=== PATIENT | female | born 1960 | race Caucasian/White ===

== ENCOUNTER 2018-10-01 11:17 | Emergency (ER) | payer MEDICARE, SELFPAY ==
[2018-10-01] VITALS (8 sets, daily range): BP systolic 119–155; BP diastolic 57–97; PULSE 66–80; RESP 16–20; TEMP 36.6; O2SAT 94–98; BMI 41.6
[2018-10-01 12:05] LABS: Absolute Lymphocyte Count 2.45 X10^3/ul (0.83-4.51); Absolute Neutrophil Count 6.7 X10^3/uL (2.0-7.7); Basophil# 0.08 X10^3/uL; Basophil% 0.8 % (0-1); Eosinophil# 0.26 X10^3/uL; Eosinophils% 2.6 % (0-5); Hematocrit 44.9 % (37-47); Lymphocyte # 2.45 X10^3/ul (4.0); Mean Corp Hgb Conc 33.4 g/gl (32-36); Mean Corpuscular Hgb 31.8 pg (27.0-32.0); Mean Corpuscular Volume 95.3 fL (81-99); Monocyte# 0.62 X10^3/uL; Monocyte% 6.1 % (0-10); Neutrophil # 6.73 X10^3/uL (2.7-7.7); Platelet Count 301 K/mm3 (150-450); RBC Distribution Width SD 48.8 fl (35.1-43.9); Red Blood Count 4.71 M/mm3 (4.2-5.4); White Blood Count 10.2 K/mm3 (4.4-11.0)
[2018-10-01 12:05] LABS: Bedside Glucose 134 mg/dL (70-110)
[2018-10-01 12:06] LABS: POSITIVE COUNT NO; POSITIVE DIFFERENTIAL NO; POSITIVE MORPHOLOGY NO
[2018-10-01 12:23] LABS: Anion Gap 4 (5-15); BUN 12 mg/dL (7-18); BUN/Creat Ratio 15.2 RATIO (10-20); Calcium,Total 8.6 mg/dL (8.5-10.1); Chloride 107 mmol/L (98-107); Creatinine, Serum 0.79 mg/dL (0.55-1.02); EST Glomerular Filtration Rate 79 mL/min (>60); Est Glom Filt Rate - Afr Amer 95 mL/min (>60); Estimated Creatinine Clearance 71.78 ml/min; Glucose 129 mg/dL (74-106); Potassium 3.8 mmol/L (3.5-5.1); Sodium Level 139 mmol/L (136-145); Thyroid Stim Hormone (TSH) 0.96 uIU/mL (0.358-3.74)
[2018-10-01 12:29] LABS: Color, Urine Yellow (Yellow); Glucose, Dipstick 50 mg/dl (Normal); Ketone-Dipstick 5 mg/dl (Negative); Leukocyte Esterase-Dipstick 25 /ul (Negative); Nitrite-Dipstick Negative (Negative); Occult Blood-Urine Negative /ul (Negative); Protein-Dipstick 30 mg/dl (Negative); Specific Gravity, Urine 1.025 (1.002-1.030); Urine Clarity Sl. Cloudy (Clear); Urine Urobilinogen 4 mg/dl (Normal)
[2018-10-01 12:32] LABS: Urine Bilirubin Dipstick 1 mg/dL (Negative)
[2018-10-01 12:34] LABS: Alcohol, Blood (Medical)-Serum < 3.0 mg/dL
[2018-10-01 12:39] LABS: Mucous, Urine 1+ /hpf (<or=2+); Red Blood Cells-Urine 0-5 SEEN /hpf (0-5); Squamous Epithelial Cells - UA 5-10 SEEN /hpf (5-10); White Blood Cells 0-5 SEEN /hpf (0-5)
[2018-10-01 12:40] LABS: Bacteria 3+ /hpf (None Seen)
[2018-10-01 13:01] LABS: Amphetamine Urine VISTA NEGATIVE (<1000 ng/mL); Barbiturate Urine VISTA NEGATIVE (< 200 ng/mL); Benzodiazepine Urine VISTA NEGATIVE (< 200 ng/mL); Cocaine Urine VISTA NEGATIVE (< 300 ng/mL); Ecstacy Urine VISTA NEGATIVE (< 500 ng/mL); Methadone Urine VISTA NEGATIVE (< 300 ng/mL); PCP Urine VISTA NEGATIVE (< 25 ng/mL); THC Urine VISTA POSITIVE (< 50 ng/mL); Vista UDS pH Range 5
--- NOTE | 2018-10-01 13:50 | ED.RN ---
CALLED CRISIS TO REQUEST PATIENT TO BE EVALUATED
--- NOTE | 2018-10-01 13:53 | ED.VISSUMM ---
- ER Visit Summary Date of Service: 10/01/18 Chief Complaint: Paranoia and auditory hallucinations History of Present Illness: The patient is a [address] Rodney alcocer. She does not see a psychiatrist or counselor. She reports that she has a history of bipolar with schizophrenic tendencies and had not seen a psychiatrist for approximately 10 years because she was doing well. However, family and the patient reports that she has been having auditory hallucinations for the past 2 weeks and has been very paranoid. Patient also reports that she feels as though she has had racing thoughts over the same timeframe. She denies any suicidal ideation. Physical Examination: Vitals: Stable. Afebrile. General: Well-nourished and well-developed. Head: Normocephalic atraumatic. Neck: Supple, no lymphadenopathy. No JVD. Nontender. Cardiovascular: Regular rate and rhythm. No murmurs. Respiratory: No respiratory distress. Clear to auscultation bilaterally. Abdominal: Soft, nontender, nondistended, normal bowel sounds. No guarding, rebound, or peritoneal signs. Back: Nontender. Extremities: Nontender, no edema. Skin: Normal color, no rash. Neurologic: Alert and oriented ?3. Cranial nerves II through XII are intact. Normal strength and sensation. Mental status exam: Patient appears their stated age. Good posture and grooming. Good eye contact. Normal rate, volume, and latency of speech. No suicidal or homicidal ideation. No visual hallucinations. Flow of thought is logical. Insight and judgment is poor. Test Results: CBC is normal. Chem-7 shows a glucose of 129. UA is negative. Tox screen shows marijuana. Alcohol level is negative. Emergency Department Course and Treatment: Patient is resting comfortably without complaint. Treatment Plan: Patient was discussed with the counseling center. They are in the process of getting her transferred to a psychiatric facility. Disposition: Pending Impression: 1. Bipolar disorder. 2. Auditory hallucinations. This note was generated with VeriFoneation software. It may contain incorrect words, spelling, and punctuation that were not noted in review of the chart prior to signing ED Disposition - Plan for ED Patient: Referrals: Deedee White PA [Primary Care Provider] -
--- NOTE | 2018-10-01 14:02 | ED.DCSUM_ITS ---
- ER Visit Summary Date of Service: 10/01/18 Chief Complaint: Paranoia and auditory hallucinations History of Present Illness: The patient is a [address] Rodney alcocer. She does not see a psychiatrist or counselor. She reports that she has a history of bipolar with schizophrenic tendencies and had not seen a psychiatrist for approximately 10 years because she was doing well. However, family and the patient reports that she has been having auditory hallucinations for the past 2 weeks and has been very paranoid. Patient also reports that she feels as though she has had racing thoughts over the same timeframe. She denies any suicidal ideation. Physical Examination: Vitals: Stable. Afebrile. General: Well-nourished and well-developed. Head: Normocephalic atraumatic. Neck: Supple, no lymphadenopathy. No JVD. Nontender. Cardiovascular: Regular rate and rhythm. No murmurs. Respiratory: No respiratory distress. Clear to auscultation bilaterally. Abdominal: Soft, nontender, nondistended, normal bowel sounds. No guarding, rebound, or peritoneal signs. Back: Nontender. Extremities: Nontender, no edema. Skin: Normal color, no rash. Neurologic: Alert and oriented ?3. Cranial nerves II through XII are intact. Normal strength and sensation. Mental status exam: Patient appears their stated age. Good posture and grooming. Good eye contact. Normal rate, volume, and latency of speech. No suicidal or homicidal ideation. No visual hallucinations. Flow of thought is logical. Insight and judgment is poor. Test Results: CBC is normal. Chem-7 shows a glucose of 129. UA is negative. Tox screen shows marijuana. Alcohol level is negative. Emergency Department Course and Treatment: Patient is resting comfortably without complaint. Treatment Plan: Patient was discussed with the counseling center. They are in the process of getting her transferred to a psychiatric facility. Disposition: Pending Impression: 1. Bipolar disorder. 2. Auditory hallucinations. This note was generated with enymotionation software. It may contain incorrect words, spelling, and punctuation that were not noted in review of the chart p rior to signing ED Disposition - Plan for ED Patient: Referrals: Deedee White PA [Primary Care Provider] -
[2018-10-01 16:06] LABS: Bedside Glucose 174 mg/dL (70-110)
[2018-10-01 17:56] LABS: Bedside Glucose 272 mg/dL (70-110)
--- NOTE | 2018-10-01 18:01 | NURSING ---
REPORT CALLED TO LISA AT [facility]
[2018-10-01 19:01] LABS: Bedside Glucose 318 mg/dL (70-110)
[2018-10-01] MEDS: Insulin Lispro 100 UNIT/ML INSULN.PEN 25 UNIT SC (19:02)
--- NOTE | 2018-10-01 20:51 | ED.RN ---
CALLED AND SPOKE WITH RN AT [facility] WHO STATES SHE DID NOT RECIEVE REPORT. THIS RN READ THE TRANSFER PAPERWORK AND NURSING NOTES AND INFORMED HER ELVIRA RN GAVE REPORT TO AND LISA RN AT THEIR FACILITY. THE NURSE AT [facility] STATES SHE WILL INVESTIGATE FURTHER. THIS RN GAVE REPORT BASED ON CARE AT THIS FACILITY THAT WAS CHARTED, MEDICATIONS GIVEN AND LABWORK
== END 2018-10-01 19:08 ==
LOC: ED 11:41
PROVIDERS: Emergency Provider Emergency Medicine; Family Provider Physician Assistant; PCP Physician Assistant
DX: F31.9 Bipolar disorder, unspecified (principal); R44.0 Auditory hallucinations; Z86.73 Personal history of transient ischemic attack (TIA), and cerebral infarction without residual deficits; E11.9 Type 2 diabetes mellitus without complications; Z79.4 Long term (current) use of insulin; F17.210 Nicotine dependence, cigarettes, uncomplicated
CPT/HCPCS: 36415; 80048; 80307; 80320; 81001; 82962; 84443; 85025; 99283; G0480

== ENCOUNTER 2018-10-15 20:18 | Emergency (ER) | payer MEDICARE, SELFPAY ==
[2018-10-01 11:18] VITALS: BMI 41.6
[2018-10-15 20:19] VITALS: BP 145/63; PULSE 80; RESP 20; TEMP 37.4; O2SAT 95; BMI 38.0
--- NOTE | 2018-10-15 20:33 | EKG12_ITS ---
Test Reason : CP Blood Pressure : / mmHG Vent. Rate : 077 BPM Atrial Rate : 077 BPM P-R Int : 154 ms QRS Dur : 082 ms QT Int : 362 ms P-R-T Axes : 055 037 022 degrees QTc Int : 409 ms Normal sinus rhythm with sinus arrhythmia Low voltage QRS Borderline ECG Confirmed by DALILA FELTON ([id number]), art editor TERESITA LANG ([id number]) on 10/18/2018 6:12:51 AM Referred By: TL Confirmed By:DALILA FELTON
--- NOTE | 2018-10-15 20:36 | ED.RN ---
NO OLD EKGS IN MUSE
--- NOTE | 2018-10-15 20:38 | ED.DCSUM_ITS ---
History of Present Illness Chief Complaint: Chest Pain Informant: Patient, Family Narrative: Patient presents with family with palpitations for the past 5 days. Admitted to [facility] for 8 days and discharged on new medications. States worsening symptoms since being on new medicines. 1 was Remeron. States gets lightheaded. history of atrial fibrillation on diltiazem and Xarelto. Denies missed doses. Last symptoms were 15 hours ago lasting 3 hours. No recent cough or vomiting or diarrhea. No dyspnea. Currently symptoms resolved. Prior similar symptoms: Yes Past Medical History - Allergies and Home Meds Allergies/Adverse Reactions: Allergies Penicillins Allergy (Mild, Verified 10/01/18 11:23) Rash Primary Care Physician: Deedee White PA [Primary Care Provider] - Smoking Status: Current every day smoker Review of Systems General: Denies: Chills, Fever, Sweats Eyes: Denies: Visual changes - bilaterally, Diplopia ENT: Denies: Rhinorrhea, Sore throat Cardiovascular: Reports: Palpitations, Heart racing. Denies: Chest pain Respiratory: Denies: Dyspnea, Cough, Dyspnea on exertion Gastrointestinal: Denies: Abdominal pain, Nausea, Vomiting, Diarrhea, Melena, Hematochezia Genitourinary: Denies: Dysuria, Hematuria, Frequency Musculoskeletal: Denies: Back pain, Extremity Pain Skin: Denies: Rash, Wounds Neurological: Denies: Headache, Weakness, Numbness Physical Exam Vital Signs/Narrative: Vital Signs Temp Pulse Resp BP Pulse Ox 10/15/18 20:19 99.3 F H 80 20 H 145/63 H 95 Inital Vital Signs reviewed: Yes General: Well nourished, Well developed, No Acute Distress Head: Normocephalic, Atraumatic Eyes: Perrl, EOMI ENT: Moist mucous membranes, No rhinorrhea Neck: Supple, Nontender Cardiovascular: Regular rate, Regular rhythm, No murmurs Respiratory: No distress, CTA bilaterally, Chest nontender Abdomen: Soft, Nontender, Nondistended, Normal bowel sounds Back: Nontender, Normal Inspection Extremities: Nontender, Edema, - - Minimal lower extremity edema. Skin: Normal color, No rash Neurological: Alert, Oriented x3, Cranial nerves II-XII grossly intact, Normal Strength, Normal Sensation Psychological: Normal affect, Normal Mood Diagnostic/Tx/Re-eval Chest X-Ray - ED: 2 View, Read by Radiologist, No Acute Disease Abnormal Lab Results 10/15/18 10/15/18 10/15/18 20:38 20:38 20:46 WBC 11.7 H RBC 4.25 Hgb 13.6 Hct 41.1 MCV 96.7 MCH 32.0 MCHC 33.1 RDW 14.6 RDW Differential 51.4 H Plt Count 296 MPV 9.7 Immature Gran % (Auto) 0.100 Neut % (Auto) 68.4 Lymph % (Auto) 22.5 [place] % (Auto) 5.8 Eos % (Auto) 2.8 Baso % (Auto) 0.4 Absolute Neuts (auto) 8.0 H Absolute Lymphs (auto) 2.62 Total Counted Not Reportable Sodium 143 Potassium 3.4 L Chloride 108 H Carbon Dioxide 28.0 Anion Gap 7 BUN 13 Creatinine 0.90 Estim Creat Clear Calc 67.89 Est GFR (MDRD) Af Amer 82 Est GFR (MDRD) Non-Af 68 BUN/Creatinine Ratio 14.5 Glucose 144 H Calcium 8.9 Troponin I < 0.015 POC Glucose 145 H - EKG Initial EKG Interpretation: Sinus Rhythm - Sinus rate of 77, no ST or T wave changes. - Medical Decision Making History reports palpitations lightheaded symptoms lasting 3 hours. There is no chest pains. Concerns cardiac in nature cardiac work-up was negative. EKG was sinus rhythm. With her history of A. fib, discussed is also possibility that she could have went to transient atrial fibrillation causing her symptoms. She will be placed on a Holter monitor for evaluation. She will follow-up with her social worker Dr. Leon as scheduled in the upcoming week. Signs and symptoms discussed return. All questions were answered. ED Disposition - Plan for ED Patient: Disposition: Home or Assisted Living Diagnosis: Palpitations Instructions: ED Palpitations Referrals: Deedee White PA [Primary Care Provider] - Donnie Leon MD [STAFF PHYSICIAN] - Keep Brayan appointment Additional Instructions: Wear your Holter monitor as ordered. Follow-up with Dr. Leon.
--- NOTE | 2018-10-15 20:49 | RAD_ITS ---
STUDY: X-RAY CHEST REASON FOR EXAM: Female, 58 years old. Chest pain, shortness of breath, and weakness TECHNIQUE: PA and lateral views of the chest. COMPARISON: None. FINDINGS: pool hall inspector leads are present. The lungs are clear and expanded. There is no demonstrated pleural abnormality. Normal size heart. Normal mediastinum and ericka. Normal visualized pulmonary arteries. There are calcified plaques of the aortic arch. There are diffuse degenerative changes of the visualized thoracic spine. Normal visualized ribs, clavicles, and shoulders. There is no demonstrated abnormality of the visualized soft tissue structures of the upper abdomen. RAD/Chest PA and Lateral IMPRESSION: Degenerative changes of the thoracic spine. Calcified plaques of the aortic arch. No acute cardiopulmonary disease process is seen. Electronically Signed: Brando Tello MD at 21:09 EDT , Service support ,
[2018-10-15 20:50] LABS: Bedside Glucose 145 mg/dL (70-110)
[2018-10-15 20:50] LABS: Absolute Lymphocyte Count 2.62 X10^3/ul (0.83-4.51); Basophil# 0.05 X10^3/uL; Basophil% 0.4 % (0-1); Eosinophil# 0.33 X10^3/uL; Eosinophils% 2.8 % (0-5); Hematocrit 41.1 % (37-47); Hemoglobin 13.6 g/dl (12.0-15.0); Lymphocyte # 2.62 X10^3/ul (4.0); Lymphocyte % 22.5 % (19-41); Mean Corp Hgb Conc 33.1 g/gl (32-36); Mean Corpuscular Volume 96.7 fL (81-99); Mean Platelet Vol. 9.7 fl (6.2-12.0); Monocyte# 0.68 X10^3/uL; Monocyte% 5.8 % (0-10); Neutrophil # 7.97 X10^3/uL (2.7-7.7); Neutrophil % 68.4 % (47-70); Platelet Count 296 K/mm3 (150-450); RBC Distribution Width CV 14.6 % (11.6-14.6); RBC Distribution Width SD 51.4 fl (35.1-43.9); Red Blood Count 4.25 M/mm3 (4.2-5.4); White Blood Count 11.7 K/mm3 (4.4-11.0)
[2018-10-15 20:52] LABS: POSITIVE COUNT NO; POSITIVE DIFFERENTIAL NO; POSITIVE MORPHOLOGY NO
[2018-10-15 21:07] LABS: Anion Gap 7 (5-15); BUN 13 mg/dL (7-18); BUN/Creat Ratio 14.5 RATIO (10-20); Calcium,Total 8.9 mg/dL (8.5-10.1); Chloride 108 mmol/L (98-107); EST Glomerular Filtration Rate 68 mL/min (>60); Est Glom Filt Rate - Afr Amer 82 mL/min (>60); Estimated Creatinine Clearance 67.89 ml/min; Glucose 144 mg/dL (74-106); Potassium 3.4 mmol/L (3.5-5.1); Sodium Level 143 mmol/L (136-145)
[2018-10-15 22:10] VITALS: BP 157/64; PULSE 77; RESP 18; O2SAT 97
== END 2018-10-15 22:13 | disposition home or self-care (01) ==
PROVIDERS: Emergency Provider Emergency Medicine; Family Provider Physician Assistant; PCP Physician Assistant
DX: R00.2 Palpitations (principal); I48.91 Unspecified atrial fibrillation; Z79.01 Long term (current) use of anticoagulants; Z79.899 Other long term (current) drug therapy; F17.200 Nicotine dependence, unspecified, uncomplicated
CPT/HCPCS: 71046; 80048; 82962; 84484; 85025; 93005; 99284; A4216

== ENCOUNTER 2018-10-23 11:11 | Emergency (ER) | payer MEDICARE, SELFPAY ==
[2018-10-23 11:12] VITALS: BP 160/73; PULSE 75; RESP 16; TEMP 36.9; O2SAT 94; BMI 40.2
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
[2018-10-23 12:20] VITALS: BP 138/79; PULSE 82; RESP 15; O2SAT 96
--- NOTE | 2018-10-23 13:07 | ED.RN ---
PT WAS AMBULATING AROUND THE ER LOOKING FOR HER DAUGHTER. WHEN SHE PROCEEDED TO START WALKING INTO THE HALLWAY OF THE HOSPITAL I EXPLAINED THAT SHE WAS NOT GOING TO FIND HER DAUGHTER THERE AND THAT I HAD NOT SEEN HER DAUGHTER. PT STATED HER DAUGHTER WAS EITHER WAITING FOR HER IN THE WAITING ROOM OR IN THE DRIVEWAY. ASSISTED PT TO WAITING ROOM AND HER DAUGHTER WAS NOT THERE. PT THE STATED SHE WOULD WAIT OUTSIDE FOR HER. PT WAS SEATED ON THE BENCH WAITING AND I OFFERED HER A WATER. PT AGREED. WHEN I RETURNED WITH THE WATER PT HAD AMBULATED DOWN THE ER RAMP TOWARDS [facility]. THROUGHOUT THIS PROCESS PT REFUSED TO STAY AND STATED SHE WAS READY TO GO HOME. UNABLE TO CONVINCE HER TO WAIT ANY LONGER FOR HER DAUGHTER TO RETURN.
--- NOTE | 2018-10-23 13:16 | ED.RN ---
TALKED WITH DAUGHTER LALA AND NOTIFIED HER OF PT LEAVING AND EXPLAINED THE CIRCUMSTANCES LEADING UP TO IT. LALA WAS GETTING AHOLD OF THE OTHER DAUGHTER THAT HAD BROUGHT HER UP.
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
== END 2018-10-23 13:00 | disposition home or self-care (01) ==
LOC: ED 11:51
PROVIDERS: Emergency Provider Emergency Medicine; Family Provider Physician Assistant; PCP Physician Assistant
DX: F43.21 Adjustment disorder with depressed mood (principal); F17.200 Nicotine dependence, unspecified, uncomplicated; Z88.0 Allergy status to penicillin; E11.9 Type 2 diabetes mellitus without complications; G47.33 Obstructive sleep apnea (adult) (pediatric); G35 Multiple sclerosis; Z86.718 Personal history of other venous thrombosis and embolism; E78.5 Hyperlipidemia, unspecified; I48.2 Chronic atrial fibrillation; J45.909 Unspecified asthma, uncomplicated; I25.10 Atherosclerotic heart disease of native coronary artery without angina pectoris
CPT/HCPCS: 99283

== ENCOUNTER 2018-10-23 14:14 | Emergency (ER) | payer MEDICARE, SELFPAY ==
[2018-10-23 11:12] VITALS: BMI 40.2
[2018-10-23 14:14] VITALS: BP 173/70; PULSE 85; RESP 20; TEMP 37.1; O2SAT 90; BMI 39.3
[2018-10-23 14:41] LABS: Bedside Glucose 182 mg/dL (70-110)
--- NOTE | 2018-10-23 14:48 | ED.VIS.GEN ---
History of Present Illness Chief Complaint: Suicidal Informant: Search Engine Optimization Manager Onset: Today Context: Sudden Onset Timing: - - Unable to determine since patient will not speak Quality: Recent left prior to license social media job titles evaluation. Location: Sobbing on front lawn of unknown person Current Severity: - - Unable to determine Maximum Severity: - - Unable to determine Worsened by: Based on prior conversation daughter who is presently in the room Relieved by: Nothing Associated Symptoms: Patient will not interact with environment Narrative: Patient is a middle-age woman who has known psychiatric disorder who was initially seen by her primary care physician. She was sent for evaluation. Patient behavior initially was appropriate. She left because she did not want to wait till 1 PM to be seen by the license social media job titles. She was found sobbing on someone's front yard. Squad picked her up. She initially was talking. Apparently the daughter that she dislikes and wishes not to live with it is in the room and she will not speak now. She turns her head left to right. She does have a startle response. Prior similar symptoms: Yes - Prior ER visit resulting in psychiatric admission Recent Illness/Hospitalization: Yes - Past Medical History (1) Adjustment disorder with depressed mood Status: Acute (2) A-fib Status: Chronic (3) Atherosclerotic heart disease of [place] coronary artery without angina pectoris Status: Chronic Comment: Calcification of LAD noted on chest CT done (for asthma) 09/07/2016 (4) Chronic asthma Status: Chronic (5) HLD (hyperlipidemia) Status: Chronic (6) History of DVT (deep vein thrombosis) Status: Chronic (7) Multiple sclerosis Status: Chronic (8) MONCHO (obstructive sleep apnea) Status: Chronic (9) Type 2 diabetes mellitus Status: Chronic Past Medical History - Allergies and Home Meds Allergies/Adverse Reactions: Allergies Penicillins Allergy (Mild, Verified 10/23/18 11:18) Rash Primary Care Physician: Deedee White PA [Primary Care Provider] - Prior records reviewed: Yes Surgical History: noncontributory Lives: With Family Smoking Status: Never smoker Review of Systems ROS: Unable to Obtain - Patient will not speak Physical Exam Vital Signs/Narrative: Vital Signs Temp Pulse Resp BP Pulse Ox 10/23/18 14:14 98.8 F 85 20 H 173/70 H 90 Inital Vital Signs reviewed: Yes General: Well nourished, Well developed, Obese, No Acute Distress Head: Normocephalic, Atraumatic Eyes: Perrl, EOMI. Negative for: Pale conjunctiva, Scleral icterus ENT: Negative for: Moist mucous membranes, No rhinorrhea Neck: Supple, Nontender, No lymphadenopathy, No JVD Cardiovascular: Regular rate, Regular rhythm, No murmurs, Normal S1, Normal S2 Respiratory: No distress, CTA bilaterally, Chest nontender Abdomen: Soft, Nontender, Nondistended, Normal bowel sounds, No masses Back: Normal Inspection Extremities: Nontender, No edema Skin: Normal color, No rash, No Trauma. Negative for: Cyanosis, Diaphoresis, Jaundice Neurological: - - He will not speak with her nurse or me. Unable to assess Psychological: - - Unable to assess Diagnostic/Tx/Re-eval Laboratory Results 10/23/18 10/23/18 10/23/18 14:34 15:30 15:30 WBC 15.9 H RBC 4.66 Hgb 14.7 Hct 44.4 MCV 95.3 MCH 31.5 MCHC 33.1 RDW 14.6 RDW Differential 48.1 H Plt Count 368 MPV 9.9 Immature Gran % (Auto) 0.400 Neut % (Auto) 83.3 H Lymph % (Auto) 10.1 L [place] % (Auto) 5.2 Eos % (Auto) 0.7 Baso % (Auto) 0.3 Absolute Neuts (auto) 13.2 H Absolute Lymphs (auto) 1.60 Total Counted Not Reportable Sodium 138 Potassium 4.0 Chloride 107 Carbon Dioxide 26.0 Anion Gap 5 BUN 17 Creatinine 0.80 Estim Creat Clear Calc 76.38 Est GFR (MDRD) Af Amer 95 Est GFR (MDRD) Non-Af 78 BUN/Creatinine Ratio 21.3 H Glucose 185 H Calcium 9.0 Ethyl Alcohol POC Glucose 182 H 10/23/18 15:30 WBC RBC Hgb Hct MCV MCH MCHC RDW RDW Differential Plt Count MPV Immature Gran % (Auto) Neut % (Auto) Lymph % (Auto) [place] % (Auto) Eos % (Auto) Baso % (Auto) Absolute Neuts (auto) Absolute Lymphs (auto) Total Counted Sodium Potassium Chloride Carbon Dioxide Anion Gap BUN Creatinine Estim Creat Clear Calc Est GFR (MDRD) Af Amer Est GFR (MDRD) Non-Af BUN/Creatinine Ratio Glucose Calcium Ethyl Alcohol < 3.0 POC Glucose - Medical Decision Making Patient with problems with dealing with stress and anxiety and living situation. Will await license social media job titles assessment to determine if patient will require admission. Will obtain a CBC BMP to assess H&H electrolytes. She presently has no prodrome to suggest ingestion. Patient was reassessed at 1605. She remains nonverbal. She continues to turn her head to the right and left. She will not interact with the environment. Once labs have returned we will have mental health see patient for disposition. ED Disposition - Plan for ED Patient: Diagnosis: Adjustment disorder, Depression Referrals: Deedee White PA [Primary Care Provider] -
--- NOTE | 2018-10-23 14:52 | ED.DCSUM_ITS ---
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 Location: Sobbing on front lawn of unknown person Current Severity: - - Unable to determine Maximum Severity: - - Unable to determine Worsened by: Based on prior conversation daughter who is presently in the room Relieved by: Nothing Associated Symptoms: Patient will not interact with environment Narrative: Patient is a middle-age woman who has known psychiatric disorder who was initially seen by her primary care physician. She was sent for evaluation. Patient behavior initially was appropriate. She left because she did not want to wait till 1 PM to be seen by the license social organization professor. She was found sobbing on someone's front yard. Squad picked her up. She initially was talking. Apparently the daughter that she dislikes and wishes not to live with it is in the room and she will not speak now. She turns her head left to right. She does have a startle response. Prior similar symptoms: Yes - Prior ER visit resulting in psychiatric admission Recent Illness/Hospitalization: Yes - Past Medical History (1) Adjustment disorder with depressed mood Status: Acute (2) A-fib Status: Chronic (3) Atherosclerotic heart disease of [place] coronary artery without angina pectoris Status: Chronic Comment: Calcification of LAD noted on chest CT done (for asthma) 09/07/2016 (4) Chronic asthma Status: Chronic (5) HLD (hyperlipidemia) Status: Chronic (6) History of DVT (deep vein thrombosis) Status: Chronic (7) Multiple sclerosis Status: Chronic (8) MONCHO (obstructive sleep apnea) Status: Chronic (9) Type 2 diabetes mellitus Status: Chronic Past Medical History - Allergies and Home Meds Allergies/Adverse Reactions: Allergies Penicillins Allergy (Mild, Verified 10/23/18 11:18) Rash Primary Care Physician: Deedee White PA [Primary Care Provider] - Prior records reviewed: Yes Surgical History: noncontributory Lives: With Family Smoking Status: Never smoker Review of Systems ROS: Unable to Obtain - Patient will not speak Physical Exam Vital Signs/Narrative: Vital Signs Temp Pulse Resp BP Pulse Ox 10/23/18 14:14 98.8 F 85 20 H 173/70 H 90 Inital Vital Signs reviewed: Yes General: Well nourished, Well developed, Obese, No Acute Distress Head: Normocephalic, Atraumatic Eyes: Perrl, EOMI. Negative for: Pale conjunctiva, Scleral icterus ENT: Negative for: Moist mucous membranes, No rhinorrhea Neck: Supple, Nontender, No lymphadenopathy, No JVD Cardiovascular: Regular rate, Regular rhythm, No murmurs, Normal S1, Normal S2 Respiratory: No distress, CTA bilaterally, Chest nontender Abdomen: Soft, Nontender, Nondistended, Normal bowel sounds, No masses Back: Normal Inspection Extremities: Nontender, No edema Skin: Normal color, No rash, No Trauma. Negative for: Cyanosis, Diaphoresis, Jaundice Neurological: - - He will not speak with her nurse or me. Unable to assess Psychological: - - Unable to assess Diagnostic/Tx/Re-eval Laboratory Results 10/23/18 10/23/18 10/23/18 14:34 15:30 15:30 WBC 15.9 H RBC 4.66 Hgb 14.7 Hct 44.4 MCV 95.3 MCH 31.5 MCHC 33.1 RDW 14.6 RDW Differential 48.1 H Plt Count 368 MPV 9.9 Immature Gran % (Auto) 0.400 Neut % (Auto) 83.3 H Lymph % (Auto) 10.1 L Grady % (Auto) 5.2 Eos % (Auto) 0.7 Baso % (Auto) 0.3 Absolute Neuts (auto) 13.2 H Absolute Lymphs (auto) 1.60 Total Counted Not Reportable Sodium 138 Potassium 4.0 Chloride 107 Carbon Dioxide 26.0 Anion Gap 5 BUN 17 Creatinine 0.80 Estim Creat Clear Calc 76.38 Est GFR (MDRD) Af Amer 95 Est GFR (MDRD) Non-Af 78 BUN/Creatinine Ratio 21.3 H Glucose 185 H Calcium 9.0 Ethyl Alcohol POC Glucose 182 H 10/23/18 15:30 WBC RBC Hgb Hct MCV MCH MCHC RDW RDW Differential Plt Count MPV Immature Gran % (Auto) Neut % (Auto) Lymph % (Auto) Grady % (Auto) Eos % (Auto) Baso % (Auto) Absolute Neuts (auto) Absolute Lymphs (auto) Total Counted Sodium Potassium Chloride Carbon Dioxide Anion Gap BUN Creatinine Estim Creat Clear Calc Est GFR (MDRD) Af Amer Est GFR (MDRD) Non-Af BUN/Creatinine Ratio Glucose Calcium Ethyl Alcohol < 3.0 POC Glucose - Medical Decision Making Patient with problems with dealing with stress and anxiety and living situation. Will await license social organization professor assessment to determine if patient will r equire admission. Will obtain a CBC BMP to assess H&H electrolytes. She presently has no prodrome to suggest ingestion. Patient was reassessed at 1605. She remains nonverbal. She continues to turn her head to the right and left. She will not interact with the environment. Once labs have returned we will have mental health see patient for disposition. ED Disposition - Plan for ED Patient: Diagnosis: Adjustment disorder, Depression Referrals: Deedee White PA [Primary Care Provider] -
--- NOTE | 2018-10-23 14:57 | CM.ED ---
Social Work Consult for suicidal ideations/attempt. Collaborating with nursing and Dr. Grant. Attempted to speak with patient in room. Patient shaking head back and forth with eyes closed and not responding verbally to nursing staff, physician or patient daughter. Attempted to speak with patient in room without any other staff present or patient daughter. Patient continues to shake head and keeping eyes closed. Will continue to follow as possible. Patient currently with 1:1 supervision due to suicidal attempt (attempting to choke self when entering ED). Eduarda Lutz, AERIAL TRAM OPERATOR, ZAIDA
[2018-10-23 15:46] LABS: Absolute Neutrophil Count 13.2 X10^3/uL (2.0-7.7); Basophil# 0.04 X10^3/uL; Basophil% 0.3 % (0-1); Eosinophil# 0.11 X10^3/uL; Eosinophils% 0.7 % (0-5); Hematocrit 44.4 % (37-47); Hemoglobin 14.7 g/dl (12.0-15.0); Lymphocyte % 10.1 % (19-41); Mean Corp Hgb Conc 33.1 g/gl (32-36); Mean Corpuscular Hgb 31.5 pg (27.0-32.0); Mean Corpuscular Volume 95.3 fL (81-99); Mean Platelet Vol. 9.9 fl (6.2-12.0); Monocyte# 0.82 X10^3/uL; Monocyte% 5.2 % (0-10); Neutrophil # 13.22 X10^3/uL (2.7-7.7); Neutrophil % 83.3 % (47-70); Platelet Count 368 K/mm3 (150-450); RBC Distribution Width CV 14.6 % (11.6-14.6); RBC Distribution Width SD 48.1 fl (35.1-43.9); Red Blood Count 4.66 M/mm3 (4.2-5.4); White Blood Count 15.9 K/mm3 (4.4-11.0)
[2018-10-23 15:52] LABS: POSITIVE COUNT NO; POSITIVE DIFFERENTIAL NO; POSITIVE MORPHOLOGY NO
[2018-10-23 15:58] LABS: Anion Gap 5 (5-15); BUN 17 mg/dL (7-18); BUN/Creat Ratio 21.3 RATIO (10-20); Chloride 107 mmol/L (98-107); EST Glomerular Filtration Rate 78 mL/min (>60); Est Glom Filt Rate - Afr Amer 95 mL/min (>60); Estimated Creatinine Clearance 76.38 ml/min; Glucose 185 mg/dL (74-106); Sodium Level 138 mmol/L (136-145)
[2018-10-23 16:19] LABS: Alcohol, Blood (Medical)-Serum < 3.0 mg/dL
--- NOTE | 2018-10-23 16:37 | CM.ED ---
Social Work Attempting to speak with patient again in room. Patient continues to be non-verbal with this licensed master social worker and others. Patient daughter, Joselyn present and patient is responding with more head nods with Joselyn but continues to be non-verbal. Joselyn reporting that patient was in an inpatient psychiatric facility two weeks ago and that patient has been doing well since discharge to the community until now. Patient open to drinking glass of water from Joselyn but continues to have no verbal response. Patient appearing to become agitated when Joselyn was talking further about patient mental health and living situation. This licensed master social worker discontinued questioning at this time. This licensed master social worker collaborating with Dr. Grant. Dr. Grant initiating referral to crisis at this time. Eduarda Lutz KNOCKER OUT, ZAIDA
[2018-10-23] MEDS: Ibuprofen 200 MG Tablet 400 MG PO (19:42)
[2018-10-23] MEDS: Ziprasidone IM 20 MG/ML VIAL IM (19:43)
--- NOTE | 2018-10-23 20:09 | ED.RN ---
BRANDON FROM [facility] IS IN THE DEPARTMENT. SHE IS EVALUATING THIS PT.
[2018-10-23 20:32] VITALS: RESP 14
[2018-10-23 20:52] LABS: Amphetamine Urine VISTA NEGATIVE (<1000 ng/mL); Barbiturate Urine VISTA NEGATIVE (< 200 ng/mL); Benzodiazepine Urine VISTA NEGATIVE (< 200 ng/mL); Cocaine Urine VISTA NEGATIVE (< 300 ng/mL); Ecstacy Urine VISTA NEGATIVE (< 500 ng/mL); Methadone Urine VISTA NEGATIVE (< 300 ng/mL); PCP Urine VISTA NEGATIVE (< 25 ng/mL); THC Urine VISTA NEGATIVE (< 50 ng/mL); Vista UDS pH Range 5
[2018-10-23 23:00] VITALS: BP 128/60; PULSE 71; RESP 19; O2SAT 95
[2018-10-23 23:55] LABS: Red Blood Cells-Urine 0 SEEN /hpf (0-5); White Blood Cells 0 SEEN /hpf (0-5)
[2018-10-23 23:56] LABS: Color, Urine Yellow (Yellow); Glucose, Dipstick Normal (Normal); Ketone-Dipstick 50 mg/dl (Negative); Leukocyte Esterase-Dipstick Negative /ul (Negative); Nitrite-Dipstick Negative (Negative); Occult Blood-Urine Negative /ul (Negative); Protein-Dipstick 30 mg/dl (Negative); Specific Gravity, Urine 1.015 (1.002-1.030); Urine Bilirubin Dipstick Negative (Negative); Urine Clarity Clear (Clear); Urine Urobilinogen Normal (Normal)
[2018-10-24] VITALS (8 sets, daily range): BP systolic 114–153; BP diastolic 45–70; PULSE 57–75; RESP 14–20; TEMP 36.5; O2SAT 92–96
[2018-10-24 00:04] LABS: Bacteria RARE /hpf (None Seen); Mucous, Urine RARE /hpf (<or=2+); Squamous Epithelial Cells - UA 0-5 SEEN /hpf (5-10)
[2018-10-24 01:11] LABS: Bedside Glucose 254 mg/dL (70-110)
--- NOTE | 2018-10-24 07:11 | ED.RN ---
EMILEE BOYER WITH [facility]ISIS; SHE HAS FOUND THE PAPERWORK FOR THE PT; PT HAS BEEN REFERRED TO [facility]
--- NOTE | 2018-10-24 07:25 | ED.RN ---
PER MERLIN WITH CRISIS; [facility] WANTS THE [facility] FAXED TO THEM THEY DID NOT RECEIVE IT
[2018-10-24 09:16] LABS: Bedside Glucose 359 mg/dL (70-110)
[2018-10-24] MEDS: Clindamycin HCl 150 MG Capsule PO (09:53)
[2018-10-24] MEDS: Insulin Lispro 100 UNIT/ML INSULN.PEN 25 UNIT SC ×2 (09:53→11:50)
[2018-10-24] MEDS: DULoxetine Hcl 60 MG Capsule PO (11:50)
[2018-10-24 12:00] LABS: Bedside Glucose 253 mg/dL (70-110)
== END 2018-10-24 12:47 ==
PROVIDERS: Emergency Medicine; Emergency Provider Emergency Medicine; Family Provider Physician Assistant; PCP Physician Assistant
DX: F43.21 Adjustment disorder with depressed mood (principal); E11.9 Type 2 diabetes mellitus without complications; G47.33 Obstructive sleep apnea (adult) (pediatric); G35 Multiple sclerosis; E78.5 Hyperlipidemia, unspecified; J45.909 Unspecified asthma, uncomplicated; I25.10 Atherosclerotic heart disease of native coronary artery without angina pectoris; I48.91 Unspecified atrial fibrillation; Z88.0 Allergy status to penicillin; Z86.718 Personal history of other venous thrombosis and embolism
CPT/HCPCS: 36415; 80048; 80307; 80320; 81001; 82962; 85025; 96372; 99283; 99285; G0480; J3486

== ENCOUNTER → 2020-02-03 | Outpatient (CLI) | payer MEDICARE, MEDICAID, SELFPAY ==
[2020-02-03 16:19] VITALS: BMI 39.5
[2020-02-03 18:33] LABS: Microalbumin,Random Urine 44.4 mg/L (NO RANGE EST.); Microalbumin:Creatinine Ratio 48.5 mg/g CRE (<30 mg/g CRE)
[2020-02-03 18:35] LABS: ALB/GLOB Ratio 0.8 RATIO (0.9-2.4); AST(SGOT) 11 U/L (15-37); Alanine Aminotransfer ALT/SGPT 19 U/L (13-56); Albumin, Serum 3.5 g/dL (3.2-5.0); Alkaline Phosphatase 142 U/L (45-117); Anion Gap 7 (5-15); BUN 15 mg/dL (7-18); BUN/Creat Ratio 17.1 RATIO (10-20); Chloride 102 mmol/L (98-107); Cholesterol 135 mg/dL (200); Creatinine, Serum 0.88 mg/dL (0.55-1.02); EST Glomerular Filtration Rate 70 mL/min (>60); Est Glom Filt Rate - Afr Amer 84 mL/min (>60); Globulin 4.4 g/dL (2.2-4.2); Glucose 217 mg/dL (74-106); High Density Lipoprotein 79 mg/dL; Potassium 4.3 mmol/L (3.5-5.1); Protein, Total 7.9 g/dL (6.4-8.2); Sodium Level 140 mmol/L (136-145); Triglycerides 103 mg/dL; Very Low Density Lipoprotein 21 mg/dL (5-40)
[2020-02-03 18:37] LABS: Vitamin D,25 Hydroxy 44.8 ng/mL
== END | disposition home or self-care (01) ==
PROVIDERS: PCP Family Medicine; Referring Provider Internal Medicine Endocrinology, Diabetes & Metabolism; Visit Provider Internal Medicine Endocrinology, Diabetes & Metabolism
DX: E11.9 Type 2 diabetes mellitus without complications (principal); E55.9 Vitamin D deficiency, unspecified; E78.2 Mixed hyperlipidemia
CPT/HCPCS: 36415; 80053; 80061; 82043; 82306; 82570

== ENCOUNTER → 2021-04-04 13:02 | Outpatient (CLI) | payer MEDICARE, MEDICAID, SELFPAY ==
--- NOTE | 2021-04-04 13:03 | MRI_ITS ---
STUDY: MRI BRAIN WITH AND WITHOUT CONTRAST REASON FOR EXAM: Female, 61 years old. Tardive dyskinesia - TECHNIQUE: Standardized multiplanar fat and water weighted pulse sequences were obtained. 23CC IV DOTAREM was administered for the contrast portion of the examination. COMPARISON: None. FINDINGS: There is mild cerebral atrophy with widening of the extra-axial spaces and ventricular dilatation. There are multiple white matter hyperintensities, distributed throughout the deep white matter tracts of the cerebral hemispheres, consistent with moderate chronic white matter ischemic changes. There is prominent periventricular hyperintensity with volume loss and ex vacuo dilatation of the lateral ventricle/atrium, consistent with prior insult(s). Normal bilateral basal ganglia. Normal thalami. There is no extra-axial fluid accumulation. There is no enhancing intra-axial or extra-axial abnormality. Normal sella turcica, pituitary gland, infundibular stalk, optic chiasm and hypothalamus. Normal tectal plate and pineal gland. Normal midbrain, jolene and medulla. Normal cerebellum. MRI/Brain W/WO Contrast IMPRESSION: No acute intracranial abnormality or masses. Left periventricular encephalomalacia, likely secondary to prior infarcts. Electronically Signed: Pierre Hampton MD at 11:37 EST Tel , Service support ,
[2021-04-04 13:26] LABS: EGFR FINGERSTICK > 60.0000 mL/min (>60)
== END ==
PROVIDERS: PCP Family Medicine; Referring Provider Psychiatry & Neurology Neurology; Visit Provider Psychiatry & Neurology Neurology
DX: G24.01 Drug induced subacute dyskinesia (principal); Z86.73 Personal history of transient ischemic attack (TIA), and cerebral infarction without residual deficits
CPT/HCPCS: 70553; A9575

== ENCOUNTER 2022-04-28 10:22 | Inpatient (IN) | payer MEDICARE, MEDICAID, SELFPAY ==
[2022-04-28] VITALS (11 sets, daily range): BP systolic 97–126; BP diastolic 52–80; PULSE 62–98; RESP 17–18; TEMP 36.4–37.9; O2SAT 87–98; BMI 43.2; BMI 41.1
--- NOTE | 2022-04-28 10:41 | EKG12_ITS ---
Test Reason : SOB Blood Pressure : / mmHG Vent. Rate : 094 BPM Atrial Rate : 094 BPM P-R Int : 144 ms QRS Dur : 082 ms QT Int : 316 ms P-R-T Axes : 069 021 034 degrees QTc Int : 395 ms Normal sinus rhythm Normal ECG Confirmed by LILIYA ROLDAN MD ([id number]), multimedia editor INO BOWERS ([id number]) on 05/01/2022 1:01:37 PM Referred By: JOE Confirmed By:LILIYA ROLDAN MD
--- NOTE | 2022-04-28 10:41 | RAD_ITS ---
STUDY: X-RAY CHEST REASON FOR EXAM: Female, 62 years old. Cough, shortness of breath and fever. TECHNIQUE: Single AP portable view of the chest. COMPARISON: Comparison is made to prior study of 10/15/2018. FINDINGS: EKG electrodes are seen. The lungs are clear and expanded. There is no demonstrated pleural abnormality. Normal size heart. Normal mediastinum and ericka. Normal visualized pulmonary arteries. Normal visualized aortic arch and descending thoracic aorta. There are degenerative changes of the visualized thoracic spine. Prior cervical fusion. There is no demonstrated abnormality of the visualized soft tissue structures of the upper abdomen. RAD/Chest 1 View (Portable) IMPRESSION: Normal x-ray examination of the chest. Electronically Signed: Mikey Pace MD at 11:37 EST ,
--- NOTE | 2022-04-28 10:46 | EDS_ITS ---
HPI History of Present Illness Chief Complaint: Shortness of Breath Narrative Narrative: 62-year-old female presenting with fever, chills, body aches, nausea, generalized weakness. Apparently she was exposed to a home care worker who had tested positive for influenza A. She has been sick for 2 days. She is not vomiting but she does have decreased p.o. intake secondary to nausea. Family thought she was doing okay but this morning seemed a little bit foggy and lethargic. They also state her fever got as high as 104 ?F. They have been alternating Tylenol and ibuprofen but do admit that overnight they did not continue this. Patient does not have any chest pain but she does feel short of breath. She does have history of asthma. She is anticoagulated on Xarelto and she has history of atrial fibrillation and DVT. [facility] Medical History A-fib Arthritis Atherosclerotic heart disease of [place] coronary artery without angina pectoris Bipolar disorder Chronic asthma Contracture of muscle of right lower leg COPD (chronic obstructive pulmonary disease) CVA (cerebral vascular accident) Depression History of DVT (deep vein thrombosis) History of schizophrenia HLD (hyperlipidemia) Hypoglycemia unawareness associated with type 2 diabetes mellitus Multiple sclerosis Neuropathic pain Obesity MONCHO (obstructive sleep apnea) Paroxysmal atrial fibrillation Personal history of stroke with residual effects Psychophysiologic insomnia PTSD (post-traumatic stress disorder) Suicidal ideation (10/23/18) Tardive dyskinesia Tobacco abuse Type 2 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 Type 2 diabetes mellitus with unspecified diabetic retinopathy without macular edema Urinary incontinence in female Vaginal candidiasis Vitamin D deficiency Home Medications zolpidem 10 mg tablet (Ambien) 10 mg PO QHS 03/30/20 [History Last Taken 04/27/22] blood-glucose meter (Accu-Chek Guide Glucose Meter) #1 ea 02/22/21 [Rx Last Taken Unknown] blood sugar diagnostic (Accu-Chek Guide test strips) #100 ea 02/23/21 [Rx Last Taken Unknown] lancets (Accu-Chek Multiclix Lancet) #100 ea 02/23/21 [Rx Last Taken Unknown] brexpiprazole 1 mg tablet 1 mg PO DAILY 03/07/21 [History Last Taken 04/27/22] duloxetine 60 mg capsule,delayed release 60 mg PO DAILY 03/07/21 [History Last Taken 04/27/22] BD Ultra-Fine Mari Pen Needle 32 gauge x 5/32 (pen needle, diabetic) #120 ea 03/16/21 [Rx Last Taken Unknown] deutetrabenazine 12 mg tablet 24 mg PO BID 07/25/21 [History Last Taken 04/27] diltiazem HCl 180 mg capsule,24 hr,extended release 180 mg PO QDAY #90 caps 07/25/21 [Rx Last Taken 04/27/22] lisinopril 20 mg tablet 20 mg PO DAILY #90 tabs 07/25/21 [Rx Last Taken 04/27/22] rivaroxaban 20 mg tablet 20 mg PO QPM #90 tabs 07/25/21 [Rx Last Taken 04/27/22] Lantus Solostar U-100 Insulin 100 unit/mL (3 mL) subcutaneous pen (insulin glargine) 40 unit (0.4 mL) subcut QPM #36 mL 02/16/22 [Rx Last Taken 04/27/22] pen needle, diabetic 33 gauge x 5/32 (Comfort EZ Pen Arrington) #400 ea 02/16/22 [Rx Last Taken Unknown] insulin lispro 100 unit/mL subcutaneous pen (Humalog KwikPen (U-100) Insulin) 34 unit (0.34 mL) subcut TID #30 mL 02/22/22 [Rx Last Taken 04/27/22] rosuvastatin 20 mg tablet 20 mg PO DAILY #90 tabs 03/16/22 [Rx Last Taken 04/27/22] benztropine 1 mg tablet 1 mg PO BID #60 tabs 04/20/22 [Rx Last Taken 04/27/22] oxybutynin chloride 10 mg tablet,extended release 24 hr 10 mg PO DAILY BLADDER 04/28/22 [History Last Taken 04/27/22] Allergy/AdvReac Type Severity Reaction Status Date / Time mirtazapine [From Remeron] Allergy Intermediate agitation Verified 04/28/22 10:27 Penicillins Allergy Mild Rash Verified 04/28/22 10:27 Family History Mother Diabetes Heart disease Lung cancer CAD (coronary artery disease) CABG CVA (cerebral vascular accident) Daughter Diabetes Father Myocardial infarction Surgical History H/O bilateral cataract extraction History of back surgery Social History Smoking Status: Current every day smoker tobacco type: cigarettes Tobacco: How many years used: 35 Electronic Cigarette Use: not used how long ago did patient quit smoking: about 3 years ago second hand exposure: No alcohol intake: never substance use type: former substance user Date of last use: Used Marijuana in the past caffeine: Yes Type: coffee Number of servings: 1 delmy/adventism: Taoism seatbelt use: sometimes ROS ROS ED Constitutional Constitutional ED: Reports chills and fever(s) Eyes Eyes: Denies change in vision or diplopia ENT ENT ED: Reports sore throat; Denies rhinorrhea Cardiovascular Cardiovascular: Denies chest pain Respiratory/Chest Respiratory/Chest: Reports cough, dyspnea and dyspnea on exertion Gastrointestinal Gastrointestinal: Reports nausea; Denies abdominal pain or vomiting Genitourinary Genitourinary ED: Denies dysuria or hematuria Integumentary Denies Abrasions Neurologic Neurologic: Denies headache(s) or paresthesias Psychiatric Psychiatric: Denies anxiety or depression Endocrine Endocrinology: Denies cold intolerance or heat intolerance EXAM Physical Exam Const Vital Signs: 04/28/22 10:23 04/28/22 10:32 04/28/22 10:44 Temperature 100.2 F H 100.2 F H Temperature Source Temporal Temporal Pulse Rate 97 98 Respiratory Rate 17 18 Respiratory Effort Respiratory Depth Respiratory Pattern Blood Pressure 97/80 97/80 Blood Pressure Mean 85 85 Pulse Ox 95 93 Oxygen Delivery Method Room Air Nasal Cannula Nasal Cannula Oxygen Flow Rate (L/min) 4 04/28/22 11:04 04/28/22 10:41 04/28/22 12:22 Temperature Temperature Source Pulse Rate Respiratory Rate Respiratory Effort Short of Breath Labored Respiratory Depth Normal Respiratory Pattern Tachypnea Blood Pressure Blood Pressure Mean Pulse Ox 87 Oxygen Delivery Method Nasal Cannula Nasal Cannula Room Air Oxygen Flow Rate (L/min) 2 Positive well nourished and obese General Appearance ED: NAD; Negative for pallor Nutritional Appearance: obese HEENT Reports dry mucous membranes atraumatic Mouth ED: Yes dry mucous membranes Mouth: dry mucous membranes Eyes PERRL and EOMs intact bilaterally Neck no lymphadenopathy, supple and no meningeal signs Resp normal respiratory effort and clear to auscultation bilaterally Cardio regular rate and regular rhythm GI non-tender Back/Spine no CVA tenderness and normal to inspection Neuro oriented x3 and CN's II-XII intact bilaterally Sensorium / Orientation: alert, oriented to person and oriented to place Psych mental status grossly normal Skin no wounds and skin turgor normal General Skin Exam: Negative for jaundice or pallor MDM MDM MDM Narrative Medical decision making narrative: Patient presenting with generalized weakness and hypoxia. She does drop to 87% on room air without oxygen. She does not typically require oxygen. On examination she is not wheezing and her lungs are clear. I obtained an EKG which on my interpretation shows normal sinus rhythm with a ventricular rate of 94 bpm without signs of ischemic change or dysrhythmia. CBC shows a normal white blood count at 10.7. Hemoglobin stable at 14.1, platelets 222. Patient's BUN/creatinine are normal. Electrolytes unremarkable. Glucose is elevated at 182 without anion gap. Lactic acid within normal limits. Her enzymes are normal. Chest x-ray on my interpretation shows no acute cardiopulmonary process and radiologist agree. Rapid COVID and rapid influenza were negative. Patient is anticoagulated on Xarelto and therefore I have low clinical suspicion for PE. Since patient is hypoxic and unable to ambulate I think she would benefit from an inpatient care. Will discuss with the hospitalist. Impression: 1. Febrile illness 2. Hypoxic respiratory failure 3. Hyperglycemia Lab Data Attestation: I reviewed the patient's lab results. Labs: Laboratory Results - last 24 hr 04/28/22 04/28/22 04/28/22 10:30 10:30 10:30 WBC 10.7 RBC 4.59 Hgb 14.1 Hct 43.7 MCV 95.2 MCH 30.7 MCHC 32.3 RDW Std Deviation 49.2 H RDW Coeff of Elias 14.1 Plt Count 222 MPV 10.1 Immature Gran % (Auto) 0.400 Neut % (Auto) 81.9 H Lymph % (Auto) 9.0 L [place] % (Auto) 8.1 Eos % (Auto) 0.1 Baso % (Auto) 0.5 Absolute Neuts (auto) 8.8 H Absolute Lymphs (auto) 0.96 Nucleated RBC % 0 PT 18.6 H INR 1.6 APTT 42.2 H Sodium 134 L Potassium 3.9 Chloride 101 Carbon Dioxide 26.0 Anion Gap 7 BUN 18 Creatinine 0.86 Estim Creat Clear Calc 62.68 Est GFR (MDRD) Af Amer 86 Est GFR (MDRD) Non-Af 71 BUN/Creatinine Ratio 21.0 H Glucose 182 H Lactic Acid Calcium 7.9 L Total Bilirubin 0.40 AST 16 ALT 19 Alkaline Phosphatase 68 Troponin I High Sens 14 Total Protein 7.2 Albumin 3.1 L Globulin 4.1 Albumin/Globulin Ratio 0.8 L 04/28/22 11:20 WBC RBC Hgb Hct MCV MCH MCHC RDW Std Deviation RDW Coeff of Elias Plt Count MPV Immature Gran % (Auto) Neut % (Auto) Lymph % (Auto) [place] % (Auto) Eos % (Auto) Baso % (Auto) Absolute Neuts (auto) Absolute Lymphs (auto) Nucleated RBC % PT INR APTT Sodium Potassium Chloride Carbon Dioxide Anion Gap BUN Creatinine Estim Creat Clear Calc Est GFR (MDRD) Af Amer Est GFR (MDRD) Non-Af BUN/Creatinine Ratio Glucose Lactic Acid 0.7 Calcium Total Bilirubin AST ALT Alkaline Phosphatase Troponin I High Sens Total Protein Albumin Globulin Albumin/Globulin Ratio Radiography Diagnostic Testing: Clinical Impression(s) from Imaging Studies Chest X-Ray 04/28/22 10:41 IMPRESSION: Normal x-ray examination of the chest. Electronically Signed: Mikey Pace MD at 11:37 EST , Discharge Plan Triage Chief Complaint: Shortness of Breath ED Provider: Dario Gutiérrez Dx/Rx/DC Orders Prescriptions: No Action diltiazem HCl 180 mg capsule,extended release 24 hr 180 mg PO QDAY Qty: 90 3RF zolpidem [Ambien] 10 mg tablet 10 mg PO QHS duloxetine 60 mg capsule,delayed release(DR/EC) 60 mg PO DAILY deutetrabenazine 12 mg tablet 24 mg PO BID Rexulti 1 mg tablet 1 mg PO DAILY Lantus Solostar U-100 Insulin 100 unit/mL (3 mL) insulin pen 40 unit subcut QPM Qty: 36 3RF (DME) Comfort EZ Pen Arrington 33 gauge x 5/32 needle See Rx Instructions .ROUTE .MEDSUPPLY Qty: 400 3RF Rx Instructions: 4 times daily benztropine 1 mg tablet 1 mg PO BID Qty: 60 5RF oxybutynin chloride 10 mg tablet extended release 24hr 10 mg PO DAILY (DME) blood-glucose meter [Accu-Chek Guide Glucose Meter] Misc See Rx Instructions .ROUTE .MEDSUPPLY Qty: 1 0RF Rx Instructions: As directed (DME) Accu-Chek Guide test strips Strip See Rx Instructions .ROUTE .MEDSUPPLY Qty: 100 12RF Rx Instructions: TID (DME) lancets [Accu-Chek Multiclix Lancet] Misc See Rx Instructions .ROUTE .MEDSUPPLY Qty: 100 12RF Rx Instructions: TID (DME) pen needle, diabetic [BD Ultra-Fine Mari Pen Needle] 32 gauge x needle See Rx Instructions .ROUTE .MEDSUPPLY Qty: 120 6RF Rx Instructions: 4 times daily rivaroxaban 20 mg tablet 20 mg PO QPM Qty: 90 3RF Rx Instructions: ON HOLD FOR BIOPSY FOR Sunday05/01/22 lisinopril 20 mg tablet 20 mg PO DAILY Qty: 90 3RF insulin lispro [Humalog KwikPen Insulin] 100 unit/mL insulin pen 34 unit SC TID Qty: 30 3RF rosuvastatin 20 mg tablet 20 mg PO DAILY Qty: 90 1RF Primary Care Provider: Jered Howard Referrals: Jered Howard MD [Primary Care Provider] -
[2022-04-28 11:09] LABS: Absolute Lymphocyte Count 0.96 X10^3/uL (0.83-4.51); Absolute Neutrophil Count 8.8 X10^3/uL (2.0-7.7); Basophil# 0.05 X10^3/uL; Basophil% 0.5 % (0-1); Eosinophil# 0.01 X10^3/uL; Eosinophils% 0.1 % (0-5); Hematocrit 43.7 % (37-47); Hemoglobin 14.1 g/dL (12.0-15.0); Lymphocyte # 0.96 X10^3/ul (0.83-4.51); Mean Corp Hgb Conc 32.3 g/dL (32-36); Mean Corpuscular Hgb 30.7 pg (27.0-32.0); Mean Corpuscular Volume 95.2 fL (81-99); Mean Platelet Vol. 10.1 fl (6.2-12.0); Monocyte# 0.87 X10^3/uL; Monocyte% 8.1 % (0-10); NRBC Flagged by Analyzer 0 % (0-5); Neutrophil # 8.75 X10^3/uL (2.7-7.7); Neutrophil % 81.9 % (47-70); Platelet Count 222 K/mm3 (150-450); RBC Distribution Width CV 14.1 % (11.6-14.6); RBC Distribution Width SD 49.2 fl (35.1-43.9); Red Blood Count 4.59 M/mm3 (4.2-5.4); White Blood Count 10.7 K/mm3 (4.4-11.0)
[2022-04-28 11:18] LABS: International Normalized Ratio 1.6; Prothrombin Time (Protime)PT. 18.6 SECONDS (11.7-14.9)
[2022-04-28 11:19] LABS: Partial Thromboplast Time 42.2 Seconds (24.1-36.2)
[2022-04-28] MEDS: Ondansetron 4 MG/2 ML Vial IV (11:20)
[2022-04-28 11:24] LABS: ALB/GLOB Ratio 0.8 RATIO (0.9-2.4); AST(SGOT) 16 U/L (15-37); Alanine Aminotransfer ALT/SGPT 19 U/L (13-56); Albumin, Serum 3.1 g/dL (3.2-5.0); Alkaline Phosphatase 68 U/L (45-117); Anion Gap 7 (5-15); BUN 18 mg/dL (7-18); Calcium,Total 7.9 mg/dL (8.5-10.1); Chloride 101 mmol/L (98-107); Creatinine, Serum 0.86 mg/dL (0.55-1.02); EST Glomerular Filtration Rate 71 mL/min (>60); Est Glom Filt Rate - Afr Amer 86 mL/min (>60); Estimated Creatinine Clearance 62.68 ml/min; Globulin 4.1 g/dL (2.2-4.2); Glucose 182 mg/dL (74-106); Potassium 3.9 mmol/L (3.5-5.1); Protein, Total 7.2 g/dL (6.4-8.2); Sodium Level 134 mmol/L (136-145); Troponin-I HS 14 pg/mL (3.0-54.0)
[2022-04-28 11:59] LABS: Lactic Acid 0.7 mmol/L (0.4-1.9)
--- NOTE | 2022-04-28 13:32 | ED.RN ---
O2 REMOVED AND PT O2 SATS DECREASE TO 87% ON ROOM AIR AFTER 2 MIN
--- NOTE | 2022-04-28 13:44 | PCM.HP.STD ---
HPI - General General Date of Admission: 04/28/22 Date of Service: 04/28/22 Chief Complaint: shortness of breath, weakness HPI Narrative BELLO BENITO, is a 62 F with a PMH as outlined who presents via the ED with a complaint of fever, chills, nausea and generalised weakness. Her symptoms had been going on for about 2 days. She was exposed to a co worker who had tested positive for influenza. She was also febrile at home with her temperature going up to 104F. She was quite weak and could barely ambulate at home. She took some tylenol and ibuprofen at home but still felt unwell. Her symptoms didnt improve so she came in to the ED. Vitals in the ED were temp of 100.2F, BP of 97/80 and she was saturating at 87% on room air. CBC was unremarkable. BMP showed sodium of 134 but was otherwise unremarkable. INR is 1.6. Rapid flu and covid tests were negative. CXR showed no acute cardiopulmonary activity. She is being admitted to be managed for debility and weakness due to presumed influenza infection. FOR[facility]LY [facility] Medical History A-fib Arthritis Atherosclerotic heart disease of [place] coronary artery without angina pectoris Bipolar disorder Chronic asthma Contracture of muscle of right lower leg COPD (chronic obstructive pulmonary disease) CVA (cerebral vascular accident) Depression History of DVT (deep vein thrombosis) History of schizophrenia HLD (hyperlipidemia) Hypoglycemia unawareness associated with type 2 diabetes mellitus Multiple sclerosis Neuropathic pain Obesity MONCHO (obstructive sleep apnea) Paroxysmal atrial fibrillation Personal history of stroke with residual effects Psychophysiologic insomnia PTSD (post-traumatic stress disorder) Suicidal ideation (10/23/18) Tardive dyskinesia Tobacco abuse Type 2 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 Type 2 diabetes mellitus with unspecified diabetic retinopathy without macular edema Urinary incontinence in female Vaginal candidiasis Vitamin D deficiency Home Medications zolpidem 10 mg tablet (Ambien) 10 mg PO QHS 03/30/20 [History Last Taken 04/27/22] blood-glucose meter (Accu-Chek Guide Glucose Meter) #1 ea 02/22/21 [Rx Last Taken Unknown] blood sugar diagnostic (Accu-Chek Guide test strips) #100 ea 02/23/21 [Rx Last Taken Unknown] lancets (Accu-Chek Multiclix Lancet) #100 ea 02/23/21 [Rx Last Taken Unknown] brexpiprazole 1 mg tablet 1 mg PO DAILY 03/07/21 [History Last Taken 04/27/22] duloxetine 60 mg capsule,delayed release 60 mg PO DAILY 03/07/21 [History Last Taken 04/27/22] BD Ultra-Fine Mari Pen Needle 32 gauge x 5/32 (pen needle, diabetic) #120 ea 03/16/21 [Rx Last Taken Unknown] deutetrabenazine 12 mg tablet 24 mg PO BID 07/25/21 [History Last Taken 04/27/22] diltiazem HCl 180 mg capsule,24 hr,extended release 180 mg PO QDAY #90 caps 07/25/21 [Rx Last Taken 04/27/22] lisinopril 20 mg tablet 20 mg PO DAILY #90 tabs 07/25/21 [Rx Last Taken 04/27/22] rivaroxaban 20 mg tablet 20 mg PO QPM #90 tabs 07/25/21 [Rx Last Taken 04/27/22] Lantus Solostar U-100 Insulin 100 unit/mL (3 mL) subcutaneous pen (insulin glargine) 40 unit (0.4 mL) subcut QPM #36 mL 02/16/22 [Rx Last Taken 04/27/22] pen needle, diabetic 33 gauge x 5/32 (Comfort EZ Pen [place]) #400 ea 02/16/22 [Rx Last Taken Unknown] insulin lispro 100 unit/mL subcutaneous pen (Humalog KwikPen (U-100) Insulin) 34 unit (0.34 mL) subcut TID #30 mL 02/22/22 [Rx Last Taken 04/27/22] rosuvastatin 20 mg tablet 20 mg PO DAILY #90 tabs 03/16/22 [Rx Last Taken 04/27/22] benztropine 1 mg tablet 1 mg PO BID #60 tabs 04/20/22 [Rx Last Taken 04/27/22] oxybutynin chloride 10 mg tablet,extended release 24 hr 10 mg PO DAILY BLADDER 04/28/22 [History Last Taken 04/27/22] Allergy/AdvReac Type Severity Reaction Status Date / Time mirtazapine [From Remeron] Allergy Intermediate agitation Verified 04/28/22 10:27 Penicillins Allergy Mild Rash Verified 04/28/22 10:27 Family History Mother Diabetes Heart disease Lung cancer CAD (coronary artery disease) CABG CVA (cerebral vascular accident) Daughter Diabetes Father Myocardial infarction Surgical History (Updated 04/28/22 @ 14:52 by Regla Gao) H/O bilateral cataract extraction History of back surgery Social History Smoking Status: Current every day smoker tobacco type: cigarettes Tobacco: How many years used: 35 Electronic Cigarette Use: not used how long ago did patient quit smoking: about 3 years ago second hand exposure: No alcohol intake: never substance use type: former substance user Date of last use: Used Marijuana in the past caffeine: Yes Type: coffee Number of servings: 1 delmy/uatsdin: Restorationism seatbelt use: sometimes ROS Constitutional Constitutional: Reports anorexia, chills, fatigue, fever(s), malaise and weakness; Denies change in weight Eyes Eyes: Denies change in vision ENT HEENT: Denies dysphagia, ear pain, headache(s), nasal congestion, nasal discharge, sinus pressure or sore throat Cardiovascular Cardiovascular: Reports dyspnea on exertion; Denies chest pain, edema, lightheadedness, orthopnea, palpitations, paroxysmal nocturnal dyspnea, rapid heart rate or syncope Respiratory/Chest Respiratory/Chest: Reports cough, dyspnea, shortness of breath at rest and shortness of breath with exertion; Denies productive cough or wheezing Gastrointestinal Gastrointestinal: Denies abdominal pain, coffee ground emesis, constipation, diarrhea, nausea or vomiting Genitourinary Genitourinary: Reports urinary urgency; Denies burning urination, dysuria or hematuria Musculoskeletal Musculoskeletal: Denies arthralgias, back pain, joint swelling or neck pain Neurologic Neurologic: Denies confusion, dizziness, focal weakness, headache(s), numbness, seizure-like activity, seizures, syncope, tingling or tremor(s) Psychiatric Psychiatric: Denies anxiety or depression Endocrine Endocrinology: Denies change in body appearance Hematologic/Lymphatic Hematologic/Lymphatic: Denies anemia Vital Signs Vital Signs Vital Signs: 04/28/22 10:23 04/28/22 10:32 04/28/22 10:44 Temperature 100.2 F H 100.2 F H Temperature Source Temporal Temporal Pulse Rate 97 98 Respiratory Rate 17 18 Respiratory Effort Respiratory Depth Respiratory Pattern Blood Pressure 97/80 97/80 Blood Pressure Mean 85 85 Pulse Ox 95 93 Oxygen Delivery Method Room Air Nasal Cannula Nasal Cannula Oxygen Flow Rate (L/min) 4 04/28/22 11:04 04/28/22 10:41 04/28/22 12:22 Temperature Temperature Source Pulse Rate Respiratory Rate Respiratory Effort Short of Breath Labored Respiratory Depth Normal Respiratory Pattern Tachypnea Blood Pressure Blood Pressure Mean Pulse Ox 87 Oxygen Delivery Method Nasal Cannula Nasal Cannula Room Air Oxygen Flow Rate (L/min) 2 Weight Weight: 267 lb 10.259 oz Body Mass Index (BMI) 43.2 Physical Exam Const alert, oriented x3 and no apparent distress Constitutional Narrative: looks weak and tired General Appearance: cooperative HEENT normocephalic, head/scalp atraumatic and hearing grossly normal bilaterally HEENT Narrative: dry oral mucous membranes Eyes EOMs intact bilaterally and conjunctivae normal Neck no lymphadenopathy and supple Resp normal respiratory effort, no retractions, no use of accessory muscles and clear to auscultation bilaterally Cardio regular rate, regular rhythm, S1 normal heart sound, S2 normal heart sound and no murmurs GI normal to inspection, nondistended, normoactive bowel sounds, soft to palpation, non-tender and non-distended Extremity normal to inspection, full ROM and no clubbing, cyanosis or edema Neuro oriented x3, CN's II-XII intact bilaterally and moves all extremities Neuro Narrative: power 4/5 in RUE and RLE Sensorium / Orientation: awake and alert Psych affect normal Results Lab / Micro Data Result Diagrams: 04/29/22 07:00 04/29/22 07:00 Labs: Laboratory Results - last 24 hr 04/28/22 10:30: WBC 10.7, RBC 4.59, Hgb 14.1, Hct 43.7, MCV 95.2, MCH 30.7, MCHC 32.3, RDW Std Deviation 49.2 H, RDW Coeff of Elias 14.1, Plt Count 222, MPV 10.1, Immature Gran % (Auto) 0.400, Neut % (Auto) 81.9 H, Lymph % (Auto) 9.0 L, [place] % (Auto) 8.1, Eos % (Auto) 0.1, Baso % (Auto) 0.5, Absolute Neuts (auto) 8.8 H, Absolute Lymphs (auto) 0.96, Nucleated RBC % 0 04/28/22 10:30: PT 18.6 H, INR 1.6, APTT 42.2 H 04/28/22 10:30: Sodium 134 L, Potassium 3.9, Chloride 101, Carbon Dioxide 26.0, Anion Gap 7, BUN 18, Creatinine 0.86, Estim Creat Clear Calc 62.68, Est GFR (MDRD) Af Amer 86, Est GFR (MDRD) Non-Af 71, BUN/Creatinine Ratio 21.0 H, Glucose 182 H, Calcium 7.9 L, Total Bilirubin 0.40, AST 16, ALT 19, Alkaline Phosphatase 68, Troponin I High Sens 14, Total Protein 7.2, Albumin 3.1 L, Globulin 4.1, Albumin/Globulin Ratio 0.8 L 04/28/22 11:20: Lactic Acid 0.7 Micro: Microbiology 04/28/22 11:30 Nasal Secretion SARS-CoV-2 & FLU Antigen (Rapid) - Final Radiology Impression Chest X-Ray 04/28/22 10:41 IMPRESSION: Normal x-ray examination of the chest. Electronically Signed: Mikey Pace MD at 11:37 EST , Assessment & Plan Assessment/Plan (1) Debility: (2) Influenza: PLAN: Plan #Debility due to presumptive influenza infection Admit to [facility]. Was exposed to someone with influenza. Hydrate gently with IV fluids. Rapid COVID and flu test negative. Check full respiratory panel- respiratory panel confirmed influenza A. Breathing treatments of bronchodilators. P.o. Tylenol for fever as well as pain. Supportive treatment. PT OT consult. Fall precautions. #Paroxysmal A. fib: on cardizem and xarelto #Type 2 diabetes mellitus with polyneuropathy. On Lantus 40 nit qhs. Insulin sliding scale. Checks ACH S. #History of stroke has residual right sided weakness. #History of schizophrenia: On benztropine and duloxetine #Hyperlipidemia: On statin #Hypertension: On lisinopril DVT prophylaxis: on xarelto Code status: full code Patient counseled extensively about different types of CODE STATUS including full code, DNR CCA and DNR CCA. Patient elects to be full code. Total [id number] time 17 minutes. Charges/Coding Visit Charges OBSV E&M: 05399 Initial observation care L3 Procedures Hospitalists Procedures: 21349 Advncd Care Plan 30 Min
[2022-04-28] MEDS: Acetaminophen 325 MG Tablet 650 MG PO ×2 (15:27→22:17)
[2022-04-28] MEDS: 0.9% Normal Saline 1,000 ML 125 ML IV ×2 (16:50→22:26)
[2022-04-28] MEDS: 0.9% Saline Lock 10 ML Syringe IV (16:51)
[2022-04-28 17:25] LABS: Bedside Glucose 200 mg/dL (74-106)
[2022-04-28] MEDS: Insulin Lispro 100 UNIT/ML INSULN.PEN SC ×2 (17:41→22:11)
[2022-04-28] MEDS: Ipratropium/Albuterol Sulfate 3 ML AMPUL.NEB INHALATION (19:40)
[2022-04-28 22:03] LABS: Bacteria 0 SEEN /hpf (None Seen); Mucous, Urine 0 SEEN /hpf (<or=2+); White Blood Cells 0 SEEN /hpf (0-5)
[2022-04-28] MEDS: Atorvastatin Calcium 40 MG Tablet PO (22:11)
[2022-04-28] MEDS: Oseltamivir Phosphate 75 MG Capsule PO (22:11)
[2022-04-28] MEDS: guaiFENesin 10 ML UDC (200MG/10ML) 20 ML PO (22:17)
[2022-04-28] MEDS: Zolpidem Tartrate 5 MG Tablet PO (22:17)
[2022-04-28] MEDS: Menthol/Lanolin/Calamine/Znox 113 GM Tube 1 APPLIC TOPICAL (22:17)
[2022-04-28 22:19] LABS: Color, Urine Yellow (Yellow); Glucose, Dipstick 50 mg/dl (Normal); Ketone-Dipstick Negative (Negative); Leukocyte Esterase-Dipstick Negative /ul (Negative); Nitrite-Dipstick Negative (Negative); Occult Blood-Urine Negative /ul (Negative); Protein-Dipstick 15 mg/dl (Negative); Specific Gravity, Urine 1.015 (1.002-1.030); Urine Bilirubin Dipstick Negative (Negative); Urine Clarity Clear (Clear); Urine Urobilinogen Normal (Normal)
[2022-04-28 22:24] LABS: Red Blood Cells-Urine 0-5 SEEN /hpf (0-5); Squamous Epithelial Cells - UA 0-5 SEEN /hpf (5-10)
[2022-04-28] MEDS: Insulin Glargine-YFGN 100 UNIT/ML Pen 40 UNIT SC (23:35)
[2022-04-28 23:50] LABS: Bedside Glucose 214 mg/dL (74-106)
[2022-04-29] VITALS (12 sets, daily range): BP systolic 104–127; BP diastolic 48–81; PULSE 60–91; RESP 16–22; TEMP 36.8–37.5; O2SAT 73–98
[2022-04-29] MEDS: Ipratropium/Albuterol Sulfate 3 ML AMPUL.NEB INHALATION ×4 (00:40→19:34)
[2022-04-29] MEDS: Insulin Lispro 100 UNIT/ML INSULN.PEN SC ×4 (05:28→20:34)
[2022-04-29] MEDS: guaiFENesin 10 ML UDC (200MG/10ML) 20 ML PO ×2 (05:34→20:36)
[2022-04-29] MEDS: Acetaminophen 325 MG Tablet 650 MG PO ×2 (05:34→18:58)
[2022-04-29 06:26] LABS: Bedside Glucose 160 mg/dL (74-106)
[2022-04-29 07:47] LABS: Absolute Lymphocyte Count 1.36 X10^3/uL (0.83-4.51); Absolute Neutrophil Count 7.1 X10^3/uL (2.0-7.7); Basophil# 0.03 X10^3/uL; Basophil% 0.3 % (0-1); Eosinophil# 0.11 X10^3/uL; Eosinophils% 1.2 % (0-5); Hematocrit 39.9 % (37-47); Hemoglobin 12.6 g/dL (12.0-15.0); Lymphocyte # 1.36 X10^3/ul (0.83-4.51); Lymphocyte % 14.6 % (19-41); Mean Corp Hgb Conc 31.6 g/dL (32-36); Mean Corpuscular Hgb 30.8 pg (27.0-32.0); Mean Corpuscular Volume 97.6 fL (81-99); Mean Platelet Vol. 10.4 fl (6.2-12.0); Monocyte# 0.74 X10^3/uL; Monocyte% 7.9 % (0-10); NRBC Flagged by Analyzer 0 % (0-5); Neutrophil # 7.06 X10^3/uL (2.7-7.7); Neutrophil % 75.7 % (47-70); Platelet Count 173 K/mm3 (150-450); RBC Distribution Width CV 14.1 % (11.6-14.6); Red Blood Count 4.09 M/mm3 (4.2-5.4); White Blood Count 9.3 K/mm3 (4.4-11.0)
[2022-04-29 08:05] LABS: Anion Gap 5 (5-15); BUN 17 mg/dL (7-18); BUN/Creat Ratio 26.9 RATIO (10-20); Calcium,Total 7.7 mg/dL (8.5-10.1); Chloride 110 mmol/L (98-107); Creatinine, Serum 0.63 mg/dL (0.55-1.02); EST Glomerular Filtration Rate 101 mL/min (>60); Est Glom Filt Rate - Afr Amer 122 mL/min (>60); Estimated Creatinine Clearance 85.56 ml/min; Glucose 140 mg/dL (74-106); Potassium 4.1 mmol/L (3.5-5.1); Sodium Level 138 mmol/L (136-145)
[2022-04-29] MEDS: Lisinopril 20 MG Tablet PO (09:00)
[2022-04-29] MEDS: Tolterodine Tartrate 2 MG CAP.SA PO (09:00)
[2022-04-29] MEDS: Oseltamivir Phosphate 75 MG Capsule PO ×2 (09:00→20:30)
[2022-04-29] MEDS: Menthol/Lanolin/Calamine/Znox 113 GM Tube 1 APPLIC TOPICAL ×2 (09:01→20:30)
[2022-04-29 11:45] LABS: Bedside Glucose 206 mg/dL (74-106)
--- NOTE | 2022-04-29 12:14 | PN.HOSP_ITS ---
Subjective Subjective Patient seen and examined. She is feeling better. SHe feels like her breathing has improved. Review of systems is otherwise negative. SHe is on 2L of oxygen by nasal canula Objective Data Objective Data Vital Signs: Vital Signs Temp Pulse Resp BP Pulse Ox O2 Del Method O2 Flow Rate 98.9 F 72 16 127/67 H 96 Nasal Cannula 2 04/29/22 11:29 04/29/22 11:29 04/29/22 11:29 04/29/22 11:29 04/29/22 11:29 04/29/22 11:29 04/29/22 11:29 Oxygen Flow Rate (L/min) 2 Oxygen Delivery Method Nasal Cannula Weight: 255 lb 3.2 oz Body Mass Index (BMI) 41.1 Intake & Output: Intake and Output for Last 24 Hours 04/27/22 04/28/22 04/29/22 23:59 23:59 23:59 Intake Total 1440 / 1440 1235.42 / 1235.42 Balance 1440 / 1440 1235.42 / 1235.42 Lab / Micro Data Result Diagrams: 04/29/22 07:00 04/29/22 07:00 Labs: Laboratory Results - last 24 hr 04/28/22 17:03: POC Glucose 200 H 04/28/22 21:40: Urine Color Yellow, Urine Clarity Clear, Urine pH 6.0, Ur Specific [place] 1.015, Urine Protein 15 H, Urine Glucose (UA) 50 H, Urine Ketones Negative, Urine Occult Blood Negative, Urine Nitrite Negative, Urine Bilirubin Negative, Urine Urobilinogen Normal, Ur Leukocyte Esterase Negative, Urine RBC 0-5 SEEN, Urine WBC 0 SEEN, Ur Squamous Epith Cells 0-5 SEEN, Urine Bacteria 0 SEEN, Urine Mucus 0 SEEN 04/28/22 22:10: POC Glucose 214 H 04/29/22 05:27: POC Glucose 160 H 04/29/22 07:00: WBC 9.3, RBC 4.09 L, Hgb 12.6, Hct 39.9, MCV 97.6, MCH 30.8, MCHC 31.6 L, RDW Std Deviation 51.0 H, RDW Coeff of Elias 14.1, Plt Count 173, MPV 10.4, Immature Gran % (Auto) 0.300, Neut % (Auto) 75.7 H, Lymph % (Auto) 14.6 L, [place] % (Auto) 7.9, Eos % (Auto) 1.2, Baso % (Auto) 0.3, Absolute Neuts (auto) 7.1, Absolute Lymphs (auto) 1.36, Nucleated RBC % 0 04/29/22 07:00: Sodium 138, Potassium 4.1, Chloride 110 H, Carbon Dioxide 23.0, Anion Gap 5, BUN 17, Creatinine 0.63, Estim Creat Clear Calc 85.56, Est GFR (MDRD) Af Amer 122, Est GFR (MDRD) Non-Af 101, BUN/Creatinine Ratio 26.9 H, Glucose 140 H, Calcium 7.7 L 04/29/22 10:53: POC Glucose 206 H Micro: Microbiology 04/28/22 13:54 Mucosa - Nasopharyngeal Respiratory Panel (PCR) - Final Influenza A (Subtype H1) 04/28/22 11:30 Nasal Secretion SARS-CoV-2 & FLU Antigen (Rapid) - Final Physical Exam Const alert, oriented x3 and no apparent distress Constitutional Narrative: looks weak and tired General Appearance: cooperative HEENT normocephalic, head/scalp atraumatic and hearing grossly normal bilaterally Head and Scalp: normocephalic Mouth: oral and palatal mucosa normal Eyes PERRL, EOMs intact bilaterally and conjunctivae normal Neck no lymphadenopathy and supple Resp Resp Narrative: mildly diminished breath sounds bibasally, no wheezes or crackles. On 2L of oxygen by nasal canula Cardio regular rate, regular rhythm, S1 normal heart sound, S2 normal heart sound and no murmurs GI normal to inspection, nondistended, normoactive bowel sounds, soft to palpation, non-tender and non-distended Extremity normal to inspection, full ROM and no clubbing, cyanosis or edema Neuro oriented x3, CN's II-XII intact bilaterally and moves all extremities Neuro Narrative: power in RUE and RLE is 4/5, due to 2 previous strokes. Sensorium / Orientation: awake and alert Psych affect normal Assessment & Plan Assessment/Plan (1) Debility: (2) Influenza: PLAN: Plan #Debility due to presumptive influenza infection * tested positive for influenza A * feeling better * on tamiflu * initial rapid covid and flu test was negative; respiratory panel confirmed influenza A infection * PT/OT on board * Fall precautions * breathing treatment with bronchodilators * #Paroxysmal A. fib: on cardizem and xarelto #Type 2 diabetes mellitus with polyneuropathy. * On Lantus 40 nit qhs. * Insulin sliding scale. * Checks ACH S. #History of stroke * has residual right sided weakness. * stable #History of schizophrenia: On benztropine and duloxetine #Hyperlipidemia: On statin #Hypertension: On lisinopril DVT prophylaxis: on xarelto Code status: full code * Charges/Coding Visit Charges Inpatient E&M: 94467 Subs Hosp L2
--- NOTE | 2022-04-29 15:50 | CASEMGMT ---
DORYS RODRIGUEZ in to complete [employer] form at this time.? DORYS RODRIGUEZ explained [employer] for to patient, patient voiced understanding.? Patient signed [employer] Form and filed in chart.? Patient provided with copy of signed [employer] form.? Patient had no further questions or concerns.?? Discharge planning: Pt states she plans to return home at discharge with resumption of her home health aide services (from [place]) and family support. States she has an aide M thru F 4 hours/day. Has DME including lift chair, grab bars, and a new bathroom to accommodate her needs. Pt's rollator was recently stollen and her CM is assisting her with getting a new one. May need a standard wheeled walker upon discharge until a rollator can be obtained. Green sheet on chart. Pt also currently on O2. Pt does not have home O2 prior to admission. Reviewed DME providers of home O2 and pt selected [facility]. Green sheet on chart if pt has qualifying hypoxia. Pt's daughter arrived during assessment and did not voice any concerns with pt returning home at discharge. Will continue to follow and assist with any additional discharge needs as identified. Adama Fry RN CM
[2022-04-29] MEDS: Juven (unflavored) Packet 1 PACKET PO (16:39)
[2022-04-29] MEDS: Glucerna Shake 120 ML LIQUID PO ×2 (16:39→20:32)
[2022-04-29 16:50] LABS: Bedside Glucose 157 mg/dL (74-106)
[2022-04-29] MEDS: Atorvastatin Calcium 40 MG Tablet PO (20:30)
[2022-04-29] MEDS: Zolpidem Tartrate 5 MG Tablet PO (20:30)
[2022-04-29] MEDS: Insulin Glargine-YFGN 100 UNIT/ML Pen 40 UNIT SC (20:33)
[2022-04-29 21:45] LABS: Bedside Glucose 158 mg/dL (74-106)
[2022-04-30] VITALS (12 sets, daily range): BP systolic 93–151; BP diastolic 40–54; PULSE 64–80; RESP 16–21; TEMP 36.8–37.7; O2SAT 86–98
[2022-04-30] MEDS: Ipratropium/Albuterol Sulfate 3 ML AMPUL.NEB INHALATION ×4 (00:45→19:49)
[2022-04-30 06:46] LABS: Bedside Glucose 138 mg/dL (74-106)
[2022-04-30 07:58] LABS: Absolute Lymphocyte Count 1.84 X10^3/uL (0.83-4.51); Absolute Neutrophil Count 5.7 X10^3/uL (2.0-7.7); Basophil# 0.03 X10^3/uL; Basophil% 0.4 % (0-1); Eosinophil# 0.22 X10^3/uL; Eosinophils% 2.6 % (0-5); Hematocrit 38.8 % (37-47); Hemoglobin 12.3 g/dL (12.0-15.0); Lymphocyte # 1.84 X10^3/ul (0.83-4.51); Mean Corp Hgb Conc 31.7 g/dL (32-36); Mean Corpuscular Hgb 30.8 pg (27.0-32.0); Mean Corpuscular Volume 97.2 fL (81-99); Mean Platelet Vol. 10.5 fl (6.2-12.0); Monocyte# 0.57 X10^3/uL; Monocyte% 6.8 % (0-10); NRBC Flagged by Analyzer 0 % (0-5); Neutrophil # 5.67 X10^3/uL (2.7-7.7); Neutrophil % 67.8 % (47-70); Platelet Count 198 K/mm3 (150-450); RBC Distribution Width CV 13.9 % (11.6-14.6); RBC Distribution Width SD 50.3 fl (35.1-43.9); Red Blood Count 3.99 M/mm3 (4.2-5.4); White Blood Count 8.4 K/mm3 (4.4-11.0)
[2022-04-30 08:14] LABS: Anion Gap 3 (5-15); BUN 20 mg/dL (7-18); BUN/Creat Ratio 31.6 RATIO (10-20); Calcium,Total 8.3 mg/dL (8.5-10.1); Chloride 108 mmol/L (98-107); Creatinine, Serum 0.63 mg/dL (0.55-1.02); EST Glomerular Filtration Rate 101 mL/min (>60); Est Glom Filt Rate - Afr Amer 122 mL/min (>60); Estimated Creatinine Clearance 85.56 ml/min; Glucose 136 mg/dL (74-106); Potassium 4.1 mmol/L (3.5-5.1); Sodium Level 138 mmol/L (136-145)
[2022-04-30] MEDS: Tolterodine Tartrate 2 MG CAP.SA PO (08:42)
[2022-04-30] MEDS: Glucerna Shake 120 ML LIQUID PO ×4 (08:42→22:11)
[2022-04-30] MEDS: Juven (unflavored) Packet 1 PACKET PO ×2 (08:42→15:46)
[2022-04-30] MEDS: Oseltamivir Phosphate 75 MG Capsule PO ×2 (08:43→22:08)
[2022-04-30] MEDS: Menthol/Lanolin/Calamine/Znox 113 GM Tube 1 APPLIC TOPICAL ×2 (08:43→22:08)
[2022-04-30] MEDS: Insulin Lispro 100 UNIT/ML INSULN.PEN SC ×3 (10:49→22:04)
[2022-04-30 11:15] LABS: Bedside Glucose 211 mg/dL (74-106)
--- NOTE | 2022-04-30 14:11 | PN.HOSP_ITS ---
Subjective Subjective Patient seen and examined. SHe was tearful today, and said she felt sad. She denied any fever, chills, cough, chest pain, palpitations, dizziness, nausea, vomiting or diarrhea. Review of systems is otherwise negative. Objective Data Objective Data Vital Signs: Vital Signs Temp Pulse Resp BP Pulse Ox O2 Del Method O2 Flow Rate 98.2 F 76 21 H 111/49 L 96 Nasal Cannula 2 04/30/22 11:32 04/30/22 13:49 04/30/22 13:49 04/30/22 11:32 04/30/22 13:49 04/30/22 13:49 04/30/22 13:49 Oxygen Flow Rate (L/min) 2 Oxygen Delivery Method Nasal Cannula Weight: 255 lb 3.2 oz Body Mass Index (BMI) 41.1 Intake & Output: Intake and Output for Last 24 Hours 04/28/22 04/29/22 04/30/22 23:59 23:59 23:59 Intake Total 1440 / 1440 2035.42 / 2035.42 600 / 600 Balance 1440 / 1440 2035.42 / 2035.42 600 / 600 Lab / Micro Data Result Diagrams: 04/30/22 07:10 04/30/22 07:10 Labs: Laboratory Results - last 24 hr 04/29/22 16:30: POC Glucose 157 H 04/29/22 20:25: POC Glucose 158 H 04/30/22 04:34: POC Glucose 138 H 04/30/22 07:10: WBC 8.4, RBC 3.99 L, Hgb 12.3, Hct 38.8, MCV 97.2, MCH 30.8, MCHC 31.7 L, RDW Std Deviation 50.3 H, RDW Coeff of Elias 13.9, Plt Count 198, MPV 10.5, Immature Gran % (Auto) 0.400, Neut % (Auto) 67.8, Lymph % (Auto) 22.0, [place] % (Auto) 6.8, Eos % (Auto) 2.6, Baso % (Auto) 0.4, Absolute Neuts (auto) 5.7, Absolute Lymphs (auto) 1.84, Nucleated RBC % 0 04/30/22 07:10: Sodium 138, Potassium 4.1, Chloride 108 H, Carbon Dioxide 27.0, Anion Gap 3 L, BUN 20 H, Creatinine 0.63, Estim Creat Clear Calc 85.56, Est GFR (MDRD) Af Amer 122, Est GFR (MDRD) Non-Af 101, BUN/Creatinine Ratio 31.6 H, Glucose 136 H, Calcium 8.3 L 04/30/22 10:48: POC Glucose 211 H Micro: Microbiology 04/28/22 21:40 Urine, Clean Catch Urine Culture - Final Mixed Gram Positive Organisms 04/28/22 11:10 Blood Culture (Wb) - Right Hand Blood Culture - Preliminary No growth in 48 hours. 04/28/22 11:20 Blood Culture (Wb) - Left Hand Blood Culture - Preliminary No growth in 48 hours. 04/28/22 13:54 Mucosa - Nasopharyngeal Respiratory Panel (PCR) - Final Influenza A (Subtype H1) 04/28/22 11:30 Nasal Secretion SARS-CoV-2 & FLU Antigen (Rapid) - Final Physical Exam Const alert and oriented x3 Constitutional Narrative: tearful General Appearance: cooperative HEENT normocephalic, head/scalp atraumatic and hearing grossly normal bilaterally Head and Scalp: normocephalic Mouth: oral and palatal mucosa normal Eyes PERRL, EOMs intact bilaterally and conjunctivae normal Neck no lymphadenopathy and supple Resp normal respiratory effort, no retractions, no use of accessory muscles and clear to auscultation bilaterally Resp Narrative: mildly diminished breath sounds bibasally, no wheezes or crackles. On 2L of oxygen by nasal canula Cardio regular rate, regular rhythm, S1 normal heart sound, S2 normal heart sound and no murmurs GI normal to inspection, nondistended, normoactive bowel sounds, soft to palpation, non-tender and non-distended Extremity normal to inspection, full ROM and no clubbing, cyanosis or edema Neuro oriented x3, CN's II-XII intact bilaterally and moves all extremities Neuro Narrative: power 4/5 in RUE and RLE Sensorium / Orientation: awake and alert Motor Exam: strength 5/5 throughout Psych Psych Narrative: tearful Mood & Affect: depressed Assessment & Plan Assessment/Plan (1) Debility: (2) Influenza: PLAN: Plan #Debility due to presumptive influenza infection * rapid influenza and covid screen was negative, but respiratory panel confirmed influenza A infection * Breathing treatments of bronchodilators. P.o. Tylenol for fever as well as pain. * Supportive treatment. * PT OT consult. Fall precautions. #Paroxysmal A. fib: on cardizem and xarelto #Type 2 diabetes mellitus with polyneuropathy. * On Lantus 40 unit qhs. * Insulin sliding scale. * Checks ACH S. #History of stroke * has residual right sided weakness. #History of schizophrenia: On benztropine and duloxetine #Hyperlipidemia: On statin #Hypertension: On lisinopril DVT prophylaxis: on xarelto Code status: full code * Disposition: anticipate discharge over the next 24-48 hours Charges/Coding Visit Charges Inpatient E&M: 39743 Subs Hosp L2
[2022-04-30] MEDS: dilTIAZem CD 180 MG Capsule PO (14:44)
[2022-04-30] MEDS: DULoxetine Hcl 60 MG Capsule PO (14:44)
[2022-04-30 16:11] LABS: Bedside Glucose 176 mg/dL (74-106)
[2022-04-30] MEDS: Insulin Glargine-YFGN 100 UNIT/ML Pen 40 UNIT SC (22:03)
[2022-04-30] MEDS: Zolpidem Tartrate 5 MG Tablet PO (22:03)
[2022-04-30] MEDS: guaiFENesin 10 ML UDC (200MG/10ML) 20 ML PO (22:03)
[2022-04-30] MEDS: Atorvastatin Calcium 40 MG Tablet PO (22:07)
[2022-04-30] MEDS: Benztropine 2 MG Tablet 1 MG PO (22:12)
[2022-04-30 23:10] LABS: Bedside Glucose 197 mg/dL (74-106)
[2022-05-01] VITALS (8 sets, daily range): BP systolic 105–158; BP diastolic 42–75; PULSE 60–75; RESP 16–20; TEMP 36.8–37.2; O2SAT 87–98
[2022-05-01] MEDS: Acetaminophen 325 MG Tablet 650 MG PO (04:47)
[2022-05-01] MEDS: guaiFENesin 10 ML UDC (200MG/10ML) 20 ML PO ×2 (04:47→21:41)
[2022-05-01 06:18] LABS: Absolute Lymphocyte Count 2.23 X10^3/uL (0.83-4.51); Absolute Neutrophil Count 4.5 X10^3/uL (2.0-7.7); Basophil# 0.04 X10^3/uL; Basophil% 0.5 % (0-1); Eosinophil# 0.17 X10^3/uL; Eosinophils% 2.3 % (0-5); Hematocrit 39.9 % (37-47); Hemoglobin 12.7 g/dL (12.0-15.0); Lymphocyte # 2.23 X10^3/ul (0.83-4.51); Lymphocyte % 29.8 % (19-41); Mean Corp Hgb Conc 31.8 g/dL (32-36); Mean Corpuscular Hgb 30.5 pg (27.0-32.0); Mean Corpuscular Volume 95.7 fL (81-99); Mean Platelet Vol. 10.2 fl (6.2-12.0); Monocyte# 0.51 X10^3/uL; Monocyte% 6.8 % (0-10); NRBC Flagged by Analyzer 0 % (0-5); Neutrophil # 4.51 X10^3/uL (2.7-7.7); Neutrophil % 60.2 % (47-70); Platelet Count 225 K/mm3 (150-450); RBC Distribution Width CV 13.6 % (11.6-14.6); RBC Distribution Width SD 48.5 fl (35.1-43.9); Red Blood Count 4.17 M/mm3 (4.2-5.4); White Blood Count 7.5 K/mm3 (4.4-11.0)
[2022-05-01 06:38] LABS: Anion Gap 3 (5-15); BUN 20 mg/dL (7-18); BUN/Creat Ratio 29.3 RATIO (10-20); Calcium,Total 8.7 mg/dL (8.5-10.1); Chloride 105 mmol/L (98-107); Creatinine, Serum 0.68 mg/dL (0.55-1.02); EST Glomerular Filtration Rate 93 mL/min (>60); Est Glom Filt Rate - Afr Amer 112 mL/min (>60); Estimated Creatinine Clearance 79.27 ml/min; Glucose 103 mg/dL (74-106); Potassium 4.1 mmol/L (3.5-5.1); Sodium Level 139 mmol/L (136-145)
[2022-05-01 06:45] LABS: Bedside Glucose 116 mg/dL (74-106)
[2022-05-01] MEDS: Ipratropium/Albuterol Sulfate 3 ML AMPUL.NEB INHALATION ×2 (07:08→19:27)
[2022-05-01] MEDS: Menthol/Lanolin/Calamine/Znox 113 GM Tube 1 APPLIC TOPICAL ×2 (09:36→21:48)
[2022-05-01] MEDS: Juven (unflavored) Packet 1 PACKET PO ×2 (09:36→16:37)
[2022-05-01] MEDS: DULoxetine Hcl 60 MG Capsule PO (09:37)
[2022-05-01] MEDS: dilTIAZem CD 180 MG Capsule PO (09:37)
[2022-05-01] MEDS: Lisinopril 20 MG Tablet PO (09:37)
[2022-05-01] MEDS: Benztropine 2 MG Tablet 1 MG PO ×2 (09:37→21:41)
[2022-05-01] MEDS: Oseltamivir Phosphate 75 MG Capsule PO ×2 (09:37→21:41)
[2022-05-01] MEDS: BREXPIPRAZOLE 1 MG TABLET PO (09:38)
[2022-05-01] MEDS: Tolterodine Tartrate 2 MG CAP.SA PO (09:38)
[2022-05-01] MEDS: Glucerna Shake 120 ML LIQUID PO ×4 (09:47→21:41)
--- NOTE | 2022-05-01 11:00 | PN.HOSP_ITS ---
Subjective Subjective Follow-up on hypoxia/acute influenza A: Patient was seen and examined. She is currently on 2 L of oxygen. Still feels slightly short of breath. She denied any diarrhea or nausea or vomiting. Objective Data Objective Data Vital Signs: Vital Signs Temp Pulse Resp BP Pulse Ox O2 Del Method O2 Flow Rate 98.2 F 60 18 114/48 L 97 Nasal Cannula 2 05/01/22 09:28 05/01/22 09:28 05/01/22 09:28 05/01/22 09:28 05/01/22 09:28 05/01/22 09:59 05/01/22 09:59 Oxygen Flow Rate (L/min) 2 Oxygen Delivery Method Nasal Cannula Weight: 115.757 kg Body Mass Index (BMI) 41.1 Intake & Output: Intake and Output for Last 24 Hours 04/29/22 04/30/22 05/01/22 23:59 23:59 23:59 Intake Total 2035.42 / 2035.42 1300 / 1300 Balance 2035.42 / 2035.42 1300 / 1300 Lab / Micro Data Result Diagrams: 05/01/22 05:30 05/01/22 05:30 Labs: Laboratory Results - last 24 hr 04/30/22 10:48: POC Glucose 211 H 04/30/22 15:43: POC Glucose 176 H 04/30/22 22:03: POC Glucose 197 H 05/01/22 04:46: POC Glucose 116 H 05/01/22 05:30: WBC 7.5, RBC 4.17 L, Hgb 12.7, Hct 39.9, MCV 95.7, MCH 30.5, MCHC 31.8 L, RDW Std Deviation 48.5 H, RDW Coeff of Elias 13.6, Plt Count 225, MPV 10.2, Immature Gran % (Auto) 0.400, Neut % (Auto) 60.2, Lymph % (Auto) 29.8, [place] % (Auto) 6.8, Eos % (Auto) 2.3, Baso % (Auto) 0.5, Absolute Neuts (auto) 4.5, Absolute Lymphs (auto) 2.23, Nucleated RBC % 0 05/01/22 05:30: Sodium 139, Potassium 4.1, Chloride 105, Carbon Dioxide 31.0, Anion Gap 3 L, BUN 20 H, Creatinine 0.68, Estim Creat Clear Calc 79.27, Est GFR (MDRD) Af Amer 112, Est GFR (MDRD) Non-Af 93, BUN/Creatinine Ratio 29.3 H, Glucose 103, Calcium 8.7 Micro: Microbiology 04/28/22 21:40 Urine, Clean Catch Urine Culture - Final Mixed Gram Positive Organisms 04/28/22 11:10 Blood Culture (Wb) - Right Hand Blood Culture - Preliminary No growth in 48 hours. 04/28/22 11:20 Blood Culture (Wb) - Left Hand Blood Culture - Preliminary No growth in 48 hours. 04/28/22 13:54 Mucosa - Nasopharyngeal Respiratory Panel (PCR) - Final Influenza A (Subtype H1) 04/28/22 11:30 Nasal Secretion SARS-CoV-2 & FLU Antigen (Rapid) - Final Physical Exam Narrative Physical exam: General: Alert, Oriented x3, Cooperative, on 2 L of oxygen HEENT: Atraumatic Oral: Moist Mucosa Neck: Supple Lungs: Diminished to auscultation, wheezes ++ Cardiovascular: HS I+II, regular, no murmurs Abdomen: Bowel Sounds Present, Soft, Non Tender Extremities: No edema Skin: No rashes, No breakdown Neurological: Grossly intact Psych/Mental Status: Appropriate Assessment & Plan Assessment/Plan (1) Debility: (2) Influenza: PLAN: Plan 1.Acute hypoxia secondary to acute influenza A Patient remains on 2 L of oxygen Continue with breathing treatments, Tamiflu Encourage use of incentive spirometer. Wean off oxygen for SPO2 more than 94% 2. Paroxysmal A. fib/ Hypertension/history of CVA with residual right sided weakness/hyperlipidemia Continue on cardizem, statin, lisinopril and xarelto 3.Type 2 diabetes mellitus, complicated with polyneuropathy, blood sugars are controlled Continue Lantus with insulin sliding scale as well as Cymbalta 4. History of schizophrenia, continue on benztropine and duloxetine 5. DVT prophylaxis -on xarelto Charges/Coding Visit Charges Inpatient E&M: 05857 Subs Hosp L3
[2022-05-01] MEDS: Insulin Lispro 100 UNIT/ML INSULN.PEN SC ×3 (11:44→21:47)
[2022-05-01 12:06] LABS: Bedside Glucose 175 mg/dL (74-106)
--- NOTE | 2022-05-01 13:19 | CPS ---
aerosol and smi held. P.T. at bedside to walk pt.
[2022-05-01 17:10] LABS: Bedside Glucose 193 mg/dL (74-106)
[2022-05-01] MEDS: Rivaroxaban 20 MG Tablet PO (17:12)
[2022-05-01] MEDS: Zolpidem Tartrate 5 MG Tablet PO (21:41)
[2022-05-01] MEDS: Atorvastatin Calcium 40 MG Tablet PO (21:41)
[2022-05-01] MEDS: Insulin Glargine-YFGN 100 UNIT/ML Pen 40 UNIT SC (21:46)
[2022-05-01 22:30] LABS: Bedside Glucose 258 mg/dL (74-106)
[2022-05-02] VITALS (8 sets, daily range): BP systolic 106–111; BP diastolic 50–53; PULSE 60–61; RESP 18–19; TEMP 37–37.1; O2SAT 83–95
[2022-05-02] MEDS: guaiFENesin 10 ML UDC (200MG/10ML) 20 ML PO (04:54)
[2022-05-02] MEDS: Acetaminophen 325 MG Tablet 650 MG PO (04:55)
[2022-05-02 05:15] LABS: Bedside Glucose 93 mg/dL (74-106)
[2022-05-02 06:30] LABS: Absolute Neutrophil Count 4.8 X10^3/uL (2.0-7.7); Basophil# 0.05 X10^3/uL; Basophil% 0.6 % (0-1); Eosinophil# 0.29 X10^3/uL; Eosinophils% 3.6 % (0-5); Hematocrit 41.2 % (37-47); Hemoglobin 13.1 g/dL (12.0-15.0); Lymphocyte % 29.5 % (19-41); Mean Corp Hgb Conc 31.8 g/dL (32-36); Mean Corpuscular Hgb 30.8 pg (27.0-32.0); Mean Corpuscular Volume 96.7 fL (81-99); Mean Platelet Vol. 10.1 fl (6.2-12.0); Monocyte% 7.4 % (0-10); NRBC Flagged by Analyzer 0 % (0-5); Neutrophil # 4.78 X10^3/uL (2.7-7.7); Neutrophil % 58.7 % (47-70); Platelet Count 263 K/mm3 (150-450); RBC Distribution Width CV 13.5 % (11.6-14.6); Red Blood Count 4.26 M/mm3 (4.2-5.4); White Blood Count 8.1 K/mm3 (4.4-11.0)
[2022-05-02 07:00] LABS: ALB/GLOB Ratio 0.7 RATIO (0.9-2.4); AST(SGOT) 14 U/L (15-37); Alanine Aminotransfer ALT/SGPT 27 U/L (13-56); Albumin, Serum 2.7 g/dL (3.2-5.0); Alkaline Phosphatase 62 U/L (45-117); Anion Gap 3 (5-15); BUN 23 mg/dL (7-18); BUN/Creat Ratio 35.7 RATIO (10-20); Calcium,Total 8.8 mg/dL (8.5-10.1); Chloride 102 mmol/L (98-107); Creatinine, Serum 0.64 mg/dL (0.55-1.02); EST Glomerular Filtration Rate 99 mL/min (>60); Est Glom Filt Rate - Afr Amer 119 mL/min (>60); Estimated Creatinine Clearance 84.23 ml/min; Globulin 4.1 g/dL (2.2-4.2); Glucose 86 mg/dL (74-106); Potassium 4.3 mmol/L (3.5-5.1); Protein, Total 6.8 g/dL (6.4-8.2); Sodium Level 137 mmol/L (136-145)
[2022-05-02] MEDS: Ipratropium/Albuterol Sulfate 3 ML AMPUL.NEB INHALATION (07:51)
[2022-05-02] MEDS: Juven (unflavored) Packet 1 PACKET PO (08:27)
[2022-05-02] MEDS: Glucerna Shake 120 ML LIQUID PO (08:27)
[2022-05-02] MEDS: Oseltamivir Phosphate 75 MG Capsule PO (08:28)
[2022-05-02] MEDS: Tolterodine Tartrate 2 MG CAP.SA PO (08:28)
[2022-05-02] MEDS: DULoxetine Hcl 60 MG Capsule PO (08:28)
[2022-05-02] MEDS: Benztropine 2 MG Tablet 1 MG PO (08:28)
[2022-05-02] MEDS: dilTIAZem CD 180 MG Capsule PO (08:28)
[2022-05-02] MEDS: Lisinopril 20 MG Tablet PO (08:28)
[2022-05-02] MEDS: Menthol/Lanolin/Calamine/Znox 113 GM Tube 1 APPLIC TOPICAL (08:29)
[2022-05-02] MEDS: BREXPIPRAZOLE 1 MG TABLET PO (08:29)
--- NOTE | 2022-05-02 11:03 | DCINST_ITS ---
Discharge Instructions Diet Discharge Diet: Low fat / Low cholesterol, 1800 Calorie Control Diet and 2000 mg Sodium Diet Activity Discharge Activity: Return to Normal Activity Follow Up Care Test Results: Test results from this visit will be discussed in further detail at your follow- up appointment, if applicable. Discharge Plan Admission Admit Date/Time: 04/30/22 16:36 Primary Reason for Your Visit: Hypoxia/Acute influenza A Attending Provider: Bisi Duke Primary Care Provider: Jered Howard Consulting Providers: Pam Villar Instructions Additional Instructions / Restrictions: Continue to use your incentive spirometer Complete your Tamiflu Follow-up with your primary care doctor within a week Discharge Orders/Prescriptions Prescriptions: New oseltamivir 75 mg Capsule 75 mg PO BID 1 Days Qty: 2 0RF Rx Instructions: last dose 05/03 morning Victor M (with collagen) 7-7-1.5 gram Powder In Packet 1 packet PO BIDCM Qty: 0 0RF Continued diltiazem HCl 180 mg capsule,extended release 24 hr 180 mg PO QDAY Qty: 90 3RF zolpidem [Ambien] 10 mg tablet 10 mg PO QHS duloxetine 60 mg capsule,delayed release(DR/EC) 60 mg PO DAILY deutetrabenazine 12 mg tablet 24 mg PO BID brexpiprazole 1 mg tablet 1 mg PO DAILY Lantus Solostar U-100 Insulin 100 unit/mL (3 mL) insulin pen 40 unit subcut QPM Qty: 36 3RF (DME) Comfort EZ Pen [place] 33 gauge x 5/32 needle See Rx Instructions .ROUTE .MEDSUPPLY Qty: 400 3RF Rx Instructions: 4 times daily benztropine 1 mg tablet 1 mg PO BID Qty: 60 5RF oxybutynin chloride 10 mg tablet extended release 24hr 10 mg PO DAILY (DME) blood-glucose meter [Accu-Chek Guide Glucose Meter] Misc See Rx Instructions .ROUTE .MEDSUPPLY Qty: 1 0RF Rx Instructions: As directed (DME) Accu-Chek Guide test strips Strip See Rx Instructions .ROUTE .MEDSUPPLY Qty: 100 12RF Rx Instructions: TID (DME) lancets [Accu-Chek Multiclix Lancet] Misc See Rx Instructions .ROUTE .MEDSUPPLY Qty: 100 12RF Rx Instructions: TID (DME) pen needle, diabetic [BD Ultra-Fine Mari Pen Needle] 32 gauge x 5/32 needle See Rx Instructions .ROUTE .MEDSUPPLY Qty: 120 6RF Rx Instructions: 4 times daily rivaroxaban 20 mg tablet 20 mg PO QPM Qty: 90 3RF Rx Instructions: ON HOLD FOR BIOPSY FOR Sunday05/01/22 lisinopril 20 mg tablet 20 mg PO DAILY Qty: 90 3RF insulin lispro [Humalog KwikPen Insulin] 100 unit/mL insulin pen 34 unit SC TID Qty: 30 3RF rosuvastatin 20 mg tablet 20 mg PO DAILY Qty: 90 1RF Referrals / Follow Up: Jered Howard MD [Primary Care Provider] - Disposition Disposition (needs filled in before D/C Order can be placed): Home, Self Care
--- NOTE | 2022-05-02 11:10 | PCM.DC.SUM ---
Providers Date of Admission: 04/30/22 Date of Discharge: 05/02/22 Primary Care Physician: Dr. Jered Howard MD Reason For Visit: DEBILITY Diagnosis Discharge Diagnosis (1) Debility: Status: Acute Code(s): R53.81 - Other malaise (2) Influenza: Status: Acute Code(s): J11.1 - Influenza due to unidentified influenza virus with other respiratory manifestations Plan 1. Acute hypoxia secondary to acute influenza A 2. Paroxysmal A. fib 3. Hypertension 4. History of CVA with residual right sided weakness 5. Hyperlipidemia 6. Type 2 diabetes mellitus, complicated with polyneuropathy 7. History of schizophrenia Medications at Discharge Home Medications zolpidem 10 mg tablet (Ambien) 10 mg PO QHS 03/30/20 blood-glucose meter (Accu-Chek Guide Glucose Meter) #1 ea 02/22/21 blood sugar diagnostic (Accu-Chek Guide test strips) #100 ea 02/23/21 lancets (Accu-Chek Multiclix Lancet) #100 ea 02/23/21 brexpiprazole 1 mg tablet 1 mg PO DAILY 03/07/21 duloxetine 60 mg capsule,delayed release 60 mg PO DAILY 03/07/21 BD Ultra-Fine Mari Pen Needle 32 gauge x 5/32 (pen needle, diabetic) #120 ea 03/16/21 deutetrabenazine 12 mg tablet 24 mg PO BID 07/25/21 diltiazem HCl 180 mg capsule,24 hr,extended release 180 mg PO QDAY #90 caps 07/25/21 lisinopril 20 mg tablet 20 mg PO DAILY #90 tabs 07/25/21 rivaroxaban 20 mg tablet 20 mg PO QPM #90 tabs 07/25/21 Lantus Solostar U-100 Insulin 100 unit/mL (3 mL) subcutaneous pen (insulin glargine) 40 unit (0.4 mL) subcut QPM #36 mL 02/16/22 pen needle, diabetic 33 gauge x 5/32 (Comfort EZ Pen [place]) #400 ea 02/16/22 insulin lispro 100 unit/mL subcutaneous pen (Humalog KwikPen (U-100) Insulin) 34 unit (0.34 mL) subcut TID #30 mL 02/22/22 rosuvastatin 20 mg tablet 20 mg PO DAILY #90 tabs 03/16/22 benztropine 1 mg tablet 1 mg PO BID #60 tabs 04/20/22 oxybutynin chloride 10 mg tablet,extended release 24 hr 10 mg PO DAILY BLADDER 04/28/22 arginine 7 gram-glutam 7 gram-CaHMB 1.5 [id number]-min oral pwd pkt (Victor M (with collagen)) 1 packet PO BIDCM #0 ea 05/02/22 oseltamivir 75 mg capsule 75 mg PO BID 1 day #2 caps 05/02/22 Hospital Course Operations None Procedures None Summary of Care Provided Minutes Spent on Discharge: 35 Hospital Course: 62-year-old female with past medical history of schizophrenia, history of CVA, hyperlipidemia, CAD who comes in with complaints of fever, chills, generalized weakness ongoing for 2 days. Patient had an exposure to a patient with influenza. She had fever of about 104F at home. In the emergency room, she had low-grade fever, saturating 87% on room air. Chest x-ray showed no acute cardiopulmonary process. Initial COVID-19 rapid antigen test as well as influenza A/B was unremarkable. Respiratory panel confirmed acute influenza A by PCR. Patient was managed on breathing treatment, IV hydration, Tamiflu. She continued to improve. She did require 2 L of oxygen and qualified for home oxygen on the level. She was strongly advised to follow-up with her primary care doctor within 1 week and continue to use incentive spirometer. She was given prescription to complete 5 days of Tamiflu started in the hospital. On the day of discharge, patient denied any new complaints. Her daughter was seen at the bedside. All questions were answered to their satisfaction. Physical Exam Narrative Physical exam: General: Alert, Oriented x3, Cooperative, on 2 L of oxygen HEENT: Atraumatic Oral: Moist Mucosa Neck: Supple Lungs: Diminished to auscultation Cardiovascular: HS I+II, regular, no murmurs Abdomen: Bowel Sounds Present, Soft, Non Tender Extremities: No edema Skin: No rashes, No breakdown Neurological: Grossly intact Psych/Mental Status: Appropriate Weight / BMI Weight Weight: 115.757 kg Body Mass Index (BMI) 41.1 ABG / Lab / Microbiology Data Result Diagrams: 05/02/22 05:50 05/02/22 05:50 Laboratory: Laboratory Results - last 24 hr 05/01/22 11:43: POC Glucose 175 H 05/01/22 16:33: POC Glucose 193 H 05/01/22 21:45: POC Glucose 258 H 05/02/22 04:49: POC Glucose 93 05/02/22 05:50: WBC 8.1, RBC 4.26, Hgb 13.1, Hct 41.2, MCV 96.7, MCH 30.8, MCHC 31.8 L, RDW Std Deviation 48.0 H, RDW Coeff of Elias 13.5, Plt Count 263, MPV 10.1, Immature Gran % (Auto) 0.200, Neut % (Auto) 58.7, Lymph % (Auto) 29.5, Waldo % (Auto) 7.4, Eos % (Auto) 3.6, Baso % (Auto) 0.6, Absolute Neuts (auto) 4.8, Absolute Lymphs (auto) 2.40, Nucleated RBC % 0 05/02/22 05:50: Sodium 137, Potassium 4.3, Chloride 102, Carbon Dioxide 32.0, Anion Gap 3 L, BUN 23 H, Creatinine 0.64, Estim Creat Clear Calc 84.23, Est GFR (MDRD) Af Amer 119, Est GFR (MDRD) Non-Af 99, BUN/Creatinine Ratio 35.7 H, Glucose 86, Calcium 8.8, Total Bilirubin 0.50, AST 14 L, ALT 27, Alkaline Phosphatase 62, Total Protein 6.8, Albumin 2.7 L, Globulin 4.1, Albumin/Globulin Ratio 0.7 L Microbiology: Microbiology 04/28/22 21:40 Urine, Clean Catch Urine Culture - Final Mixed Gram Positive Organisms 04/28/22 11:10 Blood Culture (Wb) - Right Hand Blood Culture - Preliminary No growth in 48 hours. 04/28/22 11:20 Blood Culture (Wb) - Left Hand Blood Culture - Preliminary No growth in 48 hours. 04/28/22 13:54 Mucosa - Nasopharyngeal Respiratory Panel (PCR) - Final Influenza A (Subtype H1) 04/28/22 11:30 Nasal Secretion SARS-CoV-2 & FLU Antigen (Rapid) - Final D/C Instructions Discharge Diet: Low fat / Low cholesterol, 1800 Calorie Control Diet and 2000 mg Sodium Diet Meaningful Use Info Meaningful Use Diagnoses (Choose all that apply): None applicable Discharge Plan Admission Admit Date/Time: 04/30/22 16:36 Primary Reason for Your Visit: Hypoxia/Acute influenza A Attending Provider: Bisi Duke Primary Care Provider: Jered Howard Consulting Providers: Pam Villar Instructions Additional Instructions / Restrictions: Continue to use your incentive spirometer Complete your Tamiflu Follow-up with your primary care doctor within a week Discharge Orders/Prescriptions Prescriptions: New oseltamivir 75 mg Capsule 75 mg PO BID 1 Days Qty: 2 0RF Rx Instructions: last dose 05/03 morning Victor M (with collagen) 7-7-1.5 gram Powder In Packet 1 packet PO BIDCM Qty: 0 0RF Continued diltiazem HCl 180 mg capsule,extended release 24 hr 180 mg PO QDAY Qty: 90 3RF zolpidem [Ambien] 10 mg tablet 10 mg PO QHS duloxetine 60 mg capsule,delayed release(DR/EC) 60 mg PO DAILY deutetrabenazine 12 mg tablet 24 mg PO BID brexpiprazole 1 mg tablet 1 mg PO DAILY Lantus Solostar U-100 Insulin 100 unit/mL (3 mL) insulin pen 40 unit subcut QPM Qty: 36 3RF (DME) Comfort EZ Pen [place] 33 gauge x 5/32 needle See Rx Instructions .ROUTE .MEDSUPPLY Qty: 400 3RF Rx Instructions: 4 times daily benztropine 1 mg tablet 1 mg PO BID Qty: 60 5RF oxybutynin chloride 10 mg tablet extended release 24hr 10 mg PO DAILY (DME) blood-glucose meter [Accu-Chek Guide Glucose Meter] Misc See Rx Instructions .ROUTE .MEDSUPPLY Qty: 1 0RF Rx Instructions: As directed (DME) Accu-Chek Guide test strips Strip See Rx Instructions .ROUTE .MEDSUPPLY Qty: 100 12RF Rx Instructions: TID (DME) lancets [Accu-Chek Multiclix Lancet] Misc See Rx Instructions .ROUTE .MEDSUPPLY Qty: 100 12RF Rx Instructions: TID (DME) pen needle, diabetic [BD Ultra-Fine Mari Pen Needle] 32 gauge x 5/32 needle See Rx Instructions .ROUTE .MEDSUPPLY Qty: 120 6RF Rx Instructions: 4 times daily rivaroxaban 20 mg tablet 20 mg PO QPM Qty: 90 3RF Rx Instructions: ON HOLD FOR BIOPSY FOR Sunday05/01/22 lisinopril 20 mg tablet 20 mg PO DAILY Qty: 90 3RF insulin lispro [Humalog KwikPen Insulin] 100 unit/mL insulin pen 34 unit SC TID Qty: 30 3RF rosuvastatin 20 mg tablet 20 mg PO DAILY Qty: 90 1RF Referrals / Follow Up: Jered Howard MD [Primary Care Provider] - 05/05/22 10:40 am (APPOINTMENT ON Sunday @ 10:40AM) Disposition Disposition (needs filled in before D/C Order can be placed): Home Health Service Charges/Coding Visit Charges Inpatient E&M: 82543 Disch Hosp
[2022-05-02] MEDS: Insulin Lispro 100 UNIT/ML INSULN.PEN SC (11:25)
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
[2022-05-02 12:00] LABS: Bedside Glucose 205 mg/dL (74-106)
== END 2022-05-02 11:55 | disposition home health service (06) | DRG 194 ==
LOC: ED 13:51 → MS3 15:18
PROVIDERS: Admitting Provider Student in an Organized Health Care Education/Training Program; Emergency Provider Student in an Organized Health Care Education/Training Program; PCP Family Medicine; Visit Provider Internal Medicine
DX: J10.1 Influenza due to other identified influenza virus with other respiratory manifestations (principal); I69.951 Hemiplegia and hemiparesis following unspecified cerebrovascular disease affecting right dominant side; E11.42 Type 2 diabetes mellitus with diabetic polyneuropathy; I48.0 Paroxysmal atrial fibrillation; J44.9 Chronic obstructive pulmonary disease, unspecified; Z79.4 Long term (current) use of insulin; E11.65 Type 2 diabetes mellitus with hyperglycemia; F20.9 Schizophrenia, unspecified; F17.210 Nicotine dependence, cigarettes, uncomplicated; I10 Essential (primary) hypertension; E78.5 Hyperlipidemia, unspecified; I25.10 Atherosclerotic heart disease of native coronary artery without angina pectoris; Z82.3 Family history of stroke; Z20.822 Contact with and (suspected) exposure to COVID-19; Z20.828 Contact with and (suspected) exposure to other viral communicable diseases; Z66 Do not resuscitate; F32.A Depression, unspecified; R09.02 Hypoxemia
CPT/HCPCS: 36415; 71045; 80048; 80053; 81001; 82962; 83605; 84484; 85025; 85610; 85730; 87040; 87086; 87088; 87428; 87633; 93005; 94640; 94762; 97110; 97162; 97166; 97802; 99251; 99285; J7030; A4216; G0463; J2405

== ENCOUNTER → 2022-06-22 | Outpatient (CLI) | payer MEDICARE, MEDICAID, SELFPAY ==
--- NOTE | 2022-06-22 09:06 | VDLE_ITS ---
Reason For Study: Swelling RIGHT LEFT CFV is compressible, spontaneous, phasic, GSV is normal. competent and demonstrates normal CFV is compressible, spontaneous, phasic, augmentation. competent, and demonstrates normal Procedure augmentation. This is a venous duplex using B-mode, color FV is compressible, spontaneous, phasic, flow and spectral Doppler. competent and demonstrates normal Exam performed in department. augmentation. The exam was diagnostic. POP V is compressible, spontaneous, phasic, The study was technically difficult. competent and demonstrates normal A preliminary report was called and/or faxed augmentation. to Katherine Carmen. T/P Trunk is compressible. PTV is compressible. LT PerV is compressible. VL/Venous Duplex US, Unilateral Interpretation Summary There is no evidence of left lower extremity deep vein thrombosis. Left great s aphenous vein appears patent and compressible segmentally. Normal flow patterns right common femoral vein Technically difficult examination Ordering Physician: Katherine Carmen Referring Physician: Jered Howard Performed By: Venu Walls RVT
--- NOTE | 2022-06-22 09:06 | ECHOCS_ITS ---
Reason For Study: AFIB Procedure This was a 2D Doppler, Color Flow transthoracic echocardiogram. The study was technically difficult. Contrast injection was performed. Exam performed in department. Left Ventricle Normal LV size. Mild concentric left ventricular hypertrophy. Left ventricular systolic function is normal. The estimated ejection fraction is 65 %. Diastolic function is indeterminate. Right Ventricle Normal RV size. Normal systolic function. Atria Normal left atrium. Normal right atrium. No doppler evidence for ASD. Mitral Valve There is no mitral annular calcification. The mitral valve is structurally normal. No prolapse or stenosis seen. Trivial mitral valve insufficiency. Tricuspid Valve Normal tricuspid valve. Trivial tricuspid valve insufficiency. Unable to estimate RV systolic pressure/pulmonary artery pressure due to technically difficult study. Aortic Valve The aortic valve is not well visualized. Pulmonic Valve The pulmonic valve is not well visualized. Great Vessels Normal sized aortic root. Pericardium/Pleural No pericardial effusion. Medication 22 gauge I.V. with prn adaptor inserted into right arm. Diluted definity 4ml given slow IV push to enhance endocardial definition. MMode/2D Measurements & Calculations LVIDd: 4.5 cm IVSd: 1.5 cm Ao root diam: 3.1 cm LVIDs: 2.7 cm LVPWd: 1.3 cm FS: 39.2 % LA dimension(2D): 3.6 cm Time Measurements MV dec time: 0.27 sec Doppler Measurements & Calculations MV E max yan: 52.0 cm/sec Lat Peak E' Yan: 8.7 cm/sec Med Peak E' Yan: 7.7 cm/sec MV A max yan: 68.6 cm/sec E/E' lat: 6.0 E/E' med: 6.8 MV E/A: 0.76 MV V2 max: 73.6 cm/sec Ao V2 max: 115.9 cm/sec MV max P.2 mmHg MV dec slope: 194.2 cm/sec2 Ao max P.4 mmHg MV V2 mean: 36.6 cm/sec Ao V2 mean: 77.3 cm/sec MV mean P.74 mmHg Ao mean P.8 mmHg MV V2 VTI: 18.2 cm Ao V2 VTI: 26.7 cm LV V1 max: 86.9 cm/sec PA V2 max: 84.0 cm/sec LV V1 max P.0 mmHg PA V2 mean: 56.5 cm/sec ECHO/Echo Complete W/ Contrast Interpretation Summary The study was technically difficult. Contrast injection was performed. Left ventricular systolic function is normal. The estimated ejection fraction is 65 %. Mild concentric left ventricular hypertrophy. Trivial mitral valve insufficiency. Trivial tricuspid valve insufficiency. Unable to estimate RV systolic pressure/pulmonary artery pressure due to techni nayana difficult study. Diastolic function is indeterminate. Ordering Physician: Katherine Carmen Referring Physician: Katherine Carmen Performed By: Jessika Garrison RCS
== END | disposition home or self-care (01) ==
LOC: CVS 09:04
PROVIDERS: PCP Family Medicine; Referring Provider Physician Assistant Medical; Visit Provider Physician Assistant Medical
DX: I25.10 Atherosclerotic heart disease of native coronary artery without angina pectoris (principal); I48.91 Unspecified atrial fibrillation; R60.0 Localized edema; M79.89 Other specified soft tissue disorders
CPT/HCPCS: 93306; 93971; Q9957; A4216; C8929

== ENCOUNTER → 2022-06-27 | Outpatient (CLI) | payer MEDICARE, MEDICAID, SELFPAY ==
--- NOTE | 2022-06-27 09:33 | STRESSREP_ITS ---
Stress Test Report Date: Procedure: Pharmacologic stress nuclear imaging study Indications: Shortness of breath/dyspnea on exertion; angina pectoris equivalent; paroxysmal atrial fibrillation Consent: Per the patient Procedure: The patient underwent pharmacologic (Regadenoson 0.4mg ) evaluation with a peak heart rate of 78 beats per minute (49%predicted maximal heart rate) and a resting blood pressure of 128/90 mmHg and a peak blood pressure of 128/90 mmHg. The baseline ECG demonstrated normal sinus rhythm. The peak pharmacologic ECG demonstrated no obvious ECG changes. There were no cardiac dysrhythmias pretest, during pharmacologic infusion, or recovery. There was no complaint of chest discomfort during pharmacologic infusion or recovery. The examination was discontinued secondary to completion of protocol. Impression: 1. Pharmacologic (Regadenoson) evaluation 2. Peak pharmacologic ECG with no obvious ECG changes. 3. There were no cardiac dysrhythmias pretest, during pharmacologic infusion, or recovery. 4. Nuclear images pending Myocardial perfusion imaging study: Technique: The patient was injected with 14.9 millicuries of technetium 99m Cardiolite and subsequently rest SPECT Cardiolite nuclear imaging was obtained in the horizontal long, vertical long, and short axis views. The patient underwent pharmacologic (Regadenoson) evaluation with a peak heart rate of 78 beats per minute (49% percent predicted maximal heart rate) and a resting blood pressure of 128/90 mmHg and a peak blood pressure of 128/90 mmHg. The patient was injected with 44.3 millicuries of technetium 99m Cardiolite and subsequently stress SPECT Cardiolite nuclear imaging was obtained in the horizontal long, vertical long, and short axis views. A gated Cardiolite study at peak stress was obtained. Interpretation: Rest and stress SPECT Cardiolite nuclear imaging status post realignment, normalization, and attenuation correction demonstrate the appearance of relative uniform tracer uptake and myocardial perfusion appearing within normal limits. There is end systolic thickening and brightening. The gated Cardiolite study demonstrates myocardial thickening and inward wall motion. The reported LVEF is 66%. Impression: 1. Rest and stress SPECT Cardiolite nuclear imaging demonstrate relative uniform tracer uptake and myocardial perfusion appearing within normal limits. 2. The gated Cardiolite study reports an LVEF of 66%. This note was generated with [employer] software. It may contain incorrect words, spelling, and punctuation that were not noted in checking the note before signing.
== END | disposition home or self-care (01) ==
PROVIDERS: PCP Family Medicine; Referring Provider Nurse Practitioner Family; Visit Provider Nurse Practitioner Family
DX: R06.09 Other forms of dyspnea (principal); E11.42 Type 2 diabetes mellitus with diabetic polyneuropathy; Z79.4 Long term (current) use of insulin; I25.10 Atherosclerotic heart disease of native coronary artery without angina pectoris; E78.2 Mixed hyperlipidemia; G47.33 Obstructive sleep apnea (adult) (pediatric); Z72.0 Tobacco use
CPT/HCPCS: 78452; 93017; A9500; A4216; J2785

== ENCOUNTER → 2022-07-13 | Outpatient (CLI) | payer MEDICARE, MEDICAID, SELFPAY ==
[2022-07-13 12:19] LABS: Hematocrit 45.1 % (37-47); Hemoglobin 14.3 g/dL (12.0-15.0); Mean Corp Hgb Conc 31.7 g/dL (32-36); Mean Corpuscular Hgb 30.7 pg (27.0-32.0); Mean Corpuscular Volume 96.8 fL (81-99); Mean Platelet Vol. 9.8 fl (6.2-12.0); Platelet Count 318 K/mm3 (150-450); RBC Distribution Width SD 50.3 fl (35.1-43.9); Red Blood Count 4.66 M/mm3 (4.2-5.4); White Blood Count 9.4 K/mm3 (4.4-11.0)
[2022-07-13 12:51] LABS: Vitamin B12 505 pg/mL (211-911)
[2022-07-13 13:01] LABS: ALB/GLOB Ratio 0.8 RATIO (0.9-2.4); AST(SGOT) 11 U/L (15-37); Alanine Aminotransfer ALT/SGPT 19 U/L (13-56); Albumin, Serum 3.3 g/dL (3.2-5.0); Alkaline Phosphatase 90 U/L (45-117); Anion Gap 8 (5-15); BUN 15 mg/dL (7-18); BUN/Creat Ratio 17.4 RATIO (10-20); Calcium,Total 8.8 mg/dL (8.5-10.1); Chloride 105 mmol/L (98-107); Creatinine, Serum 0.86 mg/dL (0.55-1.02); EST Glomerular Filtration Rate 71 mL/min (>60); Est Glom Filt Rate - Afr Amer 85 mL/min (>60); Globulin 4.1 g/dL (2.2-4.2); Glucose 227 mg/dL (74-106); Potassium 4.3 mmol/L (3.5-5.1); Protein, Total 7.4 g/dL (6.4-8.2); Sodium Level 140 mmol/L (136-145); Thyroid Stim Hormone (TSH) 0.59 uIU/mL (0.358-3.74)
[2022-07-16 12:07] LABS: Free Kappa Light Chains 31.9 mg/L (3.3-19.4); Free Lambda Light Chains 21.6 mg/L (5.7-26.3)
[2022-07-16 14:05] LABS: Vitamin B1, Thiamine 131.1 nmol/L (66.5-200.0)
== END | disposition home or self-care (01) ==
LOC: MTLAB 11:11
PROVIDERS: PCP Family Medicine; Referring Provider Psychiatry & Neurology Neurology; Visit Provider Psychiatry & Neurology Neurology
DX: F32.9 Major depressive disorder, single episode, unspecified (principal); G62.9 Polyneuropathy, unspecified
CPT/HCPCS: 36415; 80053; 82607; 82746; 83883; 84425; 84443; 85027

== ENCOUNTER → 2022-09-05 | Outpatient (CLI) | payer MEDICARE, MEDICAID, SELFPAY ==
[2022-09-07 15:08] LABS: Albumin 3.6 g/dL (2.9-4.4); Alpha-1-Globulins 0.4 g/dL (0.0-0.4); Alpha-2-Globulins 0.8 g/dL (0.4-1.0); Gamma Globulin 1.1 g/dL (0.4-1.8); Immunoglobulin A 346 mg/dL (87-352); Immunoglobulin G 1146 mg/dL (586-1602); Immunoglobulin M 54 mg/dL (26-217)
== END | disposition home or self-care (01) ==
LOC: MTLAB 13:50
PROVIDERS: PCP Family Medicine; Referring Provider Psychiatry & Neurology Neurology; Visit Provider Psychiatry & Neurology Neurology
DX: G62.9 Polyneuropathy, unspecified (principal)
CPT/HCPCS: 36415; 82784; 84165; 86334; 86335

== ENCOUNTER 2022-12-01 14:45 | Emergency (ER) | payer MEDICARE, MEDICAID, SELFPAY ==
[2022-12-01 16:05] VITALS: BP 126/60; PULSE 69; RESP 14; TEMP 36.7; O2SAT 92
--- NOTE | 2022-12-01 16:32 | ED.VIS.CHEST ---
HPI History of Present Illness Chief Complaint: Chest Pain Informant: patient Onset/Context/Timing Onset: Today Activity at onset: gradual Quality: Positive for Pressure Narrative Narrative: Patient presents via EMS secondary to chest pain. She states she has not felt herself for the past couple days. Today she felt some head pressure and could sense her heart beating irregularly in her ears. She then reported some chest pressure. Patient does have a history of atrial fibrillation and is on Xarelto. She did take her medications today. She reports some slight nausea. [facility] Medical History A-fib Arthritis Atherosclerotic heart disease of [place] coronary artery without angina pectoris Bipolar disorder Chronic asthma Contracture of muscle of right lower leg COPD (chronic obstructive pulmonary disease) CVA (cerebral vascular accident) Depression History of DVT (deep vein thrombosis) History of schizophrenia HLD (hyperlipidemia) Hypoglycemia unawareness associated with type 2 diabetes mellitus Multiple sclerosis Neuropathic pain Obesity MONCHO (obstructive sleep apnea) Paroxysmal atrial fibrillation Personal history of stroke with residual effects Psychophysiologic insomnia PTSD (post-traumatic stress disorder) Suicidal ideation (10/23/18) Tardive dyskinesia Tobacco abuse Type 2 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 Type 2 diabetes mellitus with unspecified diabetic retinopathy without macular edema Urinary incontinence in female Vaginal candidiasis Vitamin D deficiency Home Medications zolpidem 10 mg tablet (Ambien) 10 mg PO QHS 03/30/20 [History Last Taken 04/27/22] blood-glucose meter (Accu-Chek Guide Glucose Meter) #1 ea 02/22/21 [Rx Last Taken Unknown] lancets (Accu-Chek Multiclix Lancet) #100 ea 02/23/21 [Rx Last Taken Unknown] brexpiprazole 1 mg tablet 1 mg PO DAILY 03/07/21 [History Last Taken 04/27/22] duloxetine 60 mg capsule,delayed release 60 mg PO DAILY 03/07/21 [History Last Taken 04/27/22] deutetrabenazine 12 mg tablet 24 mg PO BID 07/25/21 [History Last Taken 04/27/22] diltiazem HCl 180 mg capsule,24 hr,extended release 180 mg PO QDAY #90 caps 07/25/21 [Rx Last Taken 04/27/22] Lantus Solostar U-100 Insulin 100 unit/mL (3 mL) subcutaneous pen (insulin glargine) 40 unit (0.4 mL) subcut QPM #36 mL 02/16/22 [Rx Last Taken 04/27/22] pen needle, diabetic 33 gauge x 5/32 (Comfort EZ Pen Leland) #400 ea 02/16/22 [Rx Last Taken Unknown] oxybutynin chloride 10 mg tablet,extended release 24 hr 10 mg PO DAILY BLADDER 04/28/22 [History Last Taken 04/27/22] arginine 7 gram-glutam 7 gram-CaHMB 1.5 qaog-[id number]-vs-min oral pwd pkt (Victor M (with collagen)) 1 packet PO BIDCM #0 ea 05/02/22 [Rx Last Taken Unknown] blood sugar diagnostic (Accu-Chek Guide test strips) #100 ea 05/31/22 [Rx Last Taken Unknown] blood-glucose meter (Accu-Chek Guide Glucose Meter) #1 ea 05/31/22 [Rx Last Taken Unknown] alcohol swabs pad topical 06/06/22 [History Last Taken Unknown] insulin aspart U-100 100 unit/mL (3 mL) subcutaneous pen (Novolog FlexPen U-100 Insulin aspart) 34 unit (0.34 mL) subcut TID #30 mL 06/15/22 [Rx Last Taken Unknown] rivaroxaban 20 mg tablet 20 mg PO QPM #90 tabs 06/15/22 [Rx Last Taken Unknown] BD Ultra-Fine Mari Pen Needle 32 gauge x 5/32 (pen needle, diabetic) #120 ea 08/02/22 [Rx Last Taken Unknown] lisinopril 20 mg tablet See Rx Instructions .Route .COMPLEX #90 tabs 08/07/22 [Rx Last Taken Unknown] benztropine 1 mg tablet 1 mg .Route .COMPLEX #120 tabs 09/05/22 [Rx Last Taken Unknown] rosuvastatin 20 mg tablet 20 mg PO DAILY #90 tabs 09/08/22 [Rx Last Taken Unknown] Allergy/AdvReac Type Severity Reaction Status Date / Time mirtazapine [From Remeron] Allergy Intermediate agitation Verified 12/01/22 16:04 Penicillins Allergy Mild Rash Verified 12/01/22 16:04 Family History Mother Diabetes Heart disease Lung cancer CAD (coronary artery disease) CABG CVA (cerebral vascular accident) Daughter Diabetes Father Myocardial infarction Surgical History H/O bilateral cataract extraction History of back surgery Social History Smoking Status: Current every day smoker tobacco type: cigarettes Tobacco: How many years used: 35 Electronic Cigarette Use: not used how long ago did patient quit smoking: about 3 years ago second hand exposure: No alcohol intake: never substance use type: former substance user Date of last use: Used Marijuana in the past caffeine: Yes Type: coffee Number of servings: 1 delmy/presybeterian: Mu-Ism seatbelt use: sometimes ROS ROS ED Constitutional Constitutional ED: Denies chills or fever(s) Eyes Eyes: Denies change in vision or discharge from eye(s) ENT ENT ED: Denies discharge from eye(s), rhinorrhea or sore throat Cardiovascular Cardiovascular: Reports chest pain and palpitations Respiratory/Chest Respiratory/Chest: Reports cough and dyspnea Gastrointestinal Gastrointestinal: Reports nausea; Denies abdominal pain, diarrhea or vomiting Genitourinary Genitourinary ED: Reports other Details: Pressure with urination. Musculoskeletal Musculoskeletal: Denies back pain or extremity pain Integumentary Denies Abrasions or rash Neurologic Neurologic: Denies headache(s) or weakness Psychiatric Psychiatric: Denies anxiety or depression Allergic/Immunologic Allergic/Immunologic ED: Denies lip swelling or urticaria EXAM Physical Exam Const Vital Signs: 12/01/22 16:05 12/01/22 16:30 Temperature 98.1 F Temperature Source Temporal Pulse Rate 69 Respiratory Rate 14 Blood Pressure 126/60 H Blood Pressure Mean 82 Pulse Ox 92 Oxygen Delivery Method Room Air Room Air Positive obese Nutritional Appearance: obese HEENT Reports moist mucous membranes HEENT Narrative: Tardive dyskinesia movements noted of the mouth. Neck no lymphadenopathy Chest Wall inspection of chest normal and palpation of chest normal Resp normal respiratory effort and clear to auscultation bilaterally Cardio regular rate and regular rhythm GI soft to palpation and non-tender Neuro oriented x3 Psych mental status grossly normal Skin no rashes or lesions noted Heart Score History: Slightly/Non-Suspicious ECG: Normal Age: >45 - <65 years Risk Factors: >/= 3 Risk Factors or History of CAD Troponin: </= Normal Limit Score: 3 MDM MDM MDM Narrative Medical decision making narrative: Patient placed on playground monitor. She is given aspirin. Labwork obtained to evaluate for leukocytosis, anemia, and electrolyte derangement. Chest x-ray obtained to evaluate for acute lung pathology, cardiac size, or mediastinal abnormality. History & Record Review Discussion w/independent historian: EMS personnel, Patient and Family Additional record(s) reviewed:: Prior labs Lab Data Attestation: I reviewed the patient's lab results. Labs: Laboratory Results - last 24 hr 12/01/22 12/01/22 12/01/22 16:42 18:00 19:10 WBC 12.6 H RBC 4.44 Hgb 13.8 Hct 42.5 MCV 95.7 MCH 31.1 MCHC 32.5 RDW Std Deviation 50.1 H RDW Coeff of Elias 14.3 Plt Count 294 MPV 9.5 Immature Gran % (Auto) 0.400 Neut % (Auto) 71.6 H Lymph % (Auto) 18.1 L [place] % (Auto) 6.8 Eos % (Auto) 2.5 Baso % (Auto) 0.6 Absolute Neuts (auto) 9.0 H Absolute Lymphs (auto) 2.27 Nucleated RBC % 0 Sodium 137 Potassium 4.3 Chloride 103 Carbon Dioxide 28.0 Anion Gap 6 BUN 25 H Creatinine 0.85 Est GFR (MDRD) Af Amer 87 Est GFR (MDRD) Non-Af 72 BUN/Creatinine Ratio 29.4 H Glucose 97 Calcium 9.1 Magnesium 2.6 Troponin I High Sens 6 5 TSH 0.60 Urine Color Yellow Urine Clarity Clear Urine pH 6.5 Ur Specific [place] 1.010 Urine Protein 15 H Urine Glucose (UA) Normal Urine Ketones Negative Urine Occult Blood Negative Urine Nitrite Negative Urine Bilirubin Negative Urine Urobilinogen Normal Ur Leukocyte Esterase Negative Urine RBC 0 SEEN Urine WBC 0 SEEN Ur Squamous Epith Cells 0 SEEN Urine Bacteria 0 SEEN Urine Mucus 0 SEEN Radiography Chest X-Ray - ED: 1 View, Read by ED Physician, Chronic Changes and No Infiltrates Diagnostic Testing: Clinical Impression(s) from Imaging Studies Chest X-Ray 12/01/22 16:40 IMPRESSION: No acute findings in the chest. Electronically Signed: Inderjit Paula MD at 16:55 EDT , EKG Initial EKG: Attestation: I personally reviewed and interpreted this EKG as follows: Interpretation: Sinus Rhythm (Sinus at 71 with no acute ischemia.) Treatment and Re-Evaluation :: CBC reveals a white count of 12.6 with 71% neutrophils. Hemoglobin normal at 13.8. Chemistry studies unremarkable with normal renal function. Troponin is normal at 6 with repeat of 5. TSH is normal at 0.6. Urinalysis reveals no sign of infection. Portable chest x-ray per my interpretation was chronic changes with no focal infiltrate. EKG is sinus with no ischemia. On repeat evaluation patient is resting comfortably. Test results are discussed. She is reassured with our findings and will continue supportive care at home. Return instructions were provided. Discharge Plan Triage Chief Complaint: Chest Pain ED Provider: Maeve eB Dx/Rx/DC Orders Clinical Impression: Chest pain Instructions: ED Chest Pain, Uncertain Cause Prescriptions: No Action diltiazem HCl 180 mg capsule,extended release 24 hr 180 mg PO QDAY Qty: 90 3RF zolpidem [Ambien] 10 mg tablet 10 mg PO QHS duloxetine 60 mg capsule,delayed release(DR/EC) 60 mg PO DAILY deutetrabenazine 12 mg tablet 24 mg PO BID brexpiprazole 1 mg tablet 1 mg PO DAILY Lantus Solostar U-100 Insulin 100 unit/mL (3 mL) insulin pen 40 unit subcut QPM Qty: 36 3RF (DME) Comfort EZ Pen Leland 33 gauge x 5/32 needle See Rx Instructions .ROUTE .MEDSUPPLY Qty: 400 3RF Rx Instructions: 4 times daily benztropine 1 mg tablet 1 mg .ROUTE .COMPLEX Qty: 120 5RF Rx Instructions: Take 1 tablet orally every morning and 2 tablets every evening for 1 week then 2 tablets twice daily thereafter oxybutynin chloride 10 mg tablet extended release 24hr 10 mg PO DAILY Victor M (with collagen) 7-7-1.5 gram Powder In Packet 1 packet PO BIDCM Qty: 0 0RF (DME) blood-glucose meter [Accu-Chek Guide Glucose Meter] Misc See Rx Instructions .ROUTE .MEDSUPPLY Qty: 1 0RF Rx Instructions: As directed (DME) lancets [Accu-Chek Multiclix Lancet] Misc See Rx Instructions .ROUTE .MEDSUPPLY Qty: 100 12RF Rx Instructions: TID (DME) blood-glucose meter [Accu-Chek Guide Glucose Meter] Misc See Rx Instructions .Route Qty: 1 0RF Rx Instructions: As directed (DME) Accu-Chek Guide test strips Strip See Rx Instructions .ROUTE .MEDSUPPLY Qty: 100 12RF Rx Instructions: TID alcohol swabs Pads, Medicated topical Rx Instructions: use TID and PRN prior to fingerstick rivaroxaban 20 mg tablet 20 mg PO QPM Qty: 90 3RF insulin aspart U-100 [Novolog FlexPen U-100 Insulin] 100 unit/mL (3 mL) insulin pen 34 unit subcut TID Qty: 30 0RF (DME) pen needle, diabetic [BD Ultra-Fine Mari Pen Needle] 32 gauge x 5/32 needle See Rx Instructions .ROUTE .MEDSUPPLY Qty: 120 6RF Rx Instructions: 4 times daily lisinopril 20 mg tablet See Rx Instructions .ROUTE .COMPLEX Qty: 90 3RF Dose Instruction: TAKE 1 TABLET BY MOUTH EVERY DAY Rx Instructions: TAKE 1 TABLET BY MOUTH EVERY DAY rosuvastatin 20 mg tablet 20 mg PO DAILY Qty: 90 1RF Primary Care Provider: Jered Howard Referrals: Jered Howard MD [Primary Care Provider] - 3-5 Days if not improving Disposition Disposition: Home, Self Care
--- NOTE | 2022-12-01 16:40 | RAD_ITS ---
EXAM: XR CHEST, 1 VIEW CLINICAL INDICATION: chest pain TECHNIQUE: Frontal view of the chest. COMPARISON: 04.28.22 FINDINGS: LUNGS AND PLEURAL SPACES: Unremarkable. No consolidation or edema. No pneumothorax. No effusion. HEART: Enlarged heart. MEDIASTINUM: Central airways and mediastinal contour are unremarkable. BONES/JOINTS: Spinal fusion hardware. SOFT TISSUES: Unremarkable. RAD/Chest 1 View (Portable) IMPRESSION: No acute findings in the chest. Electronically Signed: Inderjit Paula MD at 16:55 EDT Reading Location ID and State: [facility] / [place] , Service support ,
[2022-12-01] MEDS: Aspirin 81 MG TAB.CHEW 324 MG PO (16:48)
[2022-12-01 17:04] LABS: Absolute Lymphocyte Count 2.27 X10^3/uL (0.83-4.51); Basophil# 0.08 X10^3/uL; Basophil% 0.6 % (0-1); Eosinophil# 0.32 X10^3/uL; Eosinophils% 2.5 % (0-5); Hematocrit 42.5 % (37-47); Hemoglobin 13.8 g/dL (12.0-15.0); Lymphocyte # 2.27 X10^3/ul (0.83-4.51); Lymphocyte % 18.1 % (19-41); Mean Corp Hgb Conc 32.5 g/dL (32-36); Mean Corpuscular Hgb 31.1 pg (27.0-32.0); Mean Corpuscular Volume 95.7 fL (81-99); Mean Platelet Vol. 9.5 fl (6.2-12.0); Monocyte# 0.85 X10^3/uL; Monocyte% 6.8 % (0-10); NRBC Flagged by Analyzer 0 % (0-5); Neutrophil % 71.6 % (47-70); Platelet Count 294 K/mm3 (150-450); RBC Distribution Width CV 14.3 % (11.6-14.6); RBC Distribution Width SD 50.1 fl (35.1-43.9); Red Blood Count 4.44 M/mm3 (4.2-5.4); White Blood Count 12.6 K/mm3 (4.4-11.0)
[2022-12-01 17:20] LABS: Anion Gap 6 (5-15); BUN 25 mg/dL (7-18); BUN/Creat Ratio 29.4 RATIO (10-20); Calcium,Total 9.1 mg/dL (8.5-10.1); Chloride 103 mmol/L (98-107); Creatinine, Serum 0.85 mg/dL (0.55-1.02); EST Glomerular Filtration Rate 72 mL/min (>60); Est Glom Filt Rate - Afr Amer 87 mL/min (>60); Glucose 97 mg/dL (74-106); Magnesium 2.6 mg/dL (1.6-2.6); Potassium 4.3 mmol/L (3.5-5.1); Sodium Level 137 mmol/L (136-145); Troponin-I HS (w/2H Reflex) 6 pg/mL (3.0-54.0)
[2022-12-01 18:09] LABS: Bacteria 0 SEEN /hpf (None Seen); Mucous, Urine 0 SEEN /hpf (<or=2+); Red Blood Cells-Urine 0 SEEN /hpf (0-5); Squamous Epithelial Cells - UA 0 SEEN /hpf (5-10); White Blood Cells 0 SEEN /hpf (0-5)
[2022-12-01 18:10] LABS: Color, Urine Yellow (Yellow); Glucose, Dipstick Normal (Normal); Ketone-Dipstick Negative (Negative); Leukocyte Esterase-Dipstick Negative /ul (Negative); Nitrite-Dipstick Negative (Negative); Occult Blood-Urine Negative /ul (Negative); Protein-Dipstick 15 mg/dl (Negative); Urine Bilirubin Dipstick Negative (Negative); Urine Clarity Clear (Clear); Urine Urobilinogen Normal (Normal); Urine pH 6.5 (5.0 - 8.0)
[2022-12-01 18:51] LABS: Reflex Troponin-HS? (from REC) Y
[2022-12-01 19:04] VITALS: BMI 40.5
[2022-12-01 19:28] LABS: Troponin-I HS 5 pg/mL (3.0-54.0)
[2022-12-01 20:20] VITALS: BP 124/73; PULSE 74; RESP 16; O2SAT 98
== END 2022-12-01 20:31 | disposition home or self-care (01) ==
PROVIDERS: Emergency Provider Emergency Medicine; PCP Family Medicine; Visit Provider Emergency Medicine
DX: R07.9 Chest pain, unspecified (principal); J44.9 Chronic obstructive pulmonary disease, unspecified; E11.42 Type 2 diabetes mellitus with diabetic polyneuropathy; I48.91 Unspecified atrial fibrillation; E78.5 Hyperlipidemia, unspecified; F17.210 Nicotine dependence, cigarettes, uncomplicated; I25.10 Atherosclerotic heart disease of native coronary artery without angina pectoris; Z79.01 Long term (current) use of anticoagulants; E66.9 Obesity, unspecified
CPT/HCPCS: 36415; 71045; 80048; 81001; 83735; 84443; 84484; 85025; 93005; 99283; A4216

== ENCOUNTER 2024-03-26 07:52 | Outpatient (RCR) | payer MEDICARE, MEDICAID, SELFPAY ==
[2024-03-26 08:00] VITALS: BP 149/74; PULSE 78; RESP 16; TEMP 35.9
--- NOTE | 2024-03-26 10:13 | PCM.WC.HP ---
History of Present Illness Date of Service: 03/26/24 Chief Complaint: Follow-up left buttocks cheek for Shearing open wound area History of Wound: History of scooting across chairs to get up has a hard time moving uses walkers at times. She is at home and has had history of diabetes psych history, history of stroke. She developed areas on both sides of the cheeks but the right is already healed the left is you can see where the skin has been pushed aside from Shearing. 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 Type 2 diabetes mellitus with unspecified diabetic retinopathy without macular edema Suicidal ideation (10/23/18) Bipolar disorder History of schizophrenia Multiple sclerosis History of DVT (deep vein thrombosis) Personal history of stroke with residual effects Atherosclerotic heart disease of [place] coronary artery without angina pectoris Tobacco abuse Neuropathic pain A-fib Vitamin D deficiency Depression HLD (hyperlipidemia) Type 2 diabetes mellitus Urinary incontinence in female MONCHO (obstructive sleep apnea) Chronic asthma Vaginal candidiasis Contracture of muscle of right lower leg Home Medications ?Medication ?Instructions ?Recorded ?Last Taken ?Type zolpidem 10 mg tablet (Ambien) 10 mg PO QHS 03/30/20 04/27/22 History blood-glucose meter (Accu-Chek #1 ea 02/22/21 Unknown Rx Guide Glucose Meter) brexpiprazole 1 mg tablet 1 mg PO DAILY 03/07/21 04/27/22 History duloxetine 60 mg capsule,delayed 60 mg PO DAILY 03/07/21 04/27/22 History release deutetrabenazine 12 mg tablet 24 mg PO BID 07/25/21 04/27/22 History diltiazem HCl 180 mg capsule,24 180 mg PO QDAY #90 caps 07/25/21 04/27/22 Rx hr,extended release oxybutynin chloride 10 mg 10 mg PO DAILY BLADDER 04/28/22 04/27/22 History tablet,extended release 24 hr blood-glucose meter (Accu-Chek #1 ea 05/31/22 Unknown Rx Guide Glucose Meter) BD Ultra-Fine Mari Pen Needle 32 #120 ea 08/02/22 Unknown Rx gauge x 5/32 (pen needle, diabetic) rosuvastatin 20 mg tablet 20 mg PO DAILY #90 tabs 09/08/22 Unknown Rx blood sugar diagnostic (Accu-Chek #100 ea 12/05/22 Unknown Rx Guide test strips) furosemide 20 mg tablet 20 mg PO DAILY 12/05/22 Unknown History pen needle, diabetic 33 gauge x #400 ea 12/05/22 Unknown Rx 5/32 (Comfort EZ Pen [place]) alcohol swabs 1 pad topical TID #200 ea 01/17/23 Unknown Rx lancets #100 ea 01/17/23 Unknown Rx blood sugar diagnostic (FreeStyle #100 ea 03/07/23 Unknown Rx Precision Denzel Strips) lisinopril 20 mg tablet 20 mg PO DAILY #90 tabs 05/10/23 Unknown Rx flash glucose scanning reader #1 ea 07/05/23 Unknown Rx (FreeStyle Zoila 2 [place]) Novolog FlexPen U-100 Insulin 100 34 unit (0.34 mL) subcut TID #30 mL 08/06/23 Unknown Rx unit/mL (3 mL) subcutaneous (insulin aspart U-100) flash glucose sensor (FreeStyle #2 ea 09/17/23 Unknown Rx Zoila 2 Sensor kit) rivaroxaban 20 mg tablet (Xarelto) 20 mg PO QPM #90 TABLETS 12/13/23 Unknown Rx tirzepatide 10 mg/0.5 mL 10 mg (0.5 mL) subcut QWEEK #2 mL 01/21/24 Unknown Rx subcutaneous pen injector (Cande) Lantus Solostar U-100 Insulin 100 35 unit (0.35 mL) subcut QPM #31.5 03/12/24 Unknown Rx unit/mL (3 mL) subcutaneous pen mL (insulin glargine) anastrozole 1 mg tablet 1 mg PO DAILY 03/26/24 Unknown History deutetrabenazine 6 mg tablet 6 mg PO BID 03/26/24 Unknown History (Austedo) omeprazole 40 mg capsule,delayed 40 mg PO DAILY 03/26/24 Unknown History release Allergy/AdvReac Type Severity Reaction Status Date / Time mirtazapine (From Remeron) Allergy Intermediate agitation Verified 03/26/24 08:13 Penicillins Allergy Mild Rash Verified 03/26/24 08:13 Family History Mother Diabetes Heart disease Lung cancer CAD (coronary artery disease) CABG CVA (cerebral vascular accident) Daughter Diabetes Father Myocardial infarction Surgical History History of back surgery H/O bilateral cataract extraction Social History Smoking Status: Current some day smoker tobacco type: cigarettes Tobacco: How many years used: 35 Electronic Cigarette Use: not used how long ago did patient quit smoking: about 3 years ago second hand exposure: No alcohol intake: never substance use type: former substance user Date of last use: Used Marijuana in the past caffeine: Yes Type: coffee Number of servings: 1 delmy/yazdanism: Buddhist seatbelt use: sometimes ROS Constitutional Constitutional: Reports systems reviewed and no addt'l complaints, except as documented Eyes Eyes: Reports systems reviewed and no addt'l complaints, except as documented ENT HEENT: Reports systems reviewed and no addt'l complaints, except as documented Cardiovascular Cardiovascular: Reports systems reviewed and no addt'l complaints, except as documented Respiratory/Chest Respiratory/Chest: Reports systems reviewed and no addt'l complaints, except as documented Gastrointestinal Gastrointestinal: Reports systems reviewed and no addt'l complaints, except as documented Genitourinary Genitourinary: Reports systems reviewed and no addt'l complaints, except as documented Musculoskeletal Musculoskeletal: Reports systems reviewed and no addt'l complaints, except as documented Integumentary Integumentary: Reports other Details: Open wound left buttocks cheek superficial from shearing Neurologic Neurologic: Reports systems reviewed and no addt'l complaints, except as documented Psychiatric Psychiatric: Reports systems reviewed and no addt'l complaints, except as documented Endocrine Endocrinology: Reports systems reviewed and no addt'l complaints, except as documented Hematologic/Lymphatic Hematologic/Lymphatic: Reports systems reviewed and no addt'l complaints, except as documented Allergic/Immunologic Allergic/Immunologic: Reports systems reviewed and no addt'l complaints, except as documented Vital Signs Vital Signs Vital Signs: 03/26/24 08:00 Temperature 96.7 F L Temperature Source Temporal Pulse Rate 78 Respiratory Rate 16 Blood Pressure 149/74 H Blood Pressure Mean 99 Blood Pressure Source Monitor Blood Pressure Position Sitting Blood Pressure Location Right Arm Oxygen Delivery Method Room Air Physical Exam Const oriented x3 General Appearance: cooperative Exam Limitations: no limitations HEENT normocephalic Head and Scalp: normal to inspection Face and Sinus: normal facial exam General Ear: hearing grossly impaired External Ear: external ears normal Eyes General Eye: normal appearance of both eyes Resp normal respiratory effort Effort and Inspection: able to speak in complete sentences Auscultation: clear to auscultation bilaterally Cardio regular rate and regular rhythm Palpation: normal PMI Rate: regular rate Rhythm: regular rhythm GI Auscultation: normoactive bowel sounds Palpation: soft and no hepatosplenomegaly Back/Spine Cervical Spine: cervical ROM normal Thoracic Spine / Upper Back: normal to inspection Lumbar Spine / Lower Back: normal to inspection Extremity normal to inspection Skin Skin Narrative: Open wound left buttocks with shearing of the skin back debrided that off to a small slit on her left buttocks cheek should heal quickly. Neuro oriented x3 Psych Appearance: grossly normal Speech: normal speech Thought Content: normal thought content Judgement: judgement good Debridement Note Debridement Note Wound debrided: Left buttocks decubitus ulcer Laterality: Left Wound Grade/Stage: Stage II Type of Debridement: Excisional debridement Anesthesia Used: 5% Lidocaine Gel Depth: Down to and including healthy tissue and in the subcutaneous layer Percentage of wound debrided: 100 Instrument Used: 5mm curette Tissue Removed: Devitalized tissue and fibrin Severity: Fat Layer Exposed Amount of bleeding with debridement: Mild Bleeding Controlled with: Compression and gauze Patient tolerated procedure: Patient tolerated procedure well Post-Debridement Measurements and Additional Note: Post-Debridement Measurements/Treatment - Nurse 1 - General Ulcer Assessment Start: 03/26/24 08:00 Freq: Status: Active Protocol: RODERICK.MONTY Activity Type Activity Date Activity User E-sign Co-sign Detail Recorded Client Recorded Date Recorded By Document 03/26/24 08:00 [facility] [id number] 03/26/24 08:12 [facility] 03/26/24 08:00 - Today's Visit Information Type of service Initial Visit Arrival Mode Ambulatory Transfer Assistance None Accompanied by DAUGHTER AND GRANDSON Patient Identification Verified (Name & Yes ) Vital Signs Temperature (97.8 F-99.1 F) 96.7 F L Temperature Source Temporal Pulse Rate (60-100) 78 Pulse Location Monitor Respiratory Rate (12-18) 16 Respiratory rate source Observation Oxygen Delivery Method Room Air Blood Pressure (90/60-120/80) 149/74 H Blood Pressure Mean 99 Source Monitor Position Sitting Blood Pressure Location Right Arm History Since Last Visit- (Skip if this is Patient's initial visit) Left Footwear Regular Shoe Right Footwear Regular Shoe Pain Scale: 0-10 Numeric Is Patient Pain Free? Yes Communication Assessment Preferred language Hungarian Bass Singer Required No Able to Read Yes Able to Write Yes Right Hearing Abillity Normal Left Hearing Abillity Normal Visual Assistive Devices Glasses Teaching Assessment Preferences Verbal,Written, Audio/Visual, Demonstration Barriers to Learning None Readiness To Learn Excellent Willingness to Engage in Self Management High Activies Readiness to Engage in Self Management High Activities Anxiety Level Calm Cooperation Cooperative Perception Coherent Interest in Health Problem Asks Questions Education Importance Acknowledges Need Does Patient Smoke tobacco or other No substances Smoking Status Current some day smoker Is Patient Diabetic Yes Functional Assessment Recent Decline in Ability to Perform Denies Any Declines Culture/Jehovah'S Witness/Strategy Director Cultural/Jehovah'S Witness Needs that may affect No Treatment Plan WC - Nurse 1 - General Ulcer Measurement Start: 03/26/24 08:00 Freq: Status: Active Protocol: Activity Type Activity Date Activity User E-sign Co-sign Detail Recorded Client Recorded Date Recorded By Document 03/26/24 08:00 [facility] [id number] 03/26/24 08:12 [facility] 03/26/24 08:00 Wound Center Nurse 1 #1- L BUTTOCK -Combined with other wound No -Current Size (cm) - Length 0.3 -Current Size (cm) - Width 1 -Current Size (cm) - Depth 0.1 -Total Square Cm 0.3 -Date of Last Picture (Recall this 03/26/24 field) -Photo Taken Yes -Tunneling No -Undermining/Tunneling No -Circular Undermining No -Exudate Amt Medium -Exudate Type Serosanguineous -Wound Margin Flat & Intact -Granulation Amt Medium (34-66%) -Granulation Quality Red -Slough/Fibrin Yes -Necrosis Amt Small (1-33%) -Necrotic Tissue Type Adherent Slough -Texture (Aure-wound Skin Appearance) Assessed -Moisture (Aure-wound Skin Appearance) Assessed,Dry/ Scaly -Color (Aure-wound Skin Appearance) Assessed -Temperature (Aure-wound Skin No Abnormality Appearance) (Pt Warm) -Tenderness on Palpation (Aure-wound No Skin Appearance) -Ulcer Cleansing Soap and Water -Foul Odor after Cleansing No -Anesthetic Used 5% Lidocaine Gel - Nurse 2 - General Ulcer CM Notes Start: 03/26/24 08:00 Freq: Status: Active Protocol: Activity Type Activity Date Activity User E-sign Co-sign Detail Recorded Client Recorded Date Recorded By Document 03/26/24 08:24 [facility] [id number] 03/26/24 08:28 [facility] 03/26/24 08:24 Wound Center Nurse 2 -Time 08:24 -Correct Patient Yes -Correct Side, Site, Position Yes -Correct Procedure Yes -Procedure Performed Yes -Type of Procedure Debridement -Clinical Debridement Subcutaneous -Tissue Removed Subcutaneous -Post Debridement (cm) - Length 0.3 -Post Debridement (cm) - Width 1.2 -Post Debridement (cm) - Depth 0.1 -Total Square (Post) (cm) 0.36 -Area of Debridement (cm) - Length 0.3 -Area of Debridement (cm) - Width 1.2 -Total Square (Area) (cm) 0.36 -Tunneling No -Undermining/Tunneling No -Circular Undermining No -Wound/Ulcer Outcome Not Healed -Ulcer Cleansing Rinsed/ Irrigated with Saline -Foul Odor after Cleansing No -Bioengineered Tissue No -Bleeding Controlled with Pressure -Treatment Response Procedure Tolerated Well -Debridement - Subq, 1st 20sq cm Yes Pain Scale: 0-10 Numeric Is Patient Pain Free? Yes - Nurse 3 - General Ulcer D/C NN Start: 03/26/24 08:00 Freq: Status: Active Protocol: Activity Type Activity Date Activity User E-sign Co-sign Detail Recorded Client Recorded Date Recorded By Document 03/26/24 08:30 [facility] [id number] 03/26/24 08:31 [facility] 03/26/24 08:30 Wound Care Center Nurse 3 #1- L BUTTOCK -Ulcer Cleansing Rinsed/ Irrigated with Saline -Foul Odor after Cleansing No -Primary Dressing Applied Mepilex Border, NonAdherent Contact Layer -Other Dressing XEROFORM TOPPED W/ ADAPTIC -Mepilex Border 2 Treatment Response Procedure Tolerated Well Pain Scale: 0-10 Numeric Is Patient Pain Free? Yes WC - Visit Discharge Discharge Condition Stable Ambulatory Status Ambulatory Transportation Private Auto Accompanied by DAUGHTER AND GR SON Assessment/Plan Assessment/Plan (1) Decubitus ulcer of buttock, stage 2: CODE(S): L89.302 - Pressure ulcer of unspecified buttock, stage 2 QUALIFIERS: Laterality: left Qualified Code(s): L89.322 - Pressure ulcer of left buttock, stage 2 PLAN: Wash the buttocks with antibacterial soap like Dial apply Xeroform to the wound base cover with Adaptic and a [place] SAP foam dressing. Every day Follow-up in 1 week Patient needs to sit on a gel foam pad when she is sitting in chairs or in the car. (2) Type 2 diabetes mellitus with diabetic polyneuropathy: CODE(S): E11.42 - Type 2 diabetes mellitus with diabetic polyneuropathy QUALIFIERS: Diabetes mellitus nursing home insulin use: with nursing home use Qualified Code(s): E11.42 - Type 2 diabetes mellitus with diabetic polyneuropathy; Z79.4 - manager terminal (current) use of insulin PLAN: Continue well-controlled diabetes (3) Personal history of stroke with residual effects: CODE(S): I69.30 - Unspecified sequelae of cerebral infarction
--- NOTE | 2024-03-27 09:13 | WC ---
PHOTO LEFT BUTTOCKS 03/26/24
== END 2024-04-12 23:59 | disposition home or self-care (01) ==
LOC: WC 07:52
PROVIDERS: PCP Family Medicine; Referring Provider Family Medicine; Visit Provider Nurse Practitioner
DX: L89.322 Pressure ulcer of left buttock, stage 2 (principal); F31.9 Bipolar disorder, unspecified; J44.9 Chronic obstructive pulmonary disease, unspecified; Z79.4 Long term (current) use of insulin; E11.42 Type 2 diabetes mellitus with diabetic polyneuropathy; I25.10 Atherosclerotic heart disease of native coronary artery without angina pectoris; Z79.85 Long-term (current) use of injectable non-insulin antidiabetic drugs; E78.5 Hyperlipidemia, unspecified; Z79.01 Long term (current) use of anticoagulants; I69.30 Unspecified sequelae of cerebral infarction; F17.210 Nicotine dependence, cigarettes, uncomplicated; G47.33 Obstructive sleep apnea (adult) (pediatric); Z86.718 Personal history of other venous thrombosis and embolism
CPT/HCPCS: 11042; 99212; 99213; G0463

== ENCOUNTER 2024-05-12 11:30 | Outpatient (RCR) | payer MEDICARE, MEDICAID, SELFPAY ==
[2024-04-13 00:30] VITALS: BP 149/74; PULSE 78; RESP 16; TEMP 35.9
[2024-04-23 14:09] VITALS: BP 137/56; PULSE 88; RESP 18; TEMP 36.8
--- NOTE | 2024-04-23 17:07 | PCM.WC.HP ---
History of Present Illness Date of Service: 04/23/24 Chief Complaint: Bilateral buttocks wounds from shearing/pressure History of Wound: 64 year old female presents for further evaluation of her bilateral buttock wounds. She has a history of a stroke with right sided weakness. She has issues getting out of bed without scooting her bottom. History of scooting across chairs to get up has a hard time moving uses walkers at times. She developed areas on both sides of her buttocks. She came into see [facility] in March but healed right afterwards. She comes back in today because her daughter states that both areas reopened. She started to use the left over supplies that she had from when she saw [facility] and she believes they are improving. She does spend a lot of her time sitting through the day. They had bought her a foam/gel cushion, but she finds it very uncomfortable, so she hasn't been using it. She is able to ambulate, she sometimes uses a walker. She has a difficult time getting from lying to sitting and that is when she tends to scoot herself to help get up. She lives at home and has had history of stroke, diabetes, heart disease, DVT, depression, schizophrenia, MONCHO, asthma. Progress of Wound: She has a dried, healed area on each buttock from where she had a wound. Although they are healed, the granulation tissue is fragile. She has some bruising and some erythema from sitting/pressure for long periods of time. 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 Type 2 diabetes mellitus with unspecified diabetic retinopathy without macular edema Suicidal ideation (10/23/18) Bipolar disorder History of schizophrenia Multiple sclerosis History of DVT (deep vein thrombosis) Personal history of stroke with residual effects Atherosclerotic heart disease of [place] coronary artery without angina pectoris Tobacco abuse Neuropathic pain A-fib Vitamin D deficiency Depression HLD (hyperlipidemia) Type 2 diabetes mellitus Urinary incontinence in female MONCHO (obstructive sleep apnea) Chronic asthma Vaginal candidiasis Contracture of muscle of right lower leg Home Medications ?Medication ?Instructions ?Recorded ?Last Taken ?Type zolpidem 10 mg tablet (Ambien) 10 mg PO QHS 03/30/20 04/27/22 History blood-glucose meter (Accu-Chek #1 ea 02/22/21 Unknown Rx Guide Glucose Meter) brexpiprazole 1 mg tablet 1 mg PO DAILY 03/07/21 04/27/22 History duloxetine 60 mg capsule,delayed 60 mg PO DAILY 03/07/21 04/27/22 History release deutetrabenazine 12 mg tablet 24 mg PO BID 07/25/21 04/27/22 History diltiazem HCl 180 mg capsule,24 180 mg PO QDAY #90 caps 07/25/21 04/27/22 Rx hr,extended release oxybutynin chloride 10 mg 10 mg PO DAILY BLADDER 04/28/22 04/27/22 History tablet,extended release 24 hr blood-glucose meter (Accu-Chek #1 ea 05/31/22 Unknown Rx Guide Glucose Meter) BD Ultra-Fine Mari Pen Needle 32 #120 ea 08/02/22 Unknown Rx gauge x 5/32 (pen needle, diabetic) rosuvastatin 20 mg tablet 20 mg PO DAILY #90 tabs 09/08/22 Unknown Rx blood sugar diagnostic (Accu-Chek #100 ea 12/05/22 Unknown Rx Guide test strips) furosemide 20 mg tablet 20 mg PO DAILY 12/05/22 Unknown History pen needle, diabetic 33 gauge x #400 ea 12/05/22 Unknown Rx 5/32 (Comfort EZ Pen [place]) lancets #100 ea 01/17/23 Unknown Rx blood sugar diagnostic (FreeStyle #100 ea 03/07/23 Unknown Rx Precision Denzel Strips) lisinopril 20 mg tablet 20 mg PO DAILY #90 tabs 05/10/23 Unknown Rx flash glucose scanning reader #1 ea 07/05/23 Unknown Rx (FreeStyle Zoila 2 [place]) Novolog FlexPen U-100 Insulin 100 34 unit (0.34 mL) subcut TID #30 mL 08/06/23 Unknown Rx unit/mL (3 mL) subcutaneous (insulin aspart U-100) flash glucose sensor (FreeStyle #2 ea 09/17/23 Unknown Rx Zoila 2 Sensor kit) rivaroxaban 20 mg tablet (Xarelto) 20 mg PO QPM #90 TABLETS 12/13/23 Unknown Rx tirzepatide 10 mg/0.5 mL 10 mg (0.5 mL) subcut QWEEK #2 mL 01/21/24 Unknown Rx subcutaneous pen injector (Tiro) Lantus Solostar U-100 Insulin 100 35 unit (0.35 mL) subcut QPM #31.5 03/12/24 Unknown Rx unit/mL (3 mL) subcutaneous pen mL (insulin glargine) anastrozole 1 mg tablet 1 mg PO DAILY 03/26/24 Unknown History deutetrabenazine 6 mg tablet 6 mg PO BID 03/26/24 Unknown History (Austedo) omeprazole 40 mg capsule,delayed 40 mg PO DAILY 03/26/24 Unknown History release alcohol swabs (DropSafe Alcohol 1 pad topical TID #400 ea 04/16/24 Unknown Rx Prep Pads) Allergy/AdvReac Type Severity Reaction Status Date / Time mirtazapine (From Remeron) Allergy Intermediate agitation Verified 03/26/24 08:13 Penicillins Allergy Mild Rash Verified 03/26/24 08:13 Family History Mother Diabetes Heart disease Lung cancer CAD (coronary artery disease) CABG CVA (cerebral vascular accident) Daughter Diabetes Father Myocardial infarction Surgical History History of back surgery H/O bilateral cataract extraction Social History (Reviewed 04/24/24 @ 12:38 by Regina hCew FLEET MAINTENANCE MANAGER, FLEET MAINTENANCE MANAGER-C) Smoking Status: Current some day smoker tobacco type: cigarettes Tobacco: How many years used: 35 Electronic Cigarette Use: not used how long ago did patient quit smoking: about 3 years ago second hand exposure: No alcohol intake: never substance use type: former substance user Date of last use: Used Marijuana in the past caffeine: Yes Type: coffee Number of servings: 1 delmy/caodaism: Faith seatbelt use: sometimes ROS Constitutional Constitutional: Denies chills, fatigue or fever(s) Eyes Eyes: Reports none ENT HEENT: Reports as per HPI and none Cardiovascular Cardiovascular: Reports as per HPI; Denies chest pain or dyspnea Respiratory/Chest Respiratory/Chest: Reports as per HPI; Denies cough or dyspnea Gastrointestinal Gastrointestinal: Reports none Genitourinary Genitourinary: Reports none Musculoskeletal Musculoskeletal: Reports as per HPI and abnormal gait Integumentary Integumentary: Reports as per HPI and wounds Neurologic Neurologic: Reports as per HPI and abnormal gait Psychiatric Psychiatric: Reports as per HPI Endocrine Endocrinology: Reports as per HPI Hematologic/Lymphatic Hematologic/Lymphatic: Reports none Vital Signs Vital Signs Vital Signs: 04/23/24 14:09 Temperature 98.3 F Temperature Source Temporal Pulse Rate 88 Respiratory Rate 18 Blood Pressure 137/56 H Blood Pressure Mean 83 Blood Pressure Source Monitor Blood Pressure Position Sitting Blood Pressure Location Left Arm Oxygen Delivery Method Room Air Physical Exam Const alert and no apparent distress General Appearance: cooperative and well kempt HEENT normocephalic Eyes General Eye: normal appearance of both eyes Neck full ROM Lymph Lymphatic: no lymphedema noted Resp normal respiratory effort and clear to auscultation bilaterally Effort and Inspection: able to speak in complete sentences Cardio regular rate and regular rhythm GI soft to palpation and non-tender Extremity normal to inspection and normal capillary refill Skin Wound Narrative: Bilateral buttocks with healed excoriated areas from pressure and shearing. Fragile epithelial tissue in place Neuro oriented x3 and CN's II-XII intact bilaterally Psych thought process normal and cooperative Appearance: grossly normal Debridement Note Debridement Note No debridement was completed: No debridement was completed today Post-Debridement Measurements and Additional Note: Post-Debridement Measurements/Treatment - Nurse 1 - General Ulcer Assessment Start: 04/23/24 14:09 Freq: Status: Active Protocol: WC.LOWEXT Activity Type Activity Date Activity User E-sign Co-sign Detail Recorded Client Recorded Date Recorded By Document 04/23/24 14:09 [facility] [id number] 04/23/24 14:18 [facility] 04/23/24 14:09 - Today's Visit Information Type of service Follow-up Visit (Physician/MEDICAL SONOGRAPHER ) Arrival Mode Ambulatory Patient Identification Verified (Name & Yes ) Vital Signs Temperature (97.8 F-99.1 F) 98.3 F Temperature Source Temporal Pulse Rate (60-100) 88 Pulse Location Monitor Respiratory Rate (12-18) 18 Respiratory rate source Observation Oxygen Delivery Method Room Air Blood Pressure (90/60-120/80) 137/56 H Blood Pressure Mean 83 Source Monitor Position Sitting Blood Pressure Location Left Arm History Since Last Visit- (Skip if this is Patient's initial visit) Have you changed medications since your No last visit? Any new allergies or adverse reactions No Had a fall/change in ADL's that may No increase risk of falls Signs or symptoms of abuse and/or No neglect since last visit Have you been in the hospital since your No last visit? Has dressing in place as prescribed Yes Has compression in place as prescribed N/A Has offloadiing in place as prescribed N/A Experienced any changes in pain level or No management Left Footwear Regular Shoe Right Footwear Regular Shoe Pain Scale: 0-10 Numeric Is Patient Pain Free? Yes WC - Nurse 1 - General Ulcer Measurement Start: 04/23/24 14:09 Freq: Status: Active Protocol: Activity Type Activity Date Activity User E-sign Co-sign Detail Recorded Client Recorded Date Recorded By Document 04/23/24 14:09 [facility] [id number] 04/23/24 14:18 [facility] 04/23/24 14:09 Wound Center Nurse 1 #2 R BUTTOCK -Current Size (cm) - Length 0.1 -Current Size (cm) - Width 0.1 -Current Size (cm) - Depth 0.1 -Total Square Cm 0.01 -Date of Last Picture (Recall this 04/23/24 field) -Exudate Amt None Present -Granulation Amt Large (67-100%) -Granulation Quality [place],Red -Texture (Aure-wound Skin Appearance) Assessed -Moisture (Aure-wound Skin Appearance) Assessed -Color (Aure-wound Skin Appearance) Assessed, Ecchymosis, Erythema -Temperature (Aure-wound Skin No Abnormality Appearance) (Pt Warm) -Tenderness on Palpation (Aure-wound No Skin Appearance) -Ulcer Cleansing Rinsed/ Irrigated with Saline -Foul Odor after Cleansing No -Anesthetic Used 5% Lidocaine Gel #1- L BUTTOCK -Current Size (cm) - Length 0.1 -Current Size (cm) - Width 0.1 -Current Size (cm) - Depth 0.1 -Total Square Cm 0.01 -Date of Last Picture (Recall this 04/23/24 field) -Exudate Amt None Present -Texture (Aure-wound Skin Appearance) Assessed -Moisture (Aure-wound Skin Appearance) Assessed -Color (Aure-wound Skin Appearance) Assessed -Temperature (Aure-wound Skin No Abnormality Appearance) (Pt Warm) -Tenderness on Palpation (Aure-wound No Skin Appearance) -Ulcer Cleansing Rinsed/ Irrigated with Saline -Foul Odor after Cleansing No WC - Nurse 2 - General Ulcer CM Notes Start: 04/23/24 14:09 Freq: Status: Active Protocol: Activity Type Activity Date Activity User E-sign Co-sign Detail Recorded Client Recorded Date Recorded By Document 04/23/24 14:29 GM [id number] 04/23/24 14:35 GM 04/23/24 14:29 Wound Center Nurse 2 #2 R BUTTOCK -Time 14:29 -Correct Patient Yes -Correct Side, Site, Position Yes -Correct Procedure No -Procedure Performed No -Tunneling No -Undermining/Tunneling No -Circular Undermining No -Wound/Ulcer Outcome Healed- Epithelialized -Ulcer Cleansing Not Cleansed -Foul Odor after Cleansing No -Bioengineered Tissue No -Bleeding Controlled with NA #1- L BUTTOCK -Time 14:29 -Correct Patient Yes -Correct Side, Site, Position Yes -Correct Procedure No -Procedure Performed No -Tunneling No -Undermining/Tunneling No -Circular Undermining No -Wound/Ulcer Outcome Healed- Epithelialized Pain Scale: 0-10 Numeric Is Patient Pain Free? Yes - Nurse 3 - General Ulcer D/C NN Start: 04/23/24 14:09 Freq: Status: Active Protocol: Activity Type Activity Date Activity User E-sign Co-sign Detail Recorded Client Recorded Date Recorded By Document 04/23/24 14:41 [id number] 04/23/24 14:41 04/23/24 14:41 Wound Care Center Nurse 3 #2 R BUTTOCK -Primary Dressing Applied Mepilex Border -Mepilex Border 1 #1- L BUTTOCK -Primary Dressing Applied Mepilex Border -Mepilex Border 1 Pain Scale: 0-10 Numeric Is Patient Pain Free? Yes WC - Visit Discharge Discharge Condition Stable Ambulatory Status Ambulatory Transportation Private Auto Medication Reconcilliation completed & No provided to patient/care provider Clinical Summary of Care Provided Yes Charges/Coding Visit Charges Office Visits / Consults: [id number] OV L3 Est 20min Assessment/Plan Assessment/Plan (1) Pressure injury of buttock, stage 1: CODE(S): L89.301 - Pressure ulcer of unspecified buttock, stage 1 QUALIFIERS: Laterality: unspecified laterality Qualified Code(s): L89.301 - Pressure ulcer of unspecified buttock, stage 1 PLAN: bilateral buttocks (2) Obesity: CODE(S): E66.9 - Obesity, unspecified QUALIFIERS: Obesity type: due to excess calories Obesity classification: adult class 3 (BMI >= 40) Serious obesity comorbidity presence: with serious comorbidity Body mass index: BMI 40.0-44.9 Qualified Code(s): E66.01 - Morbid (severe) obesity due to excess calories; Z68.41 - Body mass index [BMI]40.0-44.9, adult (3) Type 2 diabetes mellitus with diabetic polyneuropathy: CODE(S): E11.42 - Type 2 diabetes mellitus with diabetic polyneuropathy QUALIFIERS: Diabetes mellitus fci insulin use: with fci use Qualified Code(s): E11.42 - Type 2 diabetes mellitus with diabetic polyneuropathy; Z79.4 - joint terminal attack controller (current) use of insulin PLAN: Plan Patient evaluated at the wound healing center today. She has a pressure/shearing injury to bilateral buttocks that is healing. She will continue to place Mepilex/silicone border dressing to these areas every 1-3 days or change when soiled leaving in place no longer than 5 days. Discussed in detail how to off load and prevent the pressure by frequent repositioning, standing and walking more frequently and placing a cushion such a ROHO cushion in the chair where she sits. Educated on preventing shearing forces that can irritate the fragile skin She will follow up on an as needed basis. Her and her daughter verbalized understanding to the instructions.
--- NOTE | 2024-04-24 09:07 | WC ---
PHOTO 04/23/24 L/R BUTTOCKS
[2024-04-30 13:33] VITALS: BP 171/64; PULSE 82; RESP 16
--- NOTE | 2024-04-30 15:56 | PCM.WC.PN ---
History of Present Illness Date of Service: 04/30/24 Chief Complaint: Bilateral buttocks wounds from shearing/pressure History of Wound: 64 year old female presents for further evaluation of her bilateral buttock wounds. She has a history of a stroke with right sided weakness. She has issues getting out of bed without scooting her bottom. History of scooting across chairs to get up has a hard time moving uses walkers at times. She developed areas on both sides of her buttocks. She came into see [facility] in March but healed right afterwards. She comes back in today because her daughter states that both areas reopened. She started to use the left over supplies that she had from when she saw [facility] and she believes they are improving. She does spend a lot of her time sitting through the day. They had bought her a foam/gel cushion, but she finds it very uncomfortable, so she hasn't been using it. She is able to ambulate, she sometimes uses a walker. She has a difficult time getting from lying to sitting and that is when she tends to scoot herself to help get up. She lives at home and has had history of stroke, diabetes, heart disease, DVT, depression, schizophrenia, MONCHO, asthma. Progress of Wound: She has a dried, healed area on right buttocks. Left buttocks is healed. She does have some bruising/erythema from sitting too much. 2 days ago they noticed a significant amount of bleeding on the toilet seat and initially thought it was from one of her healed pressure areas, but then it was discovered that she has two very small openings in the base of her coccyx. They are right next to each other and are connected under a skin bridge that makes it difficult to get to the base of the ulcer. Suspect that this is caused by pressure and shearing force because of the way she scoots trying to get into and out of bed. She does admit to sitting for long periods of time in a lift chair and she sleeps on her back in a bed that the head elevates. Objective Data Objective Data Vital Signs: Vital Signs Temp Pulse Resp BP O2 Del Method 98.3 F 82 16 171/64 H Room Air 04/23/24 14:09 04/30/24 13:33 04/30/24 13:33 04/30/24 13:33 04/30/24 13:33 Oxygen Delivery Method Room Air Charges/Coding Procedures Integumentary [id number]: [id number] Cathleen subq tissue 20 sq cm/< Debridement Note Debridement Note Wound debrided: coccyx ulcer Laterality: Not Applicable Wound Grade/Stage: 2 Type of Debridement: Excisional debridement Anesthesia Used: 5% Lidocaine Gel and Cetacaine Depth: Down to and including healthy tissue and in the subcutaneous layer Percentage of wound debrided: 100 Instrument Used: - (scissors) Tissue Removed: Snipped the skin bridge to make the opening larger and to ease wound care. Severity: Fat Layer Exposed Amount of bleeding with debridement: Mild Bleeding Controlled with: Compression and gauze Patient tolerated procedure: Patient tolerated procedure well Post-Debridement Measurements and Additional Note: Post-Debridement Measurements/Treatment - Nurse 1 - General Ulcer Assessment Start: 04/23/24 14:09 Freq: Status: Active Protocol: WC.LOWSYLVAINT Activity Type Activity Date Activity User E-sign Co-sign Detail Recorded Client Recorded Date Recorded By Document 04/23/24 14:09 [facility] [id number] 04/23/24 14:18 [facility] Document 04/30/24 13:33 [facility] [id number] 04/30/24 13:42 [facility] 04/23/24 04/30/24 14:09 13:33 - Today's Visit Information Type of service Follow-up Visit Follow-up Visit (Physician/RUBY ENGINEER (Physician/RUBY ENGINEER ) ) Arrival Mode Ambulatory Ambulatory Transfer Assistance None Patient Identification Verified (Name & Yes Yes ) Vital Signs Temperature (97.8 F-99.1 F) 98.3 F Temperature Source Temporal Pulse Rate (60-100) 88 82 Pulse Location Monitor Monitor Respiratory Rate (12-18) 18 16 Respiratory rate source Observation Observation Oxygen Delivery Method Room Air Room Air Blood Pressure (90/60-120/80) 137/56 H 171/64 H Blood Pressure Mean (mm Hg) 83 99 Source Monitor Monitor Position Sitting Sitting Blood Pressure Location Left Arm Right Arm History Since Last Visit- (Skip if this is Patient's initial visit) Have you changed medications since your No No last visit? Any new allergies or adverse reactions No No Had a fall/change in ADL's that may No No increase risk of falls Signs or symptoms of abuse and/or No No neglect since last visit Have you been in the hospital since your No No last visit? Has dressing in place as prescribed Yes Yes Has compression in place as prescribed N/A N/A Has offloadiing in place as prescribed N/A N/A Experienced any changes in pain level or No No management Left Footwear Regular Shoe Regular Shoe Right Footwear Regular Shoe Regular Shoe Pain Scale: 0-10 Numeric Is Patient Pain Free? Yes Yes WC - Nurse 1 - General Ulcer Measurement Start: 04/23/24 14:09 Freq: Status: Active Protocol: Activity Type Activity Date Activity User E-sign Co-sign Detail Recorded Client Recorded Date Recorded By Document 04/23/24 14:09 [facility] [id number] 04/23/24 14:18 [facility] Document 04/30/24 13:33 [facility] [id number] 04/30/24 13:42 [facility] 04/23/24 04/30/24 14:09 13:33 Wound Center Nurse 1 #2 R BUTTOCK -Current Size (cm) - Length 0.1 -Current Size (cm) - Width 0.1 -Current Size (cm) - Depth 0.1 -Total Square Cm 0.01 -Date of Last Picture (Recall this 04/23/24 field) -Exudate Amt None Present -Granulation Amt Large (67-100%) -Granulation Quality [place],Red -Texture (Aure-wound Skin Appearance) Assessed -Moisture (Aure-wound Skin Appearance) Assessed -Color (Aure-wound Skin Appearance) Assessed, Ecchymosis, Erythema -Temperature (Aure-wound Skin No Abnormality Appearance) (Pt Warm) -Tenderness on Palpation (Aure-wound No Skin Appearance) -Ulcer Cleansing Rinsed/ Irrigated with Saline -Foul Odor after Cleansing No -Anesthetic Used 5% Lidocaine Gel #1- L BUTTOCK -Current Size (cm) - Length 0.1 -Current Size (cm) - Width 0.1 -Current Size (cm) - Depth 0.1 -Total Square Cm 0.01 -Date of Last Picture (Recall this 04/23/24 field) -Exudate Amt None Present -Texture (Aure-wound Skin Appearance) Assessed -Moisture (Aure-wound Skin Appearance) Assessed -Color (Aure-wound Skin Appearance) Assessed -Temperature (Aure-wound Skin No Abnormality Appearance) (Pt Warm) -Tenderness on Palpation (Aure-wound No Skin Appearance) -Ulcer Cleansing Rinsed/ Irrigated with Saline -Foul Odor after Cleansing No #3- SACRAL CLUSTER -Combined with other wound No -Current Size (cm) - Length 0.1 -Current Size (cm) - Width 0.1 -Current Size (cm) - Depth 0.1 -Total Square Cm 0.01 -Date of Last Picture (Recall this 04/30/24 field) -Photo Taken Yes -Exudate Amt Medium -Exudate Type Sanguineous -Wound Margin Distinct, Outline Attached -Granulation Amt Large (67-100%) -Granulation Quality Red -Slough/Fibrin No -Necrosis Amt None Present (0 %) -Texture (Aure-wound Skin Appearance) Assessed -Moisture (Aure-wound Skin Appearance) Assessed -Color (Aure-wound Skin Appearance) Assessed, Erythema -Temperature (Aure-wound Skin No Abnormality Appearance) (Pt Warm) -Tenderness on Palpation (Aure-wound Yes Skin Appearance) -Ulcer Cleansing Rinsed/ Irrigated with Saline -Foul Odor after Cleansing No -Anesthetic Used 5% Lidocaine Gel WC - Nurse 2 - General Ulcer CM Notes Start: 04/23/24 14:09 Freq: Status: Active Protocol: Activity Type Activity Date Activity User E-sign Co-sign Detail Recorded Client Recorded Date Recorded By Document 04/23/24 14:29 [id number] 04/23/24 14:35 GM Document 04/30/24 13:54 [id number] 04/30/24 14:00 GM 04/23/24 04/30/24 14:29 13:54 Wound Center Nurse 2 #2 R BUTTOCK -Time 14:29 -Correct Patient Yes -Correct Side, Site, Position Yes -Correct Procedure No -Procedure Performed No -Tunneling No -Undermining/Tunneling No -Circular Undermining No -Wound/Ulcer Outcome Healed- Epithelialized -Ulcer Cleansing Not Cleansed -Foul Odor after Cleansing No -Bioengineered Tissue No -Bleeding Controlled with NA #1- L BUTTOCK -Time 14:29 -Correct Patient Yes -Correct Side, Site, Position Yes -Correct Procedure No -Procedure Performed No -Tunneling No -Undermining/Tunneling No -Circular Undermining No -Wound/Ulcer Outcome Healed- Epithelialized #3- SACRAL CLUSTER -Time 13:54 -Correct Patient Yes -Correct Side, Site, Position Yes -Correct Procedure Yes -Procedure Performed Yes -Type of Procedure Debridement -Clinical Debridement Subcutaneous -Tissue Removed Subcutaneous -Post Debridement (cm) - Length 0.6 -Post Debridement (cm) - Width 0.2 -Post Debridement (cm) - Depth 0.3 -Total Square (Post) (cm) 0.12 -Area of Debridement (cm) - Length 0.6 -Area of Debridement (cm) - Width 0.2 -Total Square (Area) (cm) 0.12 -Tunneling No -Undermining/Tunneling No -Circular Undermining No -Wound/Ulcer Outcome Not Healed -Ulcer Cleansing Not Cleansed -Foul Odor after Cleansing No -Bioengineered Tissue No -Bleeding Controlled with Pressure -Treatment Response Procedure Tolerated Well -Debridement - Subq, 1st 20sq cm Yes Pain Scale: 0-10 Numeric Is Patient Pain Free? Yes Yes - Nurse 3 - General Ulcer D/C NN Start: 04/23/24 14:09 Freq: Status: Active Protocol: Activity Type Activity Date Activity User E-sign Co-sign Detail Recorded Client Recorded Date Recorded By Document 04/23/24 14:41 [id number] 04/23/24 14:41 Document 04/30/24 14:19 [id number] 04/30/24 14:20 04/23/24 04/30/24 14:41 14:19 Wound Care Center Nurse 3 #2 R BUTTOCK -Primary Dressing Applied Mepilex Border -Mepilex Border 1 #1- L BUTTOCK -Primary Dressing Applied Mepilex Border -Mepilex Border 1 #3- SACRAL CLUSTER -Primary Dressing Applied Mepilex Border -Other Dressing HYDROGEL -Mepilex Border 1 Pain Scale: 0-10 Numeric Is Patient Pain Free? Yes Yes - Visit Discharge Discharge Condition Stable Stable Ambulatory Status Ambulatory Ambulatory Transportation Private Auto Private Auto Medication Reconcilliation completed & No No provided to patient/care provider Clinical Summary of Care Provided Yes Yes Assessment/Plan Assessment/Plan (1) Pressure injury of coccygeal region, stage 2: CODE(S): L89.152 - Pressure ulcer of sacral region, stage 2 (2) Pressure injury of buttock, stage 1: CODE(S): L89.301 - Pressure ulcer of unspecified buttock, stage 1 QUALIFIERS: Laterality: unspecified laterality Qualified Code(s): L89.301 - Pressure ulcer of unspecified buttock, stage 1 PLAN: right buttocks (3) Obesity: CODE(S): E66.9 - Obesity, unspecified QUALIFIERS: Obesity type: due to excess calories Obesity classification: adult class 3 (BMI >= 40) Serious obesity comorbidity presence: with serious comorbidity Body mass index: BMI 40.0-44.9 Qualified Code(s): E66.01 - Morbid (severe) obesity due to excess calories; Z68.41 - Body mass index [BMI]40.0-44.9, adult (4) Type 2 diabetes mellitus with diabetic polyneuropathy: CODE(S): E11.42 - Type 2 diabetes mellitus with diabetic polyneuropathy QUALIFIERS: Diabetes mellitus truck body builder insulin use: with truck body builder use Qualified Code(s): E11.42 - Type 2 diabetes mellitus with diabetic polyneuropathy; Z79.4 - senior living (current) use of insulin PLAN: Plan Patient evaluated at the wound healing center today. She has a pressure/shearing injury to bilateral buttocks that the left is healed and the right has a small scab acting as a biologic dressing. She has been placing [place] SAP onto this are. She has a new pressure ulcer to the base of her coccyx. Wound care will be collagen hydrogel covered with [place] SAP daily and as needed. Wash area with soap and water daily. Discussed in detail how to off load and prevent the pressure by frequent repositioning, standing and walking more frequently and placing a cushion such a ROHO cushion in the chair where she sits. Educated on preventing shearing forces that can irritate the fragile skin. Instructed on how to get out of bed by rolling on her side and then sitting up as she brings her legs over the side of bed (she may need assistance with this, which her daughter states is no problem). Follow up 2 weeks. Call or come in sooner if have any concerns.
--- NOTE | 2024-05-01 09:13 | WC ---
PHOTO 04/30/24 [facility]
[2024-05-12 11:08] VITALS: BP 154/68; PULSE 96; RESP 12; TEMP 36.6
--- NOTE | 2024-05-12 12:17 | PN.PCM_ITS ---
History of Present Illness Date of Service: 05/12/24 Chief Complaint: Bilateral buttocks wounds from shearing/pressure History of Wound: 64 year old female presents for further evaluation of her bilateral buttock wounds. She has a history of a stroke with right sided weakness. She has issues getting out of bed without scooting her bottom. History of scooting across chairs to get up has a hard time moving uses walkers at times. She developed areas on both sides of her buttocks. She came into see [facility] in March but healed right afterwards. She comes back in today because her daughter states that both areas reopened. She started to use the left over supplies that she had from when she saw [facility] and she believes they are improving. She does spend a lot of her time sitting through the day. They had bought her a foam/gel cushion, but she finds it very uncomfortable, so she hasn't been using it. She is able to ambulate, she sometimes uses a walker. She has a difficult time getting from lying to sitting and that is when she tends to scoot herself to help get up. She lives at home and has had history of stroke, diabetes, heart disease, DVT, depression, schizophrenia, MONCHO, asthma. Progress of Wound: Both right and left buttocks are healed. The bruising/erythema from sitting too much has resolved. She still has a small pin hole opening at the base of her coccyx, that looks healed. She states she has been trying to off load and is not sitting as much as she had been. Her buttocks looks healed and the skin aure wound is clear. Objective Data Objective Data Vital Signs: Vital Signs Temp Pulse Resp BP O2 Del Method 97.8 F 96 12 154/68 H Room Air 05/12/24 11:08 05/12/24 11:08 05/12/24 11:08 05/12/24 11:08 04/30/24 13:33 Oxygen Delivery Method Room Air Physical Exam Const alert and no apparent distress General Appearance: cooperative and well kempt HEENT normocephalic Eyes General Eye: normal appearance of both eyes Neck full ROM Lymph Lymphatic: no lymphedema noted Resp normal respiratory effort and clear to auscultation bilaterally Effort and Inspection: able to speak in complete sentences Cardio regular rate and regular rhythm GI soft to palpation and non-tender Extremity normal to inspection and normal capillary refill Skin Skin Narrative: Buttocks bilaterally are healed. Small pin hole opening at base of coccyx also looks healed. Neuro oriented x3 and CN's II-XII intact bilaterally Psych thought process normal and cooperative Appearance: grossly normal Debridement Note Debridement Note Post-Debridement Measurements and Additional Note: Post-Debridement Measurements/Treatment WC - Nurse 1 - General Ulcer Assessment Start: 04/23/24 14:09 Freq: Status: Active Protocol: BERYL Activity Type Activity Date Activity User E-sign Co-sign Detail Recorded Client Recorded Date Recorded By Document 04/23/24 14:09 BMF [id number] 04/23/24 14:18 BMF Document 04/30/24 13:33 BMF [id number] 04/30/24 13:42 BMF Document 05/12/24 11:08 ML [id number] 05/12/24 11:15 ML 04/23/24 04/30/24 05/12/24 14:09 13:33 11:08 WC - Today's Visit Information Type of service Follow-up Visit Follow-up Visit Follow-up Visit (Physician/LIBRARY SERIALS ASSISTANT (Physician/LIBRARY SERIALS ASSISTANT (Physician/LIBRARY SERIALS ASSISTANT ) ) ) Arrival Mode Ambulatory Ambulatory Ambulatory Transfer Assistance None None Patient Identification Verified (Name & Yes Yes Yes ) Patient Requires Transmission-Based No Precautions Vital Signs Temperature (97.8 F-99.1 F) 98.3 F 97.8 F Temperature Source Temporal Temporal Pulse Rate (60-100) 88 82 96 Pulse Location Monitor Monitor Monitor Respiratory Rate (12-18) 18 16 12 Respiratory rate source Observation Observation Observation Oxygen Delivery Method Room Air Room Air Blood Pressure (90/60-120/80) 137/56 H 171/64 H 154/68 H Blood Pressure Mean (mm Hg) 83 99 96 Source Monitor Monitor Monitor Position Sitting Sitting Semi-Fowlers Blood Pressure Location Left Arm Right Arm Right Arm History Since Last Visit- (Skip if this is Patient's initial visit) Have you changed medications since your No No No last visit? Any new allergies or adverse reactions No No No Had a fall/change in ADL's that may No No No increase risk of falls Signs or symptoms of abuse and/or No No No neglect since last visit Have you been in the hospital since your No No No last visit? Has dressing in place as prescribed Yes Yes Yes Has compression in place as prescribed N/A N/A N/A Has offloadiing in place as prescribed N/A N/A N/A Experienced any changes in pain level or No No No management Left Footwear Regular Shoe Regular Shoe Right Footwear Regular Shoe Regular Shoe Pain Scale: 0-10 Numeric Is Patient Pain Free? Yes Yes Yes WC - Nurse 1 - General Ulcer Measurement Start: 04/23/24 14:09 Freq: Status: Active Protocol: Activity Type Activity Date Activity User E-sign Co-sign Detail Recorded Client Recorded Date Recorded By Document 04/23/24 14:09 BMF [id number] 04/23/24 14:18 BMF Document 04/30/24 13:33 BMF [id number] 04/30/24 13:42 BMF Document 05/12/24 11:08 ML [id number] 05/12/24 11:15 ML 04/23/24 04/30/24 05/12/24 14:09 13:33 11:08 Wound Center Nurse 1 #2 R BUTTOCK -Current Size (cm) - Length 0.1 -Current Size (cm) - Width 0.1 -Current Size (cm) - Depth 0.1 -Total Square Cm 0.01 -Date of Last Picture (Recall this 04/23/24 field) -Exudate Amt None Present -Granulation Amt Large (67-100%) -Granulation Quality [place],Red -Texture (Aure-wound Skin Appearance) Assessed -Moisture (Aure-wound Skin Appearance) Assessed -Color (Aure-wound Skin Appearance) Assessed, Ecchymosis, Erythema -Temperature (Aure-wound Skin No Abnormality Appearance) (Pt Warm) -Tenderness on Palpation (Aure-wound No Skin Appearance) -Ulcer Cleansing Rinsed/ Irrigated with Saline -Foul Odor after Cleansing No -Anesthetic Used 5% Lidocaine Gel #1- L BUTTOCK -Current Size (cm) - Length 0.1 -Current Size (cm) - Width 0.1 -Current Size (cm) - Depth 0.1 -Total Square Cm 0.01 -Date of Last Picture (Recall this 04/23/24 field) -Exudate Amt None Present -Texture (Aure-wound Skin Appearance) Assessed -Moisture (Aure-wound Skin Appearance) Assessed -Color (Aure-wound Skin Appearance) Assessed -Temperature (Aure-wound Skin No Abnormality Appearance) (Pt Warm) -Tenderness on Palpation (Aure-wound No Skin Appearance) -Ulcer Cleansing Rinsed/ Irrigated with Saline -Foul Odor after Cleansing No #3- SACRAL CLUSTER -Combined with other wound No -Current Size (cm) - Length 0.1 0.2 -Current Size (cm) - Width 0.1 0.2 -Current Size (cm) - Depth 0.1 0.2 -Total Square Cm 0.01 0.04 -Date of Last Picture (Recall this 04/30/24 field) -Photo Taken Yes -Exudate Amt Medium Small -Exudate Type Sanguineous Serosanguineous -Wound Margin Distinct, Distinct, Outline Outline Attached Attached -Granulation Amt Large (67-100%) None Present (0 %) -Granulation Quality Red [place] -Slough/Fibrin No No -Necrosis Amt None Present (0 None Present (0 %) %) -Texture (Aure-wound Skin Appearance) Assessed Assessed -Moisture (Aure-wound Skin Appearance) Assessed Assessed -Color (Aure-wound Skin Appearance) Assessed, Assessed Erythema -Temperature (Aure-wound Skin No Abnormality No Abnormality Appearance) (Pt Warm) (Pt Warm) -Tenderness on Palpation (Aure-wound Yes No Skin Appearance) -Ulcer Cleansing Rinsed/ Rinsed/ Irrigated with Irrigated with Saline Saline -Foul Odor after Cleansing No No -Anesthetic Used 5% Lidocaine 5% Lidocaine Gel Gel WC - Nurse 2 - General Ulcer CM Notes Start: 04/23/24 14:09 Freq: Status: Active Protocol: Activity Type Activity Date Activity User E-sign Co-sign Detail Recorded Client Recorded Date Recorded By Document 04/23/24 14:29 [id number] 04/23/24 14:35 Document 04/30/24 13:54 [id number] 04/30/24 14:00 Document 05/12/24 11:26 DS [id number] 05/12/24 11:28 DS 04/23/24 04/30/24 05/12/24 14:29 13:54 11:26 Wound Center Nurse 2 #2 R BUTTOCK -Time 14:29 -Correct Patient Yes -Correct Side, Site, Position Yes -Correct Procedure No -Procedure Performed No -Tunneling No -Undermining/Tunneling No -Circular Undermining No -Wound/Ulcer Outcome Healed- Epithelialized -Ulcer Cleansing Not Cleansed -Foul Odor after Cleansing No -Bioengineered Tissue No -Bleeding Controlled with NA #1- L BUTTOCK -Time 14:29 -Correct Patient Yes -Correct Side, Site, Position Yes -Correct Procedure No -Procedure Performed No -Tunneling No -Undermining/Tunneling No -Circular Undermining No -Wound/Ulcer Outcome Healed- Epithelialized #3- SACRAL CLUSTER -Time 13:54 11:26 -Correct Patient Yes Yes -Correct Side, Site, Position Yes -Correct Procedure Yes -Procedure Performed Yes No -Type of Procedure Debridement -Clinical Debridement Subcutaneous -Tissue Removed Subcutaneous -Post Debridement (cm) - Length 0.6 -Post Debridement (cm) - Width 0.2 -Post Debridement (cm) - Depth 0.3 -Total Square (Post) (cm) 0.12 -Area of Debridement (cm) - Length 0.6 -Area of Debridement (cm) - Width 0.2 -Total Square (Area) (cm) 0.12 -Tunneling No -Undermining/Tunneling No -Circular Undermining No -Wound/Ulcer Outcome Not Healed Healed- Epithelialized -Ulcer Cleansing Not Cleansed -Foul Odor after Cleansing No -Bioengineered Tissue No -Bleeding Controlled with Pressure -Treatment Response Procedure Tolerated Well -Debridement - Subq, 1st 20sq cm Yes Pain Scale: 0-10 Numeric Is Patient Pain Free? Yes Yes Yes WC - Nurse 3 - General Ulcer D/C NN Start: 04/23/24 14:09 Freq: Status: Active Protocol: Activity Type Activity Date Activity User E-sign Co-sign Detail Recorded Client Recorded Date Recorded By Document 04/23/24 14:41 KW [id number] 04/23/24 14:41 KW Document 04/30/24 14:19 KW [id number] 04/30/24 14:20 KW Document 05/12/24 11:36 ML [id number] 05/12/24 11:37 ML 04/23/24 04/30/24 05/12/24 14:41 14:19 11:36 Wound Care Center Nurse 3 #2 R BUTTOCK -Primary Dressing Applied Mepilex Border -Mepilex Border 1 #1- L BUTTOCK -Primary Dressing Applied Mepilex Border -Mepilex Border 1 #3- SACRAL CLUSTER -Ulcer Cleansing Rinsed/ Irrigated with Saline -Foul Odor after Cleansing No -Negative Pressure Wound Therapy N/A -Primary Dressing Applied Mepilex Border Mepilex Border -Other Dressing HYDROGEL -Mepilex Border 1 1 Pain Scale: 0-10 Numeric Is Patient Pain Free? Yes Yes Yes WC - Visit Discharge Discharge Condition Stable Stable Ambulatory Status Ambulatory Ambulatory Transportation Private Auto Private Auto Medication Reconcilliation completed & No No provided to patient/care provider Clinical Summary of Care Provided Yes Yes Assessment/Plan Assessment/Plan (1) Pressure injury of coccygeal region, stage 2: CODE(S): L89.152 - Pressure ulcer of sacral region, stage 2 (2) Pressure injury of buttock, stage 1: CODE(S): L89.301 - Pressure ulcer of unspecified buttock, stage 1 QUALIFIERS: Laterality: unspecified laterality Qualified Code(s): L89.301 - Pressure ulcer of unspecified buttock, stage 1 PLAN: right buttocks (3) Obesity: CODE(S): E66.9 - Obesity, unspecified QUALIFIERS: Obesity type: due to excess calories Obesity classification: adult class 3 (BMI >= 40) Serious obesity comorbidity presence: with serious comorbidity Body mass index: BMI 40.0-44.9 Qualified Code(s): E66.01 - Morbid (severe) obesity due to excess calories; Z68.41 - Body mass index [BMI]40.0-44.9, adult (4) Type 2 diabetes mellitus with diabetic polyneuropathy: CODE(S): E11.42 - Type 2 diabetes mellitus with diabetic polyneuropathy QUALIFIERS: Diabetes mellitus fci insulin use: with intermediate card tender use Qualified Code(s): E11.42 - Type 2 diabetes mellitus with diabetic polyneuropathy; Z79.4 - group home (current) use of insulin PLAN: Plan Patient evaluated at the wound healing center today. She had a pressure/shearing injury to bilateral buttocks that are both healed. Aure wound is clear. and the right has a small scab acting as a biologic dressing. She has been placing [place] SAP onto this are. She has a new pressure ulcer to the base of her coccyx. Wound care will be collagen hydrogel covered with [place] SAP daily and as needed. Wash area with soap and water daily. Discussed in detail how to off load and prevent the pressure by frequent repositioning, standing and walking more frequently and placing a cushion such a ROHO cushion in the chair where she sits. Educated on preventing shearing forces that can irritate the fragile skin. Instructed on how to get out of bed by rolling on her side and then sitting up as she brings her legs over the side of bed (she may need assistance with this, which her daughter states is no problem). Follow up 2 weeks. Call or come in sooner if have any concerns.
== END 2024-05-13 23:59 | disposition home or self-care (01) ==
LOC: WC 11:30
PROVIDERS: PCP Family Medicine; Referring Provider Family Medicine; Visit Provider Nurse Practitioner Family
DX: L89.301 Pressure ulcer of unspecified buttock, stage 1 (principal); L89.152 Pressure ulcer of sacral region, stage 2; F31.9 Bipolar disorder, unspecified; I69.349 Monoplegia of lower limb following cerebral infarction affecting unspecified side; J44.9 Chronic obstructive pulmonary disease, unspecified; E66.01 Morbid (severe) obesity due to excess calories; Z68.41 Body mass index [BMI] 40.0-44.9, adult; Z79.4 Long term (current) use of insulin; E11.42 Type 2 diabetes mellitus with diabetic polyneuropathy; Z86.718 Personal history of other venous thrombosis and embolism; Z79.01 Long term (current) use of anticoagulants; Z87.891 Personal history of nicotine dependence; I25.10 Atherosclerotic heart disease of native coronary artery without angina pectoris; E78.5 Hyperlipidemia, unspecified; Z79.811 Long term (current) use of aromatase inhibitors; Z79.85 Long-term (current) use of injectable non-insulin antidiabetic drugs
CPT/HCPCS: 11042; 99213; G0463

== ENCOUNTER 2024-07-09 14:08 | Outpatient (RCR) | payer MEDICARE, MEDICAID, SELFPAY ==
[2024-05-14 00:41] VITALS: BP 149/74; PULSE 78; RESP 16; TEMP 35.9
[2024-07-09 14:00] VITALS: BP 116/62; PULSE 77; RESP 18
--- NOTE | 2024-07-09 14:57 | PCM.WC.HP ---
History of Present Illness Date of Service: 07/09/24 Chief Complaint: right buttock ulcer History of Wound: 64 year old female who is know to me. She previously had bilateral buttocks pressure ulcers/excoriation which that resolved with wound care, and off loading. She has been doing a good job using a gel cushion and has been trying not to scoot to get in and out of bed. Today she presents for a very small right buttocks ulcer that has hyper granulation tissue and has periods that will bleed. This is superior from her previous areas. Her previous excoriated areas look good with no other issues. They have been doing a great job with her skin care. The patient's daughter states that she had her mom at her PCP when he looked at her buttocks there was a large amount of bleeding. This was the first time they had noticed this new issue. They are unsure when it occurred but the patient had been complaining of some discomfort when sitting over the past week or so. She has a history of a stroke with right sided weakness. She lives at home and has had history of stroke, diabetes, heart disease, DVT, depression, schizophrenia, MONCHO, asthma. They have a home health aid who comes in to help with bathing daily. Progress of Wound: New ulcer on right buttocks that has hypergranulatin tissue present, coming out of the ulcer. It is tender to touch. Unknown how long she has had it but it will bleed intermittently. It almost looks like it started as a small abscess. 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 Type 2 diabetes mellitus with unspecified diabetic retinopathy without macular edema Suicidal ideation (10/23/18) Bipolar disorder History of schizophrenia Multiple sclerosis History of DVT (deep vein thrombosis) Personal history of stroke with residual effects Atherosclerotic heart disease of [place] coronary artery without angina pectoris Tobacco abuse Neuropathic pain A-fib Vitamin D deficiency Depression HLD (hyperlipidemia) Type 2 diabetes mellitus Urinary incontinence in female MONCHO (obstructive sleep apnea) Chronic asthma Vaginal candidiasis Contracture of muscle of right lower leg Home Medications ?Medication ?Instructions ?Recorded ?Last Taken ?Type zolpidem 10 mg tablet (Ambien) 10 mg PO QHS 03/30/20 04/27/22 History blood-glucose meter (Accu-Chek #1 ea 02/22/21 Unknown Rx Guide Glucose Meter) brexpiprazole 1 mg tablet 1 mg PO DAILY 03/07/21 04/27/22 History duloxetine 60 mg capsule,delayed 60 mg PO DAILY 03/07/21 04/27/22 History release oxybutynin chloride 10 mg 10 mg PO DAILY BLADDER 04/28/22 04/27/22 History tablet,extended release 24 hr blood-glucose meter (Accu-Chek #1 ea 05/31/22 Unknown Rx Guide Glucose Meter) BD Ultra-Fine Mari Pen Needle 32 #120 ea 08/02/22 Unknown Rx gauge x 5/32 (pen needle, diabetic) rosuvastatin 20 mg tablet 20 mg PO DAILY #90 tabs 09/08/22 Unknown Rx blood sugar diagnostic (Accu-Chek #100 ea 12/05/22 Unknown Rx Guide test strips) furosemide 20 mg tablet 20 mg PO DAILY 12/05/22 Unknown History pen needle, diabetic 33 gauge x #400 ea 12/05/22 Unknown Rx 5/32 (Comfort EZ Pen [place]) lancets #100 ea 01/17/23 Unknown Rx blood sugar diagnostic (FreeStyle #100 ea 03/07/23 Unknown Rx Precision Denzel Strips) lisinopril 20 mg tablet 20 mg PO DAILY #90 tabs 05/10/23 Unknown Rx flash glucose scanning reader #1 ea 07/05/23 Unknown Rx (FreeStyle Zoila 2 [place]) Novolog FlexPen U-100 Insulin 100 34 unit (0.34 mL) subcut TID #30 mL 08/06/23 Unknown Rx unit/mL (3 mL) subcutaneous (insulin aspart U-100) flash glucose sensor (FreeStyle #2 ea 09/17/23 Unknown Rx Zoila 2 Sensor kit) rivaroxaban 20 mg tablet (Xarelto) 20 mg PO QPM #90 TABLETS 12/13/23 Unknown Rx Lantus Solostar U-100 Insulin 100 35 unit (0.35 mL) subcut QPM #31.5 03/12/24 Unknown Rx unit/mL (3 mL) subcutaneous pen mL (insulin glargine) anastrozole 1 mg tablet 1 mg PO DAILY 03/26/24 Unknown History deutetrabenazine 6 mg tablet 6 mg PO BID 03/26/24 Unknown History (Austedo) omeprazole 40 mg capsule,delayed 40 mg PO DAILY 03/26/24 Unknown History release alcohol swabs (DropSafe Alcohol 1 pad topical TID #400 ea 04/16/24 Unknown Rx Prep Pads) tirzepatide 12.5 mg/0.5 mL 12.5 mg (0.5 mL) subcut QWEEK #2 mL 05/15/24 Unknown Rx subcutaneous pen injector (Mounjaro) diltiazem HCl 180 mg capsule,24 180 mg PO QDAY #90 caps 06/30/24 Unknown Rx hr,extended release Allergy/AdvReac Type Severity Reaction Status Date / Time mirtazapine (From Remeron) Allergy Intermediate agitation Verified 07/09/24 14:00 Penicillins Allergy Mild Rash Verified 07/09/24 14:00 Family History (Reviewed 07/09/24 @ 21:28 by Regina Chew AGRICULTURAL CHEMICALS INSPECTOR, AGRICULTURAL CHEMICALS INSPECTOR-C) Mother Diabetes Heart disease Lung cancer CAD (coronary artery disease) CABG CVA (cerebral vascular accident) Daughter Diabetes Father Myocardial infarction Surgical History (Reviewed 07/09/24 @ 21:28 by Regina Chew AGRICULTURAL CHEMICALS INSPECTOR, AGRICULTURAL CHEMICALS INSPECTOR-C) History of back surgery H/O bilateral cataract extraction Social History Smoking Status: Current some day smoker tobacco type: cigarettes Tobacco: How many years used: 35 Electronic Cigarette Use: not used how long ago did patient quit smoking: about 3 years ago second hand exposure: No alcohol intake: never substance use type: former substance user Date of last use: Used Marijuana in the past caffeine: Yes Type: coffee Number of servings: 1 delmy/church: Mandaen seatbelt use: sometimes ROS Constitutional Constitutional: Denies chills, fatigue or fever(s) Eyes Eyes: Reports none ENT HEENT: Reports as per HPI and none Cardiovascular Cardiovascular: Reports as per HPI; Denies chest pain or dyspnea Respiratory/Chest Respiratory/Chest: Reports as per HPI; Denies cough or dyspnea Gastrointestinal Gastrointestinal: Reports none Genitourinary Genitourinary: Reports none Musculoskeletal Musculoskeletal: Reports as per HPI and abnormal gait Integumentary Integumentary: Reports as per HPI and wounds Neurologic Neurologic: Reports as per HPI and abnormal gait Psychiatric Psychiatric: Reports as per HPI Endocrine Endocrinology: Reports as per HPI Hematologic/Lymphatic Hematologic/Lymphatic: Reports none Vital Signs Vital Signs Vital Signs: 07/09/24 14:00 Pulse Rate 77 Respiratory Rate 18 Blood Pressure 116/62 Blood Pressure Mean 80 Blood Pressure Source Monitor Blood Pressure Position Sitting Blood Pressure Location Right Arm Oxygen Delivery Method Room Air Physical Exam Const alert and no apparent distress General Appearance: cooperative and well kempt HEENT normocephalic Eyes General Eye: normal appearance of both eyes Neck full ROM Lymph Lymphatic: no lymphedema noted Resp normal respiratory effort and clear to auscultation bilaterally Effort and Inspection: able to speak in complete sentences Cardio regular rate and regular rhythm GI soft to palpation and non-tender Extremity normal to inspection and normal capillary refill Skin Skin Narrative: Buttocks bilaterally skin is clear and intact with no erythema. Looks very good compared to previous visits. Wound Narrative: Right buttocks is a very small open wound that had hypergranulation tissue protruding from it. It bleeds very easily. Aure wound is clear. She has a very tiny pin hole at her sacrum, that she previously had at her last visit. It appears to be healed into the base and is now just a small hole with healed skin in the base. Neuro oriented x3 and CN's II-XII intact bilaterally Psych thought process normal and cooperative Appearance: grossly normal Debridement Note Debridement Note Wound debrided: buttocks ulcer Laterality: Right Wound Grade/Stage: Stage 3 Type of Debridement: Excisional debridement Anesthesia Used: 5% Lidocaine Gel and Cetacaine Depth: Down to and including healthy tissue and in the subcutaneous layer Percentage of wound debrided: 100 Instrument Used: 3mm curette and Forceps Tissue Removed: Non viable tissue and slough and hyper granulation tissue. Severity: Fat Layer Exposed Amount of bleeding with debridement: Moderate Bleeding Controlled with: Pressure, Compression and gauze and Silver Nitrate Patient tolerated procedure: Patient tolerated procedure well Debridement Free Text: Very tiny ulcer opening, but had granulation tissue present and has some depth. Able to control bleeding with pressure but then when she would move, the bleeding would restart. Used silver nitrate on the hyper granulation tissue, but it did not help control the oozing. Post-Debridement Measurements and Additional Note: Post-Debridement Measurements/Treatment WC - Nurse 1 - General Ulcer Assessment Start: 07/09/24 14:00 Freq: Status: Active Protocol: RODERICK.MONTY Activity Type Activity Date Activity User E-sign Co-sign Detail Recorded Client Recorded Date Recorded By Document 07/09/24 14:00 [email or web address] [id number] 07/09/24 14:07 07/09/24 14:00 - Today's Visit Information Type of service Initial Visit Arrival Mode Ambulatory Accompanied by FAMILY Patient Identification Verified (Name & Yes ) Vital Signs Pulse Rate (60-100) 77 Pulse Location Monitor Respiratory Rate (12-18) 18 Respiratory rate source Observation Oxygen Delivery Method Room Air Blood Pressure (90/60-120/80) 116/62 Blood Pressure Mean 80 Source Monitor Position Sitting Blood Pressure Location Right Arm History Since Last Visit- (Skip if this is Patient's initial visit) Have you changed medications since your No last visit? Any new allergies or adverse reactions No Had a fall/change in ADL's that may No increase risk of falls Signs or symptoms of abuse and/or No neglect since last visit Have you been in the hospital since your No last visit? Has dressing in place as prescribed Yes Has compression in place as prescribed Yes Has offloadiing in place as prescribed N/A Experienced any changes in pain level or No management Left Footwear Regular Shoe Right Footwear Regular Shoe Pain Scale: 0-10 Numeric Is Patient Pain Free? Yes - Nurse 1 - General Ulcer Measurement Start: 07/09/24 14:00 Freq: Status: Active Protocol: Activity Type Activity Date Activity User E-sign Co-sign Detail Recorded Client Recorded Date Recorded By Document 07/09/24 14:00 [email or web address] [id number] 07/09/24 14:07 07/09/24 14:00 Wound Center Nurse 1 #4 RT BUTTOCK -Current Size (cm) - Length 0.1 -Current Size (cm) - Width 0.1 -Current Size (cm) - Depth 0 -Total Square Cm 0.01 -Exudate Amt Small -Exudate Type Serosanguineous -Wound Margin Distinct, Outline Attached -Granulation Amt Large (67-100%) -Granulation Quality Red -Texture (Aure-wound Skin Appearance) Assessed -Moisture (Aure-wound Skin Appearance) Assessed -Color (Aure-wound Skin Appearance) Assessed, Ecchymosis -Temperature (Aure-wound Skin No Abnormality Appearance) (Pt Warm) -Tenderness on Palpation (Aure-wound No Skin Appearance) -Ulcer Cleansing Rinsed/ Irrigated with Saline -Foul Odor after Cleansing No -Anesthetic Used 5% Lidocaine Gel WC - Nurse 2 - General Ulcer CM Notes Start: 07/09/24 14:00 Freq: Status: Active Protocol: Activity Type Activity Date Activity User E-sign Co-sign Detail Recorded Client Recorded Date Recorded By Document 07/09/24 14:27 [id number] 07/09/24 14:36 07/09/24 14:27 Wound Center Nurse 2 -Time 14:28 -Correct Patient Yes -Correct Side, Site, Position Yes -Correct Procedure Yes -Procedure Performed Yes -Type of Procedure Debridement -Clinical Debridement Subcutaneous -Tissue Removed Subcutaneous -Post Debridement (cm) - Length 0.4 -Post Debridement (cm) - Width 0.4 -Post Debridement (cm) - Depth 0.5 -Total Square (Post) (cm) 0.16 -Area of Debridement (cm) - Length 0.4 -Area of Debridement (cm) - Width 0.4 -Total Square (Area) (cm) 0.16 -Tunneling No -Undermining/Tunneling No -Circular Undermining No -Wound/Ulcer Outcome Not Healed -Ulcer Cleansing Rinsed/ Irrigated with Saline -Foul Odor after Cleansing No -Bioengineered Tissue No -Bleeding Controlled with Pressure,Silver Nitrate -Treatment Response Procedure Tolerated Well -Debridement - Subq, 1st 20sq cm Yes #3- SACRAL CLUSTER -Time 14:28 -Correct Patient Yes -Correct Side, Site, Position Yes -Correct Procedure No -Procedure Performed No -Wound/Ulcer Outcome Healed- Epithelialized Pain Scale: 0-10 Numeric Is Patient Pain Free? Yes Charges/Coding Visit Charges Office Visits / Consults: 24650 OV L3 Est 20min (25 modifier) Procedures Integumentary [id number]: 22127 Cathleen subq tissue 20 sq cm/< Assessment/Plan Assessment/Plan (1) Decubitus ulcer of buttock, stage 3: CODE(S): L89.303 - Pressure ulcer of unspecified buttock, stage 3 QUALIFIERS: Laterality: right Qualified Code(s): L89.313 - Pressure ulcer of right buttock, stage 3 (2) Debility: CODE(S): R53.81 - Other malaise (3) History of stroke: CODE(S): Z86.73 - Personal history of transient ischemic attack (TIA), and cerebral infarction without residual deficits (4) Type 2 diabetes mellitus: CODE(S): E11.9 - Type 2 diabetes mellitus without complications QUALIFIERS: Diabetes mellitus termite inspector insulin use: with termite inspector use Diabetes mellitus complication status: with neurologic complications Diabetes mellitus complication detail: with polyneuropathy Qualified Code(s): E11.42 - Type 2 diabetes mellitus with diabetic polyneuropathy; Z79.4 - retirement (current) use of insulin PLAN: Plan Patient evaluated at the wound healing center today. Her skin is much improved compared to her last visit in April. She has been doing a better job at off loading. New ulcer had hyper granulation tissue present and was pink surrounding the opening. It almost looks like it started as a small abscess that had hypergranulation tissue form, which makes it bleed easily, especially with her being on blood thinners. Instructed patient's daughter and urgent care physician assistant in the event she started to bleed from this area to hold pressure until bleeding stops. Wound care - 1/4 iodoform gauze packed into the base of ulcer and covered with gauze or ABD or Mepilex dressing, ideally daily. May wash the area with soap and water at the time of the dressing change. Her daughter is requesting home health to come help with the dressing changes several times per week. The home health aid is not allowed to change the dressings and it is difficult for her daughter to change the dressing every day. We will apply to see if we can get home health to help with dressing changes 3 times per week. Patient will follow up one week.
== END 2024-07-11 23:59 | disposition home or self-care (01) ==
LOC: WC 14:08
PROVIDERS: PCP Family Medicine; Referring Provider Family Medicine; Visit Provider Nurse Practitioner Family
DX: L89.313 Pressure ulcer of right buttock, stage 3 (principal); I69.351 Hemiplegia and hemiparesis following cerebral infarction affecting right dominant side; F31.9 Bipolar disorder, unspecified; J44.9 Chronic obstructive pulmonary disease, unspecified; E11.42 Type 2 diabetes mellitus with diabetic polyneuropathy; Z79.4 Long term (current) use of insulin; R53.81 Other malaise; Z79.811 Long term (current) use of aromatase inhibitors; I25.10 Atherosclerotic heart disease of native coronary artery without angina pectoris; Z86.718 Personal history of other venous thrombosis and embolism; Z79.01 Long term (current) use of anticoagulants; Z79.85 Long-term (current) use of injectable non-insulin antidiabetic drugs; Z87.891 Personal history of nicotine dependence; E78.5 Hyperlipidemia, unspecified
CPT/HCPCS: 11042; 99213; G0463

== ENCOUNTER 2024-08-07 11:00 | Outpatient (RCR) | payer MEDICARE, MEDICAID, SELFPAY ==
[2024-07-12 01:41] VITALS: BP 116/62; PULSE 77; RESP 18; TEMP 35.9
[2024-07-16 15:02] VITALS: BP 134/63; PULSE 103; RESP 16; TEMP 35.9
--- NOTE | 2024-07-18 09:51 | WC ---
PHOTO 07/16/24 RIGHT BUTTOCK
--- NOTE | 2024-07-19 19:49 | HP.PCM_ITS ---
History of Present Illness Date of Service: 07/16/24 Chief Complaint: Right buttock ulcer History of Wound: This is a 64-year-old female who has been treated for pressure ulcers/excoriations on her buttocks. Management has included local wound care and offloading measures. She has been doing a good job using a gel cushion and other measures to eliminate pressure and friction forces. She returns today for follow-up regarding a stage III pressure ulceration on the right buttock. The patient has a history of stroke with right-sided weakness. She lives at home and has a history of diabetes, heart disease, DVT, depression, schizophrenia, MONCHO, and asthma. She has a home health aid who comes in to help with bathing daily. 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 Type 2 diabetes mellitus with unspecified diabetic retinopathy without macular edema Suicidal ideation (10/23/18) Bipolar disorder History of schizophrenia Multiple sclerosis History of DVT (deep vein thrombosis) Personal history of stroke with residual effects Atherosclerotic heart disease of [place] coronary artery without angina pectoris Tobacco abuse Neuropathic pain A-fib Vitamin D deficiency Depression HLD (hyperlipidemia) Type 2 diabetes mellitus Urinary incontinence in female MONCHO (obstructive sleep apnea) Chronic asthma Vaginal candidiasis Contracture of muscle of right lower leg Home Medications ?Medication ?Instructions ?Recorded ?Last Taken ?Type zolpidem 10 mg tablet (Ambien) 10 mg PO QHS 03/30/20 1 06/28/21 History blood-glucose meter (Accu-Chek #1 ea 02/22/21 Unknown Rx Guide Glucose Meter) brexpiprazole 1 mg tablet 1 mg PO DAILY 03/07/2104/27 History duloxetine 60 mg capsule,delayed 60 mg PO DAILY 04/27/22 History release oxybutynin chloride 10 mg 10 mg PO DAILY BLADDER 04/2804/27/22 History tablet,extended release 24 hr blood-glucose meter (Accu-Chek #1 ea 05/31/22 Unknown Rx Guide Glucose Meter) BD Ultra-Fine Mari Pen Needle 32 #120 ea 08/02/22 Unkn own Rx gauge x 5/32 (pen needle, diabetic) rosuvastatin 20 mg tablet 20 mg PO DAILY #90 tabs 08/13 01/03 Unknown Rx blood sugar diagnostic (Accu-Chek #100 ea 12/05/22 Unk nown Rx Guide test strips) furosemide 20 mg tablet 20 mg PO DAILY 12/05/22 Unkn own History pen needle, diabetic 33 gauge x #400 ea 12/05/22 Unkno wn Rx 32 (Comfort EZ Pen [place]) lancets #100 ea 01/17/23 Unknown Rx blood sugar diagnostic (FreeStyle #100 ea 03/07/23 Unk nown Rx Precision Denzel Strips) lisinopril 20 mg tablet 20 mg PO DAILY #90 tabs 04/14 01/03 Unknown Rx flash glucose scanning reader #1 ea 07/05/23 Unknown R x (FreeStyle Zoila 2 [place]) Novolog FlexPen U-100 Insulin 100 34 unit (0.34 mL) acuna bcut TID #30 mL 08/06/23 Unknown Rx unit/mL (3 mL) subcutaneous (insulin aspart U-100) flash glucose sensor (FreeStyle #2 ea 09/17/23 Unknown Rx Zoila 2 Sensor kit) rivaroxaban 20 mg tablet (Xarelto) 20 mg PO QPM #90 TA BLETS 12/13/23 Unknown Rx Lantus Solostar U-100 Insulin 100 35 unit (0.35 mL) acuna bcut QPM #31.5 03/12/24 Unknown Rx unit/mL (3 mL) subcutaneous pen mL (insulin glargine) anastrozole 1 mg tablet 1 mg PO DAILY 03/26/24 Unkno wn History deutetrabenazine 6 mg tablet 6 mg PO BID 03/26/24 Unkn own History (Austedo) omeprazole 40 mg capsule,delayed 40 mg PO DAILY Unknown History release alcohol swabs (DropSafe Alcohol 1 pad topical TID #400 ea 04/16/24 Unknown Rx Prep Pads) tirzepatide 12.5 mg/0.5 mL 12.5 mg (0.5 mL) subcut QWE EK #2 mL 05/15/24 Unknown Rx subcutaneous pen injector (Cande) diltiazem HCl 180 mg capsule,24 180 mg PO QDAY #90 cap s 06/30/24 Unknown Rx hr,extended release clindamycin phosphate 1 % topical topical DAILY Unknown History gel Allergy/AdvReac Type Severity Reaction Status Date / Time mirtazapine (From Remeron) Allergy Intermediate agitation Verified 07/16/24 14:1 6 Penicillins Allergy Mild Rash Verified 07/16/24 14:16 Family History Mother Diabetes Heart disease Lung cancer CAD (coronary artery disease) CABG CVA (cerebral vascular accident) Daughter Diabetes Father Myocardial infarction Surgical History History of back surgery H/O bilateral cataract extraction Social History Smoking Status: Current some day smoker tobacco type: cigarettes Tobacco: How many years used: 35 Electronic Cigarette Use: not used how long ago did patient quit smoking: about 3 years ago second hand exposure: No alcohol intake: never substance use type: former substance user Date of last use: Used Marijuana in the past caffeine: Yes Type: coffee Number of servings: 1 delmy/yazidism: Denominational seatbelt use: sometimes Physical Exam Const alert and no apparent distress General Appearance: cooperative, comfortable and well kempt Orientation / Consciousness: awake Exam Limitations: no limitations HEENT normocephalic and head/scalp atraumatic Head and Scalp: normal to inspection, normocephalic and atraumatic Face and Sinus: normal facial exam Nose: external nose normal External Ear: external ears normal Eyes General Eye: normal appearance of both eyes Neck full ROM Resp normal respiratory effort, normal air movement, no retractions and no use of accessory muscles Effort and Inspection: able to speak in complete sentences GI soft to palpation and non-tender Extremity normal capillary refill Skin Skin Narrative: Buttocks bilaterally skin is clear and intact with no erythema. Looks very good compared to previous visits. Wound Narrative: A small, full-thickness ulceration is noted on the right medial buttock. It extends through all layers of the dermis and into the subcutaneous tissues. There is no evidence of infection or cellulitis. Dimensions are documented elsewhere. There is a moderate amount of bioburden and devitalized tissue. Neuro oriented x3 and CN's II-XII intact bilaterally Sensorium / Orientation: awake, alert, oriented to person, oriented to place and oriented to time Psych thought process normal and cooperative Appearance: grossly normal Debridement Note Debridement Note Wound debrided: Right medial buttock ulceration Laterality: Right Wound Grade/Stage: Stage III Type of Debridement: Excisional debridement Anesthesia Used: 5% Lidocaine Gel Depth: Down to and including healthy tissue and in the subcutaneous layer Percentage of wound debrided: 100 Instrument Used: 3mm curette Tissue Removed: Bioburden and devitalized tissue Severity: Fat Layer Exposed Amount of bleeding with debridement: Mild Bleeding Controlled with: Compression and gauze Patient tolerated procedure: Patient tolerated procedure well Post-Debridement Measurements and Additional Note: Post-Debridement Measurements/Treatment RODERICK - Nurse 1 - General Ulcer Assessment Start: 07/16/24 14:54 Freq: Status: Active Protocol: BERYL Activity Type Activity Date Activity User E-sign Co-sign Detail Recorded Client Recorded Date Recorded By Document 07/16/24 15:02 LOVE [id number] 07/16/24 15:04 KW 07/16/24 15:02 RODERICK - Today's Visit Information Type of service Follow-up Visit (Physician/LOCAL GOVERNMENT LEGISLATOR ) Arrival Mode Ambulatory Accompanied by daughter and aide Patient Identification Verified (Name & Yes ) Vital Signs Temperature (97.8 F-99.1 F) 96.6 F L Temperature Source Temporal Pulse Rate (60-100) 103 H Pulse Location Monitor Respiratory Rate (12-18) 16 Respiratory rate source Monitor Oxygen Delivery Method Room Air Blood Pressure (90/60-120/80) 134/63 H Blood Pressure Mean 86 Source Monitor Position Sitting Blood Pressure Location Right Arm History Since Last Visit- (Skip if this is Patient's initial visit) Have you changed medications since your No last visit? Any new allergies or adverse reactions No Had a fall/change in ADL's that may No increase risk of falls Signs or symptoms of abuse and/or No neglect since last visit Have you been in the hospital since your No last visit? Has dressing in place as prescribed Yes Has compression in place as prescribed N/A Has offloadiing in place as prescribed N/A Experienced any changes in pain level or No management Left Footwear Regular Shoe Right Footwear Regular Shoe Pain Scale: 0-10 Numeric Is Patient Pain Free? No Buttocks -Description Dull -Intensity 5 -Alleviating Factors/Interventions Turning/ Repositioning RODERICK - Nurse 1 - General Ulcer Measurement Start: 07/16/24 14:54 Freq: Status: Active Protocol: Activity Type Activity Date Activity User E-sign Co-sign Detail Recorded Client Recorded Date Recorded By Document 07/16/24 15:02 [id number] 07/16/24 15:04 07/16/24 15:02 Wound Center Nurse 1 #4 RT BUTTOCK -Current Size (cm) - Length 0.3 -Current Size (cm) - Width 0.5 -Current Size (cm) - Depth 0.2 -Total Square Cm 0.15 -Date of Last Picture (Recall this 07/16/24 field) -Exudate Amt Medium -Exudate Type Serosanguineous -Wound Margin Distinct, Outline Attached -Granulation Amt Large (67-100%) -Granulation Quality Red -Texture (Aure-wound Skin Appearance) Assessed -Moisture (Aure-wound Skin Appearance) Assessed -Color (Aure-wound Skin Appearance) Assessed -Temperature (Aure-wound Skin No Abnormality Appearance) (Pt Warm) -Tenderness on Palpation (Aure-wound No Skin Appearance) -Ulcer Cleansing Rinsed/ Irrigated with Saline -Foul Odor after Cleansing No -Anesthetic Used 5% Lidocaine Gel - Nurse 2 - General Ulcer CM Notes Start: 07/16/24 14:54 Freq: Status: Active Protocol: Activity Type Activity Date Activity User E-sign Co-sign Detail Recorded Client Recorded Date Recorded By Document 07/16/24 15:06 [facility] [id number] 07/16/24 15:16 [facility] 07/16/24 15:06 Wound Center Nurse 2 #3- SACRAL CLUSTER -Time 15:10 -Procedure Performed No -Post Debridement (cm) - Length 0 -Post Debridement (cm) - Width 0 -Post Debridement (cm) - Depth 0 -Total Square (Post) (cm) 0 -Area of Debridement (cm) - Length 0 -Area of Debridement (cm) - Width 0 -Total Square (Area) (cm) 0 -Wound/Ulcer Outcome Healed- Epithelialized #4 RT BUTTOCK -Time 15:09 -Correct Patient Yes -Correct Side, Site, Position Yes -Correct Procedure Yes -Procedure Performed Yes -Type of Procedure Debridement -Clinical Debridement Subcutaneous -Tissue Removed Subcutaneous -Post Debridement (cm) - Length 0.4 -Post Debridement (cm) - Width 0.4 -Post Debridement (cm) - Depth 0.3 -Total Square (Post) (cm) 0.16 -Area of Debridement (cm) - Length 0.4 -Area of Debridement (cm) - Width 0.4 -Total Square (Area) (cm) 0.16 -Tunneling No -Undermining/Tunneling No -Circular Undermining No -Wound/Ulcer Outcome Not Healed -Ulcer Cleansing Rinsed/ Irrigated with Saline -Foul Odor after Cleansing No -Bioengineered Tissue No -Bleeding Controlled with Pressure -Treatment Response Procedure Tolerated Well -Debridement - Subq, 1st 20sq cm Yes Pain Scale: 0-10 Numeric Is Patient Pain Free? Yes - Nurse 3 - General Ulcer D/C NN Start: 07/16/24 14:54 Freq: Status: Active Protocol: Activity Type Activity Date Activity User E-sign Co-sign Detail Recorded Client Recorded Date Recorded By Document 07/16/24 15:27 CRAIG [id number] 07/16/24 15:28 CRAIG 07/16/24 15:27 Wound Care Center Nurse 3 #4 RT BUTTOCK -Ulcer Cleansing Rinsed/ Irrigated with Saline -Foul Odor after Cleansing No -Primary Dressing Applied Promogran, Silicone Border Foam 4x4 -Promogran 1 -Silicone Border Foam 4x4 1 Pain Scale: 0-10 Numeric Is Patient Pain Free? Yes WC - Visit Discharge Discharge Condition Stable Ambulatory Status Ambulatory Accompanied by daughter Medication Reconcilliation completed & Yes provided to patient/care provider Clinical Summary of Care Provided Yes Charges/Coding Multi Select Codes Visit Charges Office Visit/Consults: 92319 OV L4 New 45 min Integumentary Integumentary CPT Codes: 43061 Cathleen subq tissue 20 sq cm/< Assessment/Plan Assessment/Plan (1) Decubitus ulcer of buttock, stage 3: CODE(S): L89.303 - Pressure ulcer of unspecified buttock, stage 3 QUALIFIERS: Laterality: right Qualified Code(s): L89.313 - Pressure ulcer of right buttock, stage 3 (2) Debility: CODE(S): R53.81 - Other malaise (3) History of stroke: CODE(S): Z86.73 - Personal history of transient ischemic attack (TIA), and cerebral infarction without residual deficits (4) Type 2 diabetes mellitus: CODE(S): E11.9 - Type 2 diabetes mellitus without complications QUALIFIERS: Diabetes mellitus computer terminal operator insulin use: with computer terminal operator use Diabetes mellitus complication status: with neurologic complications Diabetes mellitus complication detail: with polyneuropathy Qualified Code(s): E11.42 - Type 2 diabetes mellitus with diabetic polyneuropathy; Z79.4 - retirement (current) use of insulin (5) Hypertension: CODE(S): I10 - Essential (primary) hypertension QUALIFIERS: Hypertension type: unspecified Qualified Code(s): I10 - Essential (primary) hypertension (6) Polyneuropathy: CODE(S): G62.9 - Polyneuropathy, unspecified (7) Paroxysmal atrial fibrillation: CODE(S): I48.0 - Paroxysmal atrial fibrillation (8) Type 2 diabetes mellitus with diabetic polyneuropathy: CODE(S): E11.42 - Type 2 diabetes mellitus with diabetic polyneuropathy QUALIFIERS: Diabetes mellitus computer terminal operator insulin use: with computer terminal operator use Qualified Code(s): E11.42 - Type 2 diabetes mellitus with diabetic polyneuropathy; Z79.4 - retirement (current) use of insulin (9) Atherosclerotic heart disease of [place] coronary artery without angina pectoris: CODE(S): I25.10 - Atherosclerotic heart disease of [place] coronary artery without angina pectoris (10) Personal history of stroke with residual effects: CODE(S): I69.30 - Unspecified sequelae of cerebral infarction (11) History of DVT (deep vein thrombosis): CODE(S): Z86.718 - Personal history of other venous thrombosis and embolism (12) HLD (hyperlipidemia): CODE(S): E78.5 - Hyperlipidemia, unspecified QUALIFIERS: Hyperlipidemia type: mixed hyperlipidemia Qualified Code(s): E78.2 - Mixed hyperlipidemia (13) MONCHO (obstructive sleep apnea): CODE(S): G47.33 - Obstructive sleep apnea (adult) (pediatric) (14) Chronic asthma: CODE(S): J45.909 - Unspecified asthma, uncomplicated (15) Tobacco abuse: CODE(S): Z72.0 - Tobacco use (16) Multiple sclerosis: CODE(S): G35 - Multiple sclerosis (17) Vitamin D deficiency: CODE(S): E55.9 - Vitamin D deficiency, unspecified (18) History of back surgery: CODE(S): Z98.890 - Other specified postprocedural states (19) H/O bilateral cataract extraction: CODE(S): Z98.41 - Cataract extraction status, right eye; Z98.42 - Cataract extraction status, left eye PLAN: Plan This is a 64-year-old female with a history of cerebrovascular accident, who was treated for pressure ulcerations in the buttock. She currently has a small, stage III pressure ulceration on the right medial buttock. It appears to be improving. There is no sign of infection or cellulitis at present. Patient has been advised to keep the area clean and dry. We are to implement the use of Promogran topically to the area on a daily basis. The patient and her daughter have been instructed in appropriate means of application. Current offloading measures are to be continued, including frequent repositioning and the use of her gel cushion while sitting. The patient has been instructed to optimize her glycemic control and her nutritional intake, including the use of protein supplements. The patient is to follow-up in 1 week with her established Wound Center provider. Total time: 45 minutes
[2024-07-23 16:00] VITALS: BP 140/56; PULSE 86; RESP 18; TEMP 36.4
--- NOTE | 2024-07-23 16:25 | PCM.WC.PN ---
History of Present Illness Date of Service: 07/23/24 Chief Complaint: Right buttock ulcer History of Wound: 64 year old female who is know to me. She previously had bilateral buttocks pressure ulcers/excoriation which that resolved with wound care, and off loading. She has been doing a good job using a gel cushion and has been trying not to scoot to get in and out of bed. Today she presents for a very small right buttocks ulcer that has hyper granulation tissue and has periods that will bleed. This is superior from her previous areas. Her previous excoriated areas look good with no other issues. They have been doing a great job with her skin care. The patient's daughter states that she had her mom at her PCP when he looked at her buttocks there was a large amount of bleeding. This was the first time they had noticed this new issue. They are unsure when it occurred but the patient had been complaining of some discomfort when sitting over the past week or so. She has a history of a stroke with right sided weakness. She lives at home and has had history of stroke, diabetes, heart disease, DVT, depression, schizophrenia, MONCHO, asthma. They have a home health aid who comes in to help with bathing daily. Progress of Wound: Her buttocks ulcer is healed today. She has been doing a good job off loading and using gel cushion to reduce pressure. Objective Data Objective Data Vital Signs: Vital Signs Temp Pulse Resp BP O2 Del Method 97.5 F L 86 18 140/56 H Room Air 07/23/24 16:00 07/23/24 16:00 07/23/24 16:00 07/23/24 16:00 07/16/24 15:02 Oxygen Delivery Method Room Air Charges/Coding Visit Charges Office Visits / Consults: 58770 OV L3 Est 20min Physical Exam Const alert and no apparent distress General Appearance: cooperative and well kempt HEENT normocephalic Eyes General Eye: normal appearance of both eyes Neck full ROM Lymph Lymphatic: no lymphedema noted Resp normal respiratory effort and clear to auscultation bilaterally Effort and Inspection: able to speak in complete sentences Cardio regular rate and regular rhythm GI soft to palpation and non-tender Extremity normal to inspection and normal capillary refill Skin Skin Narrative: Buttocks bilaterally skin is clear and intact with no erythema. Looks very good compared to previous visits. Wound Narrative: buttocks wounds are healed today. Neuro oriented x3 and CN's II-XII intact bilaterally Psych thought process normal and cooperative Appearance: grossly normal Debridement Note Debridement Note Post-Debridement Measurements and Additional Note: Post-Debridement Measurements/Treatment WC - Nurse 1 - General Ulcer Assessment Start: 07/16/24 14:54 Freq: Status: Active Protocol: BREYL Activity Type Activity Date Activity User E-sign Co-sign Detail Recorded Client Recorded Date Recorded By Document 07/16/24 15:02 KW [id number] 07/16/24 15:04 KW Document 07/23/24 16:00 DL [id number] 07/23/24 16:08 DL 07/16/24 07/23/24 15:02 16:00 WC - Today's Visit Information Type of service Follow-up Visit Follow-up Visit (Physician/SENIOR DEVELOPER (Physician/SENIOR DEVELOPER ) ) Arrival Mode Ambulatory Ambulatory Transfer Assistance None Accompanied by daughter and aide Patient Identification Verified (Name & Yes Yes ) Patient Requires Transmission-Based No Precautions Vital Signs Temperature (97.8 F-99.1 F) 96.6 F L 97.5 F L Temperature Source Temporal Temporal Pulse Rate (60-100) 103 H 86 Pulse Location Monitor Monitor Respiratory Rate (12-18) 16 18 Respiratory rate source Monitor Observation Oxygen Delivery Method Room Air Blood Pressure (90/60-120/80) 134/63 H 140/56 H Blood Pressure Mean (mm Hg) 86 84 Source Monitor Monitor Position Sitting Blood Pressure Location Right Arm History Since Last Visit- (Skip if this is Patient's initial visit) Have you changed medications since your No No last visit? Any new allergies or adverse reactions No No Had a fall/change in ADL's that may No No increase risk of falls Signs or symptoms of abuse and/or No No neglect since last visit Have you been in the hospital since your No No last visit? Has dressing in place as prescribed Yes Yes Has compression in place as prescribed N/A N/A Has offloadiing in place as prescribed N/A Yes Experienced any changes in pain level or No No management Left Footwear Regular Shoe Right Footwear Regular Shoe Pain Scale: 0-10 Numeric Is Patient Pain Free? No Yes Buttocks -Description Dull -Intensity 5 -Alleviating Factors/Interventions Turning/ Repositioning WC - Nurse 1 - General Ulcer Measurement Start: 07/16/24 14:54 Freq: Status: Active Protocol: Activity Type Activity Date Activity User E-sign Co-sign Detail Recorded Client Recorded Date Recorded By Document 07/16/24 15:02 KW [id number] 07/16/24 15:04 KW Document 07/23/24 16:00 DL [id number] 07/23/24 16:08 DL 07/16/24 07/23/24 15:02 16:00 Wound Center Nurse 1 #4 RT BUTTOCK -Current Size (cm) - Length 0.3 0.1 -Current Size (cm) - Width 0.5 0.1 -Current Size (cm) - Depth 0.2 0.1 -Total Square Cm 0.15 0.01 -Date of Last Picture (Recall this 07/16/24 field) -Photo Taken Yes -Exudate Amt Medium None Present -Exudate Type Serosanguineous -Wound Margin Distinct, Flat & Intact Outline Attached -Granulation Amt Large (67-100%) Large (67-100%) -Granulation Quality [place] -Necrosis Amt None Present (0 %) -Structure Exposed N/A -Texture (Aure-wound Skin Appearance) Assessed Scarring -Moisture (Aure-wound Skin Appearance) Assessed No Abnormality -Color (Aure-wound Skin Appearance) Assessed No Abnormality -Temperature (Aure-wound Skin No Abnormality No Abnormality Appearance) (Pt Warm) (Pt Warm) -Tenderness on Palpation (Aure-wound No No Skin Appearance) -Ulcer Cleansing Rinsed/ Rinsed/ Irrigated with Irrigated with Saline Saline -Foul Odor after Cleansing No No -Anesthetic Used 5% Lidocaine 5% Lidocaine Gel Gel WC - Nurse 2 - General Ulcer CM Notes Start: 07/16/24 14:54 Freq: Status: Active Protocol: Activity Type Activity Date Activity User E-sign Co-sign Detail Recorded Client Recorded Date Recorded By Document 07/16/24 15:06 BMF [id number] 07/16/24 15:16 BMF Document 07/23/24 16:17 DS [id number] 07/23/24 16:18 DS 07/16/24 07/23/24 15:06 16:17 Wound Center Nurse 2 #3- SACRAL CLUSTER -Time 15:10 -Procedure Performed No -Post Debridement (cm) - Length 0 -Post Debridement (cm) - Width 0 -Post Debridement (cm) - Depth 0 -Total Square (Post) (cm) 0 -Area of Debridement (cm) - Length 0 -Area of Debridement (cm) - Width 0 -Total Square (Area) (cm) 0 -Wound/Ulcer Outcome Healed- Epithelialized #4 RT BUTTOCK -Time 15:09 16:17 -Correct Patient Yes Yes -Correct Side, Site, Position Yes -Correct Procedure Yes -Procedure Performed Yes No -Type of Procedure Debridement -Clinical Debridement Subcutaneous -Tissue Removed Subcutaneous -Post Debridement (cm) - Length 0.4 -Post Debridement (cm) - Width 0.4 -Post Debridement (cm) - Depth 0.3 -Total Square (Post) (cm) 0.16 -Area of Debridement (cm) - Length 0.4 -Area of Debridement (cm) - Width 0.4 -Total Square (Area) (cm) 0.16 -Tunneling No No -Undermining/Tunneling No No -Circular Undermining No No -Wound/Ulcer Outcome Not Healed Healed- Epithelialized -Ulcer Cleansing Rinsed/ Irrigated with Saline -Foul Odor after Cleansing No -Bioengineered Tissue No -Bleeding Controlled with Pressure -Treatment Response Procedure Tolerated Well -Debridement - Subq, 1st 20sq cm Yes Pain Scale: 0-10 Numeric Is Patient Pain Free? Yes Yes - Nurse 3 - General Ulcer D/C NN Start: 07/16/24 14:54 Freq: Status: Active Protocol: Activity Type Activity Date Activity User E-sign Co-sign Detail Recorded Client Recorded Date Recorded By Document 07/16/24 15:27 CRAIG [id number] 07/16/24 15:28 CRAIG 07/16/24 15:27 Wound Care Center Nurse 3 #4 RT BUTTOCK -Ulcer Cleansing Rinsed/ Irrigated with Saline -Foul Odor after Cleansing No -Primary Dressing Applied Promogran, Silicone Border Foam 4x4 -Promogran 1 -Silicone Border Foam 4x4 1 Pain Scale: 0-10 Numeric Is Patient Pain Free? Yes - Visit Discharge Discharge Condition Stable Ambulatory Status Ambulatory Accompanied by daughter Medication Reconcilliation completed & Yes provided to patient/care provider Clinical Summary of Care Provided Yes Assessment/Plan Assessment/Plan (1) Decubitus ulcer of buttock, stage 3: CODE(S): L89.303 - Pressure ulcer of unspecified buttock, stage 3 QUALIFIERS: Laterality: right Qualified Code(s): L89.313 - Pressure ulcer of right buttock, stage 3 (2) Debility: CODE(S): R53.81 - Other malaise (3) History of stroke: CODE(S): Z86.73 - Personal history of transient ischemic attack (TIA), and cerebral infarction without residual deficits (4) Type 2 diabetes mellitus: CODE(S): E11.9 - Type 2 diabetes mellitus without complications QUALIFIERS: 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 Her skin is much improved compared to her last visit in April. She has been doing a better job at off loading. Buttock ulcer is healed today. She can apply barrier cream to help protect her skin. She just got established with home health to help with wound care. Ideally, they will come out weekly for a couple weeks to keep on eye on her buttocks since she tends to get new wounds/ulcers easily. She should continue to off load and avoid shearing force. Follow up as needed.
--- NOTE | 2024-07-24 11:52 | WC ---
PHOTO 07/23/24 RIGHT BUTTOCK
[2024-08-07 11:23] VITALS: BP 142/49; PULSE 82; RESP 16; TEMP 35.7; BMI 32.3
--- NOTE | 2024-08-07 14:50 | HP.PCM_ITS ---
History of Present Illness Date of Service: 08/07/24 Chief Complaint: Right buttock ulcer History of Wound: This is a 64-year-old female with multiple pre-existing medical problems. She has a history of ulcerations and excoriations on her buttocks. She has a open wound on the medial aspect of her right buttock, which has developed within the last several weeks. However, the patient has had a wound at this site previously, which has drained purulent material, and has intermittently appeared to heal. The patient does implement offloading measures, as has been recommended by her medical providers, including the use of a gel cushion. She has a history of cerebrovascular accident, with residual right sided weakness. She lives at home with her adult daughter, who assists in her care. She has a history of diabetes mellitus, heart disease, deep vein thrombosis, depression, schizophrenia, obstructive sleep apnea, and asthma. She has a home health aide who assists with bathing daily. Progress of Wound: [facility] Medical History Pilonidal sinus with abscess Obesity PTSD (post-traumatic stress disorder) Psychophysiologic insomnia COPD (chronic obstructive pulmonary disease) CVA (cerebral vascular accident) Arthritis Paroxysmal atrial fibrillation Tardive dyskinesia Hypoglycemia unawareness associated with type 2 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 Type 2 diabetes mellitus with unspecified diabetic retinopathy without macular edema Suicidal ideation (10/23/18) Bipolar disorder History of schizophrenia Multiple sclerosis History of DVT (deep vein thrombosis) Personal history of stroke with residual effects Atherosclerotic heart disease of [place] coronary artery without angina pectoris Tobacco abuse Neuropathic pain A-fib Vitamin D deficiency Depression HLD (hyperlipidemia) Type 2 diabetes mellitus Urinary incontinence in female MONCHO (obstructive sleep apnea) Chronic asthma Vaginal candidiasis Contracture of muscle of right lower leg Home Medications ?Medication ?Instructions ?Recorded ?Last Taken ?Type zolpidem 10 mg tablet (Ambien) 10 mg PO QHS 03/30/20 1 06/28/21 History blood-glucose meter (Accu-Chek #1 ea 02/22/21 Unknown Rx Guide Glucose Meter) brexpiprazole 1 mg tablet 1 mg PO DAILY 03/07/2104/27 History duloxetine 60 mg capsule,delayed 60 mg PO DAILY 04/27/22 History release oxybutynin chloride 10 mg 10 mg PO DAILY BLADDER 04/2804/27/22 History tablet,extended release 24 hr blood-glucose meter (Accu-Chek #1 ea 05/31/22 Unknown Rx Guide Glucose Meter) BD Ultra-Fine Mari Pen Needle 32 #120 ea 08/02/22 Unkn own Rx gauge x 5/32 (pen needle, diabetic) rosuvastatin 20 mg tablet 20 mg PO DAILY #90 tabs 08/13 01/03 Unknown Rx blood sugar diagnostic (Accu-Chek #100 ea 12/05/22 Unk nown Rx Guide test strips) furosemide 20 mg tablet 20 mg PO DAILY 12/05/22 Unkn own History pen needle, diabetic 33 gauge x #400 ea 12/05/22 Unkno wn Rx 32 (Comfort EZ Pen Converse) lancets #100 ea 01/17/23 Unknown Rx blood sugar diagnostic (FreeStyle #100 ea 03/07/23 Unk nown Rx Precision Denzel Strips) lisinopril 20 mg tablet 20 mg PO DAILY #90 tabs 04/14 01/03 Unknown Rx flash glucose scanning reader #1 ea 07/05/23 Unknown R x (FreeStyle Zoila 2 Hood) Novolog FlexPen U-100 Insulin 100 34 unit (0.34 mL) acuna bcut TID #30 mL 08/06/23 Unknown Rx unit/mL (3 mL) subcutaneous (insulin aspart U-100) flash glucose sensor (FreeStyle #2 ea 09/17/23 Unknown Rx Zoila 2 Sensor kit) rivaroxaban 20 mg tablet (Xarelto) 20 mg PO QPM #90 TA BLETS 12/13/23 Unknown Rx Lantus Solostar U-100 Insulin 100 35 unit (0.35 mL) acuna bcut QPM #31.5 03/12/24 Unknown Rx unit/mL (3 mL) subcutaneous pen mL (insulin glargine) anastrozole 1 mg tablet 1 mg PO DAILY 03/26/24 Unkno wn History deutetrabenazine 6 mg tablet 6 mg PO BID 03/26/24 Unkn own History (Austedo) omeprazole 40 mg capsule,delayed 40 mg PO DAILY Unknown History release alcohol swabs (DropSafe Alcohol 1 pad topical TID #400 ea 04/16/24 Unknown Rx Prep Pads) tirzepatide 12.5 mg/0.5 mL 12.5 mg (0.5 mL) subcut QWE EK #2 mL 05/15/24 Unknown Rx subcutaneous pen injector (Cande) diltiazem HCl 180 mg capsule,24 180 mg PO QDAY #90 cap s 06/30/24 Unknown Rx hr,extended release clindamycin phosphate 1 % topical topical DAILY Unknown History gel Allergy/AdvReac Type Severity Reaction Status Date / Time mirtazapine (From Remeron) Allergy Intermediate agitation Verified 07/16/24 14:16 Penicillins Allergy Mild Rash Verified 07/16/24 14:16 Family History Mother Diabetes Heart disease Lung cancer CAD (coronary artery disease) CABG CVA (cerebral vascular accident) Daughter Diabetes Father Myocardial infarction Surgical History History of back surgery H/O bilateral cataract extraction Social History Smoking Status: Current some day smoker tobacco type: cigarettes Tobacco: How many years used: 35 Electronic Cigarette Use: not used how long ago did patient quit smoking: about 3 years ago second hand exposure: No alcohol intake: never substance use type: former substance user Date of last use: Used Marijuana in the past caffeine: Yes Type: coffee Number of servings: 1 delmy/worship: Cheondoism seatbelt use: sometimes Vital Signs Vital Signs Vital Signs: 08/07/24 11:23 Temperature 96.3 F L Temperature Source Temporal Pulse Rate 82 Respiratory Rate 16 Blood Pressure 142/49 H Blood Pressure Mean 80 Blood Pressure Source Monitor Blood Pressure Position Sitting Blood Pressure Location Right Arm Oxygen Delivery Method Room Air Weight Weight: 200 lb Body Mass Index (BMI) 32.3 Physical Exam Const alert, oriented x3 and no apparent distress General Appearance: cooperative, comfortable and well kempt Orientation / Consciousness: awake, oriented to person, oriented to place and oriented to time HEENT normocephalic and head/scalp atraumatic Head and Scalp: normal to inspection Face and Sinus: normal facial exam Nose: external nose normal External Ear: external ears normal Eyes EOMs intact bilaterally General Eye: normal appearance of both eyes Neck full ROM Lymph Lymphatic: no lymphedema noted Resp normal respiratory effort, normal air movement, no retractions and no use of a ccessory muscles Effort and Inspection: able to speak in complete sentences GI soft to palpation and non-tender Extremity normal capillary refill Skin Skin Narrative: Buttocks bilaterally skin is clear and intact with no erythema. Looks very good compared to previous visits. Wound Narrative: Inspection of the buttocks area reveals a small external wound on the right upper medial buttock. Incidental note is made of a small opening in the sacral area within the midline. There is opening appears to represent a pilonidal sinus. This pilonidal sinus is in proximity to the right medial buttock wound. Gentle probing of the right medial buttock wound reveals that it tracked medially towards the suspected pilonidal sinus. Its depth is approximately 2.0 cm. There is no obvious drainage at this time. There is no obvious cellulitis. Neuro oriented x3 and CN's II-XII intact bilaterally Neuro Narrative: Right hemiparesis is noted. Sensorium / Orientation: awake, alert, oriented to person, oriented to place and oriented to time Psych thought process normal and cooperative Appearance: grossly normal Debridement Note Debridement Note Debridement Free Text: A debridement was not performed today. However, a very careful inspection of the upper buttock area was undertaken. It appears as though the patient has a pilonidal sinus. There is a nearby opening on the righ t medial buttock. The right buttock opening appears to represent a sinus tract, which extends approximately 2.0 cm towards the area beneath the pilonidal sinus. No debridement was completed: No debridement was completed today Post-Debridement Measurements and Additional Note: Post-Debridement Measurements/Treatment - Nurse 1 - General Ulcer Assessment Start: 07/16/24 14:54 Freq: Status: Active Protocol: RODERICK.LOWEXT Activity Type Activity Date Activity User E-sign Co-sign Detail Recorded Client Recorded Date Recorded By Document 07/16/24 15:02 KW [id number] 07/16/24 15:04 KW Document 07/23/24 16:00 DL [id number] 07/23/24 16:08 DL Document 08/07/24 11:23 KW [id number] 08/07/24 11:32 KW Edit Result 08/07/24 11:23 KW (1) [id number] 08/07/24 11:36 KW (1) Height => 5 ft 6 in Weight => 200 lb Weight in Pounds => 200.0 lbs Body Mass Index (BMI) => 32.3 BMI Classification => Obese 07/16/24 07/23/24 08/07/24 15:02 16:00 11:23 WC - Today's Visit Information Type of service Follow-up Visit Follow-up Visit Initial Visit (Physician/MANAGER SHIP (Physician/MANAGER SHIP ) ) Arrival Mode Ambulatory Ambulatory Ambulatory Transfer Assistance None Accompanied by daughter and DAUGHTER aide Patient Identification Verified (Name & Yes Yes Yes ) Patient Requires Transmission-Based No Precautions Height and Weight Height 5 ft 6 in Weight 200 lb Weight in Pounds 200.0 lbs Body Mass Index (BMI) 32.3 BMI Classification Obese Vital Signs Temperature (97.8 F-99.1 F) 96.6 F L 97.5 F L 96.3 F L Temperature Source Temporal Temporal Temporal Pulse Rate (60-100) 103 H 86 82 Pulse Location Monitor Monitor Monitor Respiratory Rate (12-18) 16 18 16 Respiratory rate source Monitor Observation Observation Oxygen Delivery Method Room Air Room Air Blood Pressure (90/60-120/80) 134/63 H 140/56 H 142/49 H Blood Pressure Mean 86 84 80 Source Monitor Monitor Monitor Position Sitting Sitting Blood Pressure Location Right Arm Right Arm History Since Last Visit- (Skip if this is Patient's initial visit) Have you changed medications since your No No last visit? Any new allergies or adverse reactions No No Had a fall/change in ADL's that may No No increase risk of falls Signs or symptoms of abuse and/or No No neglect since last visit Have you been in the hospital since your No No last visit? Has dressing in place as prescribed Yes Yes Has compression in place as prescribed N/A N/A Has offloadiing in place as prescribed N/A Yes Experienced any changes in pain level or No No management Left Footwear Regular Shoe Regular Shoe Right Footwear Regular Shoe Regular Shoe Pain Scale: 0-10 Numeric Is Patient Pain Free? No Yes Yes Buttocks -Description Dull -Intensity 5 -Alleviating Factors/Interventions Turning/ Turning/ Repositioning Repositioning WC - Nurse 1 - General Ulcer Measurement Start: 07/16/24 14:54 Freq: Status: Active Protocol: Activity Type Activity Date Activity User E-sign Co-sign Detail Recorded Client Recorded Date Recorded By Document 07/16/24 15:02 KW [id number] 07/16/24 15:04 KW Document 07/23/24 16:00 DL [id number] 07/23/24 16:08 DL Document 08/07/24 11:23 KW [id number] 08/07/24 11:32 KW 07/16/24 07/23/24 08/07/24 15:02 16:00 11:23 Wound Center Nurse 1 #4 RT BUTTOCK -Current Size (cm) - Length 0.3 0.1 0.2 -Current Size (cm) - Width 0.5 0.1 0.2 -Current Size (cm) - Depth 0.2 0.1 0.5 -Total Square Cm 0.15 0.01 0.04 -Date of Last Picture (Recall this 07/16/24 08/07/24 field) -Photo Taken Yes -Undermining/Tunneling Yes -Undermining/Tunneling Starts (O'clock 7 ) -Undermining/Tunneling Ends (O'clock) 10 -Maximum Distance (cm) 1.3 -Exudate Amt Medium None Present Small -Exudate Type Serosanguineous Serosanguineous -Wound Margin Distinct, Flat & Intact Distinct, Outline Outline Attached Attached -Granulation Amt Large (67-100%) Large (67-100%) Small (1-33%) -Granulation Quality [place] -Necrosis Amt None Present (0 %) -Structure Exposed N/A -Texture (Aure-wound Skin Appearance) Assessed Scarring Assessed -Moisture (Aure-wound Skin Appearance) Assessed No Abnormality Assessed -Color (Aure-wound Skin Appearance) Assessed No Abnormality Assessed, Ecchymosis -Temperature (Aure-wound Skin No Abnormality No Abnormality No Abnormality Appearance) (Pt Warm) (Pt Warm) (Pt Warm) -Tenderness on Palpation (Aure-wound No No No Skin Appearance) -Ulcer Cleansing Rinsed/ Rinsed/ Rinsed/ Irrigated with Irrigated with Irrigated with Saline Saline Saline -Foul Odor after Cleansing No No No -Anesthetic Used 5% Lidocaine 5% Lidocaine 5% Lidocaine Gel Gel Gel WC - Nurse 2 - General Ulcer CM Notes Start: 07/16/24 14:54 Freq: Status: Active Protocol: Activity Type Activity Date Activity User E-sign Co-sign Detail Recorded Client Recorded Date Recorded By Document 07/16/24 15:06 BMF [id number] 07/16/24 15:16 BMF Document 07/23/24 16:17 DS [id number] 07/23/24 16:18 DS Document 08/07/24 11:52 DS [id number] 08/07/24 12:02 DS Edit Result 08/07/24 11:52 DS (1) [id number] 08/07/24 12:03 DS (1) #4 RT BUTTOCK - Correct Procedure Yes => - Procedure Performed Yes => No - Type of Procedure Debridement => - Clinical Debridement Subcutaneous => - Tissue Removed Subcutaneous => - Debridement - Subq, 1st 20sq cm Yes => 07/16/24 07/23/24 08/07/24 15:06 16:17 11:52 Wound Center Nurse 2 #3- SACRAL CLUSTER -Time 15:10 -Procedure Performed No -Post Debridement (cm) - Length 0 -Post Debridement (cm) - Width 0 -Post Debridement (cm) - Depth 0 -Total Square (Post) (cm) 0 -Area of Debridement (cm) - Length 0 -Area of Debridement (cm) - Width 0 -Total Square (Area) (cm) 0 -Wound/Ulcer Outcome Healed- Epithelialized #4 RT BUTTOCK -Time 15:09 16:17 11:45 -Correct Patient Yes Yes Yes -Correct Side, Site, Position Yes Yes -Correct Procedure Yes -Procedure Performed Yes No No -Type of Procedure Debridement -Clinical Debridement Subcutaneous -Tissue Removed Subcutaneous -Post Debridement (cm) - Length 0.4 0.3 -Post Debridement (cm) - Width 0.4 0.3 -Post Debridement (cm) - Depth 0.3 2.0 -Total Square (Post) (cm) 0.16 0.09 -Area of Debridement (cm) - Length 0.4 0.3 -Area of Debridement (cm) - Width 0.4 0.3 -Total Square (Area) (cm) 0.16 0.09 -Tunneling No No No -Tunneling Position (O'clock) 1 -Tunneling Distance (cm) 2.0 -Undermining/Tunneling No No No -Circular Undermining No No No -Wound/Ulcer Outcome Not Healed Healed- Not Healed Epithelialized -Ulcer Cleansing Rinsed/ Rinsed/ Irrigated with Irrigated with Saline Saline -Foul Odor after Cleansing No No -Bioengineered Tissue No No -Bleeding Controlled with Pressure Pressure -Treatment Response Procedure Procedure Tolerated Well Tolerated Well -Debridement - Subq, 1st 20sq cm Yes Pain Scale: 0-10 Numeric Is Patient Pain Free? Yes Yes Yes - Nurse 3 - General Ulcer D/C NN Start: 07/16/24 14:54 Freq: Status: Active Protocol: Activity Type Activity Date Activity User E-sign Co-sign Detail Recorded Client Recorded Date Recorded By Document 07/16/24 15:27 JF [id number] 07/16/24 15:28 JF Document 07/23/24 16:24 DS [id number] 07/23/24 16:25 DS Document 08/07/24 12:11 KW [id number] 08/07/24 12:12 KW 07/16/24 07/23/24 08/07/24 15:27 16:24 12:11 Wound Care Center Nurse 3 #4 RT BUTTOCK -Ulcer Cleansing Rinsed/ Rinsed/ Irrigated with Irrigated with Saline Saline -Foul Odor after Cleansing No -Primary Dressing Applied Promogran, Nugauze, Plain Silicone Border 1/4in,Silicone Foam 4x4 Border Foam 4x4 -Nugauze, Plain 1/4in 1 -Promogran 1 -Silicone Border Foam 4x4 1 1 -Wound Comment(s) protective ointment applied to buttock Pain Scale: 0-10 Numeric Is Patient Pain Free? Yes Yes Yes - Visit Discharge Discharge Condition Stable Stable Stable Ambulatory Status Ambulatory Ambulatory Ambulatory Transportation Private Auto Private Auto Accompanied by daughter Medication Reconcilliation completed & Yes No provided to patient/care provider Clinical Summary of Care Provided Yes Yes Charges/Coding Visit Charges Office Visits / Consults: 99174 OV L3 Est 20min Assessment/Plan Assessment/Plan (1) Pilonidal sinus with abscess: CODE(S): L05.02 - Pilonidal sinus with abscess (2) Decubitus ulcer of buttock, stage 3: CODE(S): L89.303 - Pressure ulcer of unspecified buttock, stage 3 QUALIFIERS: Laterality: right Qualified Code(s): L89.313 - Pressure ulcer of right buttock, stage 3 (3) Debility: CODE(S): R53.81 - Other malaise (4) History of stroke: CODE(S): Z86.73 - Personal history of transient ischemic attack (TIA), and cerebral infarction without residual deficits (5) Type 2 diabetes mellitus: CODE(S): E11.9 - Type 2 diabetes mellitus without complications QUALIFIERS: Diabetes mellitus superintendent container terminal insulin use: with care home use Diabetes mellitus complication status: with neurologic complications Diabetes mellitus complication detail: with polyneuropathy Qualified Code(s): E11.42 - Type 2 diabetes mellitus with diabetic polyneuropathy; Z79.4 - buttermaker (current) use of insulin (6) H/O bilateral cataract extraction: CODE(S): Z98.41 - Cataract extraction status, right eye; Z98.42 - Cataract extraction status, left eye (7) History of back surgery: CODE(S): Z98.890 - Other specified postprocedural states (8) Dysarthria as late effect of stroke: CODE(S): I69.322 - Dysarthria following cerebral infarction (9) Hypertension: CODE(S): I10 - Essential (primary) hypertension QUALIFIERS: Hypertension type: unspecified Qualified Code(s): I10 - Essential (primary) hypertension (10) Polyneuropathy: CODE(S): G62.9 - Polyneuropathy, unspecified (11) Paroxysmal atrial fibrillation: CODE(S): I48.0 - Paroxysmal atrial fibrillation (12) Type 2 diabetes mellitus with diabetic polyneuropathy: CODE(S): E11.42 - Type 2 diabetes mellitus with diabetic polyneuropathy QUALIFIERS: Diabetes mellitus superintendent container terminal insulin use: with superintendent container terminal use Qualified Code(s): E11.42 - Type 2 diabetes mellitus with diabetic polyneuropathy; Z79.4 - buttermaker (current) use of insulin (13) Personal history of stroke with residual effects: CODE(S): I69.30 - Unspecified sequelae of cerebral infarction (14) History of DVT (deep vein thrombosis): CODE(S): Z86.718 - Personal history of other venous thrombosis and embolism (15) HLD (hyperlipidemia): CODE(S): E78.5 - Hyperlipidemia, unspecified QUALIFIERS: Hyperlipidemia type: mixed hyperlipidemia Qualified Code(s): E78.2 - Mixed hyperlipidemia (16) MONCHO (obstructive sleep apnea): CODE(S): G47.33 - Obstructive sleep apnea (adult) (pediatric) (17) Chronic asthma: CODE(S): J45.909 - Unspecified asthma, uncomplicated (18) Tobacco abuse: CODE(S): Z72.0 - Tobacco use (19) Bipolar disorder: CODE(S): F31.9 - Bipolar disorder, unspecified (20) History of schizophrenia: CODE(S): Z86.59 - Personal history of other mental and behavioral disorders PLAN: Plan This is a 64-year-old female who has a wound on the right medial buttock. This wound had recently healed, but again opened, as had occurred several times within the past 2 years. It appears as though the patient has a pilonidal sinus, which is located in the midline. It is suspected that the patient has developed intermittent abscesses related to this pilonidal sinus, which have subsequently drained from the same site on the right medial buttock. This appears to be the situation with which she is currently dealing. At today's visit, the draining abscess cavity has been packed with moistened 1/4-inch Nu Gauze. The packing is to be replaced on a daily basis, either by the patient's family members or by home health nursing personnel. As has been explained to the patient, and her daughter at the bedside, the definitive management of this pilonidal abscess cavity is complete excision of the abscess cavity and the pilonidal sinus. In this regard, the patient is to be referred to a general surgeon for evaluation and management, which is expected to entail a wide surgical excision at this site. The patient is to return in 1 week for reevaluation. We will temporize using wound packing in the short-term, until which time definitive management by means of surgical excision is undertaken. The expectations of management have been thoroughly discussed with the patient and her family. The patient's questions have been answered. She is to return in 1 week for reevaluation. Total time: 25 minutes
--- NOTE | 2024-08-08 09:33 | WC ---
PHOTO 08/07/24 RIGHT BUTTOCK
== END 2024-08-11 23:59 | disposition home or self-care (01) ==
LOC: WC 11:00
PROVIDERS: PCP Family Medicine; Referring Provider Family Medicine; Visit Provider Nurse Practitioner Family
DX: L89.313 Pressure ulcer of right buttock, stage 3 (principal); G35 Multiple sclerosis; F20.9 Schizophrenia, unspecified; F31.9 Bipolar disorder, unspecified; I48.0 Paroxysmal atrial fibrillation; E11.42 Type 2 diabetes mellitus with diabetic polyneuropathy; Z79.4 Long term (current) use of insulin; I10 Essential (primary) hypertension; Z79.01 Long term (current) use of anticoagulants; G47.33 Obstructive sleep apnea (adult) (pediatric); R53.81 Other malaise; E55.9 Vitamin D deficiency, unspecified; Z79.85 Long-term (current) use of injectable non-insulin antidiabetic drugs; J45.909 Unspecified asthma, uncomplicated; Z83.3 Family history of diabetes mellitus; I25.10 Atherosclerotic heart disease of native coronary artery without angina pectoris; J32.9 Chronic sinusitis, unspecified; Z86.718 Personal history of other venous thrombosis and embolism; Z79.811 Long term (current) use of aromatase inhibitors; I69.322 Dysarthria following cerebral infarction; Z82.49 Family history of ischemic heart disease and other diseases of the circulatory system; Z82.3 Family history of stroke; E78.2 Mixed hyperlipidemia; L05.02 Pilonidal sinus with abscess; Z87.891 Personal history of nicotine dependence; Z98.41 Cataract extraction status, right eye; Z86.59 Personal history of other mental and behavioral disorders
CPT/HCPCS: 11042; 99213; G0463

== ENCOUNTER → 2024-08-18 | Outpatient (CLI) | payer MEDICARE, MEDICAID, SELFPAY ==
--- NOTE | 2024-08-18 08:22 | MRI_ITS ---
PROCEDURE: MRI ABD WITH AND W/O CONTRAST ([id number]), 08/18/2024 REASON FOR EXAM: SOFT PALPABLE MASS OF THE RIGHT POSTERIOR FLANK/BA TECHNIQUE: Multiplanar multisequence MRI abdomen was performed with and without IV contrast. IV CONTRAST: 19 mL Clariscan COMPARISON: None FINDINGS: Note the exam is limited in the absence of diffusion imaging. Note also that some abdominal viscera is incompletely imaged as the exam is optimized for evaluation of the subcutaneous lesion in the RIGHT flank. Liver: Grossly unremarkable as imaged.. Spleen: Grossly unremarkable as imaged. Gallbladder: Partially imaged. CBD is dilated to 10 mm. Pancreas: Grossly unremarkable as imaged. Adrenals: Partially imaged on most sequences. No definite nodule or mass. Kidneys: Grossly unremarkable as imaged.. Bowel: Grossly unremarkable as imaged, not well evaluated. Lymph nodes: No overt lymphadenopathy. Vasculature: Grossly unremarkable. Peritoneum: Grossly unremarkable as imaged. Body Wall: In the superficial subcutaneous tissues of the RIGHT flank, there is a mildly heterogeneous T1 dark and T2 bright slightly lobulated but circumscribed mass with a very thin rim of peripheral enhancement measuring 5.5 x 3.1 x 3.8 cm. This abuts the dermis. Bones: Grossly unremarkable.. MRI/MRI Abd WITH and W/O Contrast IMPRESSION: 1. 5.5 cm subcutaneous mass in the superficial RIGHT flank is nonspecific but d oes not appear compatible with a simple cyst or a typical lipoma. Given abutment of the dermis, an etiology such as an epidermal inclusion or sebaceous cyst are possible, however in light of reported slow enlargement, tissue sampling may be needed for defini tive diagnosis and to exclude a myxoid neoplasm; although this is considered somewhat unlikely given a thin rim of enhancement a nd lack of central enhancement. Clinical follow-up is warranted. Ultrasound could also be considered in an attempt to i dentify a tract to the skin, which would be supportive of sebaceous or epidermal inclusion cyst. Comparison against any av ailable outside imaging may also be helpful. 2. Mild dilatation of the CBD without definite obstructing process identified o n nondedicated evaluation. Correlate with serum bilirubin and consider dedicated MRI abdomen with and without contrast and with MRCP as indicated. 3. Additional description as above. Reading Location: [id number]
== END | disposition home or self-care (01) ==
LOC: MRI 08:05
PROVIDERS: PCP Family Medicine; Referring Provider Plastic Surgery; Visit Provider Plastic Surgery
DX: D48.19 Other specified neoplasm of uncertain behavior of connective and other soft tissue (principal)
CPT/HCPCS: 74183; A9575

== ENCOUNTER 2024-09-09 13:30 | Outpatient (RCR) | payer MEDICARE, MEDICAID, SELFPAY ==
[2024-08-12 00:50] VITALS: BP 142/49; PULSE 82; RESP 16; TEMP 35.7; BMI 32.3
[2024-08-12 13:44] VITALS: BP 123/74; PULSE 100; RESP 18; TEMP 35.8; BMI 32.3
--- NOTE | 2024-08-15 13:21 | HP.PCM_ITS ---
History of Present Illness Date of Service: 08/12/24 Chief Complaint: Right buttock ulcer History of Wound: This is a 64-year-old female with multiple pre-existing medical problems. She has a history of ulcerations and excoriations on her buttocks. She has a open wound on the medial aspect of her right buttock, which has developed within the last several weeks. However, the patient has had a wound at this site previously, which has drained purulent material, and has intermittently appeared to heal. The patient does implement offloading measures, as has been recommended by her medical providers, including the use of a gel cushion. She has a history of cerebrovascular accident, with residual right sided weakness. She lives at home with her adult daughter, who assists in her care. She has a history of diabetes mellitus, heart disease, deep vein thrombosis, depression, schizophrenia, obstructive sleep apnea, and asthma. She has a home health aide who assists with bathing daily. [facility] Medical History Pilonidal sinus with abscess Obesity PTSD (post-traumatic stress disorder) Psychophysiologic insomnia COPD (chronic obstructive pulmonary disease) CVA (cerebral vascular accident) Arthritis Paroxysmal atrial fibrillation Tardive dyskinesia Hypoglycemia unawareness associated with type 2 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 Type 2 diabetes mellitus with unspecified diabetic retinopathy without macular edema Suicidal ideation (10/23/18) Bipolar disorder History of schizophrenia Multiple sclerosis History of DVT (deep vein thrombosis) Personal history of stroke with residual effects Atherosclerotic heart disease of [place] coronary artery without angina pectoris Tobacco abuse Neuropathic pain A-fib Vitamin D deficiency Depression HLD (hyperlipidemia) Type 2 diabetes mellitus Urinary incontinence in female MONCHO (obstructive sleep apnea) Chronic asthma Vaginal candidiasis Contracture of muscle of right lower leg Home Medications ?Medication ?Instructions ?Recorded ?Last Taken ?Type zolpidem 10 mg tablet (Ambien) 10 mg PO QHS 03/30/20 1 06/28/21 History blood-glucose meter (Accu-Chek #1 ea 02/22/21 Unknown Rx Guide Glucose Meter) brexpiprazole 1 mg tablet 1 mg PO DAILY 03/07/2104/27 History duloxetine 60 mg capsule,delayed 60 mg PO DAILY 04/27/22 History release oxybutynin chloride 10 mg 10 mg PO DAILY BLADDER 04/2804/27/22 History tablet,extended release 24 hr blood-glucose meter (Accu-Chek #1 ea 05/31/22 Unknown Rx Guide Glucose Meter) BD Ultra-Fine Mari Pen Needle 32 #120 ea 08/02/22 Unkn own Rx gauge x 5/32 (pen needle, diabetic) rosuvastatin 20 mg tablet 20 mg PO DAILY #90 tabs 08/13 01/03 Unknown Rx blood sugar diagnostic (Accu-Chek #100 ea 12/05/22 Unk nown Rx Guide test strips) furosemide 20 mg tablet 20 mg PO DAILY 12/05/22 Unkn own History pen needle, diabetic 33 gauge x #400 ea 12/05/22 Unkno wn Rx 32 (Comfort EZ Pen Meherrin) lancets #100 ea 01/17/23 Unknown Rx blood sugar diagnostic (FreeStyle #100 ea 03/07/23 Unk nown Rx Precision Denzel Strips) Novolog FlexPen U-100 Insulin 100 34 unit (0.34 mL) acuna bcut TID #30 mL 08/06/23 Unknown Rx unit/mL (3 mL) subcutaneous (insulin aspart U-100) rivaroxaban 20 mg tablet (Xarelto) 20 mg PO QPM #90 TA BLETS 12/13/23 Unknown Rx Lantus Solostar U-100 Insulin 100 35 unit (0.35 mL) acuna bcut QPM #31.5 03/12/24 Unknown Rx unit/mL (3 mL) subcutaneous pen mL (insulin glargine) anastrozole 1 mg tablet 1 mg PO DAILY 03/26/24 Unkno wn History deutetrabenazine 6 mg tablet 6 mg PO BID 03/26/24 Unkn own History (Austedo) omeprazole 40 mg capsule,delayed 40 mg PO DAILY Unknown History release alcohol swabs (DropSafe Alcohol 1 pad topical TID #400 ea 04/16/24 Unknown Rx Prep Pads) tirzepatide 12.5 mg/0.5 mL 12.5 mg (0.5 mL) subcut QWE EK #2 mL 05/15/24 Unknown Rx subcutaneous pen injector (Cande) diltiazem HCl 180 mg capsule,24 180 mg PO QDAY #90 cap s 06/30/24 Unknown Rx hr,extended release clindamycin phosphate 1 % topical topical DAILY Unknown History gel lisinopril 20 mg tablet 20 mg PO DAILY #30 tabs 07/13 01/05 Unknown Rx blood-glucose sensor (FreeStyle #2 ea 08/11/24 Unknown Rx Zoila 3 Plus Sensor device) ondansetron 4 mg disintegrating 4 mg PO Q8H PRN nausea and 08/11/24 Unknown Rx tablet vomiting #8 tabs Allergy/AdvReac Type Severity Reaction Status Date / Time mirtazapine (From Remeron) Allergy Intermediate agitation Verified 08/11/24 10:45 Penicillins Allergy Mild Rash Verified 08/11/24 10:45 Family History Mother Diabetes Heart disease Lung cancer CAD (coronary artery disease) CABG CVA (cerebral vascular accident) Daughter Diabetes Father Myocardial infarction Surgical History History of back surgery H/O bilateral cataract extraction Social History Smoking Status: Current some day smoker tobacco type: cigarettes Tobacco: How many years used: 35 Electronic Cigarette Use: not used how long ago did patient quit smoking: about 3 years ago second hand exposure: No alcohol intake: never substance use type: former substance user Date of last use: Used Marijuana in the past caffeine: Yes Type: coffee Number of servings: 1 delmy/congregational: [employer] seatbelt use: sometimes Vital Signs Vital Signs Vital Signs: Weight Weight: 200 lb Body Mass Index (BMI) 32.3 Physical Exam Const alert, oriented x3 and no apparent distress General Appearance: cooperative and comfortable Orientation / Consciousness: awake, oriented to person, oriented to place and oriented to time HEENT normocephalic and head/scalp atraumatic Head and Scalp: normal to inspection Face and Sinus: normal facial exam Nose: external nose normal External Ear: external ears normal Eyes EOMs intact bilaterally General Eye: normal appearance of both eyes Neck full ROM Lymph Lymphatic: no lymphedema noted Resp normal respiratory effort, normal air movement, no retractions and no use of accessory muscles Effort and Inspection: able to speak in complete sentences GI soft to palpation and non-tender Extremity normal capillary refill Skin Skin Narrative: Buttocks bilaterally skin is clear and intact with no erythema. Looks very good compared to previous visits. Wound Narrative: Inspection of the buttocks area reveals a small external wound on the right upper medial buttock. A small opening is also noted in the sacral area within the midline. This small opening appears to represent a pilonidal sinus. This pilonidal sinus is in proximity to the right medial buttock wound. Gentle probing of the right medial buttock wound reveals that it tracks medially towards the suspected pilonidal sinus. Its depth is approximately 2.0 cm. There is no obvious drainage at this time. There is no fluctuance. Mild erythema is noted. Neuro oriented x3 and CN's II-XII intact bilaterally Neuro Narrative: Right hemiparesis is noted. Sensorium / Orientation: awake, alert, oriented to person, oriented to place and oriented to time Psych thought process normal and cooperative Appearance: grossly normal Debridement Note Debridement Note No debridement was completed: No debridement was completed today (Although no debridement was performed today, the pilonidal abscess cavity was packed with moistened 1/4 inch Nu-Gauze packing. A swab culture has been obtained for aerobic and anaerobic bacterial growth. Culture results will be awaited.) Post-Debridement Measurements and Additional Note: Post-Debridement Measurements/Treatment WC - Nurse 1 - General Ulcer Assessment Start: 08/12/24 13:44 Freq: Status: Active Protocol: RODERICK.MONTY Activity Type Activity Date Activity User E-sign Co-sign Detail Recorded Client Recorded Date Recorded By Document 08/12/24 13:44 IVONNE [id number] 08/12/24 13:50 RB 08/12/24 13:44 - Today's Visit Information Type of service Follow-up Visit (Physician/[employer] ) Arrival Mode Ambulatory Transfer Assistance Manual Patient Identification Verified (Name & Yes ) Patient Requires Transmission-Based No Precautions Height and Weight Body Mass Index (BMI) 32.3 BMI Classification Obese Vital Signs Temperature (97.8 F-99.1 F) 96.5 F L Temperature Source Temporal Pulse Rate (60-100) 100 Pulse Location Monitor Respiratory Rate (12-18) 18 Respiratory rate source Monitor Blood Pressure (90/60-120/80) 123/74 H Blood Pressure Mean 90 Source Monitor Position Semi-Fowlers Blood Pressure Location Left Arm History Since Last Visit- (Skip if this is Patient's initial visit) Have you changed medications since your No last visit? Any new allergies or adverse reactions No Had a fall/change in ADL's that may No increase risk of falls Signs or symptoms of abuse and/or No neglect since last visit Have you been in the hospital since your No last visit? Has dressing in place as prescribed Yes Has compression in place as prescribed N/A Has offloadiing in place as prescribed N/A Experienced any changes in pain level or No management Pain Scale: 0-10 Numeric Is Patient Pain Free? No Buttocks -Description Aching -Intensity 7 -Duration (hours) Acute -Pain Behavior Withdrawal from Touch -Pain Aggravating Factors ADL's -Alleviating Factors/Interventions Medication -Effectiveness of Alleviating Factor/ Moderately Intervention effective WC - Nurse 1 - General Ulcer Measurement Start: 08/12/24 13:44 Freq: Status: Active Protocol: Activity Type Activity Date Activity User E-sign Co-sign Detail Recorded Client Recorded Date Recorded By Document 08/12/24 13:44 IVONNE [id number] 08/12/24 13:50 RB 08/12/24 13:44 Wound Center Nurse 1 #4 RT BUTTOCK -Current Size (cm) - Length 0.5 -Current Size (cm) - Width 0.6 -Current Size (cm) - Depth 1.5 -Total Square Cm 0.30 -Photo Taken No -Tunneling Yes -Tunneling Position (O'clock) 1 -Tunneling Distance (cm) 1.5 -Undermining/Tunneling No -Circular Undermining No -Exudate Amt Large -Exudate Type Serosanguineous -Wound Margin Distinct, Outline Attached -Granulation Amt Medium (34-66%) -Granulation Quality [place] -Slough/Fibrin Yes -Necrosis Amt Medium (34-66%) -Necrotic Tissue Type Adherent Slough -Structure Exposed N/A -Texture (Aure-wound Skin Appearance) Assessed -Moisture (Aure-wound Skin Appearance) Assessed -Color (Aure-wound Skin Appearance) Erythema -Temperature (Aure-wound Skin No Abnormality Appearance) (Pt Warm) -Tenderness on Palpation (Aure-wound No Skin Appearance) -Ulcer Cleansing Wound Cleanser -Foul Odor after Cleansing No -Anesthetic Used 5% Lidocaine Gel WC - Nurse 2 - General Ulcer CM Notes Start: 08/12/24 13:44 Freq: Status: Active Protocol: Activity Type Activity Date Activity User E-sign Co-sign Detail Recorded Client Recorded Date Recorded By Document 08/12/24 14:20 DS [id number] 08/12/24 14:21 DS 08/12/24 14:20 Wound Center Nurse 2 -Time 14:20 -Correct Patient Yes -Correct Side, Site, Position Yes -Procedure Performed No -Post Debridement (cm) - Length 0.3 -Post Debridement (cm) - Width 0.3 -Post Debridement (cm) - Depth 2.0 -Total Square (Post) (cm) 0.09 -Area of Debridement (cm) - Length 0.3 -Area of Debridement (cm) - Width 0.3 -Total Square (Area) (cm) 0.09 -Tunneling No -Tunneling Position (O'clock) 8 -Tunneling Distance (cm) 2.0 -Undermining/Tunneling No -Circular Undermining No -Wound/Ulcer Outcome Not Healed -Ulcer Cleansing Rinsed/ Irrigated with Saline -Foul Odor after Cleansing No -Bioengineered Tissue No -Treatment Response Procedure Tolerated Well Pain Scale: 0-10 Numeric Is Patient Pain Free? Yes WC - Nurse 3 - General Ulcer D/C NN Start: 08/12/24 13:44 Freq: Status: Active Protocol: Activity Type Activity Date Activity User E-sign Co-sign Detail Recorded Client Recorded Date Recorded By Document 08/12/24 14:23 DS [id number] 08/12/24 14:23 DS 08/12/24 14:23 Wound Care Center Nurse 3 #4 RT BUTTOCK -Primary Dressing Applied Nugauze, Iodoform 1/4in, Silicone Border Foam 4x4 -Nugauze, Iodoform 1/4 1 -Silicone Border Foam 4x4 1 Pain Scale: 0-10 Numeric Is Patient Pain Free? Yes Lab / Micro Data Micro: Microbiology 08/12/24 14:24 Wound - Buttock Gram Stain - Final 08/12/24 14:24 Wound - Buttock Wound Culture - Preliminary Gram positive maggy Gram positive maggy#2 08/12/24 14:24 Wound - Buttock Anaerobic Culture - Preliminary Charges/Coding Visit Charges Office Visits / Consults: [id number] OV L3 Est 20min Assessment/Plan Assessment/Plan (1) Pilonidal sinus with abscess: CODE(S): L05.02 - Pilonidal sinus with abscess (2) Decubitus ulcer of buttock, stage 3: CODE(S): L89.303 - Pressure ulcer of unspecified buttock, stage 3 QUALIFIERS: Laterality: right Qualified Code(s): L89.313 - Pressure ulcer of right buttock, stage 3 (3) Debility: CODE(S): R53.81 - Other malaise (4) History of stroke: CODE(S): Z86.73 - Personal history of transient ischemic attack (TIA), and cerebral infarction without residual deficits (5) Type 2 diabetes mellitus: CODE(S): E11.9 - Type 2 diabetes mellitus without complications QUALIFIERS: Diabetes mellitus longterm insulin use: with long term care administrator use Diabetes mellitus complication status: with neurologic complications Diabetes mellitus complication detail: with polyneuropathy Qualified Code(s): E11.42 - Type 2 diabetes mellitus with diabetic polyneuropathy; Z79.4 - terminal manager (current) use of insulin (6) H/O bilateral cataract extraction: CODE(S): Z98.41 - Cataract extraction status, right eye; Z98.42 - Cataract extraction status, left eye (7) History of back surgery: CODE(S): Z98.890 - Other specified postprocedural states (8) Dysarthria as late effect of stroke: CODE(S): I69.322 - Dysarthria following cerebral infarction (9) Hypertension: CODE(S): I10 - Essential (primary) hypertension QUALIFIERS: Hypertension type: unspecified Qualified Code(s): I10 - Essential (primary) hypertension (10) Polyneuropathy: CODE(S): G62.9 - Polyneuropathy, unspecified (11) Paroxysmal atrial fibrillation: CODE(S): I48.0 - Paroxysmal atrial fibrillation (12) Type 2 diabetes mellitus with diabetic polyneuropathy: CODE(S): E11.42 - Type 2 diabetes mellitus with diabetic polyneuropathy QUALIFIERS: Diabetes mellitus long term care administrator insulin use: with long term care administrator use Qualified Code(s): E11.42 - Type 2 diabetes mellitus with diabetic polyneuropathy; Z79.4 - FPC (current) use of insulin (13) Personal history of stroke with residual effects: CODE(S): I69.30 - Unspecified sequelae of cerebral infarction (14) History of DVT (deep vein thrombosis): CODE(S): Z86.718 - Personal history of other venous thrombosis and embolism (15) HLD (hyperlipidemia): CODE(S): E78.5 - Hyperlipidemia, unspecified QUALIFIERS: Hyperlipidemia type: mixed hyperlipidemia Qualified Code(s): E78.2 - Mixed hyperlipidemia (16) MONCHO (obstructive sleep apnea): CODE(S): G47.33 - Obstructive sleep apnea (adult) (pediatric) (17) Chronic asthma: CODE(S): J45.909 - Unspecified asthma, uncomplicated (18) Tobacco abuse: CODE(S): Z72.0 - Tobacco use (19) Bipolar disorder: CODE(S): F31.9 - Bipolar disorder, unspecified (20) History of schizophrenia: CODE(S): Z86.59 - Personal history of other mental and behavioral disorders PLAN: Plan This is a 64-year-old female who presented with a wound on the right medial buttock. This wound had recently healed, but again opened, as had occurred several times within the past 2 years. It appears as though the patient has a pilonidal sinus, which is located in the midline. It is suspected that the patient has developed intermittent abscesses related to this pilonidal sinus, which have subsequently drained from the same site on the right medial buttock. This appears to be the situation with which she is currently dealing. At today's visit, the draining abscess cavity has been packed with moistened 1/4- inch Nu Gauze. The packing is to be replaced on a daily basis, either by the patient's family members or by home health nursing personnel. As has been explained to the patient, and her daughter at the bedside, the definitive management of this pilonidal abscess cavity is complete excision of the abscess cavity and the pilonidal sinus. The patient was referred to a general surgeon, and has now been scheduled for surgical excision of the pilonidal sinus and its associated abscess cavity. The procedure is to be performed by Dr. Donnie jimenez in [place], [place]. A swab has been obtained for aerobic and anaerobic bacterial culture. Culture results will be awaited. We will await word from the patient and her surgeon as to whether there is further need for her to follow-up at our facility. If the excision site is left open to heal by secondary intention, then we will gladly accept the patient for further management. The use of negative pressure wound therapy may be of benefit. We will await the outcome from the patient's impending surgery next week. Total time: 26 minutes
[2024-08-26 14:49] VITALS: BP 159/98; PULSE 96; RESP 16; BMI 32.3
--- NOTE | 2024-08-27 08:27 | PCM.WC.HP ---
History of Present Illness Date of Service: 08/26/24 Chief Complaint: Right buttock ulcer History of Wound: This is a 64-year-old female with multiple pre-existing medical problems. She has a history of ulcerations and excoriations on her buttocks. She has a open wound on the medial aspect of her right buttock, which has developed within the last several weeks. However, the patient has had a wound at this site previously, which has drained purulent material, and has intermittently appeared to heal. The patient does implement offloading measures, as has been recommended by her medical providers, including the use of a gel cushion. She has a history of cerebrovascular accident, with residual right sided weakness. She lives at home with her adult daughter, who assists in her care. She has a history of diabetes mellitus, heart disease, deep vein thrombosis, depression, schizophrenia, obstructive sleep apnea, and asthma. She has a home health aide who assists with bathing daily. The underlying cause of the patient's initial presenting manifestations was determined to be an infected pilonidal sinus, for which the patient was referred for surgical consultation. She underwent excision of her infected pilonidal sinus by Dr. Donnie Miller in [place], [place], on August 20, 2024. The surgical site was left open, and the patient was referred back to the [facility] for management of her open surgical wound. [facility] Medical History (Updated 08/27/24 @ 08:[address] Jacob De Los Santos MD) Encounter for smoking cessation counseling Surgical wound present Bilateral malignant neoplasm of breast in female Pilonidal sinus with abscess Obesity PTSD (post-traumatic stress disorder) Psychophysiologic insomnia COPD (chronic obstructive pulmonary disease) CVA (cerebral vascular accident) Arthritis Paroxysmal atrial fibrillation Tardive dyskinesia Hypoglycemia unawareness associated with type 2 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 Type 2 diabetes mellitus with unspecified diabetic retinopathy without macular edema Suicidal ideation (10/23/18) Bipolar disorder History of schizophrenia Multiple sclerosis History of DVT (deep vein thrombosis) Personal history of stroke with residual effects Atherosclerotic heart disease of [place] coronary artery without angina pectoris Tobacco abuse Neuropathic pain A-fib Vitamin D deficiency Depression HLD (hyperlipidemia) Type 2 diabetes mellitus Urinary incontinence in female MONCHO (obstructive sleep apnea) Chronic asthma Vaginal candidiasis Contracture of muscle of right lower leg Home Medications ?Medication ?Instructions ?Recorded ?Last Taken ?Type blood-glucose meter (Accu-Chek #1 ea 02/22/21 Unknown Rx Guide Glucose Meter) brexpiprazole 1 mg tablet 1 mg PO DAILY 03/07/21 04/27/22 History duloxetine 60 mg capsule,delayed 60 mg PO DAILY 03/07/21 04/27/22 History release oxybutynin chloride 10 mg 10 mg PO DAILY BLADDER 04/28/22 04/27/22 History tablet,extended release 24 hr blood-glucose meter (Accu-Chek #1 ea 05/31/22 Unknown Rx Guide Glucose Meter) BD Ultra-Fine Mari Pen Needle 32 #120 ea 08/02/22 Unknown Rx gauge x 5/32 (pen needle, diabetic) rosuvastatin 20 mg tablet 20 mg PO DAILY #90 tabs 09/08/22 Unknown Rx blood sugar diagnostic (Accu-Chek #100 ea 12/05/22 Unknown Rx Guide test strips) furosemide 20 mg tablet 20 mg PO DAILY 12/05/22 Unknown History pen needle, diabetic 33 gauge x #400 ea 12/05/22 Unknown Rx 5/32 (Comfort EZ Pen Tyler) lancets #100 ea 01/17/23 Unknown Rx blood sugar diagnostic (FreeStyle #100 ea 03/07/23 Unknown Rx Precision Denzel Strips) rivaroxaban 20 mg tablet (Xarelto) 20 mg PO QPM #90 TABLETS 12/13/23 Unknown Rx anastrozole 1 mg tablet 1 mg PO DAILY 03/26/24 Unknown History deutetrabenazine 6 mg tablet 12 mg PO BID 03/26/24 Unknown History (Austedo) omeprazole 40 mg capsule,delayed 40 mg PO DAILY 03/26/24 Unknown History release alcohol swabs (DropSafe Alcohol 1 pad topical TID #400 ea 04/16/24 Unknown Rx Prep Pads) tirzepatide 12.5 mg/0.5 mL 12.5 mg (0.5 mL) subcut QWEEK #2 mL 05/15/24 Unknown Rx subcutaneous pen injector (Cande) diltiazem HCl 180 mg capsule,24 180 mg PO QDAY #90 caps 06/30/24 Unknown Rx hr,extended release clindamycin phosphate 1 % topical topical DAILY 07/16/24 Unknown History gel lisinopril 20 mg tablet 20 mg PO DAILY #30 tabs 08/08/24 Unknown Rx blood-glucose sensor (FreeStyle #2 ea 08/11/24 Unknown Rx Zoila 3 Plus Sensor device) ondansetron 4 mg disintegrating 4 mg PO Q8H PRN nausea and 08/11/24 Unknown Rx tablet vomiting #8 tabs insulin glargine 100 unit/mL (3 24 unit subcut QPM 08/15/24 Unknown History mL) subcutaneous pen (Lantus Solostar U-100 Insulin) zolpidem 10 mg tablet (Ambien) 5 mg PO QHS 08/15/24 Unknown History oxycodone-acetaminophen 5 mg-325 1 tab PO Q6 PRN 08/26/24 Unknown History mg tablet Allergy/AdvReac Type Severity Reaction Status Date / Time mirtazapine (From Remeron) Allergy Intermediate agitation Verified 08/26/24 09:40 Penicillins Allergy Mild Rash Verified 08/26/24 09:40 Family History Mother Diabetes Heart disease Lung cancer CAD (coronary artery disease) CABG CVA (cerebral vascular accident) Daughter Diabetes Father Myocardial infarction Surgical History History of back surgery H/O bilateral cataract extraction Social History Smoking Status: Current some day smoker tobacco type: cigarettes Tobacco: How many years used: 35 Electronic Cigarette Use: not used how long ago did patient quit smoking: about 3 years ago second hand exposure: No alcohol intake: never substance use type: former substance user Date of last use: Used Marijuana in the past caffeine: Yes Type: coffee Number of servings: 1 delmy/presybeterian: Jainism seatbelt use: sometimes Vital Signs Vital Signs Vital Signs: 08/26/24 14:49 Pulse Rate 96 Respiratory Rate 16 Blood Pressure 159/98 H Blood Pressure Mean 118 Blood Pressure Source Monitor Blood Pressure Position Sitting Blood Pressure Location Right Arm Weight Weight: 200 lb Body Mass Index (BMI) 32.3 Physical Exam Const alert, oriented x3 and no apparent distress Constitutional Narrative: The patient's BMI is 32.3. General Appearance: cooperative and comfortable Orientation / Consciousness: awake, oriented to person, oriented to place and oriented to time HEENT normocephalic and head/scalp atraumatic Head and Scalp: normal to inspection Face and Sinus: normal facial exam Nose: external nose normal External Ear: external ears normal Eyes EOMs intact bilaterally General Eye: normal appearance of both eyes Neck full ROM Lymph Lymphatic: no lymphedema noted Resp normal respiratory effort, normal air movement, no retractions and no use of accessory muscles Effort and Inspection: able to speak in complete sentences GI soft to palpation and non-tender Skin Skin Narrative: Buttocks bilaterally skin is clear and intact with no erythema. Looks very good compared to previous visits. Wound Narrative: The site of the patient's recent infected pilonidal sinus excision is noted in the midline of the upper buttocks. The excision site is somewhat smaller than expected, but appears to be generally clean and devoid of necrotic and purulent material. Dimensions are documented elsewhere. Wound margins are not well beveled. The wound extends through all layers of the dermis and into the subcutaneous tissues. Neuro oriented x3, CN's II-XII intact bilaterally and moves all extremities Neuro Narrative: Right hemiparesis is noted. Sensorium / Orientation: awake, alert, oriented to person, oriented to place and oriented to time Psych thought process normal and cooperative Appearance: grossly normal Debridement Note Debridement Note Wound debrided: Infected pilonidal sinus excision site, upper buttocks in the midline Laterality: Not Applicable Type of Debridement: Excisional debridement Anesthesia Used: 5% Lidocaine Gel Depth: Down to and including healthy tissue and in the subcutaneous layer Percentage of wound debrided: 100 Instrument Used: 5mm curette Tissue Removed: Bioburden and devitalized tissue Severity: Fat Layer Exposed Amount of bleeding with debridement: Mild Bleeding Controlled with: Compression and gauze Patient tolerated procedure: Patient tolerated procedure well Post-Debridement Measurements and Additional Note: Post-Debridement Measurements/Treatment - Nurse 1 - General Ulcer Assessment Start: 08/12/24 13:44 Freq: Status: Active Protocol: BERYL Activity Type Activity Date Activity User E-sign Co-sign Detail Recorded Client Recorded Date Recorded By Document 08/12/24 13:44 RB [id number] 08/12/24 13:50 RB Document 08/26/24 14:49 CRAIG [id number] 08/26/24 15:00 CRAIG 08/12/24 08/26/24 13:44 14:49 - Today's Visit Information Type of service Follow-up Visit Follow-up Visit (Physician/ART GLASS SETTER (Physician/ART GLASS SETTER ) ) Arrival Mode Ambulatory Ambulatory Transfer Assistance Manual Patient Identification Verified (Name & Yes Yes ) Patient Requires Transmission-Based No No Precautions Finger Stick Blood Sugar(mg/dl) (if 150 indicated): Blood Sugar Stated by Patient Height and Weight Body Mass Index (BMI) 32.3 32.3 BMI Classification Obese Obese Vital Signs Temperature (97.8 F-99.1 F) 96.5 F L Temperature Source Temporal Pulse Rate (60-100) 100 96 Pulse Location Monitor Monitor Respiratory Rate (12-18) 18 16 Respiratory rate source Monitor Observation Blood Pressure (90/60-120/80) 123/74 H 159/98 H Blood Pressure Mean 90 118 Source Monitor Monitor Position Semi-Fowlers Sitting Blood Pressure Location Left Arm Right Arm History Since Last Visit- (Skip if this is Patient's initial visit) Have you changed medications since your No No last visit? Any new allergies or adverse reactions No No Had a fall/change in ADL's that may No No increase risk of falls Signs or symptoms of abuse and/or No No neglect since last visit Have you been in the hospital since your No No last visit? Has dressing in place as prescribed Yes Yes Has compression in place as prescribed N/A N/A Has offloadiing in place as prescribed N/A N/A Experienced any changes in pain level or No No management Left Footwear Regular Shoe Right Footwear Regular Shoe Pain Scale: 0-10 Numeric Is Patient Pain Free? No No Buttocks -Description Aching Sharp -Intensity 7 7 -Duration (hours) Acute -Pain Behavior Withdrawal from VS Changes Touch -Pain Aggravating Factors ADL's Debridement -Alleviating Factors/Interventions Medication Medication -Effectiveness of Alleviating Factor/ Moderately Completely Intervention effective effective WC - Nurse 1 - General Ulcer Measurement Start: 08/12/24 13:44 Freq: Status: Active Protocol: Activity Type Activity Date Activity User E-sign Co-sign Detail Recorded Client Recorded Date Recorded By Document 08/12/24 13:44 RB [id number] 08/12/24 13:50 RB Document 08/26/24 14:49 JF [id number] 08/26/24 15:00 JF 08/12/24 08/26/24 13:44 14:49 Wound Center Nurse 1 #4 RT BUTTOCK -Combined with other wound No -Current Size (cm) - Length 0.5 2.2 -Current Size (cm) - Width 0.6 1.8 -Current Size (cm) - Depth 1.5 1.2 -Total Square Cm 0.30 3.96 -Photo Taken No Yes -Epithelialization Medium 34-66% -Tunneling Yes No -Tunneling Position (O'clock) 1 -Tunneling Distance (cm) 1.5 -Undermining/Tunneling No No -Circular Undermining No No -Exudate Amt Large Medium -Exudate Type Serosanguineous Serosanguineous -Wound Margin Distinct, Flat & Intact Outline Attached -Granulation Amt Medium (34-66%) Medium (34-66%) -Granulation Quality [place] -Slough/Fibrin Yes Yes -Necrosis Amt Medium (34-66%) Medium (34-66%) -Necrotic Tissue Type Adherent Slough Adherent Slough -Structure Exposed N/A N/A -Texture (Aure-wound Skin Appearance) Assessed Assessed -Moisture (Aure-wound Skin Appearance) Assessed No Abnormality, Dry/Scaly -Color (Aure-wound Skin Appearance) Erythema No Abnormality -Temperature (Aure-wound Skin No Abnormality No Abnormality Appearance) (Pt Warm) (Pt Warm) -Tenderness on Palpation (Aure-wound No No Skin Appearance) -Ulcer Cleansing Wound Cleanser Soap and Water -Foul Odor after Cleansing No -Anesthetic Used 5% Lidocaine 5% Lidocaine Gel Gel Lower Limb Edema Present NA WC - Nurse 2 - General Ulcer CM Notes Start: 08/12/24 13:44 Freq: Status: Active Protocol: Activity Type Activity Date Activity User E-sign Co-sign Detail Recorded Client Recorded Date Recorded By Document 08/12/24 14:20 DS [id number] 08/12/24 14:21 DS Document 08/26/24 15:32 DS [id number] 08/26/24 15:34 DS 08/12/24 08/26/24 14:20 15:32 Wound Center Nurse 2 #4 RT BUTTOCK -Time 14:20 15:30 -Correct Patient Yes Yes -Correct Side, Site, Position Yes Yes -Correct Procedure Yes -Procedure Performed No Yes -Type of Procedure Debridement -Clinical Debridement Subcutaneous -Tissue Removed Subcutaneous -Post Debridement (cm) - Length 0.3 1.6 -Post Debridement (cm) - Width 0.3 2.0 -Post Debridement (cm) - Depth 2.0 0.5 -Total Square (Post) (cm) 0.09 3.20 -Area of Debridement (cm) - Length 0.3 1.6 -Area of Debridement (cm) - Width 0.3 2.0 -Total Square (Area) (cm) 0.09 3.20 -Tunneling No No -Tunneling Position (O'clock) 8 -Tunneling Distance (cm) 2.0 -Undermining/Tunneling No No -Circular Undermining No No -Wound/Ulcer Outcome Not Healed Not Healed -Ulcer Cleansing Rinsed/ Rinsed/ Irrigated with Irrigated with Saline Saline -Foul Odor after Cleansing No No -Bioengineered Tissue No No -Bleeding Controlled with Pressure -Treatment Response Procedure Procedure Tolerated Well Tolerated Well -Debridement - Subq, 1st 20sq cm Yes Pain Scale: 0-10 Numeric Is Patient Pain Free? Yes Yes - Nurse 3 - General Ulcer D/C NN Start: 08/12/24 13:44 Freq: Status: Active Protocol: Activity Type Activity Date Activity User E-sign Co-sign Detail Recorded Client Recorded Date Recorded By Document 08/12/24 14:23 DS [id number] 08/12/24 14:23 DS Document 08/26/24 15:43 RB [id number] 08/26/24 15:44 RB 08/12/24 08/26/24 14:23 15:43 Wound Care Center Nurse 3 #4 RT BUTTOCK -Ulcer Cleansing Rinsed/ Irrigated with Saline -Primary Dressing Applied Nugauze, Nugauze, Plain Iodoform 1/4in, 1/4in,Silicone Silicone Border Border Foam 6x6 Foam 4x4 -Nugauze, Iodoform 1/4 1 -Nugauze, Plain 1/4in 1 -Silicone Border Foam 4x4 1 -Silicone Border Foam 6x6 1 Treatment Response Procedure Tolerated Well Pain Scale: 0-10 Numeric Is Patient Pain Free? Yes Yes - Visit Discharge Discharge Condition Stable Ambulatory Status Wheelchair Transportation Private Auto Medication Reconcilliation completed & No provided to patient/care provider Clinical Summary of Care Provided Yes Charges/Coding Procedures Integumentary [id number]: [id number] Cathleen subq tissue 20 sq cm/< Assessment/Plan Assessment/Plan (1) Pilonidal sinus with abscess: CODE(S): L05.02 - Pilonidal sinus with abscess (2) Surgical wound present: CODE(S): T14.8XXA - Other injury of unspecified body region, initial encounter (3) Debility: CODE(S): R53.81 - Other malaise (4) History of stroke: CODE(S): Z86.73 - Personal history of transient ischemic attack (TIA), and cerebral infarction without residual deficits (5) Type 2 diabetes mellitus: CODE(S): E11.9 - Type 2 diabetes mellitus without complications QUALIFIERS: Diabetes mellitus terminal system operator insulin use: with prison use Diabetes mellitus complication status: with neurologic complications Diabetes mellitus complication detail: with polyneuropathy Qualified Code(s): E11.42 - Type 2 diabetes mellitus with diabetic polyneuropathy; Z79.4 - shelter (current) use of insulin (6) H/O bilateral cataract extraction: CODE(S): Z98.41 - Cataract extraction status, right eye; Z98.42 - Cataract extraction status, left eye (7) History of back surgery: CODE(S): Z98.890 - Other specified postprocedural states (8) Dysarthria as late effect of stroke: CODE(S): I69.322 - Dysarthria following cerebral infarction (9) Hypertension: CODE(S): I10 - Essential (primary) hypertension QUALIFIERS: Hypertension type: unspecified Qualified Code(s): I10 - Essential (primary) hypertension (10) Polyneuropathy: CODE(S): G62.9 - Polyneuropathy, unspecified (11) Paroxysmal atrial fibrillation: CODE(S): I48.0 - Paroxysmal atrial fibrillation (12) Type 2 diabetes mellitus with diabetic polyneuropathy: CODE(S): E11.42 - Type 2 diabetes mellitus with diabetic polyneuropathy QUALIFIERS: Diabetes mellitus prison insulin use: with terminal system operator use Qualified Code(s): E11.42 - Type 2 diabetes mellitus with diabetic polyneuropathy; Z79.4 - termite control service representative (current) use of insulin (13) Personal history of stroke with residual effects: CODE(S): I69.30 - Unspecified sequelae of cerebral infarction (14) History of DVT (deep vein thrombosis): CODE(S): Z86.718 - Personal history of other venous thrombosis and embolism (15) HLD (hyperlipidemia): CODE(S): E78.5 - Hyperlipidemia, unspecified QUALIFIERS: Hyperlipidemia type: mixed hyperlipidemia Qualified Code(s): E78.2 - Mixed hyperlipidemia (16) MONCHO (obstructive sleep apnea): CODE(S): G47.33 - Obstructive sleep apnea (adult) (pediatric) (17) Chronic asthma: CODE(S): J45.909 - Unspecified asthma, uncomplicated (18) Tobacco abuse: CODE(S): Z72.0 - Tobacco use (19) Encounter for smoking cessation counseling: CODE(S): Z71.6 - Tobacco abuse counseling (20) Bipolar disorder: CODE(S): F31.9 - Bipolar disorder, unspecified (21) History of schizophrenia: CODE(S): Z86.59 - Personal history of other mental and behavioral disorders PLAN: Plan This is a 64-year-old female who recently underwent surgical excision of an infected pilonidal sinus. The procedure was performed by Dr. Donnie Miller in [place], [place]. An open surgical wound remains. The patient has been referred back to the [facility] for management of her open surgical wound. The patient was not placed on antibiotics postoperatively. We are to request and review the patient's recent surgical operative note. We are to implement packing of the open surgical wound using moistened Nu Gauze. This is to be performed on a daily basis. The patient and her family have been instructed in appropriate means of packing. The patient has been instructed to optimize her diabetes management and her nutritional intake. She has also been advised to curtail her smoking habit. It is understood that she has a follow-up visit with her surgeon, Dr. Miller, in 1 week. She is to return to our facility for reevaluation in 1 week as well. Incidentally, it is noted that the patient has a right flank mass, for which the patient is anticipated to undergo surgical excision by Dr. King, Plastic Surgeon, in the near future. Total time: 24 minutes
--- NOTE | 2024-08-27 09:56 | WC ---
PHOTO 08/26/24 RIGHT BUTTOCKS
[2024-09-02 13:51] VITALS: BP 137/41; PULSE 87; RESP 18; TEMP 36.6; BMI 32.3
--- NOTE | 2024-09-04 08:47 | HP.PCM_ITS ---
History of Present Illness Date of Service: 09/02/24 Chief Complaint: Infected pilonidal sinus History of Wound: This is a 64-year-old female with multiple pre-existing medical problems. She has a history of ulcerations and excoriations on her buttocks. She had an open wound on the medial aspect of her right buttock, which had developed within the last several weeks prior to presentation. However, the patient had had a wound at this site previously, which had drained purulent material, and had intermittently appeared to heal. The patient does implement offloading measures, as has been recommended by her medical providers, including the use of a gel cushion. She has a history of cerebro vascular accident, with residual right sided weakness. She lives at home with her adult daughter, who assists in her care. She has a history of diabetes mellitus, heart disease, deep vein thrombosis, depression, schizophrenia, obstructive sleep apnea, and asthma. She has a home health aide who assists with bathing daily. The underlying cause of the patient's initial presenting manifestations was determined to be an infected pilonidal sinus, for which the patient was referred for surgical consultation. She underwent excision of her infected pilonidal sinus by Dr. Donnie Miller in [place], [place], on August 20, 2024. The surgical site was left open, and the patient was referred back to the [facility] for management of her open surgical wound. [facility] Medical History Wears glasses Cancer Open wound Insulin dependent diabetes mellitus Diabetes Walker as ambulation aid Uses wheelchair Bladder disease DVT (deep venous thrombosis) Parkinson's disease Wears dentures Dietary restriction Heartburn Smoker Sleep apnea On home oxygen therapy History of echocardiogram History of stress test Cardiology follow-up encounter History of atrial fibrillation Encounter for smoking cessation counseling Surgical wound present Bilateral malignant neoplasm of breast in female Pilonidal sinus with abscess Obesity PTSD (post-traumatic stress disorder) Psychophysiologic insomnia COPD (chronic obstructive pulmonary disease) CVA (cerebral vascular accident) Arthritis Paroxysmal atrial fibrillation Tardive dyskinesia Hypoglycemia unawareness associated with type 2 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 Type 2 diabetes mellitus with unspecified diabetic retinopathy without macular edema Suicidal ideation (10/23/18) Bipolar disorder History of schizophrenia Multiple sclerosis History of DVT (deep vein thrombosis) Personal history of stroke with residual effects Atherosclerotic heart disease of [place] coronary artery without angina pectoris Tobacco abuse Neuropathic pain A-fib Vitamin D deficiency Depression HLD (hyperlipidemia) Type 2 diabetes mellitus Urinary incontinence in female OMNCHO (obstructive sleep apnea) Chronic asthma Vaginal candidiasis Contracture of muscle of right lower leg Home Medications ?Medication ?Instructions ?Recorded ?Last Taken ?Type blood-glucose meter (Accu-Chek #1 ea 02/22/21 Unknown Rx Guide Glucose Meter) brexpiprazole 1 mg tablet 1 mg PO DAILY 03/07/2104/27 History duloxetine 60 mg capsule,delayed 60 mg PO DAILY 04/27/22 History release oxybutynin chloride 10 mg 10 mg PO DAILY BLADDER 04/2804/27/22 History tablet,extended release 24 hr blood-glucose meter (Accu-Chek #1 ea 05/31/22 Unknown Rx Guide Glucose Meter) BD Ultra-Fine Mari Pen Needle 32 #120 ea 08/02/22 Unkn own Rx gauge x 5/32 (pen needle, diabetic) rosuvastatin 20 mg tablet 20 mg PO DAILY #90 tabs /2 01/03 Unknown Rx blood sugar diagnostic (Accu-Chek #100 ea 12/05/22 Unk nown Rx Guide test strips) furosemide 20 mg tablet 20 mg PO DAILY 12/05/22 Unkn own History pen needle, diabetic 33 gauge x #400 ea 12/05/22 Unkno wn Rx 5/32 (Comfort EZ Pen Salix) lancets #100 ea 01/17/23 Unknown Rx blood sugar diagnostic (FreeStyle #100 ea 03/07/23 Unk nown Rx Precision Denzel Strips) rivaroxaban 20 mg tablet (Xarelto) 20 mg PO QPM #90 TA BLETS 12/13/23 Unknown Rx anastrozole 1 mg tablet 1 mg PO DAILY 03/26/24 Unkno wn History deutetrabenazine 6 mg tablet 12 mg PO BID 03/26/24 Unk nown History (Austedo) omeprazole 40 mg capsule,delayed 40 mg PO DAILY Unknown History release tirzepatide 12.5 mg/0.5 mL 12.5 mg (0.5 mL) subcut QWE EK #2 mL 05/15/24 Unknown Rx subcutaneous pen injector (Cande) diltiazem HCl 180 mg capsule,24 180 mg PO QDAY #90 cap s 06/30/24 Unknown Rx hr,extended release blood-glucose sensor (FreeStyle #2 ea 08/11/24 Unknown Rx Zoila 3 Plus Sensor device) ondansetron 4 mg disintegrating 4 mg PO Q8H PRN nausea and 08/11/24 Unknown Rx tablet vomiting #8 tabs insulin glargine 100 unit/mL (3 24 unit subcut QPM 09/05 Unknown History mL) subcutaneous pen (Lantus Solostar U-100 Insulin) zolpidem 10 mg tablet (Ambien) 5 mg PO QHS 08/15/24 Un known History lisinopril 20 mg tablet 20 mg PO DAILY #90 tabs 08/13 06/07 Unknown Rx Allergy/AdvReac Type Severity Reaction Status Date / Time mirtazapine (From Remeron) Allergy Intermediate agitation Verified 08/26/24 09:40 Penicillins Allergy Mild Rash Verified 08/26/24 09:40 Family History Mother Diabetes Heart disease Lung cancer CAD (coronary artery disease) CABG CVA (cerebral vascular accident) Daughter Diabetes Father Myocardial infarction Surgical History History of breast lump removal History of excision of pilonidal cyst History of back surgery H/O bilateral cataract extraction Social History Smoking Status: Current some day smoker tobacco type: cigarettes Tobacco: How many years used: 35 Electronic Cigarette Use: not used how long ago did patient quit smoking: about 3 years ago second hand exposure: No alcohol intake: never substance use type: former substance user Date of last use: Used Marijuana in the past caffeine: Yes Type: coffee Number of servings: 1 delmy/episcopal: Orthodox seatbelt use: sometimes Vital Signs Vital Signs Vital Signs: Weight Weight: 200 lb Body Mass Index (BMI) 32.3 Physical Exam Const alert, oriented x3 and no apparent distress Constitutional Narrative: The patient's BMI is 32.3. General Appearance: cooperative and comfortable Orientation / Consciousness: awake, oriented to person, oriented to place and oriented to time HEENT normocephalic and head/scalp atraumatic Head and Scalp: normal to inspection Face and Sinus: normal facial exam Nose: external nose normal External Ear: external ears normal Eyes EOMs intact bilaterally General Eye: normal appearance of both eyes Neck full ROM Lymph Lymphatic: no lymphedema noted Resp normal respiratory effort, normal air movement, no retractions and no use of accessory muscles Effort and Inspection: able to speak in complete sentences GI soft to palpation and non-tender Skin Skin Narrative: Buttocks bilaterally skin is clear and intact with no erythema. Looks very good compared to previous visits. Wound Narrative: The site of the patient's recent infected pilonidal sinus excision is noted in the midline of the upper buttocks. The excision site, as observed postoperatively, is somewhat smaller than expected, but appears to be generally clean and devoid of purulent material. There is a small amount of bioburden and devitalized tissue. Dimensions are documented elsewhere. Wound margins are not well beveled. The wound extends through all layers of the dermis and into the subcutaneous tissues. Neuro oriented x3, CN's II-XII intact bilaterally and moves all extremities Neuro Narrative: Right hemiparesis is noted. Sensorium / Orientation: awake, alert, oriented to person, oriented to place and oriented to time Psych thought process normal and cooperative Appearance: grossly normal Debridement Note Debridement Note Wound debrided: Infected pilonidal sinus excision site, upper buttocks in the midline Laterality: Not Applicable Type of Debridement: Excisional debridement Anesthesia Used: 5% Lidocaine Gel and Cetacaine Depth: Down to and including healthy tissue and in the subcutaneous layer Percentage of wound debrided: 100 Instrument Used: 5mm curette Tissue Removed: Bioburden and devitalized tissue Severity: Fat Layer Exposed Amount of bleeding with debridement: Mild Bleeding Controlled with: Compression and gauze Patient tolerated procedure: Patient tolerated procedure well Post-Debridement Measurements and Additional Note: Post-Debridement Measurements/Treatment RODERICK - Nurse 1 - General Ulcer Assessment Start: 08/12/24 13:44 Freq: Status: Active Protocol: BERYL Activity Type Activity Date Activity User E-sign Co-sign Detail Recorded Client Recorded Date Recorded By Document 08/12/24 13:44 RB [id number] 08/12/24 13:50 RB Document 08/26/24 14:49 JF [id number] 08/26/24 15:00 JF Document 04/22/25 13:51 RB [id number] 09/02/24 13:52 RB 08/12/24 08/26/24 09/02/24 13:44 14:49 13:51 WC - Today's Visit Information Type of service Follow-up Visit Follow-up Visit Follow-up Visit (Physician/SENIOR MORTGAGE UNDERWRITER (Physician/SENIOR MORTGAGE UNDERWRITER (Physician/SENIOR MORTGAGE UNDERWRITER ) ) ) Arrival Mode Ambulatory Ambulatory Ambulatory Transfer Assistance Manual None Patient Identification Verified (Name & Yes Yes Yes ) Patient Requires Transmission-Based No No No Precautions Finger Stick Blood Sugar(mg/dl) (if 150 indicated): Blood Sugar Stated by Patient Height and Weight Body Mass Index (BMI) 32.3 32.3 32.3 BMI Classification Obese Obese Obese Vital Signs Temperature (97.8 F-99.1 F) 96.5 F L 98 F Temperature Source Temporal Temporal Pulse Rate (60-100) 100 96 87 Pulse Location Monitor Monitor Monitor Respiratory Rate (12-18) 18 16 18 Respiratory rate source Monitor Observation Observation Blood Pressure (90/60-120/80) 123/74 H 159/98 H 137/41 H Blood Pressure Mean 90 118 73 Source Monitor Monitor Monitor Position Semi-Fowlers Sitting Semi-Fowlers Blood Pressure Location Left Arm Right Arm Left Arm History Since Last Visit- (Skip if this is Patient's initial visit) Have you changed medications since your No No No last visit? Any new allergies or adverse reactions No No No Had a fall/change in ADL's that may No No No increase risk of falls Signs or symptoms of abuse and/or No No No neglect since last visit Have you been in the hospital since your No No No last visit? Has dressing in place as prescribed Yes Yes Yes Has compression in place as prescribed N/A N/A N/A Has offloadiing in place as prescribed N/A N/A N/A Experienced any changes in pain level or No No No management Left Footwear Regular Shoe Right Footwear Regular Shoe Pain Scale: 0-10 Numeric Is Patient Pain Free? No No No Buttocks -Description Aching Sharp Aching -Intensity 7 7 5 -Duration (hours) Acute Acute -Pain Behavior Withdrawal from VS Changes Irritability, Touch Withdrawal from Touch -Pain Aggravating Factors ADL's Debridement Exercise/ Activity -Alleviating Factors/Interventions Medication Medication Medication -Effectiveness of Alleviating Factor/ Moderately Completely Moderately Intervention effective effective effective WC - Nurse 1 - General Ulcer Measurement Start: 08/12/24 13:44 Freq: Status: Active Protocol: Activity Type Activity Date Activity User E-sign Co-sign Detail Recorded Client Recorded Date Recorded By Document 08/12/24 13:44 RB [id number] 08/12/24 13:50 RB Document 08/26/24 14:49 JF [id number] 08/26/24 15:00 JF Document 09/02/24 13:51 RB [id number] 09/02/24 13:52 RB Edit Result 09/02/24 13:51 RB (1) [id number] 09/02/24 14:18 RB (1) #4 RT BUTTOCK - Tunneling No => Yes - Tunneling Position (O'clock) => 9 - Tunneling Distance (cm) => 1 08/12/24 08/26/24 09/02/24 13:44 14:49 13:51 Wound Center Nurse 1 #4 RT BUTTOCK -Combined with other wound No No -Current Size (cm) - Length 0.5 2.2 1.5 -Current Size (cm) - Width 0.6 1.8 2.7 -Current Size (cm) - Depth 1.5 1.2 0.8 -Total Square Cm 0.30 3.96 4.05 -Photo Taken No Yes Yes -Epithelialization Medium 34-66% -Tunneling Yes No Yes -Tunneling Position (O'clock) 1 9 -Tunneling Distance (cm) 1.5 1 -Undermining/Tunneling No No No -Circular Undermining No No No -Exudate Amt Large Medium Medium -Exudate Type Serosanguineous Serosanguineous Serosanguineous -Wound Margin Distinct, Flat & Intact Thickened & Outline Rolled Under Attached -Granulation Amt Medium (34-66%) Medium (34-66%) Medium (34-66%) -Granulation Quality [place] -Slough/Fibrin Yes Yes Yes -Necrosis Amt Medium (34-66%) Medium (34-66%) Small (1-33%) -Necrotic Tissue Type Adherent Slough Adherent Slough Adherent Slough -Structure Exposed N/A N/A N/A -Texture (Aure-wound Skin Appearance) Assessed Assessed Scarring -Moisture (Aure-wound Skin Appearance) Assessed No Abnormality, Assessed Dry/Scaly -Color (Aure-wound Skin Appearance) Erythema No Abnormality Assessed -Temperature (Aure-wound Skin No Abnormality No Abnormality No Abnormality Appearance) (Pt Warm) (Pt Warm) (Pt Warm) -Tenderness on Palpation (Aure-wound No No No Skin Appearance) -Ulcer Cleansing Wound Cleanser Soap and Water Wound Cleanser -Foul Odor after Cleansing No No -Anesthetic Used 5% Lidocaine 5% Lidocaine 5% Lidocaine Gel Gel Gel Lower Limb Edema Present NA WC - Nurse 2 - General Ulcer CM Notes Start: 08/12/24 13:44 Freq: Status: Active Protocol: Activity Type Activity Date Activity User E-sign Co-sign Detail Recorded Client Recorded Date Recorded By Document 08/12/24 14:20 DS [id number] 08/12/24 14:21 DS Document 08/26/24 15:32 DS [id number] 08/26/24 15:34 DS Document 09/02/24 13:59 DS [id number] 09/02/24 14:02 DS 08/12/24 08/26/24 09/02/24 14:20 15:32 13:59 Wound Center Nurse 2 #4 RT BUTTOCK -Time 14:20 15:30 13:56 -Correct Patient Yes Yes Yes -Correct Side, Site, Position Yes Yes Yes -Correct Procedure Yes Yes -Procedure Performed No Yes Yes -Type of Procedure Debridement Debridement -Clinical Debridement Subcutaneous Subcutaneous -Tissue Removed Subcutaneous Subcutaneous -Post Debridement (cm) - Length 0.3 1.6 1.6 -Post Debridement (cm) - Width 0.3 2.0 2.5 -Post Debridement (cm) - Depth 2.0 0.5 0.4 -Total Square (Post) (cm) 0.09 3.20 4.00 -Area of Debridement (cm) - Length 0.3 1.6 1.6 -Area of Debridement (cm) - Width 0.3 2.0 2.5 -Total Square (Area) (cm) 0.09 3.20 4.00 -Tunneling No No No -Tunneling Position (O'clock) 8 -Tunneling Distance (cm) 2.0 -Undermining/Tunneling No No No -Circular Undermining No No No -Wound/Ulcer Outcome Not Healed Not Healed Not Healed -Ulcer Cleansing Rinsed/ Rinsed/ Rinsed/ Irrigated with Irrigated with Irrigated with Saline Saline Saline -Foul Odor after Cleansing No No No -Bioengineered Tissue No No No -Bleeding Controlled with Pressure Pressure -Treatment Response Procedure Procedure Procedure Tolerated Well Tolerated Well Tolerated Well -Debridement - Subq, 1st 20sq cm Yes Yes Pain Scale: 0-10 Numeric Is Patient Pain Free? Yes Yes No Buttocks -Description Sharp,Aching -Intensity 6 -Duration (hours) Chronic -Pain Behavior Irritability -Pain Aggravating Factors Debridement -Alleviating Factors/Interventions Will continue to monitor, Emotional Support - Nurse 3 - General Ulcer D/C NN Start: 08/12/24 13:44 Freq: Status: Active Protocol: Activity Type Activity Date Activity User E-sign Co-sign Detail Recorded Client Recorded Date Recorded By Document 08/12/24 14:23 DS [id number] 08/12/24 14:23 DS Document 08/26/24 15:43 RB [id number] 08/26/24 15:44 RB Document 09/02/24 14:17 RB [id number] 09/02/24 14:18 RB 08/12/24 08/26/24 09/02/24 14:23 15:43 14:17 Wound Care Center Nurse 3 #4 RT BUTTOCK -Ulcer Cleansing Rinsed/ Rinsed/ Irrigated with Irrigated with Saline Saline -Primary Dressing Applied Nugauze, Nugauze, Plain Nugauze, Plain Iodoform 1/4in, 1/4in,Silicone 1/4in,Silicone Silicone Border Border Foam 6x6 Border Foam 4x4 Foam 4x4 -Nugauze, Iodoform 1/4 1 -Nugauze, Plain 1/4in 1 1 -Silicone Border Foam 4x4 1 1 -Silicone Border Foam 6x6 1 Treatment Response Procedure Procedure Tolerated Well Tolerated Well Pain Scale: 0-10 Numeric Is Patient Pain Free? Yes Yes Yes - Visit Discharge Discharge Condition Stable Stable Ambulatory Status Wheelchair Ambulatory Transportation Private Auto Private Auto Medication Reconcilliation completed & No No provided to patient/care provider Clinical Summary of Care Provided Yes Yes Charges/Coding Procedures Integumentary [id number]: [id number] Cathleen subq tissue 20 sq cm/< Assessment/Plan Assessment/Plan (1) Pilonidal sinus with abscess: CODE(S): L05.02 - Pilonidal sinus with abscess (2) Surgical wound present: CODE(S): T14.8XXA - Other injury of unspecified body region, initial encounter (3) Debility: CODE(S): R53.81 - Other malaise (4) History of stroke: CODE(S): Z86.73 - Personal history of transient ischemic attack (TIA), and cerebral infarction without residual deficits (5) Type 2 diabetes mellitus: CODE(S): E11.9 - Type 2 diabetes mellitus without complications QUALIFIERS: Diabetes mellitus detention insulin use: with termite control representative use Diabetes mellitus complication status: with neurologic complications Diabetes mellitus complication detail: with polyneuropathy Qualified Code(s): E11.42 - Type 2 diabetes mellitus with diabetic polyneuropathy; Z79.4 - 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) use of insulin (6) H/O bilateral cataract extraction: CODE(S): Z98.41 - Cataract extraction status, right eye; Z98.42 - Cataract extraction status, left eye (7) History of back surgery: CODE(S): Z98.890 - Other specified postprocedural states (8) Dysarthria as late effect of stroke: CODE(S): I69.322 - Dysarthria following cerebral infarction (9) Hypertension: CODE(S): I10 - Essential (primary) hypertension QUALIFIERS: Hypertension type: unspecified Qualified Code(s): I10 - Essential (primary) hypertension (10) Polyneuropathy: CODE(S): G62.9 - Polyneuropathy, unspecified (11) Paroxysmal atrial fibrillation: CODE(S): I48.0 - Paroxysmal atrial fibrillation (12) Type 2 diabetes mellitus with diabetic polyneuropathy: CODE(S): E11.42 - Type 2 diabetes mellitus with diabetic polyneuropathy QUALIFIERS: Diabetes mellitus detention insulin use: with termite control representative use Qualified Code(s): E11.42 - Type 2 diabetes mellitus with diabetic polyneuropathy; Z79.4 - prison (current) use of insulin (13) Personal history of stroke with residual effects: CODE(S): I69.30 - Unspecified sequelae of cerebral infarction (14) History of DVT (deep vein thrombosis): CODE(S): Z86.718 - Personal history of other venous thrombosis and embolism (15) HLD (hyperlipidemia): CODE(S): E78.5 - Hyperlipidemia, unspecified QUALIFIERS: Hyperlipidemia type: mixed hyperlipidemia Qualified Code(s): E78.2 - Mixed hyperlipidemia (16) MONCHO (obstructive sleep apnea): CODE(S): G47.33 - Obstructive sleep apnea (adult) (pediatric) (17) Chronic asthma: CODE(S): J45.909 - Unspecified asthma, uncomplicated (18) Tobacco abuse: CODE(S): Z72.0 - Tobacco use (19) Encounter for smoking cessation counseling: CODE(S): Z71.6 - Tobacco abuse counseling (20) Bipolar disorder: CODE(S): F31.9 - Bipolar disorder, unspecified (21) History of schizophrenia: CODE(S): Z86.59 - Personal history of other mental and behavioral disorders PLAN: Plan This is a 64-year-old female who recently underwent surgical excision of an infected pilonidal sinus. The procedure was performed by Dr. Donnie Miller in [place], [place]. An open surgical wound remains. The patient has been referred back to the [facility] for management of her open s urgical wound. The patient was not placed on antibiotics postoperatively. We have requested the patient's recent surgical operative note, which has not yet been received. We are to continue packing of the open surgical wound using moistened 1/4 inch NuGauze. This is to be performed on a daily basis. The patient and her family have been instructed in appropriate means of packing. Home health nursing personnel also assist with wound management in the patient's home. The patient has been instructed to optimize her diabetes management and her nutritional intake. She has also been advised to curtail her smoking habit. She admits to smoking approximately 3 cigarettes/day. She is to return to our facility for reevaluation in 1 week as well. Incidentally, it is noted that the patient has a right flank mass, for which the patient is anticipated to undergo surgical excision by Dr. King, Plastic Surgeon, in the near future. Total time: 25 minutes
[2024-09-09 13:44] VITALS: BP 173/62; PULSE 93; RESP 18; TEMP 36.1; BMI 32.3
--- NOTE | 2024-09-10 10:52 | PCM.WC.HP ---
History of Present Illness Date of Service: 09/09/24 Chief Complaint: Infected pilonidal sinus History of Wound: This is a 64-year-old female with multiple pre-existing medical problems. She has a history of ulcerations and excoriations on her buttocks. She had an open wound on the medial aspect of her right buttock, which had developed within the last several weeks prior to presentation. However, the patient had had a wound at this site previously, which had drained purulent material, and had intermittently appeared to heal. The patient does implement offloading measures, as has been recommended by her medical providers, including the use of a gel cushion. She has a history of cerebrovascular accident, with residual right sided weakness. She lives at home with her adult daughter, who assists in her care. She has a history of diabetes mellitus, heart disease, deep vein thrombosis, depression, schizophrenia, obstructive sleep apnea, and asthma. She has a home health aide who assists with bathing daily. The underlying cause of the patient's initial presenting manifestations was determined to be an infected pilonidal sinus, for which the patient was referred for surgical consultation. She underwent excision of her infected pilonidal sinus by Dr. Donnie Miller in [place], [place], on August 20, 2024. The surgical site was left open, and the patient was referred back to the [facility] for management of her open surgical wound. [facility] Medical History Wears glasses Cancer Open wound Insulin dependent diabetes mellitus Diabetes Walker as ambulation aid Uses wheelchair Bladder disease DVT (deep venous thrombosis) Parkinson's disease Wears dentures Dietary restriction Heartburn Smoker Sleep apnea On home oxygen therapy History of echocardiogram History of stress test Cardiology follow-up encounter History of atrial fibrillation Encounter for smoking cessation counseling Surgical wound present Bilateral malignant neoplasm of breast in female Pilonidal sinus with abscess Obesity PTSD (post-traumatic stress disorder) Psychophysiologic insomnia COPD (chronic obstructive pulmonary disease) CVA (cerebral vascular accident) Arthritis Paroxysmal atrial fibrillation Tardive dyskinesia Hypoglycemia unawareness associated with type 2 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 Type 2 diabetes mellitus with unspecified diabetic retinopathy without macular edema Suicidal ideation (10/23/18) Bipolar disorder History of schizophrenia Multiple sclerosis History of DVT (deep vein thrombosis) Personal history of stroke with residual effects Atherosclerotic heart disease of [place] coronary artery without angina pectoris Tobacco abuse Neuropathic pain A-fib Vitamin D deficiency Depression HLD (hyperlipidemia) Type 2 diabetes mellitus Urinary incontinence in female MONCHO (obstructive sleep apnea) Chronic asthma Vaginal candidiasis Contracture of muscle of right lower leg Home Medications ?Medication ?Instructions ?Recorded ?Last Taken ?Type blood-glucose meter (Accu-Chek #1 ea 02/22/21 Unknown Rx Guide Glucose Meter) brexpiprazole 1 mg tablet 1 mg PO DAILY 03/07/21 04/27/22 History duloxetine 60 mg capsule,delayed 60 mg PO DAILY 03/07/21 04/27/22 History release oxybutynin chloride 10 mg 10 mg PO DAILY BLADDER 04/28/22 04/27/22 History tablet,extended release 24 hr blood-glucose meter (Accu-Chek #1 ea 05/31/22 Unknown Rx Guide Glucose Meter) BD Ultra-Fine Mari Pen Needle 32 #120 ea 08/02/22 Unknown Rx gauge x 5/32 (pen needle, diabetic) rosuvastatin 20 mg tablet 20 mg PO DAILY #90 tabs 09/08/22 Unknown Rx blood sugar diagnostic (Accu-Chek #100 ea 12/05/22 Unknown Rx Guide test strips) furosemide 20 mg tablet 20 mg PO DAILY 12/05/22 Unknown History pen needle, diabetic 33 gauge x #400 ea 12/05/22 Unknown Rx 5/32 (Comfort EZ Pen [place]) lancets #100 ea 01/17/23 Unknown Rx blood sugar diagnostic (FreeStyle #100 ea 03/07/23 Unknown Rx Precision Denzel Strips) rivaroxaban 20 mg tablet (Xarelto) 20 mg PO QPM #90 TABLETS 12/13/23 Unknown Rx anastrozole 1 mg tablet 1 mg PO DAILY 03/26/24 Unknown History deutetrabenazine 6 mg tablet 12 mg PO BID 03/26/24 Unknown History (Austedo) omeprazole 40 mg capsule,delayed 40 mg PO DAILY 03/26/24 Unknown History release tirzepatide 12.5 mg/0.5 mL 12.5 mg (0.5 mL) subcut QWEEK #2 mL 05/15/24 Unknown Rx subcutaneous pen injector (Cande) diltiazem HCl 180 mg capsule,24 180 mg PO QDAY #90 caps 06/30/24 Unknown Rx hr,extended release blood-glucose sensor (FreeStyle #2 ea 08/11/24 Unknown Rx Zoila 3 Plus Sensor device) ondansetron 4 mg disintegrating 4 mg PO Q8H PRN nausea and 08/11/24 Unknown Rx tablet vomiting #8 tabs insulin glargine 100 unit/mL (3 24 unit subcut QPM 08/15/24 Unknown History mL) subcutaneous pen (Lantus Solostar U-100 Insulin) zolpidem 10 mg tablet (Ambien) 5 mg PO QHS 08/15/24 Unknown History lisinopril 20 mg tablet 20 mg PO DAILY #90 tabs 09/01/24 Unknown Rx Allergy/AdvReac Type Severity Reaction Status Date / Time mirtazapine (From Remeron) Allergy Intermediate agitation Verified 08/26/24 09:40 Penicillins Allergy Mild Rash Verified 08/26/24 09:40 Family History Mother Diabetes Heart disease Lung cancer CAD (coronary artery disease) CABG CVA (cerebral vascular accident) Daughter Diabetes Father Myocardial infarction Surgical History History of breast lump removal History of excision of pilonidal cyst History of back surgery H/O bilateral cataract extraction Social History Smoking Status: Current some day smoker tobacco type: cigarettes Tobacco: How many years used: 35 Electronic Cigarette Use: not used how long ago did patient quit smoking: about 3 years ago second hand exposure: No alcohol intake: never substance use type: former substance user Date of last use: Used Marijuana in the past caffeine: Yes Type: coffee Number of servings: 1 delmy/hindu: Judaism seatbelt use: sometimes Vital Signs Vital Signs Vital Signs: 09/09/24 13:44 Temperature 97 F L Temperature Source Temporal Pulse Rate 93 Respiratory Rate 18 Blood Pressure 173/62 H Blood Pressure Mean 99 Blood Pressure Source Monitor Blood Pressure Position Semi-Fowlers Blood Pressure Location Left Arm Weight Weight: 200 lb Body Mass Index (BMI) 32.3 Physical Exam Const alert, oriented x3 and no apparent distress Constitutional Narrative: The patient's BMI is 32.3. General Appearance: cooperative and comfortable Orientation / Consciousness: awake, oriented to person, oriented to place and oriented to time HEENT normocephalic and head/scalp atraumatic Head and Scalp: normal to inspection Face and Sinus: normal facial exam Nose: external nose normal External Ear: external ears normal Eyes EOMs intact bilaterally General Eye: normal appearance of both eyes Neck full ROM Lymph Lymphatic: no lymphedema noted Resp normal respiratory effort, normal air movement, no retractions and no use of accessory muscles Effort and Inspection: able to speak in complete sentences GI soft to palpation and non-tender Skin Skin Narrative: Buttocks bilaterally skin is clear and intact with no erythema. Looks very good compared to previous visits. Wound Narrative: The site of the patient's recent infected pilonidal sinus excision is noted in the midline of the upper buttocks. The excision site, as observed postoperatively, is somewhat smaller than expected, but appears to be generally clean and devoid of purulent material. There is a small amount of bioburden and devitalized tissue. Dimensions are documented elsewhere. Wound margins are not well beveled. The wound extends through all layers of the dermis and into the subcutaneous tissues. There has been little change in appearance within the last week. Neuro oriented x3, CN's II-XII intact bilaterally and moves all extremities Neuro Narrative: Right hemiparesis is noted. Sensorium / Orientation: awake, alert, oriented to person, oriented to place and oriented to time Psych thought process normal and cooperative Appearance: grossly normal Debridement Note Debridement Note Wound debrided: Infected pilonidal sinus excision site, upper buttocks in the midline Laterality: Not Applicable Type of Debridement: Excisional debridement Anesthesia Used: 5% Lidocaine Gel and Cetacaine Depth: Down to and including healthy tissue and in the subcutaneous layer Percentage of wound debrided: 100 Instrument Used: 5mm curette Tissue Removed: Bioburden and devitalized tissue Severity: Fat Layer Exposed Amount of bleeding with debridement: Mild Bleeding Controlled with: Compression and gauze Patient tolerated procedure: Patient tolerated procedure well Post-Debridement Measurements and Additional Note: Post-Debridement Measurements/Treatment RODERICK - Nurse 1 - General Ulcer Assessment Start: 08/12/24 13:44 Freq: Status: Active Protocol: BERYL Activity Type Activity Date Activity User E-sign Co-sign Detail Recorded Client Recorded Date Recorded By Document 08/12/24 13:44 RB [id number] 08/12/24 13:50 RB Document 08/26/24 14:49 JF [id number] 08/26/24 15:00 JF Document 09/02/24 13:51 RB [id number] 09/02/24 13:52 RB Document 09/09/24 13:44 RB [id number] 09/09/24 13:48 RB 08/12/24 08/26/24 09/02/24 13:44 14:49 13:51 WC - Today's Visit Information Type of service Follow-up Visit Follow-up Visit Follow-up Visit (Physician/COMMODITIES TRADER (Physician/COMMODITIES TRADER (Physician/COMMODITIES TRADER ) ) ) Arrival Mode Ambulatory Ambulatory Ambulatory Transfer Assistance Manual None Patient Identification Verified (Name & Yes Yes Yes ) Patient Requires Transmission-Based No No No Precautions Finger Stick Blood Sugar(mg/dl) (if 150 indicated): Blood Sugar Stated by Patient Height and Weight Body Mass Index (BMI) 32.3 32.3 32.3 BMI Classification Obese Obese Obese Vital Signs Temperature (97.8 F-99.1 F) 96.5 F L 98 F Temperature Source Temporal Temporal Pulse Rate (60-100) 100 96 87 Pulse Location Monitor Monitor Monitor Respiratory Rate (12-18) 18 16 18 Respiratory rate source Monitor Observation Observation Blood Pressure (90/60-120/80) 123/74 H 159/98 H 137/41 H Blood Pressure Mean 90 118 73 Source Monitor Monitor Monitor Position Semi-Fowlers Sitting Semi-Fowlers Blood Pressure Location Left Arm Right Arm Left Arm History Since Last Visit- (Skip if this is Patient's initial visit) Have you changed medications since your No No No last visit? Any new allergies or adverse reactions No No No Had a fall/change in ADL's that may No No No increase risk of falls Signs or symptoms of abuse and/or No No No neglect since last visit Have you been in the hospital since your No No No last visit? Has dressing in place as prescribed Yes Yes Yes Has compression in place as prescribed N/A N/A N/A Has offloadiing in place as prescribed N/A N/A N/A Experienced any changes in pain level or No No No management Left Footwear Regular Shoe Right Footwear Regular Shoe Pain Scale: 0-10 Numeric Is Patient Pain Free? No No No Buttocks -Description Aching Sharp Aching -Intensity 7 7 5 -Duration (hours) Acute Acute -Pain Behavior Withdrawal from VS Changes Irritability, Touch Withdrawal from Touch -Pain Aggravating Factors ADL's Debridement Exercise/ Activity -Alleviating Factors/Interventions Medication Medication Medication -Effectiveness of Alleviating Factor/ Moderately Completely Moderately Intervention effective effective effective 09/09/24 13:44 WC - Today's Visit Information Type of service Follow-up Visit (Physician/COMMODITIES TRADER ) Arrival Mode Ambulatory Transfer Assistance None Patient Identification Verified (Name & Yes ) Patient Requires Transmission-Based No Precautions Finger Stick Blood Sugar(mg/dl) (if indicated): Blood Sugar Height and Weight Body Mass Index (BMI) 32.3 BMI Classification Obese Vital Signs Temperature (97.8 F-99.1 F) 97 F L Temperature Source Temporal Pulse Rate (60-100) 93 Pulse Location Monitor Respiratory Rate (12-18) 18 Respiratory rate source Observation Blood Pressure (90/60-120/80) 173/62 H Blood Pressure Mean 99 Source Monitor Position Semi-Fowlers Blood Pressure Location Left Arm History Since Last Visit- (Skip if this is Patient's initial visit) Have you changed medications since your No last visit? Any new allergies or adverse reactions No Had a fall/change in ADL's that may No increase risk of falls Signs or symptoms of abuse and/or No neglect since last visit Have you been in the hospital since your No last visit? Has dressing in place as prescribed Yes Has compression in place as prescribed N/A Has offloadiing in place as prescribed N/A Experienced any changes in pain level or No management Left Footwear Regular Shoe Right Footwear Regular Shoe Pain Scale: 0-10 Numeric Is Patient Pain Free? Yes Buttocks -Description -Intensity -Duration (hours) -Pain Behavior -Pain Aggravating Factors -Alleviating Factors/Interventions -Effectiveness of Alleviating Factor/ Intervention - Nurse 1 - General Ulcer Measurement Start: 08/12/24 13:44 Freq: Status: Active Protocol: Activity Type Activity Date Activity User E-sign Co-sign Detail Recorded Client Recorded Date Recorded By Document 08/12/24 13:44 RB [id number] 08/12/24 13:50 RB Document 08/26/24 14:49 JF [id number] 08/26/24 15:00 JF Document 09/02/24 13:51 RB [id number] 09/02/24 13:52 RB Edit Result 09/02/24 13:51 RB (1) [id number] 09/02/24 14:18 RB Document 09/09/24 13:44 RB [id number] 09/09/24 13:48 RB Edit Result 09/09/24 13:44 RB (2) [id number] 09/09/24 13:49 RB (1) #4 RT BUTTOCK - Tunneling No => Yes - Tunneling Position (O'clock) => 9 - Tunneling Distance (cm) => 1 (2) #4 RT BUTTOCK - Undermining/Tunneling No => Yes - Undermining/Tunneling Starts (O'clock) => 9 - Undermining/Tunneling Ends (O'clock) => 9 - Maximum Distance (cm) => 1 08/12/24 08/26/24 09/02/24 13:44 14:49 13:51 Wound Center Nurse 1 #4 RT BUTTOCK -Combined with other wound No No -Current Size (cm) - Length 0.5 2.2 1.5 -Current Size (cm) - Width 0.6 1.8 2.7 -Current Size (cm) - Depth 1.5 1.2 0.8 -Total Square Cm 0.30 3.96 4.05 -Photo Taken No Yes Yes -Epithelialization Medium 34-66% -Tunneling Yes No Yes -Tunneling Position (O'clock) 1 9 -Tunneling Distance (cm) 1.5 1 -Undermining/Tunneling No No No -Undermining/Tunneling Starts (O'clock ) -Undermining/Tunneling Ends (O'clock) -Maximum Distance (cm) -Circular Undermining No No No -Exudate Amt Large Medium Medium -Exudate Type Serosanguineous Serosanguineous Serosanguineous -Wound Margin Distinct, Flat & Intact Thickened & Outline Rolled Under Attached -Granulation Amt Medium (34-66%) Medium (34-66%) Medium (34-66%) -Granulation Quality Green Tree Green Tree Green Tree -Slough/Fibrin Yes Yes Yes -Necrosis Amt Medium (34-66%) Medium (34-66%) Small (1-33%) -Necrotic Tissue Type Adherent Slough Adherent Slough Adherent Slough -Structure Exposed N/A N/A N/A -Texture (Aure-wound Skin Appearance) Assessed Assessed Scarring -Moisture (Aure-wound Skin Appearance) Assessed No Abnormality, Assessed Dry/Scaly -Color (Aure-wound Skin Appearance) Erythema No Abnormality Assessed -Temperature (Aure-wound Skin No Abnormality No Abnormality No Abnormality Appearance) (Pt Warm) (Pt Warm) (Pt Warm) -Tenderness on Palpation (Aure-wound No No No Skin Appearance) -Ulcer Cleansing Wound Cleanser Soap and Water Wound Cleanser -Foul Odor after Cleansing No No -Anesthetic Used 5% Lidocaine 5% Lidocaine 5% Lidocaine Gel Gel Gel Lower Limb Edema Present NA 09/09/24 13:44 Wound Center Nurse 1 #4 RT BUTTOCK -Combined with other wound No -Current Size (cm) - Length 1.9 -Current Size (cm) - Width 3 -Current Size (cm) - Depth 0.3 -Total Square Cm 5.7 -Photo Taken Yes -Epithelialization -Tunneling No -Tunneling Position (O'clock) -Tunneling Distance (cm) -Undermining/Tunneling Yes -Undermining/Tunneling Starts (O'clock 9 ) -Undermining/Tunneling Ends (O'clock) 9 -Maximum Distance (cm) 1 -Circular Undermining No -Exudate Amt Medium -Exudate Type Serosanguineous -Wound Margin Thickened & Rolled Under -Granulation Amt Medium (34-66%) -Granulation Quality Green Tree -Slough/Fibrin Yes -Necrosis Amt Medium (34-66%) -Necrotic Tissue Type Adherent Slough -Structure Exposed N/A -Texture (Aure-wound Skin Appearance) Assessed, Scarring -Moisture (Aure-wound Skin Appearance) Assessed -Color (Aure-wound Skin Appearance) Assessed -Temperature (Aure-wound Skin No Abnormality Appearance) (Pt Warm) -Tenderness on Palpation (Aure-wound No Skin Appearance) -Ulcer Cleansing Wound Cleanser -Foul Odor after Cleansing No -Anesthetic Used 5% Lidocaine Gel Lower Limb Edema Present WC - Nurse 2 - General Ulcer CM Notes Start: 08/12/24 13:44 Freq: Status: Active Protocol: Activity Type Activity Date Activity User E-sign Co-sign Detail Recorded Client Recorded Date Recorded By Document 08/12/24 14:20 DS [id number] 08/12/24 14:21 DS Document 08/26/24 15:32 DS [id number] 08/26/24 15:34 DS Document 09/02/24 13:59 DS [id number] 09/02/24 14:02 DS Document 09/09/24 14:12 DS [id number] 09/09/24 14:13 DS 08/12/24 08/26/24 09/02/24 14:20 15:32 13:59 Wound Center Nurse 2 #4 RT BUTTOCK -Time 14:20 15:30 13:56 -Correct Patient Yes Yes Yes -Correct Side, Site, Position Yes Yes Yes -Correct Procedure Yes Yes -Procedure Performed No Yes Yes -Type of Procedure Debridement Debridement -Clinical Debridement Subcutaneous Subcutaneous -Tissue Removed Subcutaneous Subcutaneous -Post Debridement (cm) - Length 0.3 1.6 1.6 -Post Debridement (cm) - Width 0.3 2.0 2.5 -Post Debridement (cm) - Depth 2.0 0.5 0.4 -Total Square (Post) (cm) 0.09 3.20 4.00 -Area of Debridement (cm) - Length 0.3 1.6 1.6 -Area of Debridement (cm) - Width 0.3 2.0 2.5 -Total Square (Area) (cm) 0.09 3.20 4.00 -Tunneling No No No -Tunneling Position (O'clock) 8 -Tunneling Distance (cm) 2.0 -Undermining/Tunneling No No No -Circular Undermining No No No -Wound/Ulcer Outcome Not Healed Not Healed Not Healed -Ulcer Cleansing Rinsed/ Rinsed/ Rinsed/ Irrigated with Irrigated with Irrigated with Saline Saline Saline -Foul Odor after Cleansing No No No -Bioengineered Tissue No No No -Bleeding Controlled with Pressure Pressure -Treatment Response Procedure Procedure Procedure Tolerated Well Tolerated Well Tolerated Well -Debridement - Subq, 1st 20sq cm Yes Yes Pain Scale: 0-10 Numeric Is Patient Pain Free? Yes Yes No Buttocks -Description Sharp,Aching -Intensity 6 -Duration (hours) Chronic -Pain Behavior Irritability -Pain Aggravating Factors Debridement -Alleviating Factors/Interventions Will continue to monitor, Emotional Support 09/09/24 14:12 Wound Center Nurse 2 #4 RT BUTTOCK -Time 14:10 -Correct Patient Yes -Correct Side, Site, Position Yes -Correct Procedure Yes -Procedure Performed Yes -Type of Procedure Debridement -Clinical Debridement Subcutaneous -Tissue Removed Subcutaneous -Post Debridement (cm) - Length 2.0 -Post Debridement (cm) - Width 2.5 -Post Debridement (cm) - Depth 0.8 -Total Square (Post) (cm) 5.00 -Area of Debridement (cm) - Length 2.0 -Area of Debridement (cm) - Width 2.5 -Total Square (Area) (cm) 5.00 -Tunneling No -Tunneling Position (O'clock) -Tunneling Distance (cm) -Undermining/Tunneling No -Circular Undermining No -Wound/Ulcer Outcome Not Healed -Ulcer Cleansing Rinsed/ Irrigated with Saline -Foul Odor after Cleansing No -Bioengineered Tissue No -Bleeding Controlled with Pressure -Treatment Response Procedure Tolerated Well -Debridement - Subq, 1st 20sq cm Yes Pain Scale: 0-10 Numeric Is Patient Pain Free? Yes Buttocks -Description -Intensity -Duration (hours) -Pain Behavior -Pain Aggravating Factors -Alleviating Factors/Interventions WC - Nurse 3 - General Ulcer D/C NN Start: 08/12/24 13:44 Freq: Status: Active Protocol: Activity Type Activity Date Activity User E-sign Co-sign Detail Recorded Client Recorded Date Recorded By Document 08/12/24 14:23 DS [id number] 08/12/24 14:23 DS Document 08/26/24 15:43 RB [id number] 08/26/24 15:44 RB Document 09/02/24 14:17 RB [id number] 09/02/24 14:18 RB Document 09/09/24 14:27 RB [id number] 09/09/24 14:29 RB 08/12/24 08/26/24 09/02/24 14:23 15:43 14:17 Wound Care Center Nurse 3 #4 RT BUTTOCK -Ulcer Cleansing Rinsed/ Rinsed/ Irrigated with Irrigated with Saline Saline -Primary Dressing Applied Nugauze, Nugauze, Plain Nugauze, Plain Iodoform 1/4in, 1/4in,Silicone 1/4in,Silicone Silicone Border Border Foam 6x6 Border Foam 4x4 Foam 4x4 -Other Dressing -Nugauze, Iodoform 1/4 1 -Nugauze, Plain 1/4in 1 1 -Silicone Border Foam 4x4 1 1 -Silicone Border Foam 6x6 1 Treatment Response Procedure Procedure Tolerated Well Tolerated Well Pain Scale: 0-10 Numeric Is Patient Pain Free? Yes Yes Yes WC - Visit Discharge Discharge Condition Stable Stable Ambulatory Status Wheelchair Ambulatory Transportation Private Auto Private Auto Accompanied by Medication Reconcilliation completed & No No provided to patient/care provider Clinical Summary of Care Provided Yes Yes 09/09/24 14:27 Wound Care Center Nurse 3 #4 RT BUTTOCK -Ulcer Cleansing Rinsed/ Irrigated with Saline -Primary Dressing Applied Silicone Border Foam 4x4 -Other Dressing iodoform 1/4 pt 's own -Nugauze, Iodoform 1/4 -Nugauze, Plain 1/4in -Silicone Border Foam 4x4 1 -Silicone Border Foam 6x6 Treatment Response Procedure Tolerated Well Pain Scale: 0-10 Numeric Is Patient Pain Free? Yes WC - Visit Discharge Discharge Condition Stable Ambulatory Status Ambulatory Transportation Private Auto Accompanied by pts own nurses aid Medication Reconcilliation completed & No provided to patient/care provider Clinical Summary of Care Provided Yes Charges/Coding Procedures Integumentary [id number]: [id number] Cathleen subq tissue 20 sq cm/< Assessment/Plan Assessment/Plan (1) Pilonidal sinus with abscess: CODE(S): L05.02 - Pilonidal sinus with abscess (2) Surgical wound present: CODE(S): T14.8XXA - Other injury of unspecified body region, initial encounter (3) Debility: CODE(S): R53.81 - Other malaise (4) History of stroke: CODE(S): Z86.73 - Personal history of transient ischemic attack (TIA), and cerebral infarction without residual deficits (5) Type 2 diabetes mellitus: CODE(S): E11.9 - Type 2 diabetes mellitus without complications QUALIFIERS: Diabetes mellitus lithograph operator insulin use: with lithograph operator use Diabetes mellitus complication status: with neurologic complications Diabetes mellitus complication detail: with polyneuropathy Qualified Code(s): E11.42 - Type 2 diabetes mellitus with diabetic polyneuropathy; Z79.4 - video effects editor (current) use of insulin (6) H/O bilateral cataract extraction: CODE(S): Z98.41 - Cataract extraction status, right eye; Z98.42 - Cataract extraction status, left eye (7) History of back surgery: CODE(S): Z98.890 - Other specified postprocedural states (8) Dysarthria as late effect of stroke: CODE(S): I69.322 - Dysarthria following cerebral infarction (9) Hypertension: CODE(S): I10 - Essential (primary) hypertension QUALIFIERS: Hypertension type: unspecified Qualified Code(s): I10 - Essential (primary) hypertension (10) Polyneuropathy: CODE(S): G62.9 - Polyneuropathy, unspecified (11) Paroxysmal atrial fibrillation: CODE(S): I48.0 - Paroxysmal atrial fibrillation (12) Type 2 diabetes mellitus with diabetic polyneuropathy: CODE(S): E11.42 - Type 2 diabetes mellitus with diabetic polyneuropathy QUALIFIERS: Diabetes mellitus lithograph operator insulin use: with lithograph operator use Qualified Code(s): E11.42 - Type 2 diabetes mellitus with diabetic polyneuropathy; Z79.4 - video effects editor (current) use of insulin (13) Personal history of stroke with residual effects: CODE(S): I69.30 - Unspecified sequelae of cerebral infarction (14) History of DVT (deep vein thrombosis): CODE(S): Z86.718 - Personal history of other venous thrombosis and embolism (15) HLD (hyperlipidemia): CODE(S): E78.5 - Hyperlipidemia, unspecified QUALIFIERS: Hyperlipidemia type: mixed hyperlipidemia Qualified Code(s): E78.2 - Mixed hyperlipidemia (16) MONCHO (obstructive sleep apnea): CODE(S): G47.33 - Obstructive sleep apnea (adult) (pediatric) (17) Chronic asthma: CODE(S): J45.909 - Unspecified asthma, uncomplicated (18) Tobacco abuse: CODE(S): Z72.0 - Tobacco use (19) Encounter for smoking cessation counseling: CODE(S): Z71.6 - Tobacco abuse counseling (20) Bipolar disorder: CODE(S): F31.9 - Bipolar disorder, unspecified (21) History of schizophrenia: CODE(S): Z86.59 - Personal history of other mental and behavioral disorders PLAN: Plan This is a 64-year-old female who recently underwent surgical excision of an infected pilonidal sinus. The procedure was performed by Dr. Donnie Miller in [place], [place]. An open surgical wound remains. The patient has been referred back to the [facility] for management of her open surgical wound. The patient was not placed on antibiotics postoperatively. We have requested the patient's recent surgical operative note on 2 separate occasions, which has not yet been received. We are to continue packing of the open surgical wound using moistened 1/4 inch NuGauze. This is to be performed on a daily basis. The patient and her family have been instructed in appropriate means of packing. Home health nursing personnel also assist with wound management in the patient's home. The patient has been instructed to optimize her diabetes management and her nutritional intake. She has also been advised to curtail her smoking habit. She admits to smoking approximately 3-5 cigarettes/day. The patient's smoking habit may adversely affect healing. Other factors which may adversely affect healing include friction, perspiration, and body heat relative to the particular location of this patient's wound. The patient is to return to our facility for reevaluation in 1 week. Consideration has been given to the use of negative pressure wound therapy, but maintenance of an intact seal is unlikely given the location of the patient's wound. If the patient continues to do well, we may consider extending weekly visits to every other week. Incidentally, it is noted that the patient has a right flank mass, for which she is anticipated to undergo surgical excision by Dr. King, Plastic Surgeon, later this week. Total time: 24 minutes
== END 2024-09-10 23:59 | disposition home or self-care (01) ==
LOC: WC 13:30
PROVIDERS: PCP Family Medicine; Referring Provider Family Medicine; Visit Provider Surgery
DX: L89.313 Pressure ulcer of right buttock, stage 3 (principal); I69.851 Hemiplegia and hemiparesis following other cerebrovascular disease affecting right dominant side; F31.9 Bipolar disorder, unspecified; I48.0 Paroxysmal atrial fibrillation; Z79.4 Long term (current) use of insulin; E11.42 Type 2 diabetes mellitus with diabetic polyneuropathy; I10 Essential (primary) hypertension; E78.2 Mixed hyperlipidemia; Z79.85 Long-term (current) use of injectable non-insulin antidiabetic drugs; Z86.718 Personal history of other venous thrombosis and embolism; R53.81 Other malaise; Z79.01 Long term (current) use of anticoagulants; Z82.3 Family history of stroke; Z79.811 Long term (current) use of aromatase inhibitors; Z83.3 Family history of diabetes mellitus; J45.909 Unspecified asthma, uncomplicated; Z82.49 Family history of ischemic heart disease and other diseases of the circulatory system; I25.10 Atherosclerotic heart disease of native coronary artery without angina pectoris; G47.33 Obstructive sleep apnea (adult) (pediatric); Z72.0 Tobacco use; Z98.41 Cataract extraction status, right eye; I69.322 Dysarthria following cerebral infarction; Z71.6 Tobacco abuse counseling; Z86.59 Personal history of other mental and behavioral disorders; L05.02 Pilonidal sinus with abscess
CPT/HCPCS: 11042; 87070; 87075; 87077; 87205; 99213; G0463

== ENCOUNTER 2024-09-11 05:59 | Day surgery (SDC) | payer MEDICARE, MEDICAID, SELFPAY ==
--- NOTE | 2024-09-03 16:07 | PAT.ANESEVAL ---
Pre-Assessment Diagnosis/Proposed Procedure Planned Operative Procedure(s): (R) Excision cyst right flank( 6cm) Anesthesia History Anesthesia History - contact center professional: Anesthesia History - contact center professional Hx Hospitalization No 09/03/24 15:13 Any Problems With Anesthesia Yes: NAUSEA 09/03/24 15:13 Cholinesterase deficiency No 09/03/24 15:13 You/Your Family Experience No 09/03/24 15:13 fever (hyperthermia) with Relationship Recent Exposure to Contagious Disease Does patient have nerve No 09/03/24 15:13 stimulator Patient instructed to have device shut off --Does patient have Pacemaker or ICD? When Was Last Pacemaker Check QUESTION #4 FULL TEXT: You/Your Family Experience fever (hyperthermia) with Anesthesia Last Oral Intake Last Oral intake: Last Oral Intake NPO since Meds taken in AM with sips of water? Meds patient instructed to take am of surgery PONV PONV - contact center professional: PONV - contact center professional Female Yes 09/03/24 15:13 HX of Motion Sickness No 09/03/24 15:13 HX of N/V After Surgery Yes 09/03/24 15:13 Non-Smoker No 09/03/24 15:13 Duration of Surgery greater No 09/03/24 15:13 than 60 minutes Number of Risk Factors 2 09/03/24 15:13 PONV Score Moderate Risk 09/03/24 15:13 Height & Weight Height & Weight: Anesthesia: Height & Weight Height 5 ft 6 in 08/26/24 09:39 Respiratory Assessment Respiratory Assessment - contact center professional: Respiratory Tract Infection Hx - contact center professional Hx Respiratory Tract Infection No 09/03/24 15:13 STOP Sleep Apnea STOP Sleep Apnea - contact center professional: STOP Sleep Apnea - contact center professional Hx Hypertension No 09/03/24 15:13 Hx Sleep Apnea Yes: DOESNT WEAR CPAP 09/03/24 15:13 CPAP No 09/03/24 15:13 BIPAP No 09/03/24 15:13 Do you snore loudly (louder than talking or can be heard Do you often feel tired/ fatigued/ sleepy during daytime? Has anyone observed you stop breathing during sleep? STOP Results Positive 09/03/24 15:13 QUESTION #5 FULL TEXT : Do you snore loudly (louder than talking or can be heard through closed doors)? 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 Specify any problems Hx of Preganancy in last 3 No 09/03/24 15:13 Months Nurse Filling Out Transfusion VLEHMAN 09/03/24 15:13 & Questions: Date: 09/03/24 09/03/24 15:13 Time: 15:48 09/03/24 15:13 Patient unable to answer at this time (ie. confused, unrespo /Reproduction History /Reproductive History - contact center professional: /Reproductive Hx- contact center professional Hx Now No 09/03/24 15:13 Gestational Age (in weeks): EDC: Hx Hx Para Hx Section [facility] Medical History (Updated 09/03/24 @ 15:[address]) Wears glasses Cancer Open wound Insulin dependent diabetes mellitus Diabetes Walker as ambulation aid Uses wheelchair Bladder disease DVT (deep venous thrombosis) Parkinson's disease Wears dentures Dietary restriction Heartburn Smoker Sleep apnea On home oxygen therapy History of echocardiogram History of stress test Cardiology follow-up encounter History of atrial fibrillation Encounter for smoking cessation counseling Surgical wound present Bilateral malignant neoplasm of breast in female Pilonidal sinus with abscess Obesity PTSD (post-traumatic stress disorder) Psychophysiologic insomnia COPD (chronic obstructive pulmonary disease) CVA (cerebral vascular accident) Arthritis Paroxysmal atrial fibrillation Tardive dyskinesia Hypoglycemia unawareness associated with type 2 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 Type 2 diabetes mellitus with unspecified diabetic retinopathy without macular edema Suicidal ideation (10/23/18) Bipolar disorder History of schizophrenia Multiple sclerosis History of DVT (deep vein thrombosis) Personal history of stroke with residual effects Atherosclerotic heart disease of [place] coronary artery without angina pectoris Tobacco abuse Neuropathic pain A-fib Vitamin D deficiency Depression HLD (hyperlipidemia) Type 2 diabetes mellitus Urinary incontinence in female MONCHO (obstructive sleep apnea) Chronic asthma Vaginal candidiasis Contracture of muscle of right lower leg Home Medications ?Medication ?Instructions ?Recorded ?Last Taken ?Type blood-glucose meter (Accu-Chek #1 ea 02/22/21 Unknown Rx Guide Glucose Meter) brexpiprazole 1 mg tablet 1 mg PO DAILY 03/07/21 04/27/22 History duloxetine 60 mg capsule,delayed 60 mg PO DAILY 03/07/21 04/27/22 History release oxybutynin chloride 10 mg 10 mg PO DAILY BLADDER 04/28/22 04/27/22 History tablet,extended release 24 hr blood-glucose meter (Accu-Chek #1 ea 05/31/22 Unknown Rx Guide Glucose Meter) BD Ultra-Fine Mari Pen Needle 32 #120 ea 08/02/22 Unknown Rx gauge x 5/32 (pen needle, diabetic) rosuvastatin 20 mg tablet 20 mg PO DAILY #90 tabs 09/08/22 Unknown Rx blood sugar diagnostic (Accu-Chek #100 ea 12/05/22 Unknown Rx Guide test strips) furosemide 20 mg tablet 20 mg PO DAILY 12/05/22 Unknown History pen needle, diabetic 33 gauge x #400 ea 12/05/22 Unknown Rx 5/32 (Comfort EZ Pen [place]) lancets #100 ea 01/17/23 Unknown Rx blood sugar diagnostic (FreeStyle #100 ea 03/07/23 Unknown Rx Precision Denzel Strips) rivaroxaban 20 mg tablet (Xarelto) 20 mg PO QPM #90 TABLETS 12/13/23 Unknown Rx anastrozole 1 mg tablet 1 mg PO DAILY 03/26/24 Unknown History deutetrabenazine 6 mg tablet 12 mg PO BID 03/26/24 Unknown History (Austedo) omeprazole 40 mg capsule,delayed 40 mg PO DAILY 03/26/24 Unknown History release tirzepatide 12.5 mg/0.5 mL 12.5 mg (0.5 mL) subcut QWEEK #2 mL 05/15/24 Unknown Rx subcutaneous pen injector (Cande) diltiazem HCl 180 mg capsule,24 180 mg PO QDAY #90 caps 06/30/24 Unknown Rx hr,extended release blood-glucose sensor (FreeStyle #2 ea 08/11/24 Unknown Rx Zoila 3 Plus Sensor device) ondansetron 4 mg disintegrating 4 mg PO Q8H PRN nausea and 08/11/24 Unknown Rx tablet vomiting #8 tabs insulin glargine 100 unit/mL (3 24 unit subcut QPM 08/15/24 Unknown History mL) subcutaneous pen (Lantus Solostar U-100 Insulin) zolpidem 10 mg tablet (Ambien) 5 mg PO QHS 08/15/24 Unknown History lisinopril 20 mg tablet 20 mg PO DAILY #90 tabs 09/01/24 Unknown Rx Allergy/AdvReac Type Severity Reaction Status Date / Time mirtazapine (From Remeron) Allergy Intermediate agitation Verified 08/26/24 09:40 Penicillins Allergy Mild Rash Verified 08/26/24 09:40 Family History Mother Diabetes Heart disease Lung cancer CAD (coronary artery disease) CABG CVA (cerebral vascular accident) Daughter Diabetes Father Myocardial infarction Surgical History (Updated 09/03/24 @ 15:[address]) History of breast lump removal History of excision of pilonidal cyst History of back surgery H/O bilateral cataract extraction Social History Smoking Status: Current some day smoker tobacco type: cigarettes Tobacco: How many years used: 35 Electronic Cigarette Use: not used how long ago did patient quit smoking: about 3 years ago second hand exposure: No alcohol intake: never substance use type: former substance user Date of last use: Used Marijuana in the past caffeine: Yes Type: coffee Number of servings: 1 delmy/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 Sinus rhythm. Old anterior infarct. Low voltage. 08/15/2024 Echo (EF%) pertinent findings: 06/22/2022. Normal size function EF 65%. Consult pertinent findings: Cardiology 08/15/2024. Coronary artery disease. Calcification of LAD noted on CT scan on 09/07/2016. Negative stress test 06/27/2022. Appears stable at this time denies any symptoms or events. Continue current medications. Paroxysmal atrial fibrillation. Today EKG notes sinus rhythm with heart rate of 77 bpm. Seen for preoperative clearance. Per Dr. Drew may proceed with surgery from a cardiovascular standpoint. Recommendation Anesthesia Recommendation Anesthesia recommendation: OPTIMIZED for anesthesia
[2024-09-11] VITALS (10 sets, daily range): BP systolic 96–130; BP diastolic 45–83; PULSE 67–74; RESP 16–18; TEMP 36.3–36.9; O2SAT 92–100; BMI 32.0
[2024-09-11] MEDS: Lactated Ringers 1,000 ML 15 ML IV (06:42)
--- NOTE | 2024-09-11 07:04 | PRE.ANES_ITS ---
ASA Classification* ASA Classification ASA Classification: 3 Assessment & Plan Anesthesia* Anesthesia Assessment Anesthesia Assessment: Discussed sedation and/or anesthesia options, risks, benefits, and alternatives with patient/parents/legal guardian/POA. Questions invited. The patient/parents/legal guardian/POA seems to understand and agrees to proceed with anesthesia plan. Reviewed the physical assessment, medical history, allergy history and patient home medications list prior to surgery/procedure/anesthetic and documented any changes. Performed airway and anesthesia risk assessments. Anesthesia Type Anesthesia Type: General History Source History Obtained from:: Patient and Chart Anesthesia Focused Assessment* Temperature: 98.4 F Pulse Rate: 72 Blood Pressure: 96/45 Respiratory Rate: 16 Pulse Ox: 98 Oxygen Delivery Method: Room Air Airway Assessment Mouth opens: >3 cm Mallampati Score: III Teeth Condition: Dentures (upper and lower) Neck Range of motion (ROM): Full ROM Focused Labs Anesthesia Preop lab: CBC WBC 12.6 K/mm3 (4.4-11.0) H 12/01/22 16:42 3 RBC 4.44 M/mm3 (4.2-5.4) 12/01/22 16:42 12/01/22 Hgb 13.8 g/dL (12.0-15.0) 12/01/22 16:42 12/01/22 Hct 42.5 % (37-47) 12/01/22 16:42 12/01/22 Plt Count 294 K/mm3 (150-450) 12/01/22 16:42 12/01/22 CHEMISTRY Potassium 4.3 mmol/L (3.5-5.1) 12/01/22 16:42 12/01/22 Sodium 137 mmol/L (136-145) 12/01/22 16:42 12/01/22 Magnesium 2.6 mg/dL (1.6-2.6) 12/01/22 16:42 12/01/22 BUN 25 mg/dL (7-18) H 12/01/22 16:42 12/01/22 Creatinine 0.85 mg/dL (0.55-1.02) 12/01/22 16:42 12/01/22 Glucose 97 mg/dL (74-106) 12/01/22 16:42 12/01/22 POC Glucose 205 mg/dL (74-106) H 05/02/22 11:24 05/02/22 TSH 0.60 uIU/mL (0.358-3.74) 12/01/22 16:42 COAG PT 18.6 SECONDS (11.7-14.9) H 04/28/22 10:30 04/13 11/02 Pre-Assessment Diagnosis/Proposed Procedure Planned Operative Procedure(s): (R) Excision cyst right flank( 6cm) Anesthesia History 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 When Was Last Pacemaker Check QUESTION #4 FULL TEXT: You/Your Family Experience fever (hyperthermia) with Anesthesia Last Oral Intake Last Oral intake: Last Oral Intake NPO since 22:00 09/11/24 06:36 Meds taken in AM with sips of Yes 09/11/24 06:36 water? Meds patient instructed to DILITIAZEM 09/11/24 06:36 take am of surgery OMEPRAZOLE PONV PONV - donor support technician: PONV - donor support technician Female Yes 09/03/24 15:13 HX of Motion Sickness No 09/03/24 15:13 HX of N/V After Surgery Yes 09/03/24 15:13 Non-Smoker No 09/03/24 15:13 Duration of Surgery greater No 09/03/24 15:13 than 60 minutes Number of Risk Factors 2 09/03/24 15:13 PONV Score Moderate Risk 09/03/24 15:13 Height & Weight Height & Weight: Anesthesia: Height & Weight Height 5 ft 6 in 09/11/24 06:36 Weight: 90 kg 09/11/24 06:36 Body Mass Index (BMI) 32.0 09/11/24 06:36 Respiratory Assessment Respiratory Assessment - donor support technician: Respiratory Tract Infection Hx - donor support technician Hx Respiratory Tract Infection No 09/03/24 15:13 STOP Sleep Apnea STOP Sleep Apnea - donor support technician: STOP Sleep Apnea - donor support technician Hx Hypertension Yes 09/11/24 00:18 Hx Sleep Apnea Yes: DOESNT WEAR CPAP 09/03/24 15:13 CPAP No 09/03/24 15:13 BIPAP No 09/03/24 15:13 Do you snore loudly (louder than talking or can be heard Do you often feel tired/ fatigued/ sleepy during daytime? Has anyone observed you stop breathing during sleep? STOP Results Positive 09/03/24 15:13 QUESTION #5 FULL TEXT : Do you snore loudly (louder than talking or can be heard through closed doors)? 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 Specify any problems Hx of Preganancy in last 3 No 09/03/24 15:13 Months Nurse Filling Out Transfusion VLEHKINNEY 09/03/24 15:13 & Questions: Date: 09/03/24 09/03/24 15:13 Time: 15:48 09/03/24 15:13 Patient unable to answer at this time (ie. confused, unrespo /Reproduction History /Reproductive History - donor support technician: /Reproductive Hx- donor support technician Hx Now No 09/03/24 15:13 Gestational Age (in weeks): EDC: Hx Hx Para Hx Section SAB Active Medications Active Medications: Current Medications Generic Name Dose Route Start Last Admin Trade Name Freq PRN Reason Stop Dose Admin Clindamycin Phosphate 900 mg in 50 mls @ 75 mls/hr 09/11/24 07:30 Cleocin IV 05/01/25 08:09 INTRAOP ONE Lactated Ringer's 1,000 mls @ 15 mls/hr 09/11/24 06:15 IV .Q48H FOR[facility]LY [facility], 1928–1983 PFSH Medical History Wears glasses Cancer Open wound Insulin dependent diabetes mellitus Diabetes Walker as ambulation aid Uses wheelchair Bladder disease DVT (deep venous thrombosis) Parkinson's disease Wears dentures Dietary restriction Heartburn Smoker Sleep apnea On home oxygen therapy History of echocardiogram History of stress test Cardiology follow-up encounter History of atrial fibrillation Encounter for smoking cessation counseling Surgical wound present Bilateral malignant neoplasm of breast in female Pilonidal sinus with abscess Obesity PTSD (post-traumatic stress disorder) Psychophysiologic insomnia COPD (chronic obstructive pulmonary disease) CVA (cerebral vascular accident) Arthritis Paroxysmal atrial fibrillation Tardive dyskinesia Hypoglycemia unawareness associated with type 2 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 Type 2 diabetes mellitus with unspecified diabetic retinopathy without macular edema Suicidal ideation (10/23/18) Bipolar disorder History of schizophrenia Multiple sclerosis History of DVT (deep vein thrombosis) Personal history of stroke with residual effects Atherosclerotic heart disease of [place] coronary artery without angina pectoris Tobacco abuse Neuropathic pain A-fib Vitamin D deficiency Depression HLD (hyperlipidemia) Type 2 diabetes mellitus Urinary incontinence in female MONCHO (obstructive sleep apnea) Chronic asthma Vaginal candidiasis Contracture of muscle of right lower leg Home Medications ?Medication ?Instructions ?Recorded ?Last Taken ?Type blood-glucose meter (Accu-Chek #1 ea 02/22/21 Unknown Rx Guide Glucose Meter) brexpiprazole 1 mg tablet 1 mg PO DAILY 03/07/2109/10 History duloxetine 60 mg capsule,delayed 60 mg PO DAILY 09/10/24 History release oxybutynin chloride 10 mg 10 mg PO DAILY BLADDER 04/2809/10/24 History tablet,extended release 24 hr blood-glucose meter (Accu-Chek #1 ea 05/31/22 Unknown Rx Guide Glucose Meter) BD Ultra-Fine Mari Pen Needle 32 #120 ea 08/02/22 Unkn own Rx gauge x 5/32 (pen needle, diabetic) rosuvastatin 20 mg tablet 20 mg PO DAILY #90 tabs 08/1309/10/24 Rx blood sugar diagnostic (Accu-Chek #100 ea 12/05/22 Unk nown Rx Guide test strips) furosemide 20 mg tablet 20 mg PO DAILY 12/05/22/ History pen needle, diabetic 33 gauge x #400 ea 12/05/22 Unkno wn Rx (Comfort EZ Pen [place]) lancets #100 ea 01/17/23 Unknown Rx blood sugar diagnostic (FreeStyle #100 ea 03/07/23 Unk nown Rx Precision Denzel Strips) rivaroxaban 20 mg tablet (Xarelto) 20 mg PO QPM #90 TA BLETS 12/13/23 09/07/24 Rx anastrozole 1 mg tablet 1 mg PO DAILY 03/26/2409/10 History deutetrabenazine 6 mg tablet 12 mg PO BID 03/26/24 History (Austedo) omeprazole 40 mg capsule,delayed 40 mg PO DAILY 09/11/24 History release tirzepatide 12.5 mg/0.5 mL 12.5 mg (0.5 mL) subcut QWE EK #2 mL 05/15/24 09/03/24 Rx subcutaneous pen injector (Cande) diltiazem HCl 180 mg capsule,24 180 mg PO QDAY #90 cap s 06/30/24 09/11/24 Rx hr,extended release blood-glucose sensor (FreeStyle #2 ea 08/11/24 Unknown Rx Zoila 3 Plus Sensor device) ondansetron 4 mg disintegrating 4 mg PO Q8H PRN nausea and 08/11/24 Unknown Rx tablet vomiting #8 tabs insulin glargine 100 unit/mL (3 24 unit subcut QPM 09/0509/10/24 History mL) subcutaneous pen (Lantus 18 unit Solostar U-100 Insulin) zolpidem 10 mg tablet (Ambien) 5 mg PO QHS 08/15/24 History lisinopril 20 mg tablet 20 mg PO DAILY #90 tabs 04/2 06/0709/10/24 Rx Allergy/AdvReac Type Severity Reaction Status Date / Time mirtazapine (From Remeron) Allergy Intermediate agitation Verified 08/26/24 09:40 Penicillins Allergy Mild Rash Verified 08/26/24 09:40 Family History Mother Diabetes Heart disease Lung cancer CAD (coronary artery disease) CABG CVA (cerebral vascular accident) Daughter Diabetes Father Myocardial infarction Surgical History History of breast lump removal History of excision of pilonidal cyst History of back surgery H/O bilateral cataract extraction Social History Smoking Status: Current some day smoker tobacco type: cigarettes Tobacco: How many years used: 35 Electronic Cigarette Use: not used how long ago did patient quit smoking: about 3 years ago second hand exposure: No alcohol intake: never substance use type: former substance user Date of last use: Used Marijuana in the past caffeine: Yes Type: coffee Number of servings: 1 delmy/samaritan: [employer] seatbelt use: sometimes Review of Systems (Anesthesia) ROS Narrative System reviewed and no additional complaints, except as documented.
--- NOTE | 2024-09-11 07:06 | PCM.HP.BLA ---
History and Physical Date of Admission: 09/11/24 Interim Note: The patient is examined. She presents with a mass of her right flank. She is marked in the pre-op area. There are no changes to the H&P dated 08/18/24. Informed consent obtained for excision mass right flank. Assessment & Plan Assessment/Plan (1) Neoplasm of uncertain behavior of connective and other soft tissue: PLAN: Plan For excision mass right flank.
--- NOTE | 2024-09-11 07:30 | MASS_PTH ---
PATIENT: BELLO BENITO LOC: [facility] U#:[id number] AGE/SX: 64/F ROOM: RE09/11/[address]: Dr. Josie King MD : 1960 BED: DIS: 09/11/2024 SPEC #: [id number] RECD: 09/11/24 09:54 STATUS: MARTÍN RODRIGUEZ #: [id number] LEXI: 09/11/24 07:[address]: Josie King DEPT: SURGICAL PATHOLOGY RECD BY: uJdd Moon ENTERED: 09/11/24 10:46 SP TYPE: Mass OTHR DR: Dr. Jered Howard MD Tissues: A - Flank, NOS Procedures: Surgery Specimen Level III HEADER OPERATION: Excision cyst right flank (6cm) PRE-OP DIAGNOSIS: Neoplasm of uncertain behavior of connective and other soft tissue; mass right flank TISSUE SUBMITTED: A- Mass, right flank MICROSCOPIC DIAGNOSIS A. Skin, right flank, mass, excision: * Epidermal inclusion cyst, ruptured and inflamed. MICROSCOPIC DESCRIPTION Slides are reviewed. GROSS DESCRIPTION A. Received in formalin in a container labeled with the patient's name, date of , and mass right flank is a 6.0 x 4.0 x 3.4 cm unoriented soft tissue excision, partially surfaced by a 5.9 x 1.6 cm thomas-pink ellipse of skin. The outer surface is inked black and serial sections reveal a 5.8 x 2.7 x 2.2 cm thin-walled cystic structure directly underlying the skin and abutting the inked peripheral margin. The cystic structure exhibits thomas-yellow, smooth inner lining and is filled with an abundance of thomas-yellow and white-cortez caseous material. The remaining cut surfaces are thomas-yellow and unremarkable. High School Guidance Counselor sections submitted in A1-2 (at least 1 section per centimeter in greatest dimension submitted). [facility] 09-11-2024 CPT:46292
[2024-09-11] MEDS: Clindamycin 900 MG/50 ML BAG 75 MG IV (07:41)
[2024-09-11] MEDS: Lidocaine 1% /Epi 1:100 (20ml) 20 ML Vial (08:00)
--- NOTE | 2024-09-11 09:06 | DCINST_ITS ---
Discharge Instructions Dressing / Incision Additional Dressing/Incision Instructions:: Keep the dressing intact until seen in the office. Take the oral antibiotic (Keflex) 2 times a day until finished. Follow Up Care Please Follow Up With: Josie King MD When: 1 to 2 weeks Test Results: Test results from this visit will be discussed in further detail at your follow- up appointment, if applicable. Discharge Plan Admission Attending Provider: Josie King Primary Care Provider: Jered Howard Instructions Print Language: Swiss Discharge Orders/Prescriptions Prescriptions: New cephalexin 500 mg capsule 500 mg PO BID 5 Days Qty: 10 0RF No Action zolpidem [Ambien] 10 mg tablet 5 mg PO QHS duloxetine 60 mg capsule,delayed release(DR/EC) 60 mg PO DAILY brexpiprazole 1 mg tablet 1 mg PO DAILY furosemide 20 mg tablet 20 mg PO DAILY (DME) Accu-Chek Guide test strips Strip See Rx Instructions .ROUTE .MEDSUPPLY Qty: 100 12RF Rx Instructions: TID (DME) Comfort EZ Pen [place] 33 gauge x 5/32 needle See Rx Instructions .ROUTE .MEDSUPPLY Qty: 400 3RF Rx Instructions: 4 times daily Mounjaro 12.5 mg/0.5 mL pen injector 12.5 mg subcut QWEEK Qty: 2 3RF Patient Comments: LAST DOSE 09/03/24 ondansetron 4 mg tablet,disintegrating 4 mg PO Q8H PRN (Reason: nausea and vomiting) Qty: 8 2RF Lantus Solostar U-100 Insulin 100 unit/mL (3 mL) insulin pen 24 unit subcut QPM oxybutynin chloride 10 mg tablet extended release 24hr 10 mg PO DAILY anastrozole 1 mg tablet 1 mg PO DAILY omeprazole 40 mg capsule,delayed release(DR/EC) 40 mg PO DAILY [place] 6 mg tablet 12 mg PO BID (DME) blood-glucose meter [Accu-Chek Guide Glucose Meter] Misc See Rx Instructions .ROUTE .MEDSUPPLY Qty: 1 0RF Rx Instructions: As directed (DME) blood-glucose meter [Accu-Chek Guide Glucose Meter] Misc See Rx Instructions .Route Qty: 1 0RF Rx Instructions: As directed (DME) pen needle, diabetic [BD Ultra-Fine Mari Pen Needle] 32 gauge x 5/32 needle See Rx Instructions .ROUTE .MEDSUPPLY Qty: 120 6RF Rx Instructions: 4 times daily rosuvastatin 20 mg tablet 20 mg PO DAILY Qty: 90 1RF (DME) lancets Misc See Rx Instructions .ROUTE .MEDSUPPLY Qty: 100 12RF Rx Instructions: TID (DME) FreeStyle Precision Denzel Strips Strip See Rx Instructions .Route Qty: 100 5RF Rx Instructions: TID Xarelto 20 mg tablet 20 mg PO QPM Qty: 90 3RF Patient Comments: LAST DOSE WILL BE 09/07 diltiazem HCl 180 mg capsule,extended release 24hr 180 mg PO QDAY Qty: 90 1RF (DME) FreeStyle Zoila 3 Plus Sensor Device See Rx Instructions .Route Qty: 2 5RF Rx Instructions: 1 sensor q 15 days lisinopril 20 mg tablet 20 mg PO DAILY Qty: 90 3RF Referrals / Follow Up: Jered Howard MD [Primary Care Provider] - Disposition Disposition (needs filled in before D/C Order can be placed): Home, Self Care
--- NOTE | 2024-09-11 09:10 | OP.PCM_ITS ---
Problems Associated Problem List Diagnoses (1) Neoplasm of uncertain behavior of connective and other soft tissue: Operative Report (Standard) Operative Information Date of Procedure: 09/11/24 Pre-Operative Diagnosis: Connective tissue mass right flank Post-Operative Diagnosis: Same Surgery/Procedure Performed: Excision connective tissue mass right flank (8.5 cm) automotive alignment specialist: Yes Rn Picu: Mounika Vang Tasks completed by engineer first assistant: Retracting Type of Anesthesia: General RN Documented Start/Stop Times: Operation Date: 09/11/24 07:30 Case Time Into Pre-Op 09/11/24 06:06 Out of Pre-Op 09/11/24 07:19 Anesthesia Start 09/11/24 07:23 Into Room 09/11/24 07:23 Procedure Start 09/11/24 08:00 Procedure End 09/11/24 08:59 Anesthesia End 09/11/24 09:09 Out of Room 09/11/24 09:09 Procedure Start Time: 08:00 Procedure Stop Time: 09:09 Select all DRAINS/GRAFTS/IMPLANTS that apply: None Estimated Blood Loss: 5 cc Specimen collected: Yes Description of specimen(s) removed: Mass right flank Description of surgery: The patient presents with a longstanding, growing, and painful right posterior flank mass. She presents for excision of the mass with submission for pathologic evaluation. The patient is marked in the preop holding area and informed consent is obtained. Patient is brought to the operating room and placed under general anesthesia in the supine position. Patient is then carefully transferred to a prone position with care to place Zohreh's, shoulder rolls, padding beneath her knees and elbows, and her toes are free of pressure. Sequential compressions are intact and operational. A warming blanket is also placed. The right flank is prepped and draped in the usual sterile fashion. We initially began with injecting 1% Xylocaine with epinephrine in the periphery of the area. An elliptical incision is made over top of the mass and carefully carried down through the subcutaneous tissue until the mass is encountered. The mass is then carefully enucleated from its bed. Hemostasis is controlled with cautery. The mass is then passed off intact to be sent to pathology. The wound is then closed in layers using a STRATAFIX suture to approximate subcutaneous tissue dermis and skin in a subcuticular fashion. Dermabond Steri-Strips and a Tegaderm are placed on the site. She tolerated the procedure well was taken to the recovery area in awake and stable condition. Needle and sponge counts are correct. Surgical Findings: As above Complications Complications: No Admit VTE Documentation VTE Mechan Device Prophylaxis: SCD's
[2024-09-11 09:20] LABS: Bedside Glucose 125 mg/dL (74-106)
--- NOTE | 2024-09-11 09:25 | PCM.POST.ANE ---
Anesthesia: Postop Eval I Current Vital Signs Temperature: 98.4 F Pulse Rate: 67 Blood Pressure: 123/55 Respiratory Rate: 16 Pulse Ox: 100 Oxygen Delivery Method: Simple Mask Oxygen Flow Rate (L/min): 6 Assessment Airway patent: Yes Spontaneous unlabored respirations: Yes Mental status: Awake and Calm nausea: No Vomiting: No Anesthesia Complication: No Fluid Hydration Crystalloid volume administer (ml): 1,200 Total IV fluid infused: 1,200 Progress Note Anesthesia document: Postop Eval 1 completed: Yes
[2024-09-11] MEDS: Acetaminophen 500 MG Tablet PO (10:23)
--- NOTE | 2024-09-11 15:19 | POSTOPAN2_ITS ---
Anesthesia Postop Eval I Sum Postop Eval Completion status Anesthesia document: Postop Eval 1 completed: Yes Anesthesia Postop Eval I Summary Anesthesia Postop Eval I Summary: Anesthesia Postop Eval I: Assessment Summary Airway patent Yes 09/11/24 09:26 CUSTOM BIKE [email or web address] Spontaneous unlabored Yes 09/11/24 09:26 CUSTOM BIKE [email or web address] respirations Mental status Awake,Calm 09/11/24 09:26 CUSTOM BIKE [email or web address] nausea No 09/11/24 09:26 CUSTOM BIKE [email or web address] Vomiting No 09/11/24 09:26 CUSTOM BIKE [email or web address] Anesthesia Postop Eval I: Fluid Summary Crystalloid volume administer 1,200 09/11/24 09:26 CUSTOM BIKE [email or web address] (ml) Colloids volume administered ( ml) Blood Product volume administered (ml) Total IV fluid infused 1,200 09/11/24 09:26 CUSTOM BIKE [email or web address] Anesthesia Postop Eval I: Summary Notes Anesthesia Complication No 09/11/24 09:26 CUSTOM BIKE [email or web address] Anesthesia Complication Comment: Post-operative progress note Anesthesia: Postop Eval II Evaluation Mental status: Awake and Calm Pain Level: 1 nausea: No Vomiting: No Complications Anesthesia Complication: No
--- NOTE | 2024-09-11 15:19 | PCM.POSTANE2 ---
Anesthesia Postop Eval I Sum Postop Eval Completion status Anesthesia document: Postop Eval 1 completed: Yes Anesthesia Postop Eval I Summary Anesthesia Postop Eval I Summary: Anesthesia Postop Eval I: Assessment Summary Airway patent Yes 09/11/24 09:26 AIR [email or web address] Spontaneous unlabored Yes 09/11/24 09:26 AIR [email or web address] respirations Mental status Awake,Calm 09/11/24 09:26 AIR [email or web address] nausea No 09/11/24 09:26 AIR [email or web address] Vomiting No 09/11/24 09:26 [email or web address] Anesthesia Postop Eval I: Fluid Summary Crystalloid volume administer 1,200 09/11/24 09:26 AIR [email or web address] (ml) Colloids volume administered ( ml) Blood Product volume administered (ml) Total IV fluid infused 1,200 09/11/24 09:26 AIR [email or web address] Anesthesia Postop Eval I: Summary Notes Anesthesia Complication No 09/11/24 09:26 AIR [email or web address] Anesthesia Complication Comment: Post-operative progress note Anesthesia: Postop Eval II Evaluation Mental status: Awake and Calm Pain Level: 1 nausea: No Vomiting: No Complications Anesthesia Complication: No
== END 2024-09-11 11:24 | disposition home or self-care (01) ==
LOC: SDC 06:00 → AC 06:01
PROVIDERS: PCP Family Medicine; Referring Provider Plastic Surgery; Visit Provider Plastic Surgery
PROC: (CPT 11406; principal; 2024-09-11 07:15)
DX: L72.0 Epidermal cyst (principal); J44.9 Chronic obstructive pulmonary disease, unspecified; I48.0 Paroxysmal atrial fibrillation; Z79.4 Long term (current) use of insulin; E11.9 Type 2 diabetes mellitus without complications; Z79.899 Other long term (current) drug therapy; Z79.01 Long term (current) use of anticoagulants; Z79.85 Long-term (current) use of injectable non-insulin antidiabetic drugs; E78.5 Hyperlipidemia, unspecified; F17.210 Nicotine dependence, cigarettes, uncomplicated; I10 Essential (primary) hypertension
CPT/HCPCS: 11406; 12034; 00400; 82962; 88304; 88305; J2405

== ENCOUNTER 2024-10-08 15:00 | Outpatient (RCR) | payer MEDICARE, MEDICAID, SELFPAY ==
[2024-09-11 00:18] VITALS: BP 173/62; PULSE 93; RESP 18; TEMP 36.1; BMI 32.3
[2024-09-16 13:44] VITALS: BP 128/49; PULSE 77; RESP 15; TEMP 36.8; BMI 32.3
--- NOTE | 2024-09-17 12:13 | PCM.WC.HP ---
History of Present Illness Date of Service: 09/16/24 Chief Complaint: Infected pilonidal sinus History of Wound: This is a 64-year-old female with multiple pre-existing medical problems. She has a history of ulcerations and excoriations on her buttocks. She had an open wound on the medial aspect of her right buttock, which had developed within the last several weeks prior to presentation. However, the patient had had a wound at this site previously, which had drained purulent material, and had intermittently appeared to heal. The patient does implement offloading measures, as has been recommended by her medical providers, including the use of a gel cushion. She has a history of cerebrovascular accident, with residual right sided weakness. She lives at home with her adult daughter, who assists in her care. She has a history of diabetes mellitus, heart disease, deep vein thrombosis, depression, schizophrenia, obstructive sleep apnea, and asthma. She has a home health aide who assists with bathing daily. The underlying cause of the patient's initial presenting manifestations was determined to be an infected pilonidal sinus, for which the patient was referred for surgical consultation. She underwent excision of her infected pilonidal sinus by Dr. Donnie Miller in [place], [place], on August 20, 2024. The surgical site was left open, and the patient was referred back to the [facility] for management of her open surgical wound. [facility] Medical History Wears glasses Cancer Open wound Insulin dependent diabetes mellitus Diabetes Walker as ambulation aid Uses wheelchair Bladder disease DVT (deep venous thrombosis) Parkinson's disease Wears dentures Dietary restriction Heartburn Smoker Sleep apnea On home oxygen therapy History of echocardiogram History of stress test Cardiology follow-up encounter History of atrial fibrillation Encounter for smoking cessation counseling Surgical wound present Bilateral malignant neoplasm of breast in female Pilonidal sinus with abscess Obesity PTSD (post-traumatic stress disorder) Psychophysiologic insomnia COPD (chronic obstructive pulmonary disease) CVA (cerebral vascular accident) Arthritis Paroxysmal atrial fibrillation Tardive dyskinesia Hypoglycemia unawareness associated with type 2 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 Type 2 diabetes mellitus with unspecified diabetic retinopathy without macular edema Suicidal ideation (10/23/18) Bipolar disorder History of schizophrenia Multiple sclerosis History of DVT (deep vein thrombosis) Personal history of stroke with residual effects Atherosclerotic heart disease of [place] coronary artery without angina pectoris Tobacco abuse Neuropathic pain A-fib Vitamin D deficiency Depression HLD (hyperlipidemia) Type 2 diabetes mellitus Urinary incontinence in female MONCHO (obstructive sleep apnea) Chronic asthma Vaginal candidiasis Contracture of muscle of right lower leg Home Medications ?Medication ?Instructions ?Recorded ?Last Taken ?Type blood-glucose meter (Accu-Chek #1 ea 02/22/21 Unknown Rx Guide Glucose Meter) brexpiprazole 1 mg tablet 1 mg PO DAILY 03/07/21 09/10/24 History duloxetine 60 mg capsule,delayed 60 mg PO DAILY 03/07/21 09/10/24 History release oxybutynin chloride 10 mg 10 mg PO DAILY BLADDER 04/28/22 09/10/24 History tablet,extended release 24 hr blood-glucose meter (Accu-Chek #1 ea 05/31/22 Unknown Rx Guide Glucose Meter) BD Ultra-Fine Mari Pen Needle 32 #120 ea 08/02/22 Unknown Rx gauge x 5/32 (pen needle, diabetic) rosuvastatin 20 mg tablet 20 mg PO DAILY #90 tabs 09/08/22 09/10/24 Rx blood sugar diagnostic (Accu-Chek #100 ea 12/05/22 Unknown Rx Guide test strips) furosemide 20 mg tablet 20 mg PO DAILY 12/05/22 09/10/24 History pen needle, diabetic 33 gauge x #400 ea 12/05/22 Unknown Rx 5/32 (Comfort EZ Pen Alpha) lancets #100 ea 01/17/23 Unknown Rx blood sugar diagnostic (FreeStyle #100 ea 03/07/23 Unknown Rx Precision Denzel Strips) rivaroxaban 20 mg tablet (Xarelto) 20 mg PO QPM #90 TABLETS 12/13/23 09/07/24 Rx anastrozole 1 mg tablet 1 mg PO DAILY 03/26/24 09/10/24 History deutetrabenazine 6 mg tablet 12 mg PO BID 03/26/24 09/10/24 History (Austedo) omeprazole 40 mg capsule,delayed 40 mg PO DAILY 03/26/24 09/11/24 History release tirzepatide 12.5 mg/0.5 mL 12.5 mg (0.5 mL) subcut QWEEK #2 mL 05/15/24 09/03/24 Rx subcutaneous pen injector (Cande) diltiazem HCl 180 mg capsule,24 180 mg PO QDAY #90 caps 06/30/24 09/11/24 Rx hr,extended release blood-glucose sensor (FreeStyle #2 ea 08/11/24 Unknown Rx Zoila 3 Plus Sensor device) ondansetron 4 mg disintegrating 4 mg PO Q8H PRN nausea and 08/11/24 Unknown Rx tablet vomiting #8 tabs insulin glargine 100 unit/mL (3 24 unit subcut QPM 08/15/24 09/10/24 History mL) subcutaneous pen (Lantus 18 unit Solostar U-100 Insulin) zolpidem 10 mg tablet (Ambien) 5 mg PO QHS 08/15/24 09/10/24 History lisinopril 20 mg tablet 20 mg PO DAILY #90 tabs 09/01/24 09/10/24 Rx cephalexin 500 mg capsule 500 mg PO BID 5 days #10 caps 09/11/24 Unknown Rx Allergy/AdvReac Type Severity Reaction Status Date / Time mirtazapine (From Remeron) Allergy Intermediate agitation Verified 08/26/24 09:40 Penicillins Allergy Mild Rash Verified 08/26/24 09:40 Family History Mother Diabetes Heart disease Lung cancer CAD (coronary artery disease) CABG CVA (cerebral vascular accident) Daughter Diabetes Father Myocardial infarction Surgical History History of breast lump removal History of excision of pilonidal cyst History of back surgery H/O bilateral cataract extraction Social History Smoking Status: Current some day smoker tobacco type: cigarettes Tobacco: How many years used: 35 Electronic Cigarette Use: not used how long ago did patient quit smoking: about 3 years ago second hand exposure: No alcohol intake: never substance use type: former substance user Date of last use: Used Marijuana in the past caffeine: Yes Type: coffee Number of servings: 1 delmy/catholic: Sikh seatbelt use: sometimes Vital Signs Vital Signs Vital Signs: 09/16/24 13:44 Temperature 98.3 F Temperature Source Temporal Pulse Rate 77 Respiratory Rate 15 Blood Pressure 128/49 H Blood Pressure Mean 75 Blood Pressure Source Monitor Blood Pressure Position Sitting Blood Pressure Location Right Arm Weight Weight: 200 lb Body Mass Index (BMI) 32.3 Physical Exam Const alert, oriented x3 and no apparent distress Constitutional Narrative: The patient's BMI is 32.3. General Appearance: cooperative and comfortable Orientation / Consciousness: awake, oriented to person, oriented to place and oriented to time HEENT normocephalic and head/scalp atraumatic Head and Scalp: normal to inspection Face and Sinus: normal facial exam Nose: external nose normal External Ear: external ears normal Eyes EOMs intact bilaterally General Eye: normal appearance of both eyes Neck full ROM Lymph Lymphatic: no lymphedema noted Resp normal respiratory effort, normal air movement, no retractions and no use of accessory muscles Effort and Inspection: able to speak in complete sentences GI soft to palpation and non-tender Skin Skin Narrative: Buttocks bilaterally skin is clear and intact with no erythema. Looks very good compared to previous visits. Wound Narrative: The site of the patient's recent infected pilonidal sinus excision is noted in the midline of the upper buttocks. The excision site appears to be generally clean, healthy, and devoid of purulent material. There is evidence of pink granulation tissue. There is a small amount of bioburden and devitalized tissue. Dimensions are documented elsewhere. Wound margins are not well beveled. The wound extends through all layers of the dermis and into the subcutaneous tissues. The wound appears to be slightly smaller than noted previously. Neuro oriented x3, CN's II-XII intact bilaterally and moves all extremities Neuro Narrative: Right hemiparesis is noted. Sensorium / Orientation: awake, alert, oriented to person, oriented to place and oriented to time Psych thought process normal and cooperative Appearance: grossly normal Debridement Note Debridement Note Wound debrided: Infected pilonidal sinus excision site, upper buttocks in the midline Laterality: Not Applicable Type of Debridement: Excisional debridement Anesthesia Used: 5% Lidocaine Gel and Cetacaine Depth: Down to and including healthy tissue and in the subcutaneous layer Percentage of wound debrided: 100 Instrument Used: 5mm curette Tissue Removed: Bioburden and devitalized tissue Severity: Fat Layer Exposed Amount of bleeding with debridement: Mild Bleeding Controlled with: Compression and gauze Patient tolerated procedure: Patient tolerated procedure well Post-Debridement Measurements and Additional Note: Post-Debridement Measurements/Treatment WC - Nurse 1 - General Ulcer Assessment Start: 09/16/24 13:35 Freq: Status: Active Protocol: BERYL Activity Type Activity Date Activity User E-sign Co-sign Detail Recorded Client Recorded Date Recorded By Document 09/16/24 13:44 [id number] 09/16/24 13:50 09/16/24 13:44 WC - Today's Visit Information Type of service Follow-up Visit (Physician/MUSIC MIXER ) Arrival Mode Ambulatory Transfer Assistance None Patient Identification Verified (Name & Yes ) Patient Requires Transmission-Based No Precautions Height and Weight Body Mass Index (BMI) 32.3 BMI Classification Obese Vital Signs Temperature (97.8 F-99.1 F) 98.3 F Temperature Source Temporal Pulse Rate (60-100) 77 Pulse Location Monitor Respiratory Rate (12-18) 15 Respiratory rate source Observation Blood Pressure (90/60-120/80) 128/49 H Blood Pressure Mean 75 Source Monitor Position Sitting Blood Pressure Location Right Arm History Since Last Visit- (Skip if this is Patient's initial visit) Have you changed medications since your No last visit? Any new allergies or adverse reactions No Had a fall/change in ADL's that may No increase risk of falls Signs or symptoms of abuse and/or No neglect since last visit Have you been in the hospital since your No last visit? Has dressing in place as prescribed Yes Has compression in place as prescribed N/A Has offloadiing in place as prescribed N/A Experienced any changes in pain level or No management Pain Scale: 0-10 Numeric Is Patient Pain Free? Yes - Nurse 1 - General Ulcer Measurement Start: 09/16/24 13:35 Freq: Status: Active Protocol: Activity Type Activity Date Activity User E-sign Co-sign Detail Recorded Client Recorded Date Recorded By Document 09/16/24 13:52 KW [id number] 09/16/24 13:52 09/16/24 13:52 Wound Center Nurse 1 #4 RT BUTTOCK -Current Size (cm) - Length 0.8 -Current Size (cm) - Width 0.8 -Current Size (cm) - Depth 0.1 -Total Square Cm 0.64 -Exudate Amt Small -Exudate Type Serosanguineous -Wound Margin Distinct, Outline Attached -Granulation Amt Large (67-100%) -Granulation Quality [place] -Texture (Aure-wound Skin Appearance) Assessed -Moisture (Aure-wound Skin Appearance) Assessed -Color (Aure-wound Skin Appearance) Assessed -Temperature (Aure-wound Skin No Abnormality Appearance) (Pt Warm) -Tenderness on Palpation (Aure-wound No Skin Appearance) -Ulcer Cleansing Rinsed/ Irrigated with Saline -Foul Odor after Cleansing No -Anesthetic Used 5% Lidocaine Gel - Nurse 2 - General Ulcer CM Notes Start: 09/16/24 13:35 Freq: Status: Active Protocol: Activity Type Activity Date Activity User E-sign Co-sign Detail Recorded Client Recorded Date Recorded By Document 09/16/24 14:24 JF [id number] 09/16/24 14:25 JF 09/16/24 14:24 Wound Center Nurse 2 -Time 14:24 -Correct Patient Yes -Correct Side, Site, Position Yes -Correct Procedure Yes -Procedure Performed Yes -Type of Procedure Debridement -Clinical Debridement Subcutaneous -Tissue Removed Subcutaneous -Post Debridement (cm) - Length 1.8 -Post Debridement (cm) - Width 2.5 -Post Debridement (cm) - Depth 1.2 -Total Square (Post) (cm) 4.50 -Area of Debridement (cm) - Length 1.8 -Area of Debridement (cm) - Width 2.5 -Total Square (Area) (cm) 4.50 -Tunneling No -Undermining/Tunneling No -Circular Undermining No -Wound/Ulcer Outcome Not Healed -Ulcer Cleansing Rinsed/ Irrigated with Saline -Foul Odor after Cleansing No -Bioengineered Tissue No -Bleeding Controlled with Pressure -Treatment Response Procedure Tolerated Well -Offloading No -Debridement - Subq, 1st 20sq cm Yes Pain Scale: 0-10 Numeric Is Patient Pain Free? Yes - Nurse 3 - General Ulcer D/C NN Start: 09/16/24 13:35 Freq: Status: Active Protocol: Activity Type Activity Date Activity User E-sign Co-sign Detail Recorded Client Recorded Date Recorded By Document 09/16/24 14:33 ML [id number] 09/16/24 14:34 ML 09/16/24 14:33 Wound Care Center Nurse 3 #4 RT BUTTOCK -Ulcer Cleansing Rinsed/ Irrigated with Saline -Primary Dressing Applied Promogran Brenda Matter, Silicone Border Foam 4x4 -Primary Dressing Covered/Secured with Other -Other Covering EXCEL SAP -Promogran Brenda Matter 1 -Silicone Border Foam 4x4 1 Pain Scale: 0-10 Numeric Is Patient Pain Free? Yes Charges/Coding Procedures Integumentary [id number]: [id number] Cathleen subq tissue 20 sq cm/< Assessment/Plan Assessment/Plan (1) Pilonidal sinus with abscess: CODE(S): L05.02 - Pilonidal sinus with abscess (2) Surgical wound present: CODE(S): T14.8XXA - Other injury of unspecified body region, initial encounter (3) Debility: CODE(S): R53.81 - Other malaise (4) History of stroke: CODE(S): Z86.73 - Personal history of transient ischemic attack (TIA), and cerebral infarction without residual deficits (5) Type 2 diabetes mellitus: CODE(S): E11.9 - Type 2 diabetes mellitus without complications QUALIFIERS: Diabetes mellitus group home insulin use: with group home use Diabetes mellitus complication status: with neurologic complications Diabetes mellitus complication detail: with polyneuropathy Qualified Code(s): E11.42 - Type 2 diabetes mellitus with diabetic polyneuropathy; Z79.4 - snf (current) use of insulin (6) H/O bilateral cataract extraction: CODE(S): Z98.41 - Cataract extraction status, right eye; Z98.42 - Cataract extraction status, left eye (7) History of back surgery: CODE(S): Z98.890 - Other specified postprocedural states (8) Dysarthria as late effect of stroke: CODE(S): I69.322 - Dysarthria following cerebral infarction (9) Hypertension: CODE(S): I10 - Essential (primary) hypertension QUALIFIERS: Hypertension type: unspecified Qualified Code(s): I10 - Essential (primary) hypertension (10) Polyneuropathy: CODE(S): G62.9 - Polyneuropathy, unspecified (11) Paroxysmal atrial fibrillation: CODE(S): I48.0 - Paroxysmal atrial fibrillation (12) Type 2 diabetes mellitus with diabetic polyneuropathy: CODE(S): E11.42 - Type 2 diabetes mellitus with diabetic polyneuropathy QUALIFIERS: Diabetes mellitus intermediate project manager insulin use: with intermediate project manager use Qualified Code(s): E11.42 - Type 2 diabetes mellitus with diabetic polyneuropathy; Z79.4 - continuous churn buttermaker (current) use of insulin (13) Personal history of stroke with residual effects: CODE(S): I69.30 - Unspecified sequelae of cerebral infarction (14) History of DVT (deep vein thrombosis): CODE(S): Z86.718 - Personal history of other venous thrombosis and embolism (15) HLD (hyperlipidemia): CODE(S): E78.5 - Hyperlipidemia, unspecified QUALIFIERS: Hyperlipidemia type: mixed hyperlipidemia Qualified Code(s): E78.2 - Mixed hyperlipidemia (16) MONCHO (obstructive sleep apnea): CODE(S): G47.33 - Obstructive sleep apnea (adult) (pediatric) (17) Chronic asthma: CODE(S): J45.909 - Unspecified asthma, uncomplicated (18) Tobacco abuse: CODE(S): Z72.0 - Tobacco use (19) Encounter for smoking cessation counseling: CODE(S): Z71.6 - Tobacco abuse counseling (20) Bipolar disorder: CODE(S): F31.9 - Bipolar disorder, unspecified (21) History of schizophrenia: CODE(S): Z86.59 - Personal history of other mental and behavioral disorders PLAN: Plan This is a 64-year-old female who recently underwent surgical excision of an infected pilonidal sinus. The procedure was performed by Dr. Donnie Miller in [place], [place]. An open surgical wound remains. The patient has been referred back to the [facility] for management of her open surgical wound. We have received a copy of the patient's recent operative report, which has been reviewed. We are to implement the use of moistened Brenda with an [place] SAP dressing on a daily basis. This is to be performed on a daily basis. The patient and her caregivers have been instructed in appropriate means of packing. Home health nursing personnel are also to assist with wound management in the patient's home. The patient has been instructed to optimize her diabetes management and her nutritional intake. She has also been advised to curtail her smoking habit. She admits to smoking approximately 3-5 cigarettes/day. The patient's smoking habit may adversely affect healing. Other factors which may adversely affect healing include friction, perspiration, and body heat relative to the particular location of this patient's wound. The patient is to return to our facility for reevaluation in 2 weeks. Consideration has been given to the use of negative pressure wound therapy, but maintenance of an intact seal is unlikely given the location of the patient's wound. Incidentally, the patient underwent excision of a right flank mass by Dr. King on September 11, 2024. Total time: 25 minutes
[2024-10-08 15:20] VITALS: BP 137/52; PULSE 79; RESP 16; TEMP 35.7; BMI 32.3
--- NOTE | 2024-10-10 16:13 | PCM.WC.HP ---
History of Present Illness Date of Service: 10/08/24 Chief Complaint: Infected pilonidal sinus History of Wound: This is a 64-year-old female with multiple pre-existing medical problems. She has a history of ulcerations and excoriations on her buttocks. She had an open wound on the medial aspect of her right buttock, which had developed within the last several weeks prior to presentation. However, the patient had had a wound at this site previously, which had drained purulent material, and had intermittently appeared to heal. The patient does implement offloading measures, as has been recommended by her medical providers, including the use of a gel cushion. She has a history of cerebrovascular accident, with residual right sided weakness. She lives at home with her adult daughter, who assists in her care. She has a history of diabetes mellitus, heart disease, deep vein thrombosis, depression, schizophrenia, obstructive sleep apnea, and asthma. She has a home health aide who assists with bathing daily. The underlying cause of the patient's initial presenting manifestations was determined to be an infected pilonidal sinus, for which the patient was referred for surgical consultation. She underwent excision of her infected pilonidal sinus by Dr. Donnie Miller in [place], [place], on August 20, 2024. The surgical site was left open, and the patient was referred back to the [facility] for management of her open surgical wound. [facility]LY [facility] Medical History Wears glasses Cancer Open wound Insulin dependent diabetes mellitus Diabetes Walker as ambulation aid Uses wheelchair Bladder disease DVT (deep venous thrombosis) Parkinson's disease Wears dentures Dietary restriction Heartburn Smoker Sleep apnea On home oxygen therapy History of echocardiogram History of stress test Cardiology follow-up encounter History of atrial fibrillation Encounter for smoking cessation counseling Surgical wound present Bilateral malignant neoplasm of breast in female Pilonidal sinus with abscess Obesity PTSD (post-traumatic stress disorder) Psychophysiologic insomnia COPD (chronic obstructive pulmonary disease) CVA (cerebral vascular accident) Arthritis Paroxysmal atrial fibrillation Tardive dyskinesia Hypoglycemia unawareness associated with type 2 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 Type 2 diabetes mellitus with unspecified diabetic retinopathy without macular edema Suicidal ideation (10/23/18) Bipolar disorder History of schizophrenia Multiple sclerosis History of DVT (deep vein thrombosis) Personal history of stroke with residual effects Atherosclerotic heart disease of [place] coronary artery without angina pectoris Tobacco abuse Neuropathic pain A-fib Vitamin D deficiency Depression HLD (hyperlipidemia) Type 2 diabetes mellitus Urinary incontinence in female MONCHO (obstructive sleep apnea) Chronic asthma Vaginal candidiasis Contracture of muscle of right lower leg Home Medications ?Medication ?Instructions ?Recorded ?Last Taken ?Type blood-glucose meter (Accu-Chek #1 ea 02/22/21 Unknown Rx Guide Glucose Meter) brexpiprazole 1 mg tablet 1 mg PO DAILY 03/07/21 09/10/24 History duloxetine 60 mg capsule,delayed 60 mg PO DAILY 03/07/21 09/10/24 History release oxybutynin chloride 10 mg 10 mg PO DAILY BLADDER 04/28/22 09/10/24 History tablet,extended release 24 hr blood-glucose meter (Accu-Chek #1 ea 05/31/22 Unknown Rx Guide Glucose Meter) BD Ultra-Fine Mari Pen Needle 32 #120 ea 08/02/22 Unknown Rx gauge x 5/32 (pen needle, diabetic) rosuvastatin 20 mg tablet 20 mg PO DAILY #90 tabs 09/08/22 09/10/24 Rx blood sugar diagnostic (Accu-Chek #100 ea 12/05/22 Unknown Rx Guide test strips) furosemide 20 mg tablet 20 mg PO DAILY 12/05/22 09/10/24 History pen needle, diabetic 33 gauge x #400 ea 12/05/22 Unknown Rx 5/32 (Comfort EZ Pen Gorman) lancets #100 ea 01/17/23 Unknown Rx blood sugar diagnostic (FreeStyle #100 ea 03/07/23 Unknown Rx Precision Denzel Strips) anastrozole 1 mg tablet 1 mg PO DAILY 03/26/24 09/10/24 History deutetrabenazine 6 mg tablet 12 mg PO BID 03/26/24 09/10/24 History (Austedo) omeprazole 40 mg capsule,delayed 40 mg PO DAILY 03/26/24 09/11/24 History release diltiazem HCl 180 mg capsule,24 180 mg PO QDAY #90 caps 06/30/24 09/11/24 Rx hr,extended release blood-glucose sensor (FreeStyle #2 ea 08/11/24 Unknown Rx Zoila 3 Plus Sensor device) ondansetron 4 mg disintegrating 4 mg PO Q8H PRN nausea and 08/11/24 Unknown Rx tablet vomiting #8 tabs insulin glargine 100 unit/mL (3 24 unit subcut QPM 08/15/24 09/10/24 History mL) subcutaneous pen (Lantus 18 unit Solostar U-100 Insulin) zolpidem 10 mg tablet (Ambien) 5 mg PO QHS 08/15/24 09/10/24 History lisinopril 20 mg tablet 20 mg PO DAILY #90 tabs 09/01/24 09/10/24 Rx cephalexin 500 mg capsule 500 mg PO BID 5 days #10 caps 09/11/24 Unknown Rx rivaroxaban 20 mg tablet (Xarelto) 20 mg PO QPM #90 TABLETS 09/24/24 Unknown Rx tirzepatide 12.5 mg/0.5 mL 12.5 mg (0.5 mL) subcut QWEEK #2 mL 09/29/24 Unknown Rx subcutaneous pen injector (Mounjaro) Allergy/AdvReac Type Severity Reaction Status Date / Time mirtazapine (From Remeron) Allergy Intermediate agitation Verified 09/24/24 10:11 Penicillins Allergy Mild Rash Verified 09/24/24 10:11 Family History Mother Diabetes Heart disease Lung cancer CAD (coronary artery disease) CABG CVA (cerebral vascular accident) Daughter Diabetes Father Myocardial infarction Surgical History History of breast lump removal History of excision of pilonidal cyst History of back surgery H/O bilateral cataract extraction Social History Smoking Status: Current some day smoker tobacco type: cigarettes Tobacco: How many years used: 35 Electronic Cigarette Use: not used how long ago did patient quit smoking: about 3 years ago second hand exposure: No alcohol intake: never substance use type: former substance user Date of last use: Used Marijuana in the past caffeine: Yes Type: coffee Number of servings: 1 delmy/mandaeism: Baptism seatbelt use: sometimes Vital Signs Vital Signs Vital Signs: Weight Weight: 200 lb Body Mass Index (BMI) 32.3 Physical Exam Const alert, oriented x3 and no apparent distress Constitutional Narrative: The patient's BMI is 32.3. General Appearance: cooperative and comfortable Orientation / Consciousness: awake, oriented to person, oriented to place and oriented to time HEENT normocephalic and head/scalp atraumatic Head and Scalp: normal to inspection Face and Sinus: normal facial exam Nose: external nose normal External Ear: external ears normal Eyes EOMs intact bilaterally General Eye: normal appearance of both eyes Neck full ROM Resp normal respiratory effort, normal air movement, no retractions and no use of accessory muscles Effort and Inspection: able to speak in complete sentences GI soft to palpation and non-tender Skin Skin Narrative: Buttocks bilaterally skin is clear and intact with no erythema. Looks very good compared to previous visits. Wound Narrative: The site of the patient's recent infected pilonidal sinus excision is noted in the midline of the upper buttocks. The excision site appears to be generally clean, healthy, and devoid of purulent material. There is evidence of pink granulation tissue. There is a small amount of bioburden and devitalized tissue. Dimensions are documented elsewhere. Wound margins are not well beveled. The wound extends through all layers of the dermis and into the subcutaneous tissues. The wound appears to be slightly smaller than noted previously, and the depth appears to be decreasing. Neuro oriented x3, CN's II-XII intact bilaterally and moves all extremities Neuro Narrative: Right hemiparesis is noted. Sensorium / Orientation: awake, alert, oriented to person, oriented to place and oriented to time Psych thought process normal and cooperative Appearance: grossly normal Debridement Note Debridement Note Wound debrided: Infected pilonidal sinus excision site, upper buttocks in the midline Laterality: Not Applicable Type of Debridement: Excisional debridement Anesthesia Used: 5% Lidocaine Gel and Cetacaine Depth: Down to and including healthy tissue and in the subcutaneous layer Percentage of wound debrided: 100 Instrument Used: 3mm curette Tissue Removed: Bioburden and devitalized tissue Severity: Fat Layer Exposed Amount of bleeding with debridement: Mild Bleeding Controlled with: Compression and gauze Patient tolerated procedure: Patient tolerated procedure well Post-Debridement Measurements and Additional Note: Post-Debridement Measurements/Treatment RODERICK - Nurse 1 - General Ulcer Assessment Start: 09/16/24 13:35 Freq: Status: Active Protocol: BERYL Activity Type Activity Date Activity User E-sign Co-sign Detail Recorded Client Recorded Date Recorded By Document 09/16/24 13:44 [email or web address] [id number] 09/16/24 13:50 Document 10/08/24 15:20 [id number] 10/08/24 15:25 09/16/24 10/08/24 13:44 15:20 - Today's Visit Information Type of service Follow-up Visit Follow-up Visit (Physician/JUNIOR MANUFACTURING ENGINEER (Physician/JUNIOR MANUFACTURING ENGINEER ) ) Arrival Mode Ambulatory Ambulatory Transfer Assistance None None Patient Identification Verified (Name & Yes Yes ) Patient Requires Transmission-Based No Precautions Height and Weight Body Mass Index (BMI) 32.3 32.3 BMI Classification Obese Obese Vital Signs Temperature (97.8 F-99.1 F) 98.3 F 96.3 F L Temperature Source Temporal Temporal Pulse Rate (60-100) 77 79 Pulse Location Monitor Monitor Respiratory Rate (12-18) 15 16 Respiratory rate source Observation Observation Oxygen Delivery Method Room Air Blood Pressure (90/60-120/80) 128/49 H 137/52 H Blood Pressure Mean 75 80 Source Monitor Monitor Position Sitting Sitting Blood Pressure Location Right Arm Right Arm History Since Last Visit- (Skip if this is Patient's initial visit) Have you changed medications since your No No last visit? Any new allergies or adverse reactions No No Had a fall/change in ADL's that may No No increase risk of falls Signs or symptoms of abuse and/or No No neglect since last visit Have you been in the hospital since your No No last visit? Has dressing in place as prescribed Yes Yes Has compression in place as prescribed N/A N/A Has offloadiing in place as prescribed N/A N/A Experienced any changes in pain level or No No management Pain Scale: 0-10 Numeric Is Patient Pain Free? Yes Yes - Nurse 1 - General Ulcer Measurement Start: 09/16/24 13:35 Freq: Status: Active Protocol: Activity Type Activity Date Activity User E-sign Co-sign Detail Recorded Client Recorded Date Recorded By Document 09/16/24 13:52 [id number] 09/16/24 13:52 Document 10/08/24 15:20 [id number] 10/08/24 15:25 09/16/24 10/08/24 13:52 15:20 Wound Center Nurse 1 #4 RT BUTTOCK -Current Size (cm) - Length 0.8 2.2 -Current Size (cm) - Width 0.8 0.5 -Current Size (cm) - Depth 0.1 0.1 -Total Square Cm 0.64 1.10 -Photo Taken No -Epithelialization None Present -Tunneling No -Undermining/Tunneling No -Circular Undermining No -Exudate Amt Small None Present -Exudate Type Serosanguineous -Wound Margin Distinct, Distinct, Outline Outline Attached Attached -Granulation Amt Large (67-100%) Medium (34-66%) -Granulation Quality [employer] Red -Slough/Fibrin No -Texture (Aure-wound Skin Appearance) Assessed Assessed -Moisture (Aure-wound Skin Appearance) Assessed Assessed -Color (Aure-wound Skin Appearance) Assessed Assessed -Temperature (Aure-wound Skin No Abnormality No Abnormality Appearance) (Pt Warm) (Pt Warm) -Tenderness on Palpation (Aure-wound No No Skin Appearance) -Ulcer Cleansing Rinsed/ Soap and Water Irrigated with Saline -Foul Odor after Cleansing No No -Anesthetic Used 5% Lidocaine 5% Lidocaine Gel Gel WC - Nurse 2 - General Ulcer CM Notes Start: 09/16/24 13:35 Freq: Status: Active Protocol: Activity Type Activity Date Activity User E-sign Co-sign Detail Recorded Client Recorded Date Recorded By Document 09/16/24 14:24 [id number] 09/16/24 14:25 Document 10/08/24 15:53 [id number] 10/08/24 15:53 09/16/24 10/08/24 14:24 15:53 Wound Center Nurse 2 #4 RT BUTTOCK -Time 14:24 15:53 -Correct Patient Yes Yes -Correct Side, Site, Position Yes Yes -Correct Procedure Yes Yes -Procedure Performed Yes Yes -Type of Procedure Debridement Debridement -Clinical Debridement Subcutaneous Subcutaneous -Tissue Removed Subcutaneous Subcutaneous -Post Debridement (cm) - Length 1.8 0.9 -Post Debridement (cm) - Width 2.5 1.5 -Post Debridement (cm) - Depth 1.2 0.3 -Total Square (Post) (cm) 4.50 1.35 -Area of Debridement (cm) - Length 1.8 0.9 -Area of Debridement (cm) - Width 2.5 1.5 -Total Square (Area) (cm) 4.50 1.35 -Tunneling No No -Undermining/Tunneling No No -Circular Undermining No No -Wound/Ulcer Outcome Not Healed Not Healed -Ulcer Cleansing Rinsed/ Rinsed/ Irrigated with Irrigated with Saline Saline -Foul Odor after Cleansing No No -Bioengineered Tissue No No -Bleeding Controlled with Pressure Pressure -Treatment Response Procedure Procedure Tolerated Well Tolerated Well -Offloading No No -Debridement - Subq, 1st 20sq cm Yes Yes Pain Scale: 0-10 Numeric Is Patient Pain Free? Yes Yes WC - Nurse 3 - General Ulcer D/C NN Start: 09/16/24 13:35 Freq: Status: Active Protocol: Activity Type Activity Date Activity User E-sign Co-sign Detail Recorded Client Recorded Date Recorded By Document 09/16/24 14:33 ML [id number] 09/16/24 14:34 ML Document 10/08/24 15:57 KW [id number] 10/08/24 15:57 KW 09/16/24 10/08/24 14:33 15:57 Wound Care Center Nurse 3 #4 RT BUTTOCK -Ulcer Cleansing Rinsed/ Irrigated with Saline -Primary Dressing Applied Promogran Promogran Brenda Matter, Brenda Matter, Silicone Border Silicone Border Foam 4x4 Foam 4x4 -Primary Dressing Covered/Secured with Other -Other Covering EXCEL SAP -Promogran Brenda Matter 1 1 -Silicone Border Foam 4x4 1 1 Pain Scale: 0-10 Numeric Is Patient Pain Free? Yes Yes - Visit Discharge Discharge Condition Stable Ambulatory Status Ambulatory Transportation Private Auto Medication Reconcilliation completed & No provided to patient/care provider Clinical Summary of Care Provided Yes Charges/Coding Procedures Integumentary [id number]: [id number] Cathleen subq tissue 20 sq cm/< Assessment/Plan Assessment/Plan (1) Pilonidal sinus with abscess: CODE(S): L05.02 - Pilonidal sinus with abscess (2) Surgical wound present: CODE(S): T14.8XXA - Other injury of unspecified body region, initial encounter (3) Debility: CODE(S): R53.81 - Other malaise (4) History of stroke: CODE(S): Z86.73 - Personal history of transient ischemic attack (TIA), and cerebral infarction without residual deficits (5) Type 2 diabetes mellitus: CODE(S): E11.9 - Type 2 diabetes mellitus without complications QUALIFIERS: 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: with shelter use Diabetes mellitus complication status: with neurologic complications Diabetes mellitus complication detail: with polyneuropathy Qualified Code(s): E11.42 - Type 2 diabetes mellitus with diabetic polyneuropathy; Z79.4 - care home (current) use of insulin (6) H/O bilateral cataract extraction: CODE(S): Z98.41 - Cataract extraction status, right eye; Z98.42 - Cataract extraction status, left eye (7) History of back surgery: CODE(S): Z98.890 - Other specified postprocedural states (8) Dysarthria as late effect of stroke: CODE(S): I69.322 - Dysarthria following cerebral infarction (9) Hypertension: CODE(S): I10 - Essential (primary) hypertension QUALIFIERS: Hypertension type: unspecified Qualified Code(s): I10 - Essential (primary) hypertension (10) Polyneuropathy: CODE(S): G62.9 - Polyneuropathy, unspecified (11) Paroxysmal atrial fibrillation: CODE(S): I48.0 - Paroxysmal atrial fibrillation (12) Type 2 diabetes mellitus with diabetic polyneuropathy: CODE(S): E11.42 - Type 2 diabetes mellitus with diabetic polyneuropathy QUALIFIERS: 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: with shelter use Qualified Code(s): E11.42 - Type 2 diabetes mellitus with diabetic polyneuropathy; Z79.4 - intermodal truck driver (current) use of insulin (13) Personal history of stroke with residual effects: CODE(S): I69.30 - Unspecified sequelae of cerebral infarction (14) History of DVT (deep vein thrombosis): CODE(S): Z86.718 - Personal history of other venous thrombosis and embolism (15) HLD (hyperlipidemia): CODE(S): E78.5 - Hyperlipidemia, unspecified QUALIFIERS: Hyperlipidemia type: mixed hyperlipidemia Qualified Code(s): E78.2 - Mixed hyperlipidemia (16) MONCHO (obstructive sleep apnea): CODE(S): G47.33 - Obstructive sleep apnea (adult) (pediatric) (17) Chronic asthma: CODE(S): J45.909 - Unspecified asthma, uncomplicated (18) Tobacco abuse: CODE(S): Z72.0 - Tobacco use (19) Encounter for smoking cessation counseling: CODE(S): Z71.6 - Tobacco abuse counseling (20) Bipolar disorder: CODE(S): F31.9 - Bipolar disorder, unspecified (21) History of schizophrenia: CODE(S): Z86.59 - Personal history of other mental and behavioral disorders PLAN: Plan This is a 64-year-old female who recently underwent surgical excision of an infected pilonidal sinus. The procedure was performed by Dr. Donnie Miller in [place], [place]. An open surgical wound remains. The patient has been referred back to the [facility] for management of her open surgical wound. We have received a copy of the patient's recent operative report, which has been reviewed. We are to continue the use of moistened Brenda with an [place] SAP dressing on a daily basis. This is to be performed on a daily basis. The patient and her caregivers have been instructed in appropriate means of packing. Home health nursing personnel are also to assist with wound management in the patient's home. The patient has been instructed to optimize her diabetes management and her nutritional intake. She has also been advised to curtail her smoking habit. She admits to smoking approximately 3-5 cigarettes/day. The patient's smoking habit may adversely affect healing. Other factors which may adversely affect healing include friction, perspiration, and body heat relative to the particular location of this patient's wound. The patient is to return to our facility for reevaluation in 2 weeks. Consideration has been given to the use of negative pressure wound therapy, but maintenance of an intact seal is unlikely given the location of the patient's wound. Incidentally, the patient underwent excision of a benign right flank mass by Dr. King on September 11, 2024, and appears to be recovering uneventfully. Total time: 24 minutes
== END 2024-10-11 23:59 | disposition home or self-care (01) ==
LOC: WC 15:00
PROVIDERS: PCP Family Medicine; Referring Provider Family Medicine; Visit Provider Surgery
DX: T81.89XA Other complications of procedures, not elsewhere classified, initial encounter (principal); F31.9 Bipolar disorder, unspecified; I48.0 Paroxysmal atrial fibrillation; E11.42 Type 2 diabetes mellitus with diabetic polyneuropathy; Z79.4 Long term (current) use of insulin; L05.02 Pilonidal sinus with abscess; J32.9 Chronic sinusitis, unspecified; Z79.01 Long term (current) use of anticoagulants; Z79.85 Long-term (current) use of injectable non-insulin antidiabetic drugs; I10 Essential (primary) hypertension; G47.33 Obstructive sleep apnea (adult) (pediatric); F17.210 Nicotine dependence, cigarettes, uncomplicated; Z82.3 Family history of stroke; E78.2 Mixed hyperlipidemia; I25.10 Atherosclerotic heart disease of native coronary artery without angina pectoris; Z82.49 Family history of ischemic heart disease and other diseases of the circulatory system; R53.81 Other malaise; J45.909 Unspecified asthma, uncomplicated; Z86.718 Personal history of other venous thrombosis and embolism; Z83.3 Family history of diabetes mellitus; I69.322 Dysarthria following cerebral infarction; Z98.41 Cataract extraction status, right eye; Z98.890 Other specified postprocedural states; Z71.6 Tobacco abuse counseling; Z86.59 Personal history of other mental and behavioral disorders; Y82.9 Unspecified medical devices associated with adverse incidents
CPT/HCPCS: 11042

== ENCOUNTER 2024-11-04 13:45 | Outpatient (RCR) | payer MEDICARE, MEDICAID, SELFPAY ==
[2024-10-12 00:12] VITALS: BP 137/52; PULSE 79; RESP 16; TEMP 35.7; BMI 32.3
[2024-10-21 13:43] VITALS: BP 127/59; PULSE 89; RESP 16; TEMP 36.5; BMI 32.3
[2024-11-04 13:55] VITALS: BP 122/69; PULSE 92; RESP 18; TEMP 36.8; BMI 32.3
== END 2024-11-10 23:59 | disposition home or self-care (01) ==
LOC: WC 13:45
PROVIDERS: PCP Family Medicine; Referring Provider Family Medicine; Visit Provider Surgery
DX: T81.89XA Other complications of procedures, not elsewhere classified, initial encounter (principal); F20.9 Schizophrenia, unspecified; I69.351 Hemiplegia and hemiparesis following cerebral infarction affecting right dominant side; F31.9 Bipolar disorder, unspecified; I48.0 Paroxysmal atrial fibrillation; E11.42 Type 2 diabetes mellitus with diabetic polyneuropathy; Z79.4 Long term (current) use of insulin; L05.02 Pilonidal sinus with abscess; Z79.01 Long term (current) use of anticoagulants; I69.322 Dysarthria following cerebral infarction; I25.10 Atherosclerotic heart disease of native coronary artery without angina pectoris; I10 Essential (primary) hypertension; G47.33 Obstructive sleep apnea (adult) (pediatric); E78.2 Mixed hyperlipidemia; J45.909 Unspecified asthma, uncomplicated; F17.210 Nicotine dependence, cigarettes, uncomplicated; Z71.6 Tobacco abuse counseling; Z79.85 Long-term (current) use of injectable non-insulin antidiabetic drugs; Z86.718 Personal history of other venous thrombosis and embolism; Y83.8 Other surgical procedures as the cause of abnormal reaction of the patient, or of later complication, without mention of misadventure at the time of the procedure
CPT/HCPCS: 11042

== ENCOUNTER 2024-11-27 15:00 | Outpatient (RCR) | payer MEDICARE, MEDICAID, SELFPAY ==
[2024-11-20 15:09] VITALS: BP 114/70; PULSE 74; RESP 18; TEMP 35.5
--- NOTE | 2024-11-20 17:26 | PCM.WC.PN ---
History of Present Illness Date of Service: 11/20/24 Chief Complaint: Infected pilonidal sinus History of Wound: This is a 64-year-old female with multiple pre-existing medical problems. She has a history of ulcerations and excoriations on her buttocks. She had an open wound on the medial aspect of her right buttock, which had developed within the last several weeks prior to presentation. However, the patient had had a wound at this site previously, which had drained purulent material, and had intermittently appeared to heal. The patient does implement offloading measures, as has been recommended by her medical providers, including the use of a gel cushion. She has a history of cerebrovascular accident, with residual right sided weakness. She lives at home with her adult daughter, who assists in her care. She has a history of diabetes mellitus, heart disease, deep vein thrombosis, depression, schizophrenia, obstructive sleep apnea, and asthma. She has a home health aide who assists with bathing daily. The underlying cause of the patient's initial presenting manifestations was determined to be an infected pilonidal sinus, for which the patient was referred for surgical consultation. She underwent excision of her infected pilonidal sinus by Dr. Donnie Miller in [place], [place], on August 20, 2024. The surgical site was left open, and the patient was referred back to the [facility] for management of her open surgical wound. Subjective Subjective I am seeing this patient today as a courtesy visit for Dr. De Los Santos. She reports that the wound has been making very good progress, appears nearly healed. She states no reports of any difficulties or concerns from her visiting nurse who performs dressing changes. Objective Data Objective Data Vital Signs: Vital Signs Temp Pulse Resp BP 96 F L 74 18 114/70 11/20/24 15:09 11/20/24 15:09 11/20/24 15:09 11/20/24 15:09 Charges/Coding Visit Charges Office Visits / Consults: 68618 OV L3 Est 20min Physical Exam Const alert, oriented x3 and no apparent distress Constitutional Narrative: The patient's BMI is 32.3. General Appearance: cooperative and comfortable HEENT normocephalic and head/scalp atraumatic Head and Scalp: normal to inspection Face and Sinus: normal facial exam Nose: external nose normal External Ear: external ears normal Eyes General Eye: normal appearance of both eyes Resp normal respiratory effort, normal air movement, no retractions and no use of accessory muscles Effort and Inspection: able to speak in complete sentences Skin Skin Narrative: Buttocks bilaterally skin is clear and intact with no erythema. Looks very good compared to previous visits. Wound Narrative: Midline of the upper buttocks wound with pink granulation tissue at the base, very superficial just extending to the dermis without any significant surrounding erythema/fluctuance/excess warmth/drainage/foul odor. There is no significant bioburden. The wound has decreased in size significantly. Neuro oriented x3 and moves all extremities Neuro Narrative: Right hemiparesis is noted. Speech: speech normal Psych thought process normal and cooperative Appearance: grossly normal Debridement Note Debridement Note No debridement was completed: No debridement was completed today Post-Debridement Measurements and Additional Note: Post-Debridement Measurements/Treatment WC - Nurse 1 - General Ulcer Assessment Start: 11/20/24 15:07 Freq: Status: Active Protocol: [email or web address] Activity Type Activity Date Activity User E-sign Co-sign Detail Recorded Client Recorded Date Recorded By Document 11/20/24 15:09 DL [id number] 11/20/24 15:14 DL 11/20/24 15:09 - Today's Visit Information Type of service Follow-up Visit (Physician/SENIOR UI DEVELOPER ) Arrival Mode Ambulatory Transfer Assistance None Patient Identification Verified (Name & Yes ) Patient Requires Transmission-Based No Precautions Vital Signs Temperature (97.8 F-99.1 F) 96 F L Temperature Source Temporal Pulse Rate (60-100) 74 Pulse Location Monitor Respiratory Rate (12-18) 18 Respiratory rate source Observation Blood Pressure (90/60-120/80) 114/70 Blood Pressure Mean (mm Hg) 84 Source Monitor History Since Last Visit- (Skip if this is Patient's initial visit) Have you changed medications since your No last visit? Any new allergies or adverse reactions No Had a fall/change in ADL's that may No increase risk of falls Signs or symptoms of abuse and/or No neglect since last visit Have you been in the hospital since your No last visit? Has dressing in place as prescribed Yes Has compression in place as prescribed N/A Has offloadiing in place as prescribed Yes Experienced any changes in pain level or No management Pain Scale: 0-10 Numeric Is Patient Pain Free? Yes - Nurse 1 - General Ulcer Measurement Start: 11/20/24 15:07 Freq: Status: Active Protocol: Activity Type Activity Date Activity User E-sign Co-sign Detail Recorded Client Recorded Date Recorded By Document 11/20/24 15:09 DL [id number] 11/20/24 15:14 DL 11/20/24 15:09 Wound Center Nurse 1 #4 RT BUTTOCK -Current Size (cm) - Length 0.1 -Current Size (cm) - Width 0.1 -Current Size (cm) - Depth 0.1 -Total Square Cm 0.01 -Exudate Amt None Present -Wound Margin Distinct, Outline Attached -Granulation Amt Large (67-100%) -Granulation Quality [place] -Necrosis Amt None Present (0 %) -Structure Exposed N/A -Texture (Aure-wound Skin Appearance) Scarring -Moisture (Aure-wound Skin Appearance) No Abnormality -Color (Aure-wound Skin Appearance) No Abnormality -Temperature (Aure-wound Skin No Abnormality Appearance) (Pt Warm) -Ulcer Cleansing Rinsed/ Irrigated with Saline -Foul Odor after Cleansing No -Anesthetic Used 4% Lidocaine Solution WC - Nurse 2 - General Ulcer CM Notes Start: 11/20/24 15:07 Freq: Status: Active Protocol: Activity Type Activity Date Activity User E-sign Co-sign Detail Recorded Client Recorded Date Recorded By Document 11/20/24 15:56 [id number] 11/20/24 15:59 11/20/24 15:56 Wound Center Nurse 2 -Time 15:57 -Correct Patient Yes -Correct Side, Site, Position Yes -Correct Procedure No -Procedure Performed No -Post Debridement (cm) - Length 0.2 -Post Debridement (cm) - Width 0.2 -Post Debridement (cm) - Depth 0.1 -Total Square (Post) (cm) 0.04 Pain Scale: 0-10 Numeric Is Patient Pain Free? Yes WC - Nurse 3 - General Ulcer D/C NN Start: 11/20/24 15:07 Freq: Status: Active Protocol: Activity Type Activity Date Activity User E-sign Co-sign Detail Recorded Client Recorded Date Recorded By Document 11/20/24 16:04 [id number] [id number] 11/20/24 16:05 KW 11/20/24 16:04 Wound Care Center Nurse 3 #4 RT BUTTOCK -Primary Dressing Applied Silicone Border Foam 4x4 -Other Dressing pt own luís, moistened -Silicone Border Foam 4x4 1 Pain Scale: 0-10 Numeric Is Patient Pain Free? Yes WC - Visit Discharge Discharge Condition Stable Ambulatory Status Ambulatory Transportation Private Auto Medication Reconcilliation completed & No provided to patient/care provider Clinical Summary of Care Provided Yes Assessment/Plan Assessment/Plan (1) Pilonidal sinus with abscess: CODE(S): L05.02 - Pilonidal sinus with abscess (2) Surgical wound present: CODE(S): T14.8XXA - Other injury of unspecified body region, initial encounter (3) Debility: CODE(S): R53.81 - Other malaise (4) Type 2 diabetes mellitus: CODE(S): E11.9 - Type 2 diabetes mellitus without complications QUALIFIERS: Diabetes mellitus fdc insulin use: with rodent exterminator use Diabetes mellitus complication status: with neurologic complications Diabetes mellitus complication detail: with polyneuropathy Qualified Code(s): E11.42 - Type 2 diabetes mellitus with diabetic polyneuropathy; Z79.4 - ocean transportation intermediary (current) use of insulin (5) Type 2 diabetes mellitus with diabetic polyneuropathy: CODE(S): E11.42 - Type 2 diabetes mellitus with diabetic polyneuropathy QUALIFIERS: Diabetes mellitus rodent exterminator insulin use: with rodent exterminator use Qualified Code(s): E11.42 - Type 2 diabetes mellitus with diabetic polyneuropathy; Z79.4 - jail (current) use of insulin (6) Personal history of stroke with residual effects: CODE(S): I69.30 - Unspecified sequelae of cerebral infarction (7) Tobacco abuse: CODE(S): Z72.0 - Tobacco use (8) Encounter for smoking cessation counseling: CODE(S): Z71.6 - Tobacco abuse counseling PLAN: Plan Her wound appears nearly healed today. She is to continue with current wound care with moistened Luís with an [place] SAP dressing changed daily and to continue with offloading measures and optimization of nutritional intake and glycemia control as well as smoking cessation. She will return to the wound center in [address] De Los Santos.
--- NOTE | 2024-11-27 08:57 | PCM.WC.PN ---
History of Present Illness Date of Service: 11/27/24 Chief Complaint: Infected pilonidal sinus History of Wound: This is a 64-year-old female with multiple pre-existing medical problems. She has a history of ulcerations and excoriations on her buttocks. She had an open wound on the medial aspect of her right buttock, which had developed within the last several weeks prior to presentation. However, the patient had had a wound at this site previously, which had drained purulent material, and had intermittently appeared to heal. The patient does implement offloading measures, as has been recommended by her medical providers, including the use of a gel cushion. She has a history of cerebrovascular accident, with residual right sided weakness. She lives at home with her adult daughter, who assists in her care. She has a history of diabetes mellitus, heart disease, deep vein thrombosis, depression, schizophrenia, obstructive sleep apnea, and asthma. She has a home health aide who assists with bathing daily. The underlying cause of the patient's initial presenting manifestations was determined to be an infected pilonidal sinus, for which the patient was referred for surgical consultation. She underwent excision of her infected pilonidal sinus by Dr. Donnie Miller in [place], [place], on August 20, 2024. The surgical site was left open, and the patient was referred back to the [facility] for management of her open surgical wound. Subjective Subjective She thinks her wound is healed this week, they have not noticed any drainage from the area. She has no new concerns. Objective Data Objective Data Vital Signs: Vital Signs Temp Pulse Resp BP 96 F L 74 18 114/70 11/20/24 15:09 11/20/24 15:09 11/20/24 15:09 11/20/24 15:09 Charges/Coding Visit Charges Office Visits / Consults: 21076 OV L3 Est 20min Physical Exam Const alert, oriented x3 and no apparent distress Constitutional Narrative: The patient's BMI is 32.3. General Appearance: cooperative and comfortable HEENT normocephalic and head/scalp atraumatic Head and Scalp: normal to inspection Face and Sinus: normal facial exam Nose: external nose normal External Ear: external ears normal Eyes General Eye: normal appearance of both eyes Resp normal respiratory effort, normal air movement, no retractions and no use of accessory muscles Effort and Inspection: able to speak in complete sentences Skin Skin Narrative: Buttocks bilaterally skin is clear and intact with no erythema. Wound Narrative: Her wound is fully epithelialized today. Neuro oriented x3 and moves all extremities Neuro Narrative: Right hemiparesis is noted. Speech: speech normal Psych thought process normal and cooperative Appearance: grossly normal Debridement Note Debridement Note No debridement was completed: No debridement was completed today Post-Debridement Measurements and Additional Note: Post-Debridement Measurements/Treatment - Nurse 1 - General Ulcer Assessment Start: 11/20/24 15:07 Freq: Status: Active Protocol: BERYL Activity Type Activity Date Activity User E-sign Co-sign Detail Recorded Client Recorded Date Recorded By Document 11/20/24 15:09 DL [id number] 11/20/24 15:14 DL 11/20/24 15:09 - Today's Visit Information Type of service Follow-up Visit (Physician/RAYON CONER ) Arrival Mode Ambulatory Transfer Assistance None Patient Identification Verified (Name & Yes ) Patient Requires Transmission-Based No Precautions Vital Signs Temperature (97.8 F-99.1 F) 96 F L Temperature Source Temporal Pulse Rate (60-100) 74 Pulse Location Monitor Respiratory Rate (12-18) 18 Respiratory rate source Observation Blood Pressure (90/60-120/80) 114/70 Blood Pressure Mean (mm Hg) 84 Source Monitor History Since Last Visit- (Skip if this is Patient's initial visit) Have you changed medications since your No last visit? Any new allergies or adverse reactions No Had a fall/change in ADL's that may No increase risk of falls Signs or symptoms of abuse and/or No neglect since last visit Have you been in the hospital since your No last visit? Has dressing in place as prescribed Yes Has compression in place as prescribed N/A Has offloadiing in place as prescribed Yes Experienced any changes in pain level or No management Pain Scale: 0-10 Numeric Is Patient Pain Free? Yes - Nurse 1 - General Ulcer Measurement Start: 11/20/24 15:07 Freq: Status: Active Protocol: Activity Type Activity Date Activity User E-sign Co-sign Detail Recorded Client Recorded Date Recorded By Document 11/20/24 15:09 DL [id number] 11/20/24 15:14 DL 11/20/24 15:09 Wound Center Nurse 1 #4 RT BUTTOCK -Current Size (cm) - Length 0.1 -Current Size (cm) - Width 0.1 -Current Size (cm) - Depth 0.1 -Total Square Cm 0.01 -Exudate Amt None Present -Wound Margin Distinct, Outline Attached -Granulation Amt Large (67-100%) -Granulation Quality [place] -Necrosis Amt None Present (0 %) -Structure Exposed N/A -Texture (Aure-wound Skin Appearance) Scarring -Moisture (Aure-wound Skin Appearance) No Abnormality -Color (Aure-wound Skin Appearance) No Abnormality -Temperature (Aure-wound Skin No Abnormality Appearance) (Pt Warm) -Ulcer Cleansing Rinsed/ Irrigated with Saline -Foul Odor after Cleansing No -Anesthetic Used 4% Lidocaine Solution - Nurse 2 - General Ulcer CM Notes Start: 11/20/24 15:07 Freq: Status: Active Protocol: Activity Type Activity Date Activity User E-sign Co-sign Detail Recorded Client Recorded Date Recorded By Document 11/20/24 15:56 [id number] 11/20/24 15:59 11/20/24 15:56 Wound Center Nurse 2 -Time 15:57 -Correct Patient Yes -Correct Side, Site, Position Yes -Correct Procedure No -Procedure Performed No -Post Debridement (cm) - Length 0.2 -Post Debridement (cm) - Width 0.2 -Post Debridement (cm) - Depth 0.1 -Total Square (Post) (cm) 0.04 Pain Scale: 0-10 Numeric Is Patient Pain Free? Yes - Nurse 3 - General Ulcer D/C NN Start: 11/20/24 15:07 Freq: Status: Active Protocol: Activity Type Activity Date Activity User E-sign Co-sign Detail Recorded Client Recorded Date Recorded By Document 11/20/24 16:04 [id number] 11/20/24 16:05 11/20/24 16:04 Wound Care Center Nurse 3 #4 RT BUTTOCK -Primary Dressing Applied Silicone Border Foam 4x4 -Other Dressing pt own luís, moistened -Silicone Border Foam 4x4 1 Pain Scale: 0-10 Numeric Is Patient Pain Free? Yes - Visit Discharge Discharge Condition Stable Ambulatory Status Ambulatory Transportation Private Auto Medication Reconcilliation completed & No provided to patient/care provider Clinical Summary of Care Provided Yes Assessment/Plan Assessment/Plan (1) Pilonidal sinus with abscess: CODE(S): L05.02 - Pilonidal sinus with abscess (2) Surgical wound present: CODE(S): T14.8XXA - Other injury of unspecified body region, initial encounter (3) Debility: CODE(S): R53.81 - Other malaise (4) Type 2 diabetes mellitus: CODE(S): E11.9 - Type 2 diabetes mellitus without complications QUALIFIERS: Diabetes mellitus fpc insulin use: with terminal clerk use Diabetes mellitus complication status: with neurologic complications Diabetes mellitus complication detail: with polyneuropathy Qualified Code(s): E11.42 - Type 2 diabetes mellitus with diabetic polyneuropathy; Z79.4 - prison (current) use of insulin (5) Type 2 diabetes mellitus with diabetic polyneuropathy: CODE(S): E11.42 - Type 2 diabetes mellitus with diabetic polyneuropathy QUALIFIERS: Diabetes mellitus fpc insulin use: with terminal clerk use Qualified Code(s): E11.42 - Type 2 diabetes mellitus with diabetic polyneuropathy; Z79.4 - buttermaker continuous churn (current) use of insulin (6) Personal history of stroke with residual effects: CODE(S): I69.30 - Unspecified sequelae of cerebral infarction (7) Tobacco abuse: CODE(S): Z72.0 - Tobacco use (8) Encounter for smoking cessation counseling: CODE(S): Z71.6 - Tobacco abuse counseling PLAN: Plan Her wound is healed today. I continue to recommend applying a barrier cream or ointment to the area and continue with pressure offloading given the delicate nature of the newly healed skin. She is discharged from the wound center today. She will return as needed.
[2024-11-27 15:01] VITALS: BP 134/83; PULSE 86; RESP 18; TEMP 36.8
--- NOTE | 2024-12-01 09:48 | WC ---
PHOTO 11/27/24 RIGHT BUTTOCK (H)
== END 2024-12-11 23:59 | disposition home or self-care (01) ==
LOC: WC 15:00
PROVIDERS: PCP Family Medicine; Referring Provider Family Medicine; Visit Provider Physician Assistant
DX: T81.89XA Other complications of procedures, not elsewhere classified, initial encounter (principal); F20.9 Schizophrenia, unspecified; I69.351 Hemiplegia and hemiparesis following cerebral infarction affecting right dominant side; F31.9 Bipolar disorder, unspecified; I48.0 Paroxysmal atrial fibrillation; E11.42 Type 2 diabetes mellitus with diabetic polyneuropathy; L05.02 Pilonidal sinus with abscess; Z86.718 Personal history of other venous thrombosis and embolism; I69.322 Dysarthria following cerebral infarction; I25.10 Atherosclerotic heart disease of native coronary artery without angina pectoris; I10 Essential (primary) hypertension; G47.33 Obstructive sleep apnea (adult) (pediatric); E78.2 Mixed hyperlipidemia; J45.909 Unspecified asthma, uncomplicated; F17.210 Nicotine dependence, cigarettes, uncomplicated; Z71.6 Tobacco abuse counseling; Z79.85 Long-term (current) use of injectable non-insulin antidiabetic drugs; Y83.8 Other surgical procedures as the cause of abnormal reaction of the patient, or of later complication, without mention of misadventure at the time of the procedure
CPT/HCPCS: 99212; 99213; G0463

== ENCOUNTER 2025-01-08 13:15 | Outpatient (RCR) | payer MEDICARE, MEDICAID, SELFPAY ==
[2024-12-25 13:26] VITALS: BP 144/81; PULSE 91; RESP 18; TEMP 35.9
--- NOTE | 2024-12-25 14:28 | PCM.WC.HP ---
History of Present Illness Date of Service: 12/25/24 Chief Complaint: Sacral wound History of Wound: Emily Whittaker is a 64 y/o female who was most recently seen her at the wound center primarily by Dr. De Los Santos for chronic wound associated with pilonidal abscess for which she had surgical intervention by Dr. Miller and then local wound care here until this wound healed about 4 weeks ago. Unfortunately, within about 2 weeks of discharge from the wound center a small area within the limits of the prior wound opened up again. She was seen by Dr. Miller last week who excised the pilonidal cyst and they do not feel this is a recurrence, but rather that this area of the wound likely had healed superficially but not deep and thus reopened. Recall that prior to pilonidal sinus excision she'd had this frequently recurrent sacral wound that would intermittently open and heal. She is diabetic. She also has a history of MONCHO, schizophrenia, depression, heart disease, prior CVA. She is accompanied to her appointments by a caregiver. She has visiting home nurses who perform wound care. She states that she frequently changes position for offloading purposes. [facility] Medical History Wears glasses Cancer Open wound Insulin dependent diabetes mellitus Diabetes Walker as ambulation aid Uses wheelchair Bladder disease DVT (deep venous thrombosis) Parkinson's disease Wears dentures Dietary restriction Heartburn Smoker Sleep apnea On home oxygen therapy History of echocardiogram History of stress test Cardiology follow-up encounter History of atrial fibrillation Encounter for smoking cessation counseling Surgical wound present Bilateral malignant neoplasm of breast in female Pilonidal sinus with abscess Obesity PTSD (post-traumatic stress disorder) Psychophysiologic insomnia COPD (chronic obstructive pulmonary disease) CVA (cerebral vascular accident) Arthritis Paroxysmal atrial fibrillation Tardive dyskinesia Hypoglycemia unawareness associated with type 2 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 Type 2 diabetes mellitus with unspecified diabetic retinopathy without macular edema Suicidal ideation (10/23/18) Bipolar disorder History of schizophrenia Multiple sclerosis History of DVT (deep vein thrombosis) Personal history of stroke with residual effects Atherosclerotic heart disease of [place] coronary artery without angina pectoris Tobacco abuse Neuropathic pain A-fib Vitamin D deficiency Depression HLD (hyperlipidemia) Type 2 diabetes mellitus Urinary incontinence in female MONCHO (obstructive sleep apnea) Chronic asthma Vaginal candidiasis Contracture of muscle of right lower leg Home Medications Medication Instructions Recorded Last Taken Type blood-glucose meter (Accu-Chek #1 ea 02/22/21 Unknown Rx Guide Glucose Meter) brexpiprazole 1 mg tablet 1 mg PO DAILY 03/07/21 09/10/24 History duloxetine 60 mg capsule,delayed 60 mg PO DAILY 03/07/21 09/10/24 History release oxybutynin chloride 10 mg 10 mg PO DAILY BLADDER 04/28/22 09/10/24 History tablet,extended release 24 hr blood-glucose meter (Accu-Chek #1 ea 05/31/22 Unknown Rx Guide Glucose Meter) BD Ultra-Fine Mari Pen Needle 32 #120 ea 08/02/22 Unknown Rx gauge x 5/32" (pen needle, diabetic) rosuvastatin 20 mg tablet 20 mg PO DAILY #90 tabs 09/08/22 09/10/24 Rx blood sugar diagnostic (Accu-Chek #100 ea 12/05/22 Unknown Rx Guide test strips) furosemide 20 mg tablet 20 mg PO DAILY 12/05/22 09/10/24 History pen needle, diabetic 33 gauge x #400 ea 12/05/22 Unknown Rx 5/32" (Comfort EZ Pen [place]) lancets #100 ea 01/17/23 Unknown Rx blood sugar diagnostic (FreeStyle #100 ea 03/07/23 Unknown Rx Precision Denzel Strips) anastrozole 1 mg tablet 1 mg PO DAILY 03/26/24 09/10/24 History deutetrabenazine 6 mg tablet 12 mg PO BID 03/26/24 09/10/24 History (Austedo) omeprazole 40 mg capsule,delayed 40 mg PO DAILY 03/26/24 09/11/24 History release blood-glucose sensor (FreeStyle #2 ea 08/11/24 Unknown Rx Zoila 3 Plus Sensor device) ondansetron 4 mg disintegrating 4 mg PO Q8H PRN nausea and 08/11/24 Unknown Rx tablet vomiting #8 tabs zolpidem 10 mg tablet (Ambien) 5 mg PO QHS 08/15/24 09/10/24 History lisinopril 20 mg tablet 20 mg PO DAILY #90 tabs 09/01/24 09/10/24 Rx cephalexin 500 mg capsule 500 mg PO BID 5 days #10 caps 09/11/24 Unknown Rx rivaroxaban 20 mg tablet (Xarelto) 20 mg PO QPM #90 TABLETS 09/24/24 Unknown Rx tirzepatide 12.5 mg/0.5 mL 12.5 mg (0.5 mL) subcut QWEEK #2 mL 09/29/24 Unknown Rx subcutaneous pen injector (Mounjaro) insulin glargine 100 unit/mL (3 24 unit (0.24 mL) subcut QPM #30 mL 10/16/24 Unknown Rx mL) subcutaneous pen (Lantus Solostar U-100 Insulin) diltiazem HCl 180 mg capsule,24 180 mg PO QDAY #90 caps 12/23/24 Unknown Rx hr,extended release Allergy/AdvReac Type Severity Reaction Status Date / Time mirtazapine (From Remeron) Allergy Intermediate agitation Verified 09/24/24 10:11 Penicillins Allergy Mild Rash Verified 09/24/24 10:11 Family History Mother Diabetes Heart disease Lung cancer CAD (coronary artery disease) CABG CVA (cerebral vascular accident) Daughter Diabetes Father Myocardial infarction Surgical History History of breast lump removal History of excision of pilonidal cyst History of back surgery H/O bilateral cataract extraction Social History Smoking Status: Current some day smoker tobacco type: cigarettes Tobacco: How many years used: 35 Electronic Cigarette Use: not used how long ago did patient quit smoking: about 3 years ago second hand exposure: No alcohol intake: never substance use type: former substance user Date of last use: Used Marijuana in the past caffeine: Yes Type: coffee Number of servings: 1 delmy/restorationist: Mosque seatbelt use: sometimes Vital Signs Vital Signs Vital Signs: 12/25/24 13:26 Temperature 96.7 F L Temperature Source Temporal Pulse Rate 91 Respiratory Rate 18 Blood Pressure 144/81 H Blood Pressure Mean 102 Blood Pressure Source Monitor Blood Pressure Position Sitting Blood Pressure Location Right Forearm Oxygen Delivery Method Room Air Physical Exam Const alert, oriented x3 and no apparent distress Constitutional Narrative: The patient's BMI is 32.3. General Appearance: cooperative and comfortable HEENT normocephalic and head/scalp atraumatic Head and Scalp: normal to inspection Face and Sinus: normal facial exam Nose: external nose normal External Ear: external ears normal Eyes General Eye: normal appearance of both eyes Resp normal respiratory effort, normal air movement, no retractions and no use of accessory muscles Effort and Inspection: able to speak in complete sentences Skin Skin Narrative: Buttocks bilaterally skin is clear and intact with no erythema. Wound Narrative: Small, midline sacral ulcer with some depth but no significant tracking; minimal slough; pink base, serous drainage. no surrounding erythema, focal edema, purulent or feculent drainage, foul odor. Neuro oriented x3 and moves all extremities Neuro Narrative: Right hemiparesis is noted. Speech: speech normal Psych thought process normal and cooperative Appearance: grossly normal Debridement Note Debridement Note Wound debrided: Sacral wound Type of Debridement: Excisional debridement Anesthesia Used: 5% Lidocaine Gel Depth: in the subcutaneous layer Percentage of wound debrided: 100 Instrument Used: 3mm curette Severity: Fat Layer Exposed Amount of bleeding with debridement: Mild Bleeding Controlled with: Pressure Patient tolerated procedure: Patient tolerated procedure well Post-Debridement Measurements and Additional Note: Post-Debridement Measurements/Treatment - Nurse 1 - General Ulcer Assessment Start: 12/25/24 13:26 Freq: Status: Active Protocol: BERYL Activity Type Activity Date Activity User E-sign Co-sign Detail Recorded Client Recorded Date Recorded By Document 12/25/24 13:26 [id number] 12/25/24 13:31 12/25/24 13:26 - Today's Visit Information Type of service Follow-up Visit (Physician/GAS PLUMBER ) Arrival Mode Ambulatory Patient Identification Verified (Name & Yes ) Vital Signs Temperature (97.8 F-99.1 F) 96.7 F L Temperature Source Temporal Pulse Rate (60-100) 91 Pulse Location Monitor Respiratory Rate (12-18) 18 Respiratory rate source Observation Oxygen Delivery Method Room Air Blood Pressure (90/60-120/80) 144/81 H Blood Pressure Mean 102 Source Monitor Position Sitting Blood Pressure Location Right Forearm History Since Last Visit- (Skip if this is Patient's initial visit) Left Footwear Regular Shoe Right Footwear Regular Shoe Pain Scale: 0-10 Numeric Is Patient Pain Free? Yes - Nurse 1 - General Ulcer Measurement Start: 12/25/24 13:26 Freq: Status: Active Protocol: Activity Type Activity Date Activity User E-sign Co-sign Detail Recorded Client Recorded Date Recorded By Document 12/25/24 13:26 KW [id number] 12/25/24 13:31 KW 12/25/24 13:26 Wound Center Nurse 1 #5 SACRAL -Current Size (cm) - Length 0.7 -Current Size (cm) - Width 0.7 -Current Size (cm) - Depth 0.4 -Total Square Cm 0.49 -Date of Last Picture (Recall this 12/25/24 field) -Exudate Amt Medium -Exudate Type Serosanguineous -Wound Margin Distinct, Outline Attached -Granulation Amt Large (67-100%) -Granulation Quality Red -Texture (Aure-wound Skin Appearance) Assessed -Moisture (Aure-wound Skin Appearance) Assessed -Color (Aure-wound Skin Appearance) Assessed -Temperature (Aure-wound Skin No Abnormality Appearance) (Pt Warm) -Tenderness on Palpation (Aure-wound No Skin Appearance) -Ulcer Cleansing Rinsed/ Irrigated with Saline -Foul Odor after Cleansing No -Anesthetic Used 5% Lidocaine Gel WC - Nurse 2 - General Ulcer CM Notes Start: 12/25/24 13:26 Freq: Status: Active Protocol: Activity Type Activity Date Activity User E-sign Co-sign Detail Recorded Client Recorded Date Recorded By Document 12/25/24 13:44 [id number] 12/25/24 13:50 GM 12/25/24 13:44 Wound Center Nurse 2 -Time 13:44 -Correct Patient Yes -Correct Side, Site, Position Yes -Correct Procedure Yes -Procedure Performed Yes -Type of Procedure Debridement -Clinical Debridement Subcutaneous -Tissue Removed Subcutaneous -Post Debridement (cm) - Length 0.9 -Post Debridement (cm) - Width 0.5 -Post Debridement (cm) - Depth 0.7 -Total Square (Post) (cm) 0.45 -Area of Debridement (cm) - Length 0.9 -Area of Debridement (cm) - Width 0.5 -Total Square (Area) (cm) 0.45 -Tunneling No -Undermining/Tunneling No -Circular Undermining No -Wound/Ulcer Outcome Not Healed -Ulcer Cleansing Rinsed/ Irrigated with Saline -Foul Odor after Cleansing No -Bioengineered Tissue No -Bleeding Controlled with Pressure -Treatment Response Procedure Tolerated Well -Offloading No -Debridement - Subq, 1st 20sq cm Yes Pain Scale: 0-10 Numeric Is Patient Pain Free? Yes WC - Nurse 3 - General Ulcer D/C NN Start: 12/25/24 13:26 Freq: Status: Active Protocol: Activity Type Activity Date Activity User E-sign Co-sign Detail Recorded Client Recorded Date Recorded By Document 12/25/24 14:05 LOVE [id number] 12/25/24 14:06 LOVE 12/25/24 14:05 Wound Care Center Nurse 3 #5 SACRAL -Primary Dressing Applied Promogran Brenda Matter, Silicone Border Foam 4x4 -Promogran Brenda Matter 1 -Silicone Border Foam 4x4 1 Pain Scale: 0-10 Numeric Is Patient Pain Free? Yes WC - Visit Discharge Discharge Condition Stable Ambulatory Status Ambulatory Transportation Private Auto Medication Reconcilliation completed & No provided to patient/care provider Clinical Summary of Care Provided Yes Charges/Coding Visit Charges Office Visits / Consults: 75830 OV L3 Est 20min Procedures Integumentary 111xxx-113xx: 01414 Cathleen subq tissue 20 sq cm/< Assessment/Plan Assessment/Plan (1) Pilonidal sinus with abscess: CODE(S): L05.02 - Pilonidal sinus with abscess (2) Debility: CODE(S): R53.81 - Other malaise (3) Type 2 diabetes mellitus with diabetic polyneuropathy: CODE(S): E11.42 - Type 2 diabetes mellitus with diabetic polyneuropathy QUALIFIERS: Diabetes mellitus mcc insulin use: with mcc use Qualified Code(s): E11.42 - Type 2 diabetes mellitus with diabetic polyneuropathy; Z79.4 - FPC (current) use of insulin (4) Personal history of stroke with residual effects: CODE(S): I69.30 - Unspecified sequelae of cerebral infarction (5) Sacral decubitus ulcer, stage III: CODE(S): L89.153 - Pressure ulcer of sacral region, stage 3 PLAN: Plan For wound care: (1) Cleanse the wound with antibacterial soap and water (2) Pack the wound with Brenda (3) Cover with foam-border dressing (4) Change daily or more often as needed to keep clean and dry. Discussed the importance of offloading pressure to the area, increasing protein/good glycemic control. Return to the wound center in 1 week, sooner as needed.
[2025-01-01 13:19] VITALS: BP 123/66; PULSE 70; RESP 16; TEMP 36.6
--- NOTE | 2025-01-01 14:24 | PN.PCM_ITS ---
History of Present Illness Date of Service: 01/01/25 Chief Complaint: Sacral wound History of Wound: Emily Whittaker is a 64 y/o female who was most recently seen her at the wound center primarily by Dr. De Los Santos for chronic wound associated with pilonidal abscess for which she had surgical intervention by Dr. Miller and then local wound care here until this wound healed about 4 weeks ago. Unfortunately, within about 2 weeks of discharge from the wound center a small area within the limits of the prior wound opened up again. She was seen by Dr. Miller last week who excised the pilonidal cyst and they do not feel this is a recurrence, but rather that this area of the wound likely had healed superf icially but not deep and thus reopened. Recall that prior to pilonidal sinus excision she'd had this frequently recurrent sacral wound that would intermittently open and heal. She is diabetic. She also has a history of MONCHO, schizophrenia, depression, heart disease, prior CVA. She is accompanied to her appointments by a caregiver. She has visiting home nurses who perform wound care. She states that she frequently changes position for offloading purposes. Subjective Subjective She reports she has been doing well this past week. She has been diligent in changing positions to offload pressure. The aide that is with her today reports the nurse who does her dressings has some concern about the skin closing faster than the deeper portion of the wound but otherwise had no other concerns. Dressing changes seem to have been going well. She reports no new pain, swelling, increased drainage, or foul odor. Objective Data Objective Data Vital Signs: Vital Signs Temp Pulse Resp BP O2 Del Method 97.9 F 70 16 123/66 H Room Air 01/01/25 13:19 01/01/25 13:19 01/01/25 13:19 01/01/25 13:19 12/25/24 13:26 Oxygen Delivery Method Room Air Charges/Coding Procedures Integumentary 111xxx-113xx: [id number] Cathleen subq tissue 20 sq cm/< Physical Exam Const alert, oriented x3 and no apparent distress Constitutional Narrative: The patient's BMI is 32.3. General Appearance: cooperative and comfortable HEENT normocephalic and head/scalp atraumatic Head and Scalp: normal to inspection Face and Sinus: normal facial exam Nose: external nose normal External Ear: external ears normal Eyes General Eye: normal appearance of both eyes Resp normal respiratory effort, normal air movement, no retractions and no use of accessory muscles Effort and Inspection: able to speak in complete sentences Skin Skin Narrative: Buttocks bilaterally skin is clear and intact with no erythema. Wound Narrative: Small, midline sacral ulcer with some depth but no significant tracking; minimal slough; pink base, serous drainage. no surrounding erythema, focal edema, purulent or feculent drainage, foul odor. Neuro oriented x3 and moves all extremities Neuro Narrative: Right hemiparesis is noted. Speech: speech normal Psych thought process normal and cooperative Appearance: grossly normal Debridement Note Debridement Note Wound debrided: Sacral wound Type of Debridement: Excisional debridement Anesthesia Used: 5% Lidocaine Gel Depth: in the subcutaneous layer Percentage of wound debrided: 100 Instrument Used: 3mm curette Severity: Fat Layer Exposed Amount of bleeding with debridement: Mild Bleeding Controlled with: Pressure Patient tolerated procedure: Patient tolerated procedure well Post-Debridement Measurements and Additional Note: Post-Debridement Measurements/Treatment - Nurse 1 - General Ulcer Assessment Start: 12/25/24 13:26 Freq: Status: Active Protocol: BERYL Activity Type Activity Date Activity User E-sign Co-sign Detail Recorded Client Recorded Date Recorded By Document 12/25/24 13:26 KW [id number] 12/25/24 13:31 KW Document 01/01/25 13:19 DL [id number] 01/01/25 13:27 DL 12/25/24 01/01/25 13:26 13:19 - Today's Visit Information Type of service Follow-up Visit Follow-up Visit (Physician/[employer]IC[employer] (Physician/[employer]ICER ) ) Arrival Mode Ambulatory Ambulatory Transfer Assistance Manual Patient Identification Verified (Name & Yes Yes ) Patient Requires Transmission-Based No Precautions Vital Signs Temperature (97.8 F-99.1 F) 96.7 F L 97.9 F Temperature Source Temporal Temporal Pulse Rate (60-100) 91 70 Pulse Location Monitor Monitor Respiratory Rate (12-18) 18 16 Respiratory rate source Observation Observation Oxygen Delivery Method Room Air Blood Pressure (90/60-120/80) 144/81 H 123/66 H Blood Pressure Mean (mm Hg) 102 85 Source Monitor Monitor Position Sitting Blood Pressure Location Right Forearm History Since Last Visit- (Skip if this is Patient's initial visit) Have you changed medications since your No last visit? Any new allergies or adverse reactions No Had a fall/change in ADL's that may No increase risk of falls Signs or symptoms of abuse and/or No neglect since last visit Have you been in the hospital since your No last visit? Has dressing in place as prescribed Yes Has compression in place as prescribed N/A Has offloadiing in place as prescribed Yes Experienced any changes in pain level or No management Left Footwear Regular Shoe Right Footwear Regular Shoe Pain Scale: 0-10 Numeric Is Patient Pain Free? Yes Yes WC - Nurse 1 - General Ulcer Measurement Start: 12/25/24 13:26 Freq: Status: Active Protocol: Activity Type Activity Date Activity User E-sign Co-sign Detail Recorded Client Recorded Date Recorded By Document 12/25/24 13:26 KW [id number] 12/25/24 13:31 KW Document 01/01/25 13:19 DL [id number] 01/01/25 13:27 DL 12/25/24 01/01/25 13:26 13:19 Wound Center Nurse 1 #5 SACRAL -Current Size (cm) - Length 0.7 0.7 -Current Size (cm) - Width 0.7 0.5 -Current Size (cm) - Depth 0.4 0.5 -Total Square Cm 0.49 0.35 -Date of Last Picture (Recall this 12/25/24 field) -Exudate Amt Medium Small -Exudate Type Serosanguineous Serosanguineous -Wound Margin Distinct, Distinct, Outline Outline Attached Attached -Granulation Amt Large (67-100%) Small (1-33%) -Granulation Quality Red Red -Necrosis Amt None Present (0 %) -Structure Exposed N/A -Texture (Aure-wound Skin Appearance) Assessed Scarring -Moisture (Aure-wound Skin Appearance) Assessed No Abnormality -Color (Aure-wound Skin Appearance) Assessed No Abnormality -Temperature (Aure-wound Skin No Abnormality No Abnormality Appearance) (Pt Warm) (Pt Warm) -Tenderness on Palpation (Aure-wound No No Skin Appearance) -Ulcer Cleansing Rinsed/ Soap and Water Irrigated with Saline -Foul Odor after Cleansing No No -Anesthetic Used 5% Lidocaine 5% Lidocaine Gel Gel WC - Nurse 2 - General Ulcer CM Notes Start: 12/25/24 13:26 Freq: Status: Active Protocol: Activity Type Activity Date Activity User E-sign Co-sign Detail Recorded Client Recorded Date Recorded By Document 12/25/24 13:44 [id number] 12/25/24 13:50 GM Document 01/01/25 13:40 GM [id number] 01/01/25 13:45 12/25/24 01/01/25 13:44 13:40 Wound Center Nurse 2 #5 SACRAL -Time 13:44 13:40 -Correct Patient Yes Yes -Correct Side, Site, Position Yes Yes -Correct Procedure Yes Yes -Procedure Performed Yes Yes -Type of Procedure Debridement Debridement -Clinical Debridement Subcutaneous Subcutaneous -Tissue Removed Subcutaneous Subcutaneous -Post Debridement (cm) - Length 0.9 0.6 -Post Debridement (cm) - Width 0.5 0.4 -Post Debridement (cm) - Depth 0.7 0.6 -Total Square (Post) (cm) 0.45 0.24 -Area of Debridement (cm) - Length 0.9 0.6 -Area of Debridement (cm) - Width 0.5 0.4 -Total Square (Area) (cm) 0.45 0.24 -Tunneling No No -Undermining/Tunneling No No -Circular Undermining No No -Wound/Ulcer Outcome Not Healed Not Healed -Ulcer Cleansing Rinsed/ Rinsed/ Irrigated with Irrigated with Saline Saline -Foul Odor after Cleansing No No -Bioengineered Tissue No No -Bleeding Controlled with Pressure Pressure -Treatment Response Procedure Procedure Tolerated Well Tolerated Well -Offloading No -Debridement - Subq, 1st 20sq cm Yes Yes Pain Scale: 0-10 Numeric Is Patient Pain Free? Yes Yes WC - Nurse 3 - General Ulcer D/C NN Start: 12/25/24 13:26 Freq: Status: Active Protocol: Activity Type Activity Date Activity User E-sign Co-sign Detail Recorded Client Recorded Date Recorded By Document 12/25/24 14:05 KW [id number] 12/25/24 14:06 KW Document 01/01/25 13:57 DL [id number] 01/01/25 13:58 DL 12/25/24 01/01/25 14:05 13:57 Wound Care Center Nurse 3 #5 SACRAL -Ulcer Cleansing Rinsed/ Irrigated with Saline -Primary Dressing Applied Promogran Nugauze, Brenda Matter, Iodoform 1/4in, Silicone Border Silicone Border Foam 4x4 Foam 4x4 -Nugauze, Iodoform 1/4 1 -Promogran Brenda Matter 1 -Silicone Border Foam 4x4 1 1 Treatment Response Procedure Tolerated Well Pain Scale: 0-10 Numeric Is Patient Pain Free? Yes Yes WC - Visit Discharge Discharge Condition Stable Stable Ambulatory Status Ambulatory Ambulatory Transportation Private Auto Private Auto Medication Reconcilliation completed & No provided to patient/care provider Clinical Summary of Care Provided Yes Facility Type Home Health Orders Sent Yes Assessment/Plan Assessment/Plan (1) Pilonidal sinus with abscess: CODE(S): L05.02 - Pilonidal sinus with abscess (2) Debility: CODE(S): R53.81 - Other malaise (3) Type 2 diabetes mellitus with diabetic polyneuropathy: CODE(S): E11.42 - Type 2 diabetes mellitus with diabetic polyneuropathy QUALIFIERS: Diabetes mellitus intermediate teacher insulin use: with intermediate teacher use Qualified Code(s): E11.42 - Type 2 diabetes mellitus with diabetic polyneuropathy; Z79.4 - medical terminologist (current) use of insulin (4) Personal history of stroke with residual effects: CODE(S): I69.30 - Unspecified sequelae of cerebral infarction (5) Sacral decubitus ulcer, stage III: CODE(S): L89.153 - Pressure ulcer of sacral region, stage 3 PLAN: Plan For wound care: (1) Cleanse the wound with antibacterial soap and water (2) Pack the wound with 1/4 inch iodoform (3) Cover with foam-border dressing (4) Change daily or more often as needed to keep clean and dry. Discussed the importance of offloading pressure to the area, increasing protein/good glycemic control. Return to the wound center in 1 week, sooner as needed.
[2025-01-08 13:06] VITALS: BP 147/68; PULSE 87; RESP 14; TEMP 35.7
--- NOTE | 2025-01-08 16:14 | PCM.WC.PN ---
History of Present Illness Date of Service: 01/08/25 Chief Complaint: Sacral wound History of Wound: Emily Whittaker is a 64 y/o female who was most recently seen her at the wound center primarily by Dr. De Los Santos for chronic wound associated with pilonidal abscess for which she had surgical intervention by Dr. Miller and then local wound care here until this wound healed about 4 weeks ago. Unfortunately, within about 2 weeks of discharge from the wound center a small area within the limits of the prior wound opened up again. She was seen by Dr. Miller last week who excised the pilonidal cyst and they do not feel this is a recurrence, but rather that this area of the wound likely had healed superficially but not deep and thus reopened. Recall that prior to pilonidal sinus excision she'd had this frequently recurrent sacral wound that would intermittently open and heal. She is diabetic. She also has a history of MONCHO, schizophrenia, depression, heart disease, prior CVA. She is accompanied to her appointments by a caregiver. She has visiting home nurses who perform wound care. She states that she frequently changes position for offloading purposes. Subjective Subjective She has had some increased discomfort at the wound site this week. Her aide with her reports that she has had increased bloody drainage, one night reports it had soaked some of her bedsheets. They report no purulent or feculent drainage, N/V, F/C. She continues to be diligent in changing positions to offload pressure. Objective Data Objective Data Vital Signs: Vital Signs Temp Pulse Resp BP O2 Del Method 96.3 F L 87 14 147/68 H Room Air 01/08/25 13:06 01/08/25 13:06 01/08/25 13:06 01/08/25 13:06 12/25/24 13:26 Oxygen Delivery Method Room Air Charges/Coding Visit Charges Office Visits / Consults: 62675 OV L3 Est 20min Physical Exam Const alert, oriented x3 and no apparent distress Constitutional Narrative: The patient's BMI is 32.3. General Appearance: cooperative and comfortable HEENT normocephalic and head/scalp atraumatic Head and Scalp: normal to inspection Face and Sinus: normal facial exam Nose: external nose normal External Ear: external ears normal Eyes General Eye: normal appearance of both eyes Resp normal respiratory effort, normal air movement, no retractions and no use of accessory muscles Effort and Inspection: able to speak in complete sentences Skin Skin Narrative: Buttocks bilaterally skin is clear and intact with no erythema. Wound Narrative: Small, midline sacral ulcer with some depth but no significant tracking; minimal slough; pink base, serous drainage. no surrounding erythema, focal edema, purulent or feculent drainage, foul odor. Neuro oriented x3 and moves all extremities Neuro Narrative: Right hemiparesis is noted. Speech: speech normal Psych thought process normal and cooperative Appearance: grossly normal Debridement Note Debridement Note Wound debrided: Sacral wound Type of Debridement: - (treated with silver nitrate, no debridement) Anesthesia Used: 5% Lidocaine Gel Depth: in the subcutaneous layer Percentage of wound debrided: 100 Instrument Used: 3mm curette Severity: Fat Layer Exposed Patient tolerated procedure: Patient tolerated procedure well Post-Debridement Measurements and Additional Note: Post-Debridement Measurements/Treatment - Nurse 1 - General Ulcer Assessment Start: 12/25/24 13:26 Freq: Status: Active Protocol: BERYL Activity Type Activity Date Activity User E-sign Co-sign Detail Recorded Client Recorded Date Recorded By Document 12/25/24 13:26 KW [id number] 12/25/24 13:31 KW Document 01/01/25 13:19 DL [id number] 01/01/25 13:27 DL Document 01/08/25 13:06 KW [id number] 01/08/25 13:10 KW 12/25/24 01/01/25 01/08/25 13:26 13:19 13:06 - Today's Visit Information Type of service Follow-up Visit Follow-up Visit Follow-up Visit (Physician/ACADEMY DIRECTOR (Physician/ACADEMY DIRECTOR (Physician/ACADEMY DIRECTOR ) ) ) Arrival Mode Ambulatory Ambulatory Ambulatory Transfer Assistance Manual None Patient Identification Verified (Name & Yes Yes Yes ) Patient Requires Transmission-Based No No Precautions Vital Signs Temperature (97.8 F-99.1 F) 96.7 F L 97.9 F 96.3 F L Temperature Source Temporal Temporal Temporal Pulse Rate (60-100) 91 70 87 Pulse Location Monitor Monitor Monitor Respiratory Rate (12-18) 18 16 14 Respiratory rate source Observation Observation Observation Oxygen Delivery Method Room Air Blood Pressure (90/60-120/80) 144/81 H 123/66 H 147/68 H Blood Pressure Mean (mm Hg) 102 85 94 Source Monitor Monitor Monitor Position Sitting Sitting Blood Pressure Location Right Forearm Right Arm History Since Last Visit- (Skip if this is Patient's initial visit) Have you changed medications since your No No last visit? Any new allergies or adverse reactions No No Had a fall/change in ADL's that may No No increase risk of falls Signs or symptoms of abuse and/or No No neglect since last visit Have you been in the hospital since your No No last visit? Has dressing in place as prescribed Yes Yes Has compression in place as prescribed N/A N/A Has offloadiing in place as prescribed Yes N/A Experienced any changes in pain level or No No management Left Footwear Regular Shoe Right Footwear Regular Shoe Pain Scale: 0-10 Numeric Is Patient Pain Free? Yes Yes Yes WC - Nurse 1 - General Ulcer Measurement Start: 12/25/24 13:26 Freq: Status: Active Protocol: Activity Type Activity Date Activity User E-sign Co-sign Detail Recorded Client Recorded Date Recorded By Document 12/25/24 13:26 KW [id number] 12/25/24 13:31 KW Document 01/01/25 13:19 DL [id number] 01/01/25 13:27 DL Document 01/08/25 13:06 KW [id number] 01/08/25 13:10 KW 12/25/24 01/01/25 01/08/25 13:26 13:19 13:06 Wound Center Nurse 1 #5 SACRAL -Current Size (cm) - Length 0.7 0.7 0.8 -Current Size (cm) - Width 0.7 0.5 0.4 -Current Size (cm) - Depth 0.4 0.5 0.5 -Total Square Cm 0.49 0.35 0.32 -Date of Last Picture (Recall this 12/25/24 field) -Exudate Amt Medium Small Medium -Exudate Type Serosanguineous Serosanguineous Serosanguineous -Wound Margin Distinct, Distinct, Distinct, Outline Outline Outline Attached Attached Attached -Granulation Amt Large (67-100%) Small (1-33%) Small (1-33%) -Granulation Quality Red Red -Slough/Fibrin Yes -Necrosis Amt None Present (0 %) -Structure Exposed N/A -Texture (Aure-wound Skin Appearance) Assessed Scarring Assessed -Moisture (Aure-wound Skin Appearance) Assessed No Abnormality Assessed -Color (Aure-wound Skin Appearance) Assessed No Abnormality Assessed -Temperature (Aure-wound Skin No Abnormality No Abnormality No Abnormality Appearance) (Pt Warm) (Pt Warm) (Pt Warm) -Tenderness on Palpation (Aure-wound No No No Skin Appearance) -Ulcer Cleansing Rinsed/ Soap and Water Rinsed/ Irrigated with Irrigated with Saline Saline -Foul Odor after Cleansing No No No -Anesthetic Used 5% Lidocaine 5% Lidocaine 5% Lidocaine Gel Gel Gel WC - Nurse 2 - General Ulcer CM Notes Start: 12/25/24 13:26 Freq: Status: Active Protocol: Activity Type Activity Date Activity User E-sign Co-sign Detail Recorded Client Recorded Date Recorded By Document 12/25/24 13:44 GM [id number] 12/25/24 13:50 GM Document 01/01/25 13:40 [id number] 01/01/25 13:45 Document 01/08/25 13:31 [id number] 01/08/25 13:36 12/25/24 01/01/25 01/08/25 13:44 13:40 13:31 Wound Center Nurse 2 #5 SACRAL -Time 13:44 13:40 13:32 -Correct Patient Yes Yes Yes -Correct Side, Site, Position Yes Yes Yes -Correct Procedure Yes Yes No -Procedure Performed Yes Yes No -Type of Procedure Debridement Debridement -Clinical Debridement Subcutaneous Subcutaneous -Tissue Removed Subcutaneous Subcutaneous -Post Debridement (cm) - Length 0.9 0.6 0.9 -Post Debridement (cm) - Width 0.5 0.4 0.5 -Post Debridement (cm) - Depth 0.7 0.6 0.9 -Total Square (Post) (cm) 0.45 0.24 0.45 -Area of Debridement (cm) - Length 0.9 0.6 -Area of Debridement (cm) - Width 0.5 0.4 -Total Square (Area) (cm) 0.45 0.24 -Tunneling No No No -Undermining/Tunneling No No No -Circular Undermining No No No -Wound/Ulcer Outcome Not Healed Not Healed Not Healed -Ulcer Cleansing Rinsed/ Rinsed/ Not Cleansed Irrigated with Irrigated with Saline Saline -Foul Odor after Cleansing No No No -Bioengineered Tissue No No -Bleeding Controlled with Pressure Pressure Silver Nitrate ($) -Treatment Response Procedure Procedure Tolerated Well Tolerated Well -Offloading No -Debridement - Subq, 1st 20sq cm Yes Yes -Wound Comment(s) HAS HAD A LOT OF BLEEDING USED SILVER NITRATE Pain Scale: 0-10 Numeric Is Patient Pain Free? Yes Yes Yes - Nurse 3 - General Ulcer D/C NN Start: 12/25/24 13:26 Freq: Status: Active Protocol: Activity Type Activity Date Activity User E-sign Co-sign Detail Recorded Client Recorded Date Recorded By Document 12/25/24 14:05 KW [id number] 12/25/24 14:06 KW Document 01/01/25 13:57 DL [id number] 01/01/25 13:58 DL Document 01/08/25 13:44 ML [id number] 01/08/25 13:45 ML 12/25/24 01/01/25 01/08/25 14:05 13:57 13:44 Wound Care Center Nurse 3 #5 SACRAL -Ulcer Cleansing Rinsed/ Rinsed/ Irrigated with Irrigated with Saline Saline -Primary Dressing Applied Promogran Nugauze, Nugauze, Brenda Matter, Iodoform 1/4in, Iodoform 1/4in, Silicone Border Silicone Border Silicone Border Foam 4x4 Foam 4x4 Foam 4x4 -Other Dressing PT BROUGHT OWN SUPPLIES -Nugauze, Iodoform 1/4 1 0 -Promogran Brenda Matter 1 -Silicone Border Foam 4x4 1 1 1 Treatment Response Procedure Tolerated Well Pain Scale: 0-10 Numeric Is Patient Pain Free? Yes Yes Yes - Visit Discharge Discharge Condition Stable Stable Ambulatory Status Ambulatory Ambulatory Transportation Private Auto Private Auto Medication Reconcilliation completed & No provided to patient/care provider Clinical Summary of Care Provided Yes Facility Type Home Health Orders Sent Yes Assessment/Plan Assessment/Plan (1) Pilonidal sinus with abscess: CODE(S): L05.02 - Pilonidal sinus with abscess (2) Debility: CODE(S): R53.81 - Other malaise (3) Type 2 diabetes mellitus with diabetic polyneuropathy: CODE(S): E11.42 - Type 2 diabetes mellitus with diabetic polyneuropathy QUALIFIERS: Diabetes mellitus custodial insulin use: with computer terminal operator use Qualified Code(s): E11.42 - Type 2 diabetes mellitus with diabetic polyneuropathy; Z79.4 - skilled nursing (current) use of insulin (4) Personal history of stroke with residual effects: CODE(S): I69.30 - Unspecified sequelae of cerebral infarction (5) Sacral decubitus ulcer, stage III: CODE(S): L89.153 - Pressure ulcer of sacral region, stage 3 PLAN: Plan I did not appreciate any active bleeding on my exam. Wound base is granular. Due to report of bleeding episode did treat the wound bed with silver nitrate. Due to increased pain and increased wound size, obtained wound culture. Will prescribe antibiotics per C&S results. For wound care: (1) Cleanse the wound with antibacterial soap and water (2) Pack the wound with 1/4 inch iodoform (3) Cover with foam-border dressing (4) Change daily or more often as needed to keep clean and dry. Discussed the importance of offloading pressure to the area, increasing protein/good glycemic control. I am out next week, plan for return to the wound center in 2 weeks or sooner as needed. THey are instructed to call for a courtesy visit as needed with any worsening of the wound or other concerns.
--- NOTE | 2025-01-09 09:03 | WC ---
PHOTO-SACRAL 01/08/25
== END 2025-01-11 23:59 | disposition home or self-care (01) ==
LOC: WC 13:15
PROVIDERS: PCP Family Medicine; Referring Provider Family Medicine; Visit Provider Physician Assistant
DX: L05.02 Pilonidal sinus with abscess (principal); L89.153 Pressure ulcer of sacral region, stage 3; J44.9 Chronic obstructive pulmonary disease, unspecified; E11.42 Type 2 diabetes mellitus with diabetic polyneuropathy; Z79.4 Long term (current) use of insulin; Z86.718 Personal history of other venous thrombosis and embolism; Z79.85 Long-term (current) use of injectable non-insulin antidiabetic drugs; Z87.891 Personal history of nicotine dependence; Z82.49 Family history of ischemic heart disease and other diseases of the circulatory system; E78.5 Hyperlipidemia, unspecified; Z79.811 Long term (current) use of aromatase inhibitors; Z79.01 Long term (current) use of anticoagulants; R53.81 Other malaise; I25.10 Atherosclerotic heart disease of native coronary artery without angina pectoris; Z79.899 Other long term (current) drug therapy; I69.30 Unspecified sequelae of cerebral infarction
CPT/HCPCS: 11042; 87070; 87075; 87077; 87186; 87205; 99213; G0463

== ENCOUNTER 2025-01-29 14:00 | Outpatient (RCR) | payer MEDICARE, MEDICAID, SELFPAY ==
[2025-01-22 13:30] VITALS: BP 144/70; PULSE 80; RESP 18; TEMP 36.3
--- NOTE | 2025-01-22 16:01 | PN.PCM_ITS ---
History of Present Illness Date of Service: 01/22/25 Chief Complaint: Sacral wound History of Wound: Emily Whittaker is a 64 y/o female who was most recently seen her at the wound center primarily by Dr. De Los Santos for chronic wound associated with pilonidal abscess for which she had surgical intervention by Dr. Miller and then local wound care here until this wound healed about 4 weeks ago. Unfortunately, within about 2 weeks of discharge from the wound center a small area within the limits of the prior wound opened up again. She was seen by Dr. Miller last week who excised the pilonidal cyst and they do not feel this is a recurrence, but rather that this area of the wound likely had healed superf icially but not deep and thus reopened. Recall that prior to pilonidal sinus excision she'd had this frequently recurrent sacral wound that would intermittently open and heal. She is diabetic. She also has a history of MONCHO, schizophrenia, depression, heart disease, prior CVA. She is accompanied to her appointments by a caregiver. She has visiting home nurses who perform wound care. She states that she frequently changes position for offloading purposes. Subjective Subjective She has a new caregiver with her this week who reports that for the 4 hours that she is with the patient each day she is not changing positions very frequently or at all, spends that time in her chair. This is a bit contrary to what patient and prior caregiver had reported which was very frequent position changes. Patient's ulcer has enlarged. She reports some pain local to the ulceration. She reports no known concerns from [facility] nurse that performs her dressing changes. No constitutional symptoms. I did send Gentamicin ointment after results of cultures last week; she has not received this, reports pharmacy does not have the prescription. She notes she prefers [facility] though [facility] retail was listed as preferred in her chart. Objective Data Objective Data Vital Signs: Vital Signs Temp Pulse Resp BP O2 Del Method 97.4 F L 80 18 144/70 H Room Air 01/22/25 13:30 01/22/25 13:30 01/22/25 13:30 01/22/25 13:30 01/22/25 13:30 Oxygen Delivery Method Room Air Charges/Coding Visit Charges Office Visits / Consults: 66961 OV L3 Est 20min Physical Exam Const alert, oriented x3 and no apparent distress Constitutional Narrative: The patient's BMI is 32.3. General Appearance: cooperative and comfortable HEENT normocephalic and head/scalp atraumatic Head and Scalp: normal to inspection Face and Sinus: normal facial exam Nose: external nose normal External Ear: external ears normal Eyes General Eye: normal appearance of both eyes Resp normal respiratory effort, normal air movement, no retractions and no use of accessory muscles Effort and Inspection: able to speak in complete sentences Skin Skin Narrative: Buttocks bilaterally skin is clear and intact with no erythema. Wound Narrative: Small, midline sacral ulcer with some depth but no significant tracking; minimal slough; pink base, serous drainage. no surrounding erythema, focal edema, purulent or feculent drainage, foul odor. Neuro oriented x3 and moves all extremities Neuro Narrative: Right hemiparesis is noted. Speech: speech normal Psych thought process normal and cooperative Appearance: grossly normal Debridement Note Debridement Note No debridement was completed: No debridement was completed today Post-Debridement Measurements and Additional Note: Post-Debridement Measurements/Treatment - Nurse 1 - General Ulcer Assessment Start: 01/22/25 13:30 Freq: Status: Active Protocol: RODERICK.MONTY Activity Type Activity Date Activity User E-sign Co-sign Detail Recorded Client Recorded Date Recorded By Document 01/22/25 13:30 [id number] 01/22/25 13:40 01/22/25 13:30 - Today's Visit Information Type of service Follow-up Visit (Physician/COAL INSPECTOR ) Arrival Mode Ambulatory Patient Identification Verified (Name & Yes ) Vital Signs Temperature (97.8 F-99.1 F) 97.4 F L Temperature Source Temporal Pulse Rate (60-100) 80 Pulse Location Monitor Respiratory Rate (12-18) 18 Respiratory rate source Observation Oxygen Delivery Method Room Air Blood Pressure (90/60-120/80) 144/70 H Blood Pressure Mean (mm Hg) 94 Source Monitor Position Sitting Blood Pressure Location Left Forearm History Since Last Visit- (Skip if this is Patient's initial visit) Have you changed medications since your No last visit? Any new allergies or adverse reactions No Had a fall/change in ADL's that may No increase risk of falls Signs or symptoms of abuse and/or No neglect since last visit Have you been in the hospital since your No last visit? Has dressing in place as prescribed Yes Has compression in place as prescribed N/A Has offloadiing in place as prescribed N/A Experienced any changes in pain level or No management Left Footwear Regular Shoe Right Footwear Regular Shoe Pain Scale: 0-10 Numeric Is Patient Pain Free? Yes - Nurse 1 - General Ulcer Measurement Start: 01/22/25 13:30 Freq: Status: Active Protocol: Activity Type Activity Date Activity User E-sign Co-sign Detail Recorded Client Recorded Date Recorded By Document 01/22/25 13:30 [id number] 01/22/25 13:40 01/22/25 13:30 Wound Center Nurse 1 #5 SACRAL -Current Size (cm) - Length 1 -Current Size (cm) - Width 1.2 -Current Size (cm) - Depth 0.9 -Total Square Cm 1.2 -Date of Last Picture (Recall this 01/22/25 field) -Exudate Amt Large -Exudate Type Serosanguineous -Wound Margin Distinct, Outline Attached -Granulation Amt Large (67-100%) -Granulation Quality Red -Texture (Aure-wound Skin Appearance) Assessed -Moisture (Aure-wound Skin Appearance) Assessed -Color (Aure-wound Skin Appearance) Assessed -Temperature (Aure-wound Skin No Abnormality Appearance) (Pt Warm) -Tenderness on Palpation (Aure-wound No Skin Appearance) -Ulcer Cleansing Rinsed/ Irrigated with Saline -Foul Odor after Cleansing No -Anesthetic Used 5% Lidocaine Gel -Wound Comment(s) BLEEDING X2 DAYS RODERICK - Nurse 2 - General Ulcer CM Notes Start: 01/22/25 13:30 Freq: Status: Active Protocol: Activity Type Activity Date Activity User E-sign Co-sign Detail Recorded Client Recorded Date Recorded By Document 01/22/25 14:01 [id number] 01/22/25 14:07 01/22/25 14:01 Wound Center Nurse 2 -Time 14:01 -Correct Patient Yes -Correct Side, Site, Position Yes -Correct Procedure No -Procedure Performed No -Post Debridement (cm) - Length 1.1 -Post Debridement (cm) - Width 1.0 -Post Debridement (cm) - Depth 0.8 -Total Square (Post) (cm) 1.10 -Tunneling No -Undermining/Tunneling No -Circular Undermining No -Wound/Ulcer Outcome Not Healed -Ulcer Cleansing Not Cleansed -Foul Odor after Cleansing No -Bioengineered Tissue No -Bleeding Controlled with NA -Offloading No Pain Scale: 0-10 Numeric Is Patient Pain Free? Yes - Nurse 3 - General Ulcer D/C NN Start: 01/22/25 13:30 Freq: Status: Active Protocol: Activity Type Activity Date Activity User E-sign Co-sign Detail Recorded Client Recorded Date Recorded By Document 01/22/25 14:28 DL [id number] 01/22/25 14:29 DL 01/22/25 14:28 Wound Care Center Nurse 3 #5 SACRAL -Ulcer Cleansing Rinsed/ Irrigated with Saline -Foul Odor after Cleansing No -Primary Dressing Applied Silicone Border Foam 4x4 -Other Dressing 1/4 iODOFORM -Silicone Border Foam 4x4 1 Treatment Response Procedure Tolerated Well Pain Scale: 0-10 Numeric Is Patient Pain Free? Yes WC - Visit Discharge Discharge Condition Stable Ambulatory Status Ambulatory Transportation Private Auto Assessment/Plan Assessment/Plan (1) Debility: CODE(S): R53.81 - Other malaise (2) Type 2 diabetes mellitus with diabetic polyneuropathy: CODE(S): E11.42 - Type 2 diabetes mellitus with diabetic polyneuropathy QUALIFIERS: Diabetes mellitus correction insulin use: with correction use Qualified Code(s): E11.42 - Type 2 diabetes mellitus with diabetic polyneuropathy; Z79.4 - half-way (current) use of insulin (3) Personal history of stroke with residual effects: CODE(S): I69.30 - Unspecified sequelae of cerebral infarction (4) Sacral decubitus ulcer, stage III: CODE(S): L89.153 - Pressure ulcer of sacral region, stage 3 PLAN: Plan I did not appreciate any active bleeding on my exam. Wound base is granular without significant bioburden. I prescribed topical gentamicin based on C&S results; I sent this to [facility] retail as this was listed as preferred in her chart, she wants it to [facility] so will send new Rx there. For wound care: (1) Cleanse the wound with antibacterial soap and water (2) Apply Gentamicin ointment (3) Pack the wound with 1/4 inch nugauze (3) Cover with foam-border dressing (4) Change daily or more often as needed to keep clean and dry. Discussed the importance of offloading pressure to the area, increasing protein/good glycemic control. Return in 1 week, call sooner with concerns.
--- NOTE | 2025-01-26 09:31 | WC ---
PHOTO-SACRAL 01/22/25
[2025-01-29 13:55] VITALS: BP 143/75; PULSE 89; RESP 18; TEMP 35.8
--- NOTE | 2025-01-29 16:26 | PCM.WC.PN ---
History of Present Illness Date of Service: 01/29/25 Chief Complaint: Sacral wound History of Wound: Emily Whittaker is a 64 y/o female who was most recently seen her at the wound center primarily by Dr. De Los Santos for chronic wound associated with pilonidal abscess for which she had surgical intervention by Dr. Miller and then local wound care here until this wound healed about 4 weeks ago. Unfortunately, within about 2 weeks of discharge from the wound center a small area within the limits of the prior wound opened up again. She was seen by Dr. Miller last week who excised the pilonidal cyst and they do not feel this is a recurrence, but rather that this area of the wound likely had healed superficially but not deep and thus reopened. Recall that prior to pilonidal sinus excision she'd had this frequently recurrent sacral wound that would intermittently open and heal. She is diabetic. She also has a history of MONCHO, schizophrenia, depression, heart disease, prior CVA. She is accompanied to her appointments by a caregiver. She has visiting home nurses who perform wound care. She states that she frequently changes position for offloading purposes. Subjective Subjective She did get the antibiotic ointment, she reports the wound has been less painful and she has had less drainage/bleeding since she started the antibiotic ointment. She reports no concerns from nurses that do her wound dressing changes to her knowledge. No other concerns. Objective Data Objective Data Vital Signs: Vital Signs Temp Pulse Resp BP O2 Del Method 96.4 F L 89 18 143/75 H Room Air 01/29/25 13:55 01/29/25 13:55 01/29/25 13:55 01/29/25 13:55 01/29/25 13:55 Oxygen Delivery Method Room Air Charges/Coding Visit Charges Office Visits / Consults: 27953 OV L3 Est 20min Physical Exam Const alert, oriented x3 and no apparent distress Constitutional Narrative: The patient's BMI is 32.3. General Appearance: cooperative and comfortable HEENT normocephalic and head/scalp atraumatic Head and Scalp: normal to inspection Face and Sinus: normal facial exam Nose: external nose normal External Ear: external ears normal Eyes General Eye: normal appearance of both eyes Resp normal respiratory effort, normal air movement, no retractions and no use of accessory muscles Effort and Inspection: able to speak in complete sentences Skin Skin Narrative: Buttocks bilaterally skin is clear and intact with no erythema. Wound Narrative: Small, midline sacral ulcer with some depth but no significant tracking; minimal slough; pink base, serous drainage. no surrounding erythema, focal edema, purulent or feculent drainage, foul odor. Neuro oriented x3 and moves all extremities Neuro Narrative: Right hemiparesis is noted. Speech: speech normal Psych thought process normal and cooperative Appearance: grossly normal Debridement Note Debridement Note No debridement was completed: No debridement was completed today Post-Debridement Measurements and Additional Note: Post-Debridement Measurements/Treatment - Nurse 1 - General Ulcer Assessment Start: 01/22/25 13:30 Freq: Status: Active Protocol: WC.LOWEXT Activity Type Activity Date Activity User E-sign Co-sign Detail Recorded Client Recorded Date Recorded By Document 01/22/25 13:30 [id number] 01/22/25 13:40 KW Document 01/29/25 13:55 [id number] 01/29/25 14:02 KW 01/22/25 01/29/25 13:30 13:55 - Today's Visit Information Type of service Follow-up Visit Follow-up Visit (Physician/NEWS VIDEOTAPE EDITOR (Physician/NEWS VIDEOTAPE EDITOR ) ) Arrival Mode Ambulatory Ambulatory Accompanied by OPENING MACHINE CLEANER Patient Identification Verified (Name & Yes Yes ) Vital Signs Temperature (97.8 F-99.1 F) 97.4 F L 96.4 F L Temperature Source Temporal Temporal Pulse Rate (60-100) 80 89 Pulse Location Monitor Monitor Respiratory Rate (12-18) 18 18 Respiratory rate source Observation Observation Oxygen Delivery Method Room Air Room Air Blood Pressure (90/60-120/80) 144/70 H 143/75 H Blood Pressure Mean (mm Hg) 94 97 Source Monitor Monitor Position Sitting Sitting Blood Pressure Location Left Forearm Right Forearm History Since Last Visit- (Skip if this is Patient's initial visit) Have you changed medications since your No No last visit? Any new allergies or adverse reactions No No Had a fall/change in ADL's that may No No increase risk of falls Signs or symptoms of abuse and/or No No neglect since last visit Have you been in the hospital since your No No last visit? Has dressing in place as prescribed Yes Yes Has compression in place as prescribed N/A N/A Has offloadiing in place as prescribed N/A N/A Experienced any changes in pain level or No No management Left Footwear Regular Shoe Regular Shoe Right Footwear Regular Shoe Regular Shoe Pain Scale: 0-10 Numeric Is Patient Pain Free? Yes Yes - Nurse 1 - General Ulcer Measurement Start: 01/22/25 13:30 Freq: Status: Active Protocol: Activity Type Activity Date Activity User E-sign Co-sign Detail Recorded Client Recorded Date Recorded By Document 01/22/25 13:30 [id number] 01/22/25 13:40 Document 01/29/25 13:55 [id number] 01/29/25 14:02 01/22/25 01/29/25 13:30 13:55 Wound Center Nurse 1 #5 SACRAL -Current Size (cm) - Length 1 0.8 -Current Size (cm) - Width 1.2 0.4 -Current Size (cm) - Depth 0.9 0.4 -Total Square Cm 1.2 0.32 -Date of Last Picture (Recall this 01/22/25 01/29/25 field) -Exudate Amt Large Medium -Exudate Type Serosanguineous Serosanguineous -Wound Margin Distinct, Thickened & Outline Rolled Under Attached -Granulation Amt Large (67-100%) Large (67-100%) -Granulation Quality Red Red -Texture (Aure-wound Skin Appearance) Assessed Assessed -Moisture (Aure-wound Skin Appearance) Assessed Assessed, Maceration -Color (Aure-wound Skin Appearance) Assessed Assessed -Temperature (Aure-wound Skin No Abnormality No Abnormality Appearance) (Pt Warm) (Pt Warm) -Tenderness on Palpation (Aure-wound No No Skin Appearance) -Ulcer Cleansing Rinsed/ Rinsed/ Irrigated with Irrigated with Saline Saline -Foul Odor after Cleansing No No -Anesthetic Used 5% Lidocaine 5% Lidocaine Gel Gel -Wound Comment(s) BLEEDING X2 DAYS - Nurse 2 - General Ulcer CM Notes Start: 01/22/25 13:30 Freq: Status: Active Protocol: Activity Type Activity Date Activity User E-sign Co-sign Detail Recorded Client Recorded Date Recorded By Document 01/22/25 14:01 [id number] 01/22/25 14:07 Document 01/29/25 14:12 [id number] 01/29/25 14:15 01/22/25 01/29/25 14:01 14:12 Wound Center Nurse 2 #5 SACRAL -Time 14:01 14:15 -Correct Patient Yes Yes -Correct Side, Site, Position Yes Yes -Correct Procedure No Yes -Procedure Performed No Yes -Type of Procedure Debridement -Clinical Debridement Subcutaneous -Tissue Removed Subcutaneous -Post Debridement (cm) - Length 1.1 0.8 -Post Debridement (cm) - Width 1.0 1.0 -Post Debridement (cm) - Depth 0.8 0.7 -Total Square (Post) (cm) 1.10 0.80 -Area of Debridement (cm) - Length 0.8 -Area of Debridement (cm) - Width 1.0 -Total Square (Area) (cm) 0.80 -Tunneling No No -Undermining/Tunneling No No -Circular Undermining No No -Wound/Ulcer Outcome Not Healed Not Healed -Ulcer Cleansing Not Cleansed Rinsed/ Irrigated with Saline -Foul Odor after Cleansing No No -Bioengineered Tissue No No -Bleeding Controlled with NA Pressure -Treatment Response Procedure Tolerated Well -Offloading No No -Debridement - Subq, 1st 20sq cm Yes Pain Scale: 0-10 Numeric Is Patient Pain Free? Yes Yes - Nurse 3 - General Ulcer D/C NN Start: 01/22/25 13:30 Freq: Status: Active Protocol: Activity Type Activity Date Activity User E-sign Co-sign Detail Recorded Client Recorded Date Recorded By Document 01/22/25 14:28 DL [id number] 01/22/25 14:29 DL Document 01/29/25 14:36 [facility] [id number] 01/29/25 14:37 [facility] 01/22/25 01/29/25 14:28 14:36 Wound Care Center Nurse 3 #5 SACRAL -Ulcer Cleansing Rinsed/ Rinsed/ Irrigated with Irrigated with Saline Saline -Foul Odor after Cleansing No No -Primary Dressing Applied Silicone Border Silicone Border Foam 4x4 Foam 4x4 -Other Dressing 1/4 iODOFORM GENTAMYCIN OINT , 1/4 IODOFORM. DRSG PER KW LONGITUDINAL FLOAT OPERATOR -Silicone Border Foam 4x4 1 1 Treatment Response Procedure Procedure Tolerated Well Tolerated Well Pain Scale: 0-10 Numeric Is Patient Pain Free? Yes Yes - Visit Discharge Discharge Condition Stable Stable Ambulatory Status Ambulatory Ambulatory Transportation Private Auto Private Auto Accompanied by CAREGIVER Assessment/Plan Assessment/Plan (1) Debility: CODE(S): R53.81 - Other malaise (2) Type 2 diabetes mellitus with diabetic polyneuropathy: CODE(S): E11.42 - Type 2 diabetes mellitus with diabetic polyneuropathy QUALIFIERS: Diabetes mellitus exterminator helper insulin use: with assisted use Qualified Code(s): E11.42 - Type 2 diabetes mellitus with diabetic polyneuropathy; Z79.4 - nursing home (current) use of insulin (3) Personal history of stroke with residual effects: CODE(S): I69.30 - Unspecified sequelae of cerebral infarction (4) Sacral decubitus ulcer, stage III: CODE(S): L89.153 - Pressure ulcer of sacral region, stage 3 PLAN: Plan Wound base is granular without significant bioburden. For wound care: (1) Cleanse the wound with antibacterial soap and water (2) Apply Gentamicin ointment (3) Pack the wound with 1/4 inch nugauze (3) Cover with foam-border dressing (4) Change daily or more often as needed to keep clean and dry. Discussed the importance of offloading pressure to the area, increasing protein/good glycemic control. Return in 2 weeks, call sooner with concerns.
--- NOTE | 2025-01-30 09:57 | WC ---
PHOTO-SACRUM 01/29/25
== END 2025-02-10 23:59 | disposition home or self-care (01) ==
LOC: WC 14:00
PROVIDERS: PCP Family Medicine; Referring Provider Family Medicine; Visit Provider Physician Assistant
DX: L89.153 Pressure ulcer of sacral region, stage 3 (principal); E11.622 Type 2 diabetes mellitus with other skin ulcer
CPT/HCPCS: 11042; 99213; G0463

== ENCOUNTER 2025-03-12 13:45 | Outpatient (RCR) | payer MEDICARE, MEDICAID, SELFPAY ==
[2025-02-12 13:48] VITALS: BP 130/62; PULSE 62; RESP 15; TEMP 36.5
--- NOTE | 2025-02-12 18:04 | PN.PCM_ITS ---
History of Present Illness Date of Service: 02/12/25 Chief Complaint: Sacral wound History of Wound: Emily Whittaker is a 64 y/o female who was most recently seen her at the wound center primarily by Dr. De Los Santos for chronic wound associated with pilonidal abscess for which she had surgical intervention by Dr. Miller and then local wound care here until this wound healed about 4 weeks ago. Unfortunately, within about 2 weeks of discharge from the wound center a small area within the limits of the prior wound opened up again. She was seen by Dr. Miller last week who excised the pilonidal cyst and they do not feel this is a recurrence, but rather that this area of the wound likely had healed superf icially but not deep and thus reopened. Recall that prior to pilonidal sinus excision she'd had this frequently recurrent sacral wound that would intermittently open and heal. She is diabetic. She also has a history of MONCHO, schizophrenia, depression, heart disease, prior CVA. She is accompanied to her appointments by a caregiver. She has visiting home nurses who perform wound care. She states that she frequently changes position for offloading purposes. Subjective Subjective She reports she has had some improvement in discomfort since initiating use of the antibiotics. They have noticed increased bleeding from the wound again over the last few days; otherwise, no new concerns. Objective Data Objective Data Vital Signs: Vital Signs Temp Pulse Resp BP 97.7 F L 62 15 130/62 H 02/12/25 13:48 02/12/25 13:48 02/12/25 13:48 02/12/25 13:48 Charges/Coding Visit Charges Office Visits / Consults: 56614 OV L3 Est 20min Physical Exam Const alert, oriented x3 and no apparent distress Constitutional Narrative: The patient's BMI is 32.3. General Appearance: cooperative and comfortable HEENT normocephalic and head/scalp atraumatic Head and Scalp: normal to inspection Face and Sinus: normal facial exam Nose: external nose normal External Ear: external ears normal Eyes General Eye: normal appearance of both eyes Resp normal respiratory effort, normal air movement, no retractions and no use of accessory muscles Effort and Inspection: able to speak in complete sentences Skin Skin Narrative: Buttocks bilaterally skin is clear and intact with no erythema. Wound Narrative: Small, midline sacral ulcer with some depth but no significant tracking; no significant slough; pink base, serous drainage, mild bleeding with gentle probing of the wound. no surrounding erythema, focal edema, purulent or feculent drainage, foul odor. Neuro oriented x3 and moves all extremities Neuro Narrative: Right hemiparesis is noted. Speech: speech normal Psych thought process normal and cooperative Appearance: grossly normal Debridement Note Debridement Note No debridement was completed: No debridement was completed today Post-Debridement Measurements and Additional Note: Post-Debridement Measurements/Treatment WC - Nurse 1 - General Ulcer Assessment Start: 02/12/25 13:48 Freq: Status: Active Protocol: BERYL Activity Type Activity Date Activity User E-sign Co-sign Detail Recorded Client Recorded Date Recorded By Document 02/12/25 13:48 ML [id number] 02/12/25 13:54 ML 02/12/25 13:48 WC - Today's Visit Information Type of service Follow-up Visit (Physician/DIALYSIS TECHNICIAN ) Arrival Mode Ambulatory Transfer Assistance None Patient Identification Verified (Name & Yes ) Patient Requires Transmission-Based No Precautions Vital Signs Temperature (97.8 F-99.1 F) 97.7 F L Temperature Source Temporal Pulse Rate (60-100) 62 Pulse Location Monitor Respiratory Rate (12-18) 15 Respiratory rate source Monitor Blood Pressure (90/60-120/80) 130/62 H Blood Pressure Mean (mm Hg) 84 Source Monitor Position Sitting Blood Pressure Location Right Arm History Since Last Visit- (Skip if this is Patient's initial visit) Have you changed medications since your No last visit? Any new allergies or adverse reactions No Had a fall/change in ADL's that may No increase risk of falls Signs or symptoms of abuse and/or No neglect since last visit Have you been in the hospital since your No last visit? Has dressing in place as prescribed Yes Has compression in place as prescribed N/A Has offloadiing in place as prescribed N/A Experienced any changes in pain level or No management Pain Scale: 0-10 Numeric Is Patient Pain Free? Yes - Nurse 1 - General Ulcer Measurement Start: 02/12/25 13:48 Freq: Status: Active Protocol: Activity Type Activity Date Activity User E-sign Co-sign Detail Recorded Client Recorded Date Recorded By Document 02/12/25 13:48 ML [id number] 02/12/25 13:54 ML 02/12/25 13:48 Wound Center Nurse 1 #5 SACRAL -Current Size (cm) - Length 0.8 -Current Size (cm) - Width 0.5 -Current Size (cm) - Depth 0.5 -Total Square Cm 0.40 -Exudate Amt Medium -Exudate Type Serosanguineous -Granulation Amt Medium (34-66%) -Necrosis Amt Medium (34-66%) -Texture (Aure-wound Skin Appearance) Assessed -Moisture (Aure-wound Skin Appearance) Assessed -Color (Aure-wound Skin Appearance) Not Assessed -Temperature (Aure-wound Skin No Abnormality Appearance) (Pt Warm) -Tenderness on Palpation (Aure-wound No Skin Appearance) -Ulcer Cleansing Rinsed/ Irrigated with Saline -Foul Odor after Cleansing No -Anesthetic Used 5% Lidocaine Gel WC - Nurse 2 - General Ulcer CM Notes Start: 02/12/25 13:48 Freq: Status: Active Protocol: Activity Type Activity Date Activity User E-sign Co-sign Detail Recorded Client Recorded Date Recorded By Document 02/12/25 13:58 GM [id number] 02/12/25 14:02 02/12/25 13:58 Wound Center Nurse 2 -Time 13:58 -Correct Patient Yes -Correct Side, Site, Position Yes -Correct Procedure No -Procedure Performed No -Post Debridement (cm) - Length 0.6 -Post Debridement (cm) - Width 1.0 -Post Debridement (cm) - Depth 0.7 -Total Square (Post) (cm) 0.60 -Tunneling No -Undermining/Tunneling No -Circular Undermining No -Wound/Ulcer Outcome Not Healed -Ulcer Cleansing Not Cleansed -Foul Odor after Cleansing No -Bleeding Controlled with Silver Nitrate ($) -Wound Comment(s) had bleeding but was not debrided Pain Scale: 0-10 Numeric Is Patient Pain Free? Yes WC - Nurse 3 - General Ulcer D/C NN Start: 02/12/25 13:48 Freq: Status: Active Protocol: Activity Type Activity Date Activity User E-sign Co-sign Detail Recorded Client Recorded Date Recorded By Document 02/12/25 14:11 ML [id number] 02/12/25 14:12 ML 02/12/25 14:11 Wound Care Center Nurse 3 #5 SACRAL -Ulcer Cleansing Rinsed/ Irrigated with Saline -Primary Dressing Applied Nugauze, Iodoform 1/2in, Silicone Border Foam AG 3.6x4 -Other Dressing atb oint. -Nugauze, Iodoform 1/2in 1 -Silicone Border Foam AG 3.6x4 1 Pain Scale: 0-10 Numeric Is Patient Pain Free? Yes Assessment/Plan Assessment/Plan (1) Pilonidal sinus with abscess: CODE(S): L05.02 - Pilonidal sinus with abscess (2) Debility: CODE(S): R53.81 - Other malaise (3) Type 2 diabetes mellitus with diabetic polyneuropathy: CODE(S): E11.42 - Type 2 diabetes mellitus with diabetic polyneuropathy QUALIFIERS: Diabetes mellitus shelter insulin use: with terminal supervisor use Qualified Code(s): E11.42 - Type 2 diabetes mellitus with diabetic polyneuropathy; Z79.4 - equipment operator intermodal yard (current) use of insulin (4) Personal history of stroke with residual effects: CODE(S): I69.30 - Unspecified sequelae of cerebral infarction (5) Sacral decubitus ulcer, stage III: CODE(S): L89.153 - Pressure ulcer of sacral region, stage 3 PLAN: Plan Appreciated mild oozing from the wound with gentle probing for measurement/cleansing on exam. Visible wound base is granular without significant slough so no debridement performed today. Treated the wound bed with silver nitrate. Continue to apply Gentamicin ointment as prescribed. For wound care: (1) Cleanse the wound with antibacterial soap and water (2) Apply Gentamicin ointment (3) Pack the wound with 1/4 inch iodoform (4) Cover with foam-border dressing (5) Change daily or more often as needed to keep clean and dry. Discussed the importance of offloading pressure to the area, increasing protein/good glycemic control. Return to the wound center in 1 week, sooner as needed.
[2025-02-19 13:38] VITALS: BP 130/67; PULSE 79; RESP 18; TEMP 36.6
--- NOTE | 2025-02-19 17:47 | PCM.WC.PN ---
History of Present Illness Date of Service: 02/19/25 Chief Complaint: Sacral wound History of Wound: Emily Whittaker is a 64 y/o female who was most recently seen her at the wound center primarily by Dr. De Los Santos for chronic wound associated with pilonidal abscess for which she had surgical intervention by Dr. Miller and then local wound care here until this wound healed about 4 weeks ago. Unfortunately, within about 2 weeks of discharge from the wound center a small area within the limits of the prior wound opened up again. She was seen by Dr. Miller last week who excised the pilonidal cyst and they do not feel this is a recurrence, but rather that this area of the wound likely had healed superficially but not deep and thus reopened. Recall that prior to pilonidal sinus excision she'd had this frequently recurrent sacral wound that would intermittently open and heal. She is diabetic. She also has a history of MONCHO, schizophrenia, depression, heart disease, prior CVA. She is accompanied to her appointments by a caregiver. She has visiting home nurses who perform wound care. She states that she frequently changes position for offloading purposes. Subjective Subjective She has had less bloody drainage since last week. Otherwise, stable symptoms. She reports no new concerns brought to her attention by nursing. She is frustrated by the persistence of the wound. She is trying to offload. No purulent or feculent drainage. Objective Data Objective Data Vital Signs: Vital Signs Temp Pulse Resp BP O2 Del Method 98 F 79 18 130/67 H Room Air 02/19/25 13:38 02/19/25 13:38 02/19/25 13:38 02/19/25 13:38 02/19/25 13:38 Oxygen Delivery Method Room Air Charges/Coding Visit Charges Office Visits / Consults: 66069 OV L3 Est 20min Physical Exam Const alert, oriented x3 and no apparent distress Constitutional Narrative: The patient's BMI is 32.3. General Appearance: cooperative and comfortable HEENT normocephalic and head/scalp atraumatic Head and Scalp: normal to inspection Face and Sinus: normal facial exam Nose: external nose normal External Ear: external ears normal Eyes General Eye: normal appearance of both eyes Resp normal respiratory effort, normal air movement, no retractions and no use of accessory muscles Effort and Inspection: able to speak in complete sentences Skin Skin Narrative: Buttocks bilaterally skin is clear and intact with no erythema. Wound Narrative: Small, midline sacral ulcer with some depth but no significant tracking; no significant slough; pink base, serous drainage, mild bleeding with gentle probing of the wound. no surrounding erythema, focal edema, purulent or feculent drainage, foul odor. Neuro oriented x3 and moves all extremities Neuro Narrative: Right hemiparesis is noted. Speech: speech normal Psych thought process normal and cooperative Appearance: grossly normal Debridement Note Debridement Note No debridement was completed: No debridement was completed today Post-Debridement Measurements and Additional Note: Post-Debridement Measurements/Treatment - Nurse 1 - General Ulcer Assessment Start: 02/12/25 13:48 Freq: Status: Active Protocol: WC.Screamin Daily Deals Activity Type Activity Date Activity User E-sign Co-sign Detail Recorded Client Recorded Date Recorded By Document 02/12/25 13:48 ML [id number] 02/12/25 13:54 ML Document 02/19/25 13:38 MT [id number] 02/19/25 13:43 MT 02/12/25 02/19/25 13:48 13:38 - Today's Visit Information Type of service Follow-up Visit Follow-up Visit (Physician/ELECTRIC TRAIN DRIVER (Physician/ELECTRIC TRAIN DRIVER ) ) Arrival Mode Ambulatory Ambulatory Transfer Assistance None Accompanied by daughter Patient Identification Verified (Name & Yes Yes ) Patient Requires Transmission-Based No Precautions Safety Precautions Fall Prevention Vital Signs Temperature (97.8 F-99.1 F) 97.7 F L 98 F Temperature Source Temporal Temporal Pulse Rate (60-100) 62 79 Pulse Location Monitor Monitor Respiratory Rate (12-18) 15 18 Respiratory rate source Monitor Monitor Oxygen Delivery Method Room Air Blood Pressure (90/60-120/80) 130/62 H 130/67 H Blood Pressure Mean (mm Hg) 84 88 Source Monitor Monitor Position Sitting Semi-Fowlers Blood Pressure Location Right Arm Left Forearm History Since Last Visit- (Skip if this is Patient's initial visit) Have you changed medications since your No last visit? Any new allergies or adverse reactions No Had a fall/change in ADL's that may No increase risk of falls Signs or symptoms of abuse and/or No neglect since last visit Have you been in the hospital since your No last visit? Has dressing in place as prescribed Yes Yes Has compression in place as prescribed N/A Yes Has offloadiing in place as prescribed N/A Yes Experienced any changes in pain level or No Yes management Left Footwear Regular Shoe Right Footwear Regular Shoe Pain Scale: 0-10 Numeric Is Patient Pain Free? Yes Yes - Nurse 1 - General Ulcer Measurement Start: 02/12/25 13:48 Freq: Status: Active Protocol: Activity Type Activity Date Activity User E-sign Co-sign Detail Recorded Client Recorded Date Recorded By Document 02/12/25 13:48 ML [id number] 02/12/25 13:54 ML Document 02/19/25 13:38 MT [id number] 02/19/25 13:43 MT 02/12/25 02/19/25 13:48 13:38 Wound Center Nurse 1 #5 SACRAL -Current Size (cm) - Length 0.8 1.5 -Current Size (cm) - Width 0.5 1.4 -Current Size (cm) - Depth 0.5 0.2 -Total Square Cm 0.40 2.10 -Date of Last Picture (Recall this 02/19/25 field) -Photo Taken Yes -Tunneling No -Undermining/Tunneling No -Circular Undermining No -Exudate Amt Medium Medium -Exudate Type Serosanguineous Serosanguineous -Wound Margin Thickened & Rolled Under -Granulation Amt Medium (34-66%) Large (67-100%) -Granulation Quality Pale,Hobe Sound -Necrosis Amt Medium (34-66%) Small (1-33%) -Necrotic Tissue Type Adherent Slough -Texture (Aure-wound Skin Appearance) Assessed Assessed -Moisture (Aure-wound Skin Appearance) Assessed Assessed -Color (Aure-wound Skin Appearance) Not Assessed Assessed -Temperature (Aure-wound Skin No Abnormality No Abnormality Appearance) (Pt Warm) (Pt Warm) -Tenderness on Palpation (Aure-wound No No Skin Appearance) -Ulcer Cleansing Rinsed/ Soap and Water Irrigated with Saline -Foul Odor after Cleansing No No -Anesthetic Used 5% Lidocaine 5% Lidocaine Gel Gel Lower Limb Edema Present NA - Nurse 2 - General Ulcer CM Notes Start: 02/12/25 13:48 Freq: Status: Active Protocol: Activity Type Activity Date Activity User E-sign Co-sign Detail Recorded Client Recorded Date Recorded By Document 02/12/25 13:58 [id number] 02/12/25 14:02 Document 02/19/25 13:58 [id number] 02/19/25 14:01 02/12/25 02/19/25 13:58 13:58 Wound Center Nurse 2 #5 SACRAL -Time 13:58 13:59 -Correct Patient Yes Yes -Correct Side, Site, Position Yes Yes -Correct Procedure No No -Procedure Performed No No -Post Debridement (cm) - Length 0.6 1.3 -Post Debridement (cm) - Width 1.0 2.0 -Post Debridement (cm) - Depth 0.7 0.7 -Total Square (Post) (cm) 0.60 2.60 -Tunneling No No -Undermining/Tunneling No No -Circular Undermining No No -Wound/Ulcer Outcome Not Healed Not Healed -Ulcer Cleansing Not Cleansed Not Cleansed -Foul Odor after Cleansing No No -Bioengineered Tissue No -Bleeding Controlled with Silver Nitrate NA ($) -Offloading No -Wound Comment(s) had bleeding but was not debrided Pain Scale: 0-10 Numeric Is Patient Pain Free? Yes Yes - Nurse 3 - General Ulcer D/C NN Start: 02/12/25 13:48 Freq: Status: Active Protocol: Activity Type Activity Date Activity User E-sign Co-sign Detail Recorded Client Recorded Date Recorded By Document 02/12/25 14:11 [id number] 02/12/25 14:12 Document 02/19/25 14:26 RB [id number] 02/19/25 14:27 02/12/25 02/19/25 14:11 14:26 Wound Care Center Nurse 3 #5 SACRAL -Ulcer Cleansing Rinsed/ Rinsed/ Irrigated with Irrigated with Saline Saline -Primary Dressing Applied Nugauze, Aquacel Rope, Iodoform 1/2in, Silicone Border Silicone Border Foam 6x6 Foam AG 3.6x4 -Other Dressing atb oint. -Aquacel Rope 1 -Nugauze, Iodoform 1/2in 1 -Silicone Border Foam AG 3.6x4 1 -Silicone Border Foam 6x6 1 Treatment Response Procedure Tolerated Well Pain Scale: 0-10 Numeric Is Patient Pain Free? Yes Yes - Visit Discharge Discharge Condition Stable Ambulatory Status Ambulatory Transportation Private Auto Accompanied by daughter Medication Reconcilliation completed & No provided to patient/care provider Clinical Summary of Care Provided Yes Assessment/Plan Assessment/Plan (1) Pilonidal sinus with abscess: CODE(S): L05.02 - Pilonidal sinus with abscess (2) Debility: CODE(S): R53.81 - Other malaise (3) Type 2 diabetes mellitus with diabetic polyneuropathy: CODE(S): E11.42 - Type 2 diabetes mellitus with diabetic polyneuropathy QUALIFIERS: Diabetes mellitus continuous churn buttermaker insulin use: with continuous churn buttermaker use Qualified Code(s): E11.42 - Type 2 diabetes mellitus with diabetic polyneuropathy; Z79.4 - prison (current) use of insulin (4) Personal history of stroke with residual effects: CODE(S): I69.30 - Unspecified sequelae of cerebral infarction (5) Sacral decubitus ulcer, stage III: CODE(S): L89.153 - Pressure ulcer of sacral region, stage 3 PLAN: Plan For wound care: (1) Cleanse the wound with antibacterial soap and water (2) Pack the wound with Aquacel rope (4) Cover with foam-border dressing (5) Change daily or more often as needed to keep clean and dry. Discussed the importance of offloading pressure to the area, increasing protein/good glycemic control. Return to the wound center in 1 week, sooner as needed.
[2025-03-12 14:03] VITALS: BP 171/85; PULSE 88; RESP 16; TEMP 36.4
[2025-03-12 14:32] VITALS: BP 152/84
--- NOTE | 2025-03-12 14:32 | WC ---
PT REQUESTED A B/P RECHECK AND MANUSL BP DONE OF 152
--- NOTE | 2025-03-12 19:45 | PCM.WC.PN ---
History of Present Illness Date of Service: 03/12/25 Chief Complaint: Sacral wound History of Wound: Emily Whittaker is a 64 y/o female who was most recently seen her at the wound center primarily by Dr. De Los Santos for chronic wound associated with pilonidal abscess for which she had surgical intervention by Dr. Miller and then local wound care here until this wound healed about 4 weeks ago. Unfortunately, within about 2 weeks of discharge from the wound center a small area within the limits of the prior wound opened up again. She was seen by Dr. Miller last week who excised the pilonidal cyst and they do not feel this is a recurrence, but rather that this area of the wound likely had healed superficially but not deep and thus reopened. Recall that prior to pilonidal sinus excision she'd had this frequently recurrent sacral wound that would intermittently open and heal. She is diabetic. She also has a history of MONCHO, schizophrenia, depression, heart disease, prior CVA. She is accompanied to her appointments by a caregiver. She has visiting home nurses who perform wound care. She states that she frequently changes position for offloading purposes. Subjective Subjective Keiko returns for follow-up of her sacral wound. They report much less drainage, no bloody drainage, and that wound nurses are having difficulty packing as it has become more shallow. Objective Data Objective Data Vital Signs: Vital Signs Temp Pulse Resp BP O2 Del Method 97.6 F L 88 16 152/84 H Room Air 03/12/25 14:03 03/12/25 14:03 03/12/25 14:03 03/12/25 14:32 03/12/25 14:03 Oxygen Delivery Method Room Air Charges/Coding Visit Charges Office Visits / Consults: 57763 OV L3 Est 20min Physical Exam Const alert, oriented x3 and no apparent distress Constitutional Narrative: The patient's BMI is 32.3. General Appearance: cooperative and comfortable HEENT normocephalic and head/scalp atraumatic Head and Scalp: normal to inspection Face and Sinus: normal facial exam Nose: external nose normal External Ear: external ears normal Eyes General Eye: normal appearance of both eyes Resp normal respiratory effort, normal air movement, no retractions and no use of accessory muscles Effort and Inspection: able to speak in complete sentences Skin Skin Narrative: Buttocks bilaterally skin is clear and intact with no erythema. Wound Narrative: Small, midline sacral ulcer with significantly improved depth, no significant tracking; no significant slough; pink base, serous drainage, mild bleeding with gentle probing of the wound. no surrounding erythema, focal edema, purulent or feculent drainage, foul odor. Neuro oriented x3 and moves all extremities Neuro Narrative: Right hemiparesis is noted. Speech: speech normal Psych thought process normal and cooperative Appearance: grossly normal Debridement Note Debridement Note No debridement was completed: No debridement was completed today Post-Debridement Measurements and Additional Note: Post-Debridement Measurements/Treatment - Nurse 1 - General Ulcer Assessment Start: 02/12/25 13:48 Freq: Status: Active Protocol: [email or web address] Activity Type Activity Date Activity User E-sign Co-sign Detail Recorded Client Recorded Date Recorded By Document 02/12/25 13:48 ML [id number] 02/12/25 13:54 ML Document 02/19/25 13:38 MT [id number] 02/19/25 13:43 MT Document 03/12/25 14:03 TS [id number] 03/12/25 14:11 TS Document 03/12/25 14:32 RB [id number] 03/12/25 14:33 RB 02/12/25 02/19/25 03/12/25 13:48 13:38 14:03 - Today's Visit Information Type of service Follow-up Visit Follow-up Visit Follow-up Visit (Physician/METER REPAIRER HELPER (Physician/METER REPAIRER HELPER (Physician/METER REPAIRER HELPER ) ) ) Arrival Mode Ambulatory Ambulatory Ambulatory Transfer Assistance None Accompanied by daughter Patient Identification Verified (Name & Yes Yes Yes ) Patient Requires Transmission-Based No No Precautions Safety Precautions Fall Prevention Fall Prevention Vital Signs Temperature (97.8 F-99.1 F) 97.7 F L 98 F 97.6 F L Temperature Source Temporal Temporal Temporal Pulse Rate (60-100) 62 79 88 Pulse Location Monitor Monitor Monitor Respiratory Rate (12-18) 15 18 16 Respiratory rate source Monitor Monitor Observation Oxygen Delivery Method Room Air Room Air Blood Pressure (90/60-120/80) 130/62 H 130/67 H 171/85 H Blood Pressure Mean (mm Hg) 84 88 113 Source Monitor Monitor Monitor Position Sitting Semi-Fowlers Sitting Blood Pressure Location Right Arm Left Forearm Right Arm History Since Last Visit- (Skip if this is Patient's initial visit) Have you changed medications since your No No last visit? Any new allergies or adverse reactions No No Had a fall/change in ADL's that may No No increase risk of falls Signs or symptoms of abuse and/or No No neglect since last visit Have you been in the hospital since your No No last visit? Has dressing in place as prescribed Yes Yes Yes Has compression in place as prescribed N/A Yes N/A Has offloadiing in place as prescribed N/A Yes N/A Experienced any changes in pain level or No Yes No management Left Footwear Regular Shoe Regular Shoe Right Footwear Regular Shoe Regular Shoe Pain Scale: 0-10 Numeric Is Patient Pain Free? Yes Yes Yes 03/12/25 14:32 WC - Today's Visit Information Type of service Arrival Mode Transfer Assistance Accompanied by Patient Identification Verified (Name & ) Patient Requires Transmission-Based Precautions Safety Precautions Vital Signs Temperature (97.8 F-99.1 F) Temperature Source Pulse Rate (60-100) Pulse Location Respiratory Rate (12-18) Respiratory rate source Oxygen Delivery Method Blood Pressure (90/60-120/80) 152/84 H Blood Pressure Mean (mm Hg) 106 Source Manual Position Sitting Blood Pressure Location Right Arm History Since Last Visit- (Skip if this is Patient's initial visit) Have you changed medications since your last visit? Any new allergies or adverse reactions Had a fall/change in ADL's that may increase risk of falls Signs or symptoms of abuse and/or neglect since last visit Have you been in the hospital since your last visit? Has dressing in place as prescribed Has compression in place as prescribed Has offloadiing in place as prescribed Experienced any changes in pain level or management Left Footwear Right Footwear Pain Scale: 0-10 Numeric Is Patient Pain Free? Yes 03/12/25 14:32 Wound Center by Alison Hull PT REQUESTED A B/P RECHECK AND MANUSL BP DONE OF 152/84 Initialized on 03/12/25 14:32 - END OF NOTE WC - Nurse 1 - General Ulcer Measurement Start: 02/12/25 13:48 Freq: Status: Active Protocol: Activity Type Activity Date Activity User E-sign Co-sign Detail Recorded Client Recorded Date Recorded By Document 02/12/25 13:48 ML [id number] 02/12/25 13:54 ML Document 02/19/25 13:38 MT [id number] 02/19/25 13:43 MT Document 03/12/25 14:03 TS [id number] 03/12/25 14:11 02/12/25 02/19/25 03/12/25 13:48 13:38 14:03 Wound Center Nurse 1 #5 SACRAL -Combined with other wound No -Current Size (cm) - Length 0.8 1.5 0.5 -Current Size (cm) - Width 0.5 1.4 0.5 -Current Size (cm) - Depth 0.5 0.2 0.1 -Total Square Cm 0.40 2.10 0.25 -Date of Last Picture (Recall this 02/19/25 03/12/25 field) -Photo Taken Yes Yes -Epithelialization Large 67-100% -Tunneling No No -Undermining/Tunneling No No -Circular Undermining No No -Exudate Amt Medium Medium None Present -Exudate Type Serosanguineous Serosanguineous -Wound Margin Thickened & Distinct, Rolled Under Outline Attached -Granulation Amt Medium (34-66%) Large (67-100%) Medium (34-66%) -Granulation Quality Pale,Blacklake Blacklake -Slough/Fibrin No -Necrosis Amt Medium (34-66%) Small (1-33%) None Present (0 %) -Necrotic Tissue Type Adherent Slough -Structure Exposed None/Limited to Skin Breakdown -Texture (Aure-wound Skin Appearance) Assessed Assessed Assessed -Moisture (Aure-wound Skin Appearance) Assessed Assessed Assessed -Color (Aure-wound Skin Appearance) Not Assessed Assessed Assessed -Temperature (Aure-wound Skin No Abnormality No Abnormality No Abnormality Appearance) (Pt Warm) (Pt Warm) (Pt Warm) -Tenderness on Palpation (Aure-wound No No No Skin Appearance) -Ulcer Cleansing Rinsed/ Soap and Water Soap and Water Irrigated with Saline -Foul Odor after Cleansing No No No -Anesthetic Used 5% Lidocaine 5% Lidocaine 5% Lidocaine Gel Gel Gel Lower Limb Edema Present NA WC - Nurse 2 - General Ulcer CM Notes Start: 02/12/25 13:48 Freq: Status: Active Protocol: Activity Type Activity Date Activity User E-sign Co-sign Detail Recorded Client Recorded Date Recorded By Document 02/12/25 13:58 [id number] 02/12/25 14:02 Document 02/19/25 13:58 [id number] 02/19/25 14:01 Document 03/12/25 15:13 [id number] 03/12/25 15:14 02/12/25 02/19/25 03/12/25 13:58 13:58 15:13 Wound Center Nurse 2 #5 SACRAL -Time 13:58 13:59 15:13 -Correct Patient Yes Yes Yes -Correct Side, Site, Position Yes Yes Yes -Correct Procedure No No No -Procedure Performed No No No -Post Debridement (cm) - Length 0.6 1.3 0.3 -Post Debridement (cm) - Width 1.0 2.0 0.4 -Post Debridement (cm) - Depth 0.7 0.7 0.3 -Total Square (Post) (cm) 0.60 2.60 0.12 -Tunneling No No No -Undermining/Tunneling No No No -Circular Undermining No No No -Wound/Ulcer Outcome Not Healed Not Healed Not Healed -Ulcer Cleansing Not Cleansed Not Cleansed Not Cleansed -Foul Odor after Cleansing No No No -Bioengineered Tissue No No -Bleeding Controlled with Silver Nitrate NA NA ($) -Offloading No -Wound Comment(s) had bleeding but was not debrided Pain Scale: 0-10 Numeric Is Patient Pain Free? Yes Yes Yes WC - Nurse 3 - General Ulcer D/C NN Start: 02/12/25 13:48 Freq: Status: Active Protocol: Activity Type Activity Date Activity User E-sign Co-sign Detail Recorded Client Recorded Date Recorded By Document 02/12/25 14:11 ML [id number] 02/12/25 14:12 Document 02/19/25 14:26 RB [id number] 02/19/25 14:27 RB Document 03/12/25 15:26 RB [id number] 03/12/25 15:27 RB 02/12/25 02/19/25 03/12/25 14:11 14:26 15:26 Wound Care Center Nurse 3 #5 SACRAL -Ulcer Cleansing Rinsed/ Rinsed/ Rinsed/ Irrigated with Irrigated with Irrigated with Saline Saline Saline -Primary Dressing Applied Nugauze, Aquacel Rope, Promogran Iodoform 1/2in, Silicone Border Brenda Matter, Silicone Border Foam 6x6 Sacral Foam Foam AG 3.6x4 Border -Other Dressing atb oint. -Aquacel Rope 1 -Nugauze, Iodoform 1/2in 1 -Promogran Brenda Matter 1 -Sacral Foam Border 1 -Silicone Border Foam AG 3.6x4 1 -Silicone Border Foam 6x6 1 Treatment Response Procedure Procedure Tolerated Well Tolerated Well Pain Scale: 0-10 Numeric Is Patient Pain Free? Yes Yes Yes WC - Visit Discharge Discharge Condition Stable Stable Ambulatory Status Ambulatory Ambulatory Transportation Private Auto Private Auto Accompanied by daughter Medication Reconcilliation completed & No No provided to patient/care provider Clinical Summary of Care Provided Yes Yes Assessment/Plan Assessment/Plan (1) Pilonidal sinus with abscess: CODE(S): L05.02 - Pilonidal sinus with abscess (2) Debility: CODE(S): R53.81 - Other malaise (3) Type 2 diabetes mellitus with diabetic polyneuropathy: CODE(S): E11.42 - Type 2 diabetes mellitus with diabetic polyneuropathy QUALIFIERS: Diabetes mellitus intermediate teacher insulin use: with group home use Qualified Code(s): E11.42 - Type 2 diabetes mellitus with diabetic polyneuropathy; Z79.4 - half-way (current) use of insulin (4) Personal history of stroke with residual effects: CODE(S): I69.30 - Unspecified sequelae of cerebral infarction (5) Sacral decubitus ulcer, stage III: CODE(S): L89.153 - Pressure ulcer of sacral region, stage 3 PLAN: Plan Wound size and depth have improved. For wound care: (1) Cleanse the wound with antibacterial soap and water (2) Apply Brenda (3) Cover with foam-border dressing (4) Change every other day or more often as needed to keep clean and dry. Discussed the importance of offloading pressure to the area, increasing protein/good glycemic control. Return to the wound center in 2 weeks, sooner as needed.
--- NOTE | 2025-03-13 07:54 | WC ---
PHOTO-SACRUM 03/12/25
== END 2025-03-13 23:59 | disposition home or self-care (01) ==
LOC: WC 13:45
PROVIDERS: PCP Family Medicine; Referring Provider Family Medicine; Visit Provider Physician Assistant
DX: L05.02 Pilonidal sinus with abscess (principal); L89.153 Pressure ulcer of sacral region, stage 3; E11.42 Type 2 diabetes mellitus with diabetic polyneuropathy; Z79.4 Long term (current) use of insulin; R53.81 Other malaise; I69.30 Unspecified sequelae of cerebral infarction
CPT/HCPCS: 99213; G0463

== ENCOUNTER 2025-03-12 16:31 | Emergency (ER) | payer MEDICARE, MEDICAID, SELFPAY ==
[2025-03-12] VITALS (7 sets, daily range): BP systolic 109–150; BP diastolic 52–75; PULSE 70–89; RESP 10–28; TEMP 36.6–36.8; O2SAT 86–96; BMI 30.3
--- NOTE | 2025-03-12 17:52 | CT_ITS ---
PROCEDURE: CT/Brain/Head without Contrast
--- NOTE | 2025-03-12 17:52 | EKG12_ITS ---
Test Reason : HTN
--- NOTE | 2025-03-12 18:05 | EX.ED.DYSGE1 ---
HPI History of Present Illness Chief Complaint: Hypertension Narrative Narrative: Chief complaint and HPI: 65-year-old female with past medical history of COPD, CVA, HLD, HTN presents for evaluation of HTN. Patient states that several weeks ago her lisinopril was decreased to 10 mg from 20 mg due to frequent hypotension. While at wound care today she was hypertensive with SBP in the 170s. Repeat blood pressure at home was 158/98. Patient complained of headache at that time that has since resolved. She denies any fever, chills, chest pain, shortness of breath, nausea, vomiting. Review of systems: See HPI Medications: As listed on the chart Allergies: As listed on the chart PFSH: Per chart Vital signs: As listed on the chart. Reviewed. Physical exam: Gen: A&O x3, NAD Head: Normocephalic, atraumatic Eyes: No sclera icterus, conjunctiva clear ENT: Moist mucous membranes Neck: Trachea midline CV: RRR, no murmurs, no peripheral edema Resp: Lungs CTA BL, no w/r/c Musc: Moves all extremities Skin: Warm, dry Neuro: Alert, oriented, grossly intact, sensation intact Psych: Cooperative, appropriate mood and affect PFS PFS Medical History Wears glasses Cancer Open wound Insulin dependent diabetes mellitus Diabetes Walker as ambulation aid Uses wheelchair Bladder disease DVT (deep venous thrombosis) Parkinson's disease Wears dentures Dietary restriction Heartburn Smoker Sleep apnea On home oxygen therapy History of echocardiogram History of stress test Cardiology follow-up encounter History of atrial fibrillation Encounter for smoking cessation counseling Surgical wound present Bilateral malignant neoplasm of breast in female Pilonidal sinus with abscess Obesity PTSD (post-traumatic stress disorder) Psychophysiologic insomnia COPD (chronic obstructive pulmonary disease) CVA (cerebral vascular accident) Arthritis Paroxysmal atrial fibrillation Tardive dyskinesia Hypoglycemia unawareness associated with type 2 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 Type 2 diabetes mellitus with unspecified diabetic retinopathy without macular edema Suicidal ideation (10/23/18) Bipolar disorder History of schizophrenia Multiple sclerosis History of DVT (deep vein thrombosis) Personal history of stroke with residual effects Atherosclerotic heart disease of [place] coronary artery without angina pectoris Tobacco abuse Neuropathic pain A-fib Vitamin D deficiency Depression HLD (hyperlipidemia) Type 2 diabetes mellitus Urinary incontinence in female MONCHO (obstructive sleep apnea) Chronic asthma Vaginal candidiasis Contracture of muscle of right lower leg Home Medications ?Medication ?Instructions ?Recorded ?Last Taken ?Type blood-glucose meter (Accu-Chek #1 ea 02/22/21 Unknown Rx Guide Glucose Meter) brexpiprazole 1 mg tablet 1 mg PO DAILY mood 03/07/21 03/11/25 History duloxetine 60 mg capsule,delayed 60 mg PO DAILY depression 03/07/21 03/12/25 History release oxybutynin chloride 10 mg 10 mg PO DAILY BLADDER 04/28/22 03/12/25 History tablet,extended release 24 hr blood-glucose meter (Accu-Chek #1 ea 05/31/22 Unknown Rx Guide Glucose Meter) BD Ultra-Fine Mari Pen Needle 32 #120 ea 08/02/22 Unknown Rx gauge x 5/32 (pen needle, diabetic) rosuvastatin 20 mg tablet 20 mg PO DAILY cholesterol #90 tabs 09/08/22 03/11/25 Rx blood sugar diagnostic (Accu-Chek #100 ea 12/05/22 Unknown Rx Guide test strips) furosemide 20 mg tablet 20 mg PO DAILY edema 12/05/22 03/12/25 History pen needle, diabetic 33 gauge x #400 ea 12/05/22 Unknown Rx 5/32 (Comfort EZ Pen [place]) lancets #100 ea 01/17/23 Unknown Rx blood sugar diagnostic (FreeStyle #100 ea 03/07/23 Unknown Rx Precision Denzel Strips) anastrozole 1 mg tablet 1 mg PO DAILY cancer 03/26/24 03/12/25 History omeprazole 40 mg capsule,delayed 40 mg PO DAILY gerd 03/26/24 03/12/25 History release ondansetron 4 mg disintegrating 4 mg PO Q8H PRN nausea and 08/11/24 03/10/25 Rx tablet vomiting #8 tabs zolpidem 10 mg tablet (Ambien) 5 mg PO QHS sleep 08/15/24 03/11/25 History rivaroxaban 20 mg tablet (Xarelto) 20 mg PO QPM blood thinner #90 09/24/24 03/11/25 Rx TABLETS insulin glargine 100 unit/mL (3 24 unit (0.24 mL) subcut QPM blood 10/16/24 03/11/25 Rx mL) subcutaneous pen (Lantus sugar #30 mL Solostar U-100 Insulin) diltiazem HCl 180 mg capsule,24 180 mg PO QDAY heart #90 caps 12/23/24 03/12/25 Rx hr,extended release tirzepatide 12.5 mg/0.5 mL 12.5 mg (0.5 mL) subcut QWEEK 02/02/25 03/11/25 Rx subcutaneous pen injector diabetes #2 mL (Mounjaro) blood-glucose sensor (FreeStyle #2 ea 02/16/25 Unknown Rx Zoila 3 Plus Sensor device) deutetrabenazine 24 mg 24 mg PO DAILY parkinsons 03/12/25 03/12/25 History tablet,extended release 24 hr (Austedo XR) lisinopril 10 mg tablet 10 mg PO DAILY 03/12/25 03/12/25 History Allergy/AdvReac Type Severity Reaction Status Date / Time mirtazapine (From Remeron) Allergy Intermediate agitation Verified 03/12/25 16:39 Penicillins Allergy Mild Rash Verified 03/12/25 16:39 Family History Mother Diabetes Heart disease Lung cancer CAD (coronary artery disease) CABG CVA (cerebral vascular accident) Daughter Diabetes Father Myocardial infarction Surgical History History of breast lump removal History of excision of pilonidal cyst History of back surgery H/O bilateral cataract extraction Social History Smoking Status: Current some day smoker tobacco type: cigarettes Tobacco: How many years used: 35 Electronic Cigarette Use: not used how long ago did patient quit smoking: about 3 years ago second hand exposure: No alcohol intake: never substance use type: former substance user Date of last use: Used Marijuana in the past caffeine: Yes Type: coffee Number of servings: 1 delmy/bahai: Worship seatbelt use: sometimes EXAM Physical Exam Const Vital Signs: 03/12/25 16:32 03/12/25 17:02 03/12/25 17:03 Temperature 97.9 F 98.2 F Temperature Source Temporal Oral Pulse Rate 89 80 Respiratory Rate 18 28 H Respiratory Effort Normal Respiratory Pattern Normal Blood Pressure 146/75 H 141/71 H Blood Pressure Mean 98 94 Pulse Ox 95 88 Oxygen Delivery Method Room Air Oxygen Flow Rate (L/min) 03/12/25 17:41 03/12/25 19:21 03/12/25 20:00 Temperature Temperature Source Pulse Rate 80 80 76 Respiratory Rate 18 16 10 L Respiratory Effort Respiratory Pattern Blood Pressure 113/52 L 150/60 H 121/62 H Blood Pressure Mean 72 85 79 Pulse Ox 95 96 86 Oxygen Delivery Method Nasal Cannula Oxygen Flow Rate (L/min) 2 03/12/25 21:00 Temperature Temperature Source Pulse Rate 70 Respiratory Rate 12 Respiratory Effort Respiratory Pattern Blood Pressure 109/69 Blood Pressure Mean 79 Pulse Ox 89 Oxygen Delivery Method Oxygen Flow Rate (L/min) MDM MDM MDM Narrative Medical decision making narrative: 65-year-old female with past medical history of COPD, CVA, HLD, HTN presents for evaluation of HTN. Patient states that several weeks ago her lisinopril was decreased to 10 mg from 20 mg due to frequent hypotension. While at wound care today she was hypertensive with SBP in the 170s. Repeat blood pressure at home was 158/98. Patient complained of headache at that time that has since resolved. She denies any fever, chills, chest pain, shortness of breath, nausea, vomiting. On presentation, patient was mildly hypertensive at 146/75. Blood pressure has since been normal tensive without intervention. She is asymptomatic at this time. Differential diagnosis includes was not limited to hypertension urgency, hypertension emergency, symptomatic hypertension, electrolyte abnormality. Laboratory workup ordered including chest x-ray. CT of the head shows no acute intracranial abnormality. Significant right sphenoid sinus disease. Does not correlate clinically. CBC without leukocytosis or anemia. BMP unremarkable. Troponin x 2 unremarkable. UA negative for UTI or blood. Patient has remained asymptomatic here in the emergency department. Her blood pressure is 109/69 on reevaluation. No clear etiology for her hypertension recorded earlier today. Recommend monitoring blood pressure at home. Follow-up with primary care physician. Return precautions explained. Patient stable to discharge home. EKG: Interpreted by me/EM physician: EKG difficult to read, patient has an underlying tremor. However appears to be in normal sinus rhythm with artifact. Heart rate 71. Diagnostic: Interpreted by me/EM physician: Chest x-ray without pneumonia, effusion, cardiomegaly, pneumothorax. Radiology in agreement. Impression: 1. HTN with history of HTN Lab Data Labs: Laboratory Results - last 24 hr 03/12/25 03/12/25 03/12/25 16:58 17:05 19:15 WBC 10.8 RBC 4.60 Hgb 14.0 Hct 42.7 MCV 92.8 MCH 30.4 MCHC 32.8 RDW Std Deviation 45.4 H RDW Coeff of Elias 13.4 Plt Count 327 MPV 9.3 Immature Gran % (Auto) 0.500 Neut % (Auto) 77.1 H Lymph % (Auto) 14.6 L [place] % (Auto) 5.6 Eos % (Auto) 1.6 Baso % (Auto) 0.6 Absolute Neuts (auto) 8.3 H Absolute Lymphs (auto) 1.58 Nucleated RBC % 0 Sodium 139 Potassium 4.1 Chloride 101 Carbon Dioxide 25.7 Anion Gap 12 BUN 16 Creatinine 0.85 Estim Creat Clear Calc 71.63 Est GFR (MDRD) Non-Af 75 BUN/Creatinine Ratio 18.2 Glucose 100 H Calcium 9.4 Troponin T High Sens 10 Troponin T Hi Sens 2 Hr 11 Urine Color Urine Clarity Urine pH Ur Specific Terry Urine Protein Urine Glucose (UA) Urine Ketones Urine Occult Blood Urine Nitrite Urine Bilirubin Urine Urobilinogen Ur Leukocyte Esterase Urine RBC Urine WBC Ur Squamous Epith Cells Urine Bacteria Urine Mucus POC Glucose 101 03/12/25 19:24 WBC RBC Hgb Hct MCV MCH MCHC RDW Std Deviation RDW Coeff of Elias Plt Count MPV Immature Gran % (Auto) Neut % (Auto) Lymph % (Auto) [place] % (Auto) Eos % (Auto) Baso % (Auto) Absolute Neuts (auto) Absolute Lymphs (auto) Nucleated RBC % Sodium Potassium Chloride Carbon Dioxide Anion Gap BUN Creatinine Estim Creat Clear Calc Est GFR (MDRD) Non-Af BUN/Creatinine Ratio Glucose Calcium Troponin T High Sens Troponin T Hi Sens 2 Hr Urine Color Straw Urine Clarity Sl. Cloudy Urine pH 6.5 Ur Specific Terry 1.010 Urine Protein Negative Urine Glucose (UA) Normal Urine Ketones Negative Urine Occult Blood Negative Urine Nitrite Negative Urine Bilirubin Negative Urine Urobilinogen Normal Ur Leukocyte Esterase Negative Urine RBC 0-5 SEEN Urine WBC 0-5 SEEN Ur Squamous Epith Cells 0-5 SEEN Urine Bacteria 0 SEEN Urine Mucus 0 SEEN POC Glucose Radiography Diagnostic Testing: Clinical Impression(s) from Imaging Studies Brain CT 03/12/25 17:52 IMPRESSION: 1. No acute intracranial abnormality. 2. Significant right sphenoid sinus disease. Reading Location: [facility] Chest X-Ray 03/12/25 18:15 IMPRESSION: NO ACUTE FINDINGS. Reading Location: [facility] Discharge Plan Triage Chief Complaint: Hypertension ED Provider: Devonte Kulkarni Dx/Rx/DC Orders Prescriptions: No Action zolpidem [Ambien] 10 mg tablet 5 mg PO QHS duloxetine 60 mg capsule,delayed release(DR/EC) 60 mg PO DAILY brexpiprazole 1 mg tablet 1 mg PO DAILY furosemide 20 mg tablet 20 mg PO DAILY (DME) Accu-Chek Guide test strips Strip See Rx Instructions .ROUTE .MEDSUPPLY Qty: 100 12RF Rx Instructions: TID (DME) Comfort EZ Pen [place] 33 gauge x 5/32 needle See Rx Instructions .ROUTE .MEDSUPPLY Qty: 400 3RF Rx Instructions: 4 times daily ondansetron 4 mg tablet,disintegrating 4 mg PO Q8H PRN (Reason: nausea and vomiting) Qty: 8 2RF oxybutynin chloride 10 mg tablet extended release 24hr 10 mg PO DAILY anastrozole 1 mg tablet 1 mg PO DAILY omeprazole 40 mg capsule,delayed release(DR/EC) 40 mg PO DAILY [place] XR 24 mg tablet extended release 24 hr 24 mg PO DAILY lisinopril 10 mg tablet 10 mg PO DAILY (DME) blood-glucose meter [Accu-Chek Guide Glucose Meter] Misc See Rx Instructions .ROUTE .MEDSUPPLY Qty: 1 0RF Rx Instructions: As directed (DME) blood-glucose meter [Accu-Chek Guide Glucose Meter] Misc See Rx Instructions .Route Qty: 1 0RF Rx Instructions: As directed (DME) pen needle, diabetic [BD Ultra-Fine Mari Pen Needle] 32 gauge x 5/32 needle See Rx Instructions .ROUTE .MEDSUPPLY Qty: 120 6RF Rx Instructions: 4 times daily rosuvastatin 20 mg tablet 20 mg PO DAILY Qty: 90 1RF (DME) lancets Misc See Rx Instructions .ROUTE .MEDSUPPLY Qty: 100 12RF Rx Instructions: TID (DME) FreeStyle Precision Denzel Strips Strip See Rx Instructions .Route Qty: 100 5RF Rx Instructions: TID Xarelto 20 mg tablet 20 mg PO QPM Qty: 90 3RF Patient Comments: LAST DOSE WILL BE 09/07 insulin glargine [Lantus Solostar U-100 Insulin] 100 unit/mL (3 mL) insulin pen 24 unit subcut QPM Qty: 30 1RF diltiazem HCl 180 mg capsule,extended release 24 hr 180 mg PO QDAY Qty: 90 3RF Mounjaro 12.5 mg/0.5 mL pen injector 12.5 mg subcut QWEEK Qty: 2 3RF Patient Comments: LAST DOSE 09/03/24 (DME) FreeStyle Zoila 3 Plus Sensor Device See Rx Instructions .Route Qty: 2 5RF Rx Instructions: 1 sensor q 15 days Primary Care Provider: Jered Howard Referrals: Jered Howard MD [Primary Care Provider, Family Practice] Print Language: Burmese
[2025-03-12 18:08] LABS: Hematocrit 42.7 % (37-47); Hemoglobin 14.0 g/dL (12.0-15.0); Immature Granulocytes Count 0.050 X10^3/uL (0.0-0.0); Mean Corp Hgb Conc 32.8 g/dL (32-36); Mean Corpuscular Volume 92.8 fL (81-99); Mean Platelet Vol. 9.3 fl (6.2-12.0); NRBC Flagged by Analyzer 0 % (0-5); Platelet Count 327 K/mm3 (150-450); RBC Distribution Width CV 13.4 % (11.6-14.6); RBC Distribution Width SD 45.4 fl (35.1-43.9); Red Blood Count 4.60 M/mm3 (4.2-5.4); White Blood Count 10.8 K/mm3 (4.4-11.0)
--- NOTE | 2025-03-12 18:15 | RAD_ITS ---
PROCEDURE: RAD/Chest PA and Lateral
--- NOTE | 2025-03-12 18:55 | ED.RN ---
LAB CALLED FOR OUTSTANDING CHEMISTRY RESULTS AT THIS TIME. RESPONSE, IT WILL BE ABOUT 8 MINUTES
[2025-03-12 19:13] LABS: Anion Gap 12 (5-15); BUN 16 mg/dL (4-19); BUN/Creat Ratio 18.2 RATIO (10-20); Calcium,Total 9.4 mg/dL (7.6-11.0); Carbon Dioxide 25.7 mmol/L (21.0-32.0); Chloride 101 mmol/L (98-108); Estimated Creatinine Clearance 71.63 ml/min (50-250); Glucose 100 mg/dL (70-99); Potassium 4.1 mmol/L (3.3-5.1); Troponin T High Sensitivity 10 ng/L (<=14)
[2025-03-12 19:30] LABS: Mucous, Urine 0 SEEN /hpf (<or=2+)
[2025-03-12 19:33] LABS: Color, Urine Straw (Yellow); Glucose, Dipstick Normal (Normal); Ketone-Dipstick Negative (Negative); Leukocyte Esterase-Dipstick Negative /ul (Negative); Nitrite-Dipstick Negative (Negative); Occult Blood-Urine Negative /ul (Negative); Protein-Dipstick Negative (Negative); Specific Gravity, Urine 1.010 (1.002-1.030); Urine Bilirubin Dipstick Negative (Negative)
[2025-03-12 19:49] LABS: Troponin T High Sens 2 HR 11 ng/L (<=14)
[2025-03-12 19:49] LABS: Red Blood Cells-Urine 0-5 SEEN /hpf (0-5); Squamous Epithelial Cells - UA 0-5 SEEN /hpf (5-10)
== END 2025-03-12 21:22 | disposition home or self-care (01) ==
PROVIDERS: Emergency Provider Surgery; PCP Family Medicine; Visit Provider Surgery
DX: I10 Essential (primary) hypertension (principal); J44.9 Chronic obstructive pulmonary disease, unspecified; Z79.4 Long term (current) use of insulin; E11.9 Type 2 diabetes mellitus without complications; I25.10 Atherosclerotic heart disease of native coronary artery without angina pectoris; I95.9 Hypotension, unspecified; E78.5 Hyperlipidemia, unspecified; Z86.73 Personal history of transient ischemic attack (TIA), and cerebral infarction without residual deficits; Z79.899 Other long term (current) drug therapy; F17.210 Nicotine dependence, cigarettes, uncomplicated
CPT/HCPCS: 70450; 71046; 80048; 81001; 82962; 84484; 85025; 93005; 99284; A4216